=== PATIENT | male | born 1950 | race Caucasian/White ===

== ENCOUNTER → 2017-04-07 | Outpatient (CLI) | payer MEDICARE ==
[~2017-04-07] VITALS: Ht 170.2 cm; Wt 87.5 kg
[~2017-04-07] MED LIST: ASPI-482 PO; ATORVASTATIN CA80 MG PO; FLUO10TA PO; FLUT16SP NS; GABA600T2 PO; GLIP5TAB10 PO; KETO15CR2 TP; LISI-338 PO; LORA10TA3 PO; METF-620 PO; MIRT30TA3 PO
[2017-04-07] MEDS: REGADENOSON 0.4 MG/5 ML DISP.SYRIN. IV ONE (08:15)
--- NOTE | 2017-04-07 11:53 | RAD ---
APPROVED REPORT Test Type: Pharmacological Stress Nurse/Tech: Chichi Regalado R.N. Test Indications: risk factors Cardiac History: Hypertension, Diabetes, former smoker Medications: See Electronic Medical Record Medical History: See Electronic Medical Record Resting ECG: NSR Resting Heart Rate: 79 bpm Resting Blood Pressure: 143/82mmHg Pretest Chest Pain: No chest pain Nurse/Tech Notes S1S2, lungs sound clear Consent: The procedure was explained to the patient in lay terms. Informed consent was witnessed. Stephen eout was entered into [email or web address]. History and Stress Test performed by Chichi Regalado R.N. Pharm. Details Pharmacologic stress testing was performed using 0.4mg per 5ml of regadenoson given intravenously ove r 7-10 seconds. Stress Symptoms DyspneaDizziness POST EXERCISE Reason for Termination: Infusion complete Max HR: 98 bpm Max Blood Pressure: 148/80mmHg Blood Pressure response to exercise: Normal blood pressure response during stress. Chest Pain: No. Arrhythmia: No. ST Change: No. INTERPRETATION Stress EKG Conclusion: No evidence of stress induced EKG changes. Imaging Protocol IMAGE PROTOCOL: Rest Tc-99m/stress Tc-99m 1 day Rest: Stress: Viability: Radiopharm.Tc99m [id number] Sestamibi Dose12.4mCi 33mCi Img Date 04/07/2017 04/07/2017 Inj-Img [id number]. 75min. Rest Admin Site:IV - Left AntecubitalAdministrator:KRYSTYNA Penn Stress Admin Site: IV - Left AntecubitalAdministrator: Zeus Eason, (R)(N) STRESS DATA End Diast. Vol.129.0mlAv. Heart Rate83.0bpm End Syst. Vol.60.0mlCO Index BSA0.0L/min Myocardial Mtoc386.0gEject. Lmfopsgr32.0% Stress Rates Pk. Fill Rate2.75EDV/secLVtime Pk. Fill 184.18msec Pk. Empty Rate3.13ESV/secLVtime Pk. Ufptn089.30msec 10/05 Pk. Fill0.77EDV/sec Stress Scores Regional WT1.00Summed WT3.00 Regional WM0.00Summed WM7.00 The rest and stress images show normal perfusion, normal contraction and thickening. LV Perf. Quant 17 Seg. SSS0.00 17 Seg. SRS0.00 17 Seg. SDS0.00 Stress Defect Extent (% LAD)0.00Rest Defect Extent (% LAD)0.00Rev. Defect Extent (% LAD)0.00 Stress Defect Extent (% LCX) 0.00Rest Defect Extent (% LCX)0.00Rev. Defect Extent (% LCX)0.00 Stress Defect Extent (% RCA)0.00Rest Defect Extent (% RCA)0.00Rev. Defect Extent (% RCA)0.00 Stress Defect Extent (% LUIS)0.00Rest Defect Extent (% LUIS)0.00Rev. Defect Extent (% LUIS)0.00 Other Information Quality:Average Risk Assessment: Low Risk Conclusion 1. No evidence of stress induced EKG changes. 2. Normal perfusion at stress/rest. 3. Low normal EF at 55% 4. Low risk study.
== END | disposition home or self-care (01) ==
LOC: NM 07:26
PROVIDERS: ATTEND Nurse Practitioner
DX: I10 Essential (primary) hypertension (principal); E78.5 Hyperlipidemia, unspecified
CPT/HCPCS: 78452; 93017; 96374; 96375; 96376; A9500; J2785

== ENCOUNTER → 2019-05-02 | Day surgery (SDC) | payer MEDICARE, BC ==
[~2019-05-02] MED LIST changes: +BUME1TAB3 PO; +FLUO10CA7 PO; -GABA600T2 PO; +GABA600T7 PO; +HYDROmorphone 2 MG/ML VIAL IV PRN; +IV RINGERS,LACTATED 1000ML 1,000 ML IV SCH; +LIDOCAINE 2% PF 5 ML VIAL. ONE; +LOSA-73 PO; -METF-620 PO; +METF10007 PO; +MORPHINE SULFATE 2 MG/ML VIAL. IV PRN; +OMEP20CA10 PO; +ONDANSETRON PF 4 MG/2 ML VIAL. IV PRN; +PIOG30TA41 PO; +POTA10TA12 PO; +PROCHLORPERAZINE 10 MG/2 ML VIAL. IV PRN; +PROPOFOL 40 ML IV ONE; +SEMA1PEN SQ; +WARF-78 PO; +fentaNYL PF VIAL 100 MCG/2 ML VIAL IV PRN
[2019-05-02 08:27] VITALS: BP 164/79
--- NOTE | 2019-05-03 15:07 | PATHOLOGY ---
[facility] Accession Number: [id number] . 01 Material submitted: . PART A: duodenum - DUODENAL BIOPSY PART B: duodenum - DUODENAL POLYP PART C: colon - RANDOM COLON BIOPSY . 01 Clinical history: . Diarrhea . 02 Diagnosis: A. Duodenal biopsies: - No significant pathologic abnormalities. . B. Duodenal biopsy, duodenal polyp: - Lara's gland hamartoma. . C. Colonic mucosa, random colon biopsies: - No significant pathologic abnormalities. (JPM:megan; 05/03/2019) QMS/05/03/2019 . 02 Comment: Sections of the duodenal biopsy reveal multiple segments of duodenal and small intestine mucosa. Where best oriented, the mucosal villi show no sprue-like changes or significant inflammatory changes. . 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 There are no adenomatous changes or evidence of malignancy. . Sections of the random colon biopsy reveal multiple segments of colonic mucosa containing several mucosal-associated lymphoid aggregates. There is no evidence of a chronic destructive colitis, lymphocytic colitis, or collagenous colitis. (JPM:megan; 05/03/2019) . 02 Electronically signed: . Wilner Hyde MD, Pathologist NPI- [id number] . 01 Gross description: . A. Received in formalin labeled "Dennis Reynolds, duodenal BX, rule out celiac sprue," are multiple segments of arboleda soft tissue measuring 1.6 x 0.4 x 0.1 cm in aggregate dimensions. The specimen is filtered and entirely submitted in cassette A1. . B. Received in formalin labeled "Dennis Reynolds, duodenal polyp," is a 0.8 x 0.6 x 0.6 cm polypoid piece of arboleda soft tissue. The margin is inked and the tissue is sectioned perpendicular to the margin and submitted entirely in cassette B1 and B2. . C. Received in formalin labeled "Rodolfo, Dennis, random colon BX," are multiple segments of arboleda soft tissue measuring 2.0 x 0.6 x 0.1 cm in aggregate dimensions. The specimen is filtered and entirely submitted in cassette C1. (TSD; 05/02/2019) TOB/TOB . 02 Pathologist provided ICD-10: K31.7, R19.7 . 02 CPT . 915411, 660688, 215987 Specimen Comment: A courtesy copy of this report has been sent to Specimen Comment: [phone], . Specimen Comment: Report sent to / DR VARGAS Performed at: 01 [facility] [address] [facility] [address], [place] [id number] MD Douglas Muñoz MD Phone: [phone] Performed at: 02 [facility] [address] [place], [place] [id number] MD Wilner Hyde MD Phone: [phone]
== END ==
LOC: SURG 06:18
PROVIDERS: ATTEND Internal Medicine Gastroenterology
DX: K29.50 Unspecified chronic gastritis without bleeding (principal); K31.7 Polyp of stomach and duodenum; K64.0 First degree hemorrhoids; K63.89 Other specified diseases of intestine; E11.22 Type 2 diabetes mellitus with diabetic chronic kidney disease; N18.9 Chronic kidney disease, unspecified; K21.9 Gastro-esophageal reflux disease without esophagitis; E78.00 Pure hypercholesterolemia, unspecified; Z85.828 Personal history of other malignant neoplasm of skin; Z86.73 Personal history of transient ischemic attack (TIA), and cerebral infarction without residual deficits; Z72.89 Other problems related to lifestyle; Z79.84 Long term (current) use of oral hypoglycemic drugs; Z98.890 Other specified postprocedural states; Z79.899 Other long term (current) drug therapy
CPT/HCPCS: 43239; 43251; 43255; 45380; 88305; C1757; J2001; J2704; 82962

== ENCOUNTER → 2021-02-18 | Outpatient (CLI) | payer MEDICARE, BC ==
[2019-05-02 08:27] VITALS: BP 164/79
[~2021-02-18] MED LIST changes: +FLUO10CA15 PO; -FLUO10CA7 PO; +GADOTERATE 7.5 MMOL/15ML VIAL. IVP ONE; -HYDROmorphone 2 MG/ML VIAL IV PRN; -IV RINGERS,LACTATED 1000ML 1,000 ML IV SCH; -LIDOCAINE 2% PF 5 ML VIAL. ONE; -LISI-338 PO; +LISI-517 PO; -MORPHINE SULFATE 2 MG/ML VIAL. IV PRN; -OMEP20CA10 PO; +OMEP20CA16 PO; -ONDANSETRON PF 4 MG/2 ML VIAL. IV PRN; -POTA10TA12 PO; +POTASSIUM CHLO10 ME1 PO; -PROCHLORPERAZINE 10 MG/2 ML VIAL. IV PRN; -PROPOFOL 40 ML IV ONE; -WARF-78 PO; +WARF5TAB2 PO; -fentaNYL PF VIAL 100 MCG/2 ML VIAL IV PRN
--- NOTE | 2021-02-18 12:49 | KCIC ---
MR LUMBAR SPINE WO [id number] Date: 02/18/2021 9:25 AM Indication: DIARRHEA, LEG CLAUDICATION, SPINAL STENOSIS. Lower abdominal pain x 4 yrs. Neuropathy, p ain, numbness, tingling BLE. Comparison: CT abdomen pelvis 10/19/2020. Technique: Multi-planar multi-weighted magnetic resonance imaging of the lumbar spine was performed w ithout intravenous contrast using the standard lumbar spine protocol. FINDINGS: The lumbar spine is normally aligned. No acute fracture. Mild to moderate multilevel degenerative dis c desiccation and disc height loss. Scattered vertebral body hemangiomas. The conus terminates at a normal level. No abnormal signal is seen within the visualized distal spina l cord. No clumping of intrathecal nerve roots. No soft tissue abnormality in the visualized abdomen or pelvis. T12-L1: No disc bulge. No facet arthropathy. No significant spinal stenosis or neural foraminal narro wing. L1-L2: Disc bulge. Mild facet arthropathy. No significant spinal stenosis or neural foraminal narrowi ng. L2-L3: Disc bulge with annular tear. Mild facet arthropathy. Mild spinal stenosis. Mild bilateral christiano ral foraminal narrowing. L3-L4: Disc bulge. Mild facet arthropathy. No significant spinal stenosis. Mild bilateral neural fora theo narrowing. L4-L5: Disc bulge with annular tear. Mild facet arthropathy. No significant spinal stenosis. Mild to moderate neural foraminal narrowing. L5-S1: Disc bulge with annular tear and left paracentral/foraminal/far lateral protrusion. Mild facet arthropathy. No spinal stenosis. Mild right and severe left lateral recess narrowing. Mild to modera te right and severe left neural foraminal narrowing. IMPRESSION: Lumbar spondylosis, worst at L5-S1 with severe narrowing of the left lateral recess and left neural f oramen. Electronically signed by: Connor Carranza MD (02/18/2021 12:47 PM) [id number]
--- NOTE | 2021-02-18 16:37 | KCIC ---
STUDY: MRI pelvis without contrast INDICATION: Spinal stenosis. Neuropathy, pain, numbness and lower extremity tingling. COMPARISON: CT abdomen/pelvis 10/19/2020 TECHNIQUE: Multiplanar MR imaging of the pelvis performed without the use of intravenous contrast. FINDINGS: No fracture or focally aggressive marrow signal abnormality. Degenerative changes at the lower lumbar spine, particularly lateralized to the left at L5-S1, fully outlined on the dedicated same day lumba r spine MRI. Minimal sacroiliac joint arthrosis. Muscular bulk is symmetric with mild scattered fatty infiltration. No presacral mass or fluid collection. No abnormality seen along the lumbosacral plexus. The sacral n eural foramina are patent. Small amount of well-formed stool within the rectum. Prominent and nodular prostate gland. IMPRESSION: 1. No fracture or focally aggressive marrow signal abnormality involving the sacrum or partially gladys ged iliac bones. 2. No mass, fluid collection or other abnormality seen along the lumbosacral plexus to explain the p atient's symptoms. 3. Minimal sacroiliac joint arthrosis. Lumbar spine findings detailed in a separate report. 4. Nodular prostate gland which is enlarged. Electronically signed by: JHONY SHANE MD (02/18/2021 4:35 PM) [id number]
== END ==
LOC: KCIC MRI 09:10
PROVIDERS: ATTEND Internal Medicine Gastroenterology
DX: M47.817 Spondylosis without myelopathy or radiculopathy, lumbosacral region (principal); M48.07 Spinal stenosis, lumbosacral region; N40.0 Benign prostatic hyperplasia without lower urinary tract symptoms; M46.1 Sacroiliitis, not elsewhere classified
CPT/HCPCS: 72148; 72195; 82565

== ENCOUNTER 2021-08-01 15:50 | Inpatient (IN) | payer MEDICARE, BC ==
[~2021-08-01] VITALS: Ht 170.2 cm; Wt 82.2 kg
[~2021-08-01 15:50] MED LIST changes: -FLUO10CA15 PO; +FLUO10CA17 PO; -GADOTERATE 7.5 MMOL/15ML VIAL. IVP ONE; -LISI-517 PO; +LISI5TAB15 PO; +MIRT-8 PO; -MIRT30TA3 PO
[2021-08-01] MEDS ORDERED: VANCOMYCIN PER PHARMACY MC ONE (17:45)
--- NOTE | 2021-08-01 18:10 | PHYS DOC ---
Past Medical History Additional Past Medical Histor: PTSD Past Surgical History: No Surgical History Smoking Status: Never Smoker Alcohol Use: None General Adult EDM: Chief Complaint: TOE PROBLEM HPI: HPI: Patient is a 70 year old male who presents with was sent in by Dr. Cobos after being seen for a right foot diabetic wound. Patient states is been going on for the last 48 hours. Patient states he has had chills but denies any kind of fever, bodies, nausea, vomiting, diarrhea, headache or dizziness. Patient denies any pain because he has neuropathy in his feet. Patient has history of diabetes, hypertension, kidney disease II, high cholesterol, A. fib, right-sided brain hemorrhage stroke. is at bedside. Review of Systems: Review of Systems: Constitutional: Denies fever or chills. [] Eyes: Denies change in visual acuity. [] HENT: Denies nasal congestion or sore throat. [] Respiratory: Denies cough or shortness of breath. [] Cardiovascular: Denies chest pain or edema. [] GI: Denies abdominal pain, nausea, vomiting, bloody stools or diarrhea. [] : Denies dysuria. [] Musculoskeletal: Denies back pain or joint pain. [] Integument: Denies rash. [] Neurologic: Denies headache, focal weakness or sensory changes. [] Endocrine: Denies polyuria or polydipsia. [] Lymphatic: Denies swollen glands. [] Psychiatric: Denies depression or anxiety. [] Heart Score: C/O Chest Pain: No Risk Factors: Risk Factors: DM, Current or recent (<one month) smoker, HTN, HLP, family history of CAD, obesity. Risk Scores: Score 0 - 3: 2.5% MACE over next 6 weeks - Discharge Home Score 4 - 6: 20.3% MACE over next 6 weeks - Admit for Clinical Observation Score 7 - 10: 72.7% MACE over next 6 weeks - Early Invasive Strategies Current Medications: Current Medications Medications (Trade) Dose Ordered Sig/Roderick Start Time Stop Time Status Last Admin Dose Admin Vancomycin HCl (Vanco Per Pharmacy) 1 each 1X ONCE 08/01/21 17:45 08/01/21 17:51 DC Vancomycin HCl 2 gm/Sodium Chloride 500 ml @ 250 mls/hr 1X ONCE 08/01/21 18:30 08/01/21 20:29 Allergies: Allergies: Allergies Coded Allergies Type Severity Reaction Last Updated Verified No Known Drug Allergies 05/02/19 No Physical Exam: PE: Constitutional: Well developed, well nourished, no acute distress, non-toxic lorenzo earance. [] HENT: Normocephalic, atraumatic, bilateral external ears normal, oropharynx moist, no oral exudates, nose normal. [] Eyes: PERRLA, EOMI, conjunctiva normal, no discharge. [] Neck: Normal range of motion, no tenderness, supple, no stridor. [] Cardiovascular:Heart rate regular rhythm, no murmur [] Lungs & Thorax: Bilateral breath sounds clear to auscultation [] Abdomen: Bowel sounds normal, soft, no tenderness, no masses, no pulsatile masses. [] Skin: Warm, dry, no erythema, no rash. [] Back: No tenderness, no CVA tenderness. [] Extremities: No tenderness, no cyanosis, no clubbing, ROM intact, no edema. [] Neurologic: Alert and oriented X 3, normal motor function, normal sensory function, no focal deficits noted. [] Psychologic: Affect normal, judgement normal, mood normal. [] Current Patient Data: Vital Signs: Vital Signs Date Time Temp Pulse Resp B/P (MAP) Pulse Ox O2 Delivery O2 Flow Rate FiO2 08/01/21 17:48 98.0 67 18 117/62 (80) 98 Room Air 98.0 EKG: EKG: [] Radiology/Procedures: Radiology/Procedures: [] Impression: [facility] [address] [place], [place] [id number] IMAGING REPORT Signed PATIENT: CAMILLE POLLOCK ACCOUNT: [id number] : 1950 LOCATION: ER AGE: 70 SEX: M EXAM STATUS: REG ER ORD. PHYSICIAN: VARGHESE FRANCOIS [employer] REASON: BLACK TOES, DIABETIC WOUND PROCEDURE: VENOUS LOWER EXTREMITY RIGHT EXAM: 1. Right lower extremity arterial Doppler. 2. Right lower extremity venous Doppler. HISTORY: Right lower extremity pain/swelling. Necrotic toes, nonhealing diabetic ulcer. COMPARISON: None. FINDINGS: Grayscale and Doppler analysis of the right lower extremity arterial system was performed. There are triphasic waveforms from the common femoral artery through the distal superficial femoral artery. They become monophasic within the popliteal artery, posterior tibial artery and anterior tibial artery. The peroneal artery demonstrates biphasic flow. The dorsalis pedis artery is patent. Grayscale and Doppler analysis of the right lower extremity deep venous system was performed with graded compression and augmentation. The common femoral, greater saphenous, superficial femoral, popliteal and calf veins were assessed. There is no evidence of deep venous thrombosis. IMPRESSION: 1. 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 2. No evidence of deep venous thrombosis. Electronically signed by: Cheryl Lao MD (08/01/2021 6:40 PM) [facility] DICTATED and SIGNED BY: JENI LAO MD DATE: 08/01/21 [id number] [facility] [address] [place] [address] IMAGING REPORT Signed PATIENT: CAMILLE POLLOCK ACCOUNT: [id number] : 1950 LOCATION: [address] [place] [address] AGE: 70 SEX: M EXAM STATUS: ADM IN ORD. PHYSICIAN: VARGHESE FRANCOIS APRN REASON: black toes and cellulitis, STREAKING UP ANTERIOR LEG FROM TOES TO KNEE. PROCEDURE: CT LOWER EXTREMITY WO RIGHT EXAM: CT right lower extremity without contrast. HISTORY: Gangrenous toes, cellulitis, changes extending to knee. TECHNIQUE: CT of the right lower extremity from the distal thigh through the toes was performed without intravenous contrast. One or more of the following individualized dose reduction techniques were utilized for this examination: 1. Automated exposure control. 2. Adjustment of the mA and/or kV according to patient size. 3. Use of iterative reconstruction technique. COMPARISON: None. FINDINGS: No fluid collection or soft tissue gas is identified within the foot or ankle. There is no gross cortical erosion suggestive of acute osteomyelitis. There is some soft tissue swelling along the plantar aspect of the foot. There are regions of fatty atrophy within the medial head of the gastrocnemius muscle and the soleus muscle. There is also atrophy within the intrinsic musculature of the foot. There are diffuse atherosclerotic calcifications. No fractures are identified. The joint spaces and alignment of the knee and ankle are maintained. IMPRESSION: 1. No fluid collection or soft tissue gas. Electronically signed by: Cheryl Lao MD (08/01/2021 8:43 PM) [facility] DICTATED and SIGNED BY: JENI LAO MD DATE: 08/01/[id number] 0 Course & Med Decision Making: Course & Med Decision Making Pertinent Labs and Imaging studies reviewed. (See chart for details) See HPI. Pedal pulse is present. First and second toe are black and 1+ swelling. states yesterday they were bleeding. Patient does have some cellulitis starting on the dorsal foot and Dr. Cobos outlined a red streak that goes up the tomas. X-ray was taken at [facility] yesterday by Dr. Cobos. Have started vancomycin. X-ray from [facility] on July 30 showed no acute findings. [] Dragon Disclaimer: Dragon Disclaimer: This electronic medical record was generated, in whole or in part, using a voice recognition dictation system. Departure Departure Impression: Primary Impression: Cellulitis Qualified Codes: L03.119 - Cellulitis of unspecified part of limb Additional Impression: Necrotic toes Disposition: ADMITTED INPATIENT Admitting Physician: ANAHI Condition: STABLE Referrals: ROBIN VARGAS MD (PCP) VARGHESE FRANCOIS [employer] Aug 01, 2021 18:10
[2021-08-01] MEDS ORDERED: VANCOMYCIN 2 GM in IV NORMAL SALINE 500ML BAG 500 ML IV ONE (18:30)
[2021-08-01 18:36] LABS: BASO # 0.1 x10^3/uL (0.0-0.2); BASO % 1 % (0-3); EOS # 0.2 x10^3/uL (0.0-0.7); EOS % 2 % (0-3); HEMATOCRIT 28.5 % (39.0-53.0); HEMOGLOBIN 9.7 g/dL (13.0-17.5); LYMPH % 10 % (24-48); MEAN CORPUSCULAR HEMOGLOBIN 31 pg (25-35); MEAN CORPUSCULAR HGB CONC 34 g/dL (31-37); MEAN CORPUSCULAR VOLUME 90 fL (79-100); MONO % 10 % (0-9); NEUT # 7.8 x10^3/uL (1.8-7.7); NEUT % 77 % (31-73); PLATELET COUNT 203 x10^3/uL (140-400); RED BLOOD COUNT 3.17 x10^6/uL (4.30-5.70); RED CELL DISTRIBUTION WIDTH 14.7 % (11.5-14.5); WHITE BLOOD COUNT 10.2 x10^3/uL (4.0-11.0)
--- NOTE | 2021-08-01 18:42 | RAD ---
EXAM: 1. Right lower extremity arterial Doppler. 2. Right lower extremity venous Doppler. HISTORY: Right lower extremity pain/swelling. Necrotic toes, nonhealing diabetic ulcer. COMPARISON: None. FINDINGS: Grayscale and Doppler analysis of the right lower extremity arterial system was performed. There are triphasic waveforms from the common femoral artery through the distal superficial femoral a rtery. They become monophasic within the popliteal artery, posterior tibial artery and anterior tibia l artery. The peroneal artery demonstrates biphasic flow. The dorsalis pedis artery is patent. Grayscale and Doppler analysis of the right lower extremity deep venous system was performed with gra ded compression and augmentation. The common femoral, greater saphenous, superficial femoral, poplite al and calf veins were assessed. There is no evidence of deep venous thrombosis. IMPRESSION: 1. 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 2. No evidence of deep venous thrombosis. Electronically signed by: Cheryl Lao MD (08/01/2021 6:40 PM) [facility]
[2021-08-01 18:50] LABS: CALCIUM 8.4 mg/dL (8.5-10.1); POTASSIUM 4.2 mmol/L (3.5-5.1)
[2021-08-01 18:56] LABS: ALBUMIN 2.8 g/dL (3.4-5.0); ALBUMIN/GLOBULIN RATIO 0.7 (1.0-1.7); C-REACTIVE PROTEIN 68.4 mg/L (0-3.3); TOTAL BILIRUBIN 0.3 mg/dL (0.2-1.0)
[2021-08-01] MEDS ORDERED: ACETAMINOPHEN 325 MG TABLET. PO PRN ×2 (19:45→21:15)
[2021-08-01] MEDS ORDERED: cefTRIAXone IV Push 2 GM VIAL. IVP ONE (20:00)
--- NOTE | 2021-08-01 20:12 | PDOC1 ---
History and Physical Date of Admission Date of Admission DATE: 08/01/21 TIME: 20:06 Identification/Chief Complaint Chief Complaint Necrosis of right toes Source Source: Patient History of Present Illness History of Present Illness Patient is a 70-year-old male with past medical history DM2, diabetic neuropathy, hemorrhagic CVA, HTN, A. fib, who presents to the ED at the behest of his aws software development engineer, Dr. Cobos, due to concerns of necrotic right first and second toes. Patient's states that over the past 2 days his right second and first toenail falling off and there has been worsening necrosis of these toes. He was seen by Dr. Cobos today who marked the surrounding area of erythema and noted some streaking, so sent him to the emergency room for further evaluation. Labs in the ED showed WBC 10.2, hemoglobin 9.7, hematocrit 28.5, ESR 81, CRP 68.4, BUN 38, creatinine 2, albumin 2.8, AST 16, ALT 18. Due to concerns of osteomyelitis I asked the ED provider to order a CT of his right lower extre mity. Duplex of right lower extremity showed significantly flow-limiting stenosis within the popliteal artery. Ultrasound showed no evidence of DVT. Due to concerns of osteomyelitis at fast ED provider to order CT of right lower extremity. However due to extent of erythema and concern for necrotic versus anxious. Will admit patient for further medical management. Past Medical History Past Medical History DM2, diabetic neuropathy and, HTN, A. fib, skin cancer Past Surgical History Past Surgical History Skin tumor removal Family History Family History: Cancer Social History Smoke: Quit ALCOHOL: none Drugs: None Current Medications Current Medications Current Medications Vancomycin HCl (Vanco Per Pharmacy) 1 each 1X ONCE MC ; Start 08/01/21 at 17:45; Stop 08/01/21 at 17:51; Status DC Vancomycin HCl 2 gm/Sodium Chloride 500 ml @ 250 mls/hr 1X ONCE IV Last administered on 08/01/21at 18:44; Start 08/01/21 at 18:30; Stop 08/01/21 at 20:29 Acetaminophen (Tylenol) 650 mg PRN Q4HRS PRN PO FEVER > 100.3'F; Start 08/01/21 at 19:45; Stop 08/02/21 at 19:44 Ceftriaxone Sodium (Rocephin) 2 gm 1X ONCE IVP ; Start 08/01/21 at 20:00; Stop 08/01/21 at 20:01; Status DC Active Scripts Active Reported Bumetanide 1 Mg Tablet 1 Mg PO DAILY Omeprazole 20 Mg Capsule.dr 20 Mg PO DAILY Actos (Pioglitazone Hcl) 30 Mg Tablet 30 Mg PO DAILY Losartan Potassium 50 Mg Tablet 50 Mg PO DAILY Ozempic (Semaglutide) 1 Mg/0.75 Ml Pen.injctr 1 Mg SQ DAILY PRN Potassium Chloride 10 Meq Tablet.er 10 Meq PO DAILY Coumadin (Warfarin Sodium) 5 Mg Tablet 5 Mg PO DAILY Glipizide 5 Mg Tablet 1 Tab PO BID Fluoxetine Hcl 10 Mg Tablet 1 Tab PO DAILY Atorvastatin Calcium 80 Mg Tablet 1 Tab PO DAILY Allergies Allergies: Coded Allergies: No Known Drug Allergies (Unverified , 05/02/19) ROS Review of System GENERAL: No history of weight change, weakness or fevers. SKIN: No bruising, hair changes or rashes. EYES: No blurred, double or loss of vision. NOSE AND THROAT: No history of nosebleeds, hoarseness or sore throat. HEART: Denies chest pain, denies palpitations. LUNGS: Denies cough, hemoptysis, wheezing or shortness of breath. GASTROINTESTINAL: Denies nausea, vomiting, abdominal pain. GENITOURINARY: Denies dysuria, frequency, urgency, hematuria. NEUROLOGIC: Denies history of numbness, tingling, tremor or weakness. PSYCHIATRIC: Denies anxiety, denies depression. ENDOCRINE: No history of heat or cold intolerance, polyuria or polydipsia. EXTREMITIES: Necrotic right toe. Denies muscle weakness, joint pain, pain on walking or stiffness. Physical Exam Physical Exam General: Alert, Oriented X3, Cooperative, No acute distress HEENT: PERRLA, EOMI Lungs: Clear to auscultation, Normal air movement Heart: RRR, no murmurs Cardiovascular: S1, S2 Abdomen: Normal bowel sounds, Soft, No tenderness Extremities: No clubbing, No cyanosis Skin: Necrosis of first and second right toe, with >10 cm of surrounding erythema with streaking up her right leg Neuro: Normal speech, Normal tone, Sensation intact Psych/Mental Status: Mental status NL, Mood NL Vitals Vitals Vital Signs Date Time Temp Pulse Resp B/P (MAP) Pulse Ox O2 Delivery O2 Flow Rate FiO2 08/01/21 17:48 98.0 67 18 117/62 (80) 98 Room Air 98.0 Labs Labs Laboratory Tests Test 08/01/21 18:30 White Blood Count 10.2 x10^3/uL (4.0-11.0) Red Blood Count 3.17 x10^6/uL (4.30-5.70) Hemoglobin 9.7 g/dL (13.0-17.5) Hematocrit 28.5 % (39.0-53.0) Mean Corpuscular Volume 90 fL (79-100) Mean Corpuscular Hemoglobin 31 pg (25-35) Mean Corpuscular Hemoglobin Concent 34 g/dL (31-37) Red Cell Distribution Width 14.7 % (11.5-14.5) Platelet Count 203 x10^3/uL (140-400) Neutrophils (%) (Auto) 77 % (31-73) Lymphocytes (%) (Auto) 10 % (24-48) Monocytes (%) (Auto) 10 % (0-9) Eosinophils (%) (Auto) 2 % (0-3) Basophils (%) (Auto) 1 % (0-3) Neutrophils # (Auto) 7.8 x10^3/uL (1.8-7.7) Lymphocytes # (Auto) 1.0 x10^3/uL (1.0-4.8) Monocytes # (Auto) 1.0 x10^3/uL (0.0-1.1) Eosinophils # (Auto) 0.2 x10^3/uL (0.0-0.7) Basophils # (Auto) 0.1 x10^3/uL (0.0-0.2) Erythrocyte Sedimentation Rate 81 (0-15) Sodium Level 140 mmol/L (136-145) Potassium Level 4.2 mmol/L (3.5-5.1) Chloride Level 105 mmol/L (98-107) Carbon Dioxide Level 25 mmol/L (21-32) Anion Gap 10 (6-14) Blood Urea Nitrogen 38 mg/dL (8-26) Creatinine 2.0 mg/dL (0.7-1.3) Estimated GFR (Cockcroft-Gault) 33.0 BUN/Creatinine Ratio 19 (6-20) Glucose Level 94 mg/dL (70-99) Lactic Acid Level 0.9 mmol/L (0.4-2.0) Calcium Level 8.4 mg/dL (8.5-10.1) Total Bilirubin 0.3 mg/dL (0.2-1.0) Aspartate Amino Transf (AST/SGOT) 12 U/L (15-37) Alanine Aminotransferase (ALT/SGPT) 18 U/L (16-63) Alkaline Phosphatase 75 U/L (46-116) C-Reactive Protein, Quantitative 68.4 mg/L (0-3.3) Total Protein 7.0 g/dL (6.4-8.2) Albumin 2.8 g/dL (3.4-5.0) Albumin/Globulin Ratio 0.7 (1.0-1.7) Laboratory Tests Test 08/01/21 18:30 White Blood Count 10.2 x10^3/uL (4.0-11.0) Red Blood Count 3.17 x10^6/uL (4.30-5.70) Hemoglobin 9.7 g/dL (13.0-17.5) Hematocrit 28.5 % (39.0-53.0) Mean Corpuscular Volume 90 fL (79-100) Mean Corpuscular Hemoglobin 31 pg (25-35) Mean Corpuscular Hemoglobin Concent 34 g/dL (31-37) Red Cell Distribution Width 14.7 % (11.5-14.5) Platelet Count 203 x10^3/uL (140-400) Neutrophils (%) (Auto) 77 % (31-73) Lymphocytes (%) (Auto) 10 % (24-48) Monocytes (%) (Auto) 10 % (0-9) Eosinophils (%) (Auto) 2 % (0-3) Basophils (%) (Auto) 1 % (0-3) Neutrophils # (Auto) 7.8 x10^3/uL (1.8-7.7) Lymphocytes # (Auto) 1.0 x10^3/uL (1.0-4.8) Monocytes # (Auto) 1.0 x10^3/uL (0.0-1.1) Eosinophils # (Auto) 0.2 x10^3/uL (0.0-0.7) Basophils # (Auto) 0.1 x10^3/uL (0.0-0.2) Erythrocyte Sedimentation Rate 81 (0-15) Sodium Level 140 mmol/L (136-145) Potassium Level 4.2 mmol/L (3.5-5.1) Chloride Level 105 mmol/L (98-107) Carbon Dioxide Level 25 mmol/L (21-32) Anion Gap 10 (6-14) Blood Urea Nitrogen 38 mg/dL (8-26) Creatinine 2.0 mg/dL (0.7-1.3) Estimated GFR (Cockcroft-Gault) 33.0 BUN/Creatinine Ratio 19 (6-20) Glucose Level 94 mg/dL (70-99) Lactic Acid Level 0.9 mmol/L (0.4-2.0) Calcium Level 8.4 mg/dL (8.5-10.1) Total Bilirubin 0.3 mg/dL (0.2-1.0) Aspartate Amino Transf (AST/SGOT) 12 U/L (15-37) Alanine Aminotransferase (ALT/SGPT) 18 U/L (16-63) Alkaline Phosphatase 75 U/L (46-116) C-Reactive Protein, Quantitative 68.4 mg/L (0-3.3) Total Protein 7.0 g/dL (6.4-8.2) Albumin 2.8 g/dL (3.4-5.0) Albumin/Globulin Ratio 0.7 (1.0-1.7) Images Images [facility] [address] [place] [address] IMAGING REPORT Signed PATIENT: CAMILLE REYNOLDS ACCOUNT: [id number] : 1950 LOCATION: ER AGE: 70 SEX: M EXAM STATUS: REG ER ORD. PHYSICIAN: VARGHESE FRANCOIS APRN REASON: BLACK TOES, DIABETIC WOUND PROCEDURE: VENOUS LOWER EXTREMITY RIGHT EXAM: 1. Right lower extremity arterial Doppler. 2. Right lower extremity venous Doppler. HISTORY: Right lower extremity pain/swelling. Necrotic toes, nonhealing diabetic ulcer. COMPARISON: None. FINDINGS: Grayscale and Doppler analysis of the right lower extremity arterial system was performed. There are triphasic waveforms from the common femoral artery through the distal superficial femoral artery. They become monophasic within the popliteal artery, posterior tibial artery and anterior tibial artery. The peroneal artery demon strates biphasic flow. The dorsalis pedis artery is patent. Grayscale and Doppler analysis of the right lower extremity deep venous system was performed with graded compression and augmentation. The common femoral, greater saphenous, superficial femoral, popliteal and calf veins were assessed. There is no evidence of deep venous thrombosis. IMPRESSION: 1. 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 2. No evidence of deep venous thrombosis. [facility] [address] [place] [address] IMAGING REPORT Signed PATIENT: CAMILLE REYNOLDS ACCOUNT: [id number] : 1950 LOCATION: ER AGE: 70 SEX: M EXAM STATUS: REG ER ORD. PHYSICIAN: VARGHESE FRANCOIS APRN REASON: BLACK TOES, DIABETIC WOUND PROCEDURE: DUPLEX LOWER EX ARTERIAL RIGHT EXAM: 1. Right lower extremity arterial Doppler. 2. Right lower extremity venous Doppler. HISTORY: Right lower extremity pain/swelling. Necrotic toes, nonhealing diabetic ulcer. COMPARISON: None. FINDINGS: Grayscale and Doppler analysis of the right lower extremity arterial system was performed. There are triphasic waveforms from the common femoral artery through the distal superficial femoral artery. They become monophasic within the popliteal artery, posterior tibial artery and anterior tibial artery. The peroneal artery demonstrates biphasic flow. The dorsalis pedis artery is patent. Grayscale and Doppler analysis of the right lower extremity deep venous system was performed with graded compression and augmentation. The common femoral, greater saphenous, superficial femoral, popliteal and calf veins were assessed. There is no evidence of deep venous thrombosis. IMPRESSION: 1. 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 2. No evidence of deep venous thrombosis. VTE Prophylaxis Ordered VTE Prophylaxis Devices: Yes VTE Pharmacological Prophylaxi: No Assessment/Plan Assessment/Plan Suspected osteomyelitis of right first and second toe Cellulitis right foot ESTELLA due to vasomotor nephropathy DM2 Diabetic neuropathy A. fib HTN Normocytic anemia History hemorrhagic CVA Moderate malnutrition Plan: We will admit patient in coverage for suspected osteomyelitis with Rocephin and vancomycin CT right foot pending We will place consult to Dr. Cobos Will consult ID IV fluids. Unknown baseline renal status. Blood cultures Hemoglobin A1c pending Resume home medications FEN - Cardiac diet PPX - SCDs FULL CODE Dispo - inpatient for above Surrogate decision-maker is his (Marianna Reynolds) Justifications for Admission Other Justification MIKHAIL LYONS MD Aug 01, 2021 20:12
--- NOTE | 2021-08-01 20:45 | RAD ---
EXAM: CT right lower extremity without contrast. HISTORY: Gangrenous toes, cellulitis, changes extending to knee. TECHNIQUE: CT of the right lower extremity from the distal thigh through the toes was performed witho ut intravenous contrast. One or more of the following individualized dose reduction techniques were u tilized for this examination: 1. Automated exposure control. 2. Adjustment of the mA and/or kV according to patient size. 3. Use of iterative reconstruction technique. COMPARISON: None. FINDINGS: No fluid collection or soft tissue gas is identified within the foot or ankle. There is no gross cortical erosion suggestive of acute osteomyelitis. There is some soft tissue swelling along th e plantar aspect of the foot. There are regions of fatty atrophy within the medial head of the gastrocnemius muscle and the soleus muscle. There is also atrophy within the intrinsic musculature of the foot. There are diffuse atheros clerotic calcifications. No fractures are identified. The joint spaces and alignment of the knee and ankle are maintained. IMPRESSION: 1. No fluid collection or soft tissue gas. Electronically signed by: Cheryl Lao MD (08/01/2021 8:43 PM) [facility]
[2021-08-01] MEDS ORDERED: VANCOMYCIN PER PHARMACY MC PRN (21:00)
[2021-08-01] MEDS ORDERED: MAG HYDROX/ALUMINUM HYD/SIMETH 30 ML ORAL.SUSP PO PRN (21:15)
[2021-08-01] MEDS ORDERED: IV NORMAL SALINE 1000ML BAG 1,000 ML IV ONE (21:15)
[2021-08-01] MEDS ORDERED: DEXTROSE 50% 25 GM / 50ML DISP.SYRIN. IV PRN (21:15)
[2021-08-01] MEDS ORDERED: MAGNESIUM HYDROXIDE 2,400 MG/30 ML ORAL.SUSP. PO PRN (21:15)
[2021-08-01] MEDS ORDERED: ZOLPIDEM 5 MG TABLET. PO PRN (21:15)
[2021-08-01] MEDS ORDERED: HYDROcodone/APAP 5/325MG 1 TAB TABLET PO PRN (21:15)
--- NOTE | 2021-08-01 22:13 | NUR ---
Pt arrived to unit at approximately 2150 from ER. Pt tranferred self to bed. Given snack and ice water. Call light within reach and bed lowered.
[2021-08-01 23:00] VITALS: BP 114/66
[2021-08-02] MEDS ORDERED: CALC0.25 PO (01:53)
[2021-08-02] MEDS ORDERED: GABA-585 PO (01:59)
[2021-08-02] MEDS ORDERED: FAMO20TA5 PO (01:59)
[2021-08-02] MEDS ORDERED: HYDR-2868 PO (01:59)
[2021-08-02] MEDS ORDERED: DULO60CA7 PO (01:59)
[2021-08-02] MEDS ORDERED: CARV25TA2 PO (01:59)
[2021-08-02] MEDS ORDERED: SEMA1PEN3 SQ (02:05)
[2021-08-02] MEDS ORDERED: LOSA-73 PO (02:05)
[2021-08-02 03:00] VITALS: BP 117/63
[2021-08-02 07:00] VITALS: BP 114/75
--- NOTE | 2021-08-02 07:17 | NUR ---
Pharmacy Vancomycin Dosing Note S:Consulted to monitor and dose vancomycin started . O:CAMILLE POLLOCK is a 70 year old M with Abscess Cellulitis . Height: 5 feet, 7 inches Weight: 82.2 kg [place] Body Weight: 66.10 Adjusted Body Weight: 72.54 Dosing Weight: Actual Other Antibiotics: LABS: Last BUN: Last Creatinine: Creatinine Clearance: 37 mL/min Last WBC: Last Procalcitonin: Tmax (past 24 hours): Microbiology: I/O: Drug Levels: Last level: on at Last dose given 08/01/21 at 1830 Vancomycin Dosing: Loading Dose: 2000 mg x1 Dosing Weight: Actual Target Trough: 10-20 A: Based on: WEIGHT, CRCL, P: 1. INITIATE Vancomycin 1250 mg IV q24h AFTER 2000 MG LOADING DOSE 2. Follow up Trough level on 08/03/21 at 1800 3. Pharmacy will continue to monitor, follow and adjust therapy as needed. FITO EUGENE RPH, 08/02/21 0717
[2021-08-02 07:56] LABS: BASO # 0.1 x10^3/uL (0.0-0.2); BASO % 1 % (0-3); EOS # 0.3 x10^3/uL (0.0-0.7); EOS % 5 % (0-3); HEMOGLOBIN 8.9 g/dL (13.0-17.5); LYMPH # 1.1 x10^3/uL (1.0-4.8); LYMPH % 15 % (24-48); MEAN CORPUSCULAR HEMOGLOBIN 30 pg (25-35); MEAN CORPUSCULAR HGB CONC 33 g/dL (31-37); MEAN CORPUSCULAR VOLUME 91 fL (79-100); MONO # 0.8 x10^3/uL (0.0-1.1); MONO % 11 % (0-9); NEUT # 4.8 x10^3/uL (1.8-7.7); NEUT % 68 % (31-73); PLATELET COUNT 188 x10^3/uL (140-400); RED BLOOD COUNT 2.95 x10^6/uL (4.30-5.70); RED CELL DISTRIBUTION WIDTH 14.6 % (11.5-14.5)
[2021-08-02] MEDS: INSULIN LISPRO 300 UNITS/3 ML VIAL. SQ SCH ×3 (08:00→17:00)
[2021-08-02 08:31] LABS: CALCIUM 8.2 mg/dL (8.5-10.1); CREATININE 1.8 mg/dL (0.7-1.3); GFR 37.3
--- NOTE | 2021-08-02 09:11 | PDOC ---
[employer] PROGRESS NOTE Date of Service DOS: DATE: 08/02/21 TIME: 09:01 Chief Complaint Chief Complaint Suspected osteomyelitis of right first and second toe Cellulitis right foot ESTELLA due to vasomotor nephropathy DM2 Diabetic neuropathy A. fib HTN Normocytic anemia History hemorrhagic CVA Moderate malnutrition Plan: We will admit patient in coverage for suspected osteomyelitis with Rocephin and vancomycin CT right foot pending We will place consult to Dr. Cobos Will consult ID IV fluids. Unknown baseline renal status. Blood cultures Hemoglobin A1c pending Resume home medications FEN - Cardiac diet PPX - SCDs FULL CODE Dispo - inpatient for above Surrogate decision-maker is his (Marianna Reynolds) History of Present Illness History of Present Illness Patient is a 70-year-old male with past medical history DM2, diabetic neuropathy, hemorrhagic CVA, HTN, A. fib, who presents to the ED at the behest of his life educator, Dr. Cobos, due to concerns of necrotic right first and second toes. Patient's states that over the past 2 days his right second and first toenail falling off and there has been worsening necrosis of these toes. He was seen by Dr. Cobos today who marked the surrounding area of erythema and noted some streaking, so sent him to the emergency room for further evaluation. Labs in the ED showed WBC 10.2, hemoglobin 9.7, hematocrit 28.5, ESR 81, CRP 68.4, BUN 38, creatinine 2, albumin 2.8, AST 16, ALT 18. Due to concerns of osteomyelitis I asked the ED provider to order a CT of his right lower extremity. Duplex of right lower extremity showed significantly flow-limiting stenosis within the popliteal artery. Ultrasound showed no evidence of DVT. Due to concerns of osteomyelitis at fast ED provider to order CT of right lower extremity. However due to extent of erythema and concern for necrotic versus anxious. Will admit patient for further medical management. 08/02: Afebrile. CT showed no gross cortical erosion suggestive of acute osteomyelitis. Discussed with ID and, clinically looks like dry gangrene. Will likely require amputation; discussed with and patient. Will consult cardiology for possible CTA with runoff to look at what level amputation would be appropriate. Kidney function slightly improved with hydration. Unknown baseline; will provide judicious IV fluids and resume losartan when kidney function stabilizes. Continue vancomycin and Rocephin for now; further antibiotic recommendations per ID. Vitals/I&O Vitals/I&O: Vital Signs Date Time Temp Pulse Resp B/P (MAP) Pulse Ox O2 Delivery O2 Flow Rate FiO2 08/02/21 07:00 97.7 61 18 114/75 (88) 96 Room Air 97.7 I & O 08/01/21 08/01/21 08/02/21 15:00 23:00 07:00 Intake Total 740 ml 0 ml Balance 740 ml 0 ml Physical Exam General: Alert, Oriented X3, Cooperative, No acute distress Heart: Regular rate Lungs: Clear Abdomen: No tenderness Extremities: No clubbing Skin: Other (Necrosis of first and second right toe with surrounding erythema) Labs Labs: Laboratory Tests Test 08/01/21 18:30 08/02/21 06:50 08/02/21 07:26 White Blood Count 10.2 x10^3/uL (4.0-11.0) 7.0 x10^3/uL (4.0-11.0) Red Blood Count 3.17 x10^6/uL (4.30-5.70) 2.95 x10^6/uL (4.30-5.70) Hemoglobin 9.7 g/dL (13.0-17.5) 8.9 g/dL (13.0-17.5) Hematocrit 28.5 % (39.0-53.0) 27.0 % (39.0-53.0) Mean Corpuscular Volume 90 fL (79-100) 91 fL (79-100) Mean Corpuscular Hemoglobin 31 pg (25-35) 30 pg (25-35) Mean Corpuscular Hemoglobin Concent 34 g/dL (31-37) 33 g/dL (31-37) Red Cell Distribution Width 14.7 % (11.5-14.5) 14.6 % (11.5-14.5) Platelet Count 203 x10^3/uL (140-400) 188 x10^3/uL (140-400) Neutrophils (%) (Auto) 77 % (31-73) 68 % (31-73) Lymphocytes (%) (Auto) 10 % (24-48) 15 % (24-48) Monocytes (%) (Auto) 10 % (0-9) 11 % (0-9) Eosinophils (%) (Auto) 2 % (0-3) 5 % (0-3) Basophils (%) (Auto) 1 % (0-3) 1 % (0-3) Neutrophils # (Auto) 7.8 x10^3/uL (1.8-7.7) 4.8 x10^3/uL (1.8-7.7) Lymphocytes # (Auto) 1.0 x10^3/uL (1.0-4.8) 1.1 x10^3/uL (1.0-4.8) Monocytes # (Auto) 1.0 x10^3/uL (0.0-1.1) 0.8 x10^3/uL (0.0-1.1) Eosinophils # (Auto) 0.2 x10^3/uL (0.0-0.7) 0.3 x10^3/uL (0.0-0.7) Basophils # (Auto) 0.1 x10^3/uL (0.0-0.2) 0.1 x10^3/uL (0.0-0.2) Erythrocyte Sedimentation Rate 81 (0-15) Sodium Level 140 mmol/L (136-145) 143 mmol/L (136-145) Potassium Level 4.2 mmol/L (3.5-5.1) 4.0 mmol/L (3.5-5.1) Chloride Level 105 mmol/L (98-107) 109 mmol/L (98-107) Carbon Dioxide Level 25 mmol/L (21-32) 24 mmol/L (21-32) Anion Gap 10 (6-14) 10 (6-14) Blood Urea Nitrogen 38 mg/dL (8-26) 35 mg/dL (8-26) Creatinine 2.0 mg/dL (0.7-1.3) 1.8 mg/dL (0.7-1.3) Estimated GFR (Cockcroft-Gault) 33.0 37.3 BUN/Creatinine Ratio 19 (6-20) Glucose Level 94 mg/dL (70-99) 79 mg/dL (70-99) Lactic Acid Level 0.9 mmol/L (0.4-2.0) Calcium Level 8.4 mg/dL (8.5-10.1) 8.2 mg/dL (8.5-10.1) Total Bilirubin 0.3 mg/dL (0.2-1.0) Aspartate Amino Transf (AST/SGOT) 12 U/L (15-37) Alanine Aminotransferase (ALT/SGPT) 18 U/L (16-63) Alkaline Phosphatase 75 U/L (46-116) C-Reactive Protein, Quantitative 68.4 mg/L (0-3.3) Total Protein 7.0 g/dL (6.4-8.2) Albumin 2.8 g/dL (3.4-5.0) Albumin/Globulin Ratio 0.7 (1.0-1.7) Glucose (Fingerstick) 96 mg/dL (70-99) Comment Review of Relevant I have reviewed the following items beverly (where applicable) has been applied. Medications: Current Medications Medications (Trade) Dose Ordered Sig/Roderick Route PRN Reason Start Time Stop Time Status Last Admin Dose Admin Vancomycin HCl 2 gm/Sodium Chloride 500 ml @ 250 mls/hr 1X ONCE IV 08/01/21 18:30 08/01/21 20:29 DC 08/01/21 18:44 Ceftriaxone Sodium (Rocephin) 2 gm 1X ONCE IVP 08/01/21 20:00 08/01/21 20:01 DC 08/01/21 20:25 Vancomycin HCl (Vanco Per Pharmacy) 1 each PRN DAILY PRN MC SEE COMMENTS 08/01/21 21:00 08/02/21 07:14 Sodium Chloride 1,000 ml @ 100 mls/hr 1X ONCE IV 08/01/21 21:15 08/02/21 07:14 DC 08/01/21 23:59 Justifications for Admission General Conditions Other justification for admit: Necrotic right first and second toe, suspected osteomyelitis Other Justification MIKHAIL LYONS MD Aug 02, 2021 09:11
[2021-08-02] MEDS: ATORVASTATIN CALCIUM 40 MG TABLET. PO SCH (09:32)
[2021-08-02] MEDS: FLUoxetine HCL 10 MG CAPSULE PO SCH (09:32)
[2021-08-02] MEDS: PANTOPRAZOLE 40 MG TABLET.DR. PO SCH (09:33)
[2021-08-02] MEDS: GABAPENTIN 100 MG CAPSULE. PO SCH ×3 (09:36→21:48)
[2021-08-02] MEDS: DULoxetine HCL 30 MG CAPSULE.DR PO SCH (09:36)
[2021-08-02] MEDS: CARVEDILOL 12.5 MG TABLET. PO SCH ×2 (09:37→18:13)
[2021-08-02] MEDS: hydrALAZINE 25 MG TABLET PO SCH ×3 (09:37→21:48)
--- NOTE | 2021-08-02 10:45 | PDOC2 ---
CONSULT Date of Consult Date of Consult DATE: 08/02/21 TIME: :27 Reason for Consult Reason for Consult: Right foot dry gangrene Referring Physician Referring Physician: Dr. Chappell Source Source: Patient History of Present Illness Reason for Visit: Per chart review, patient has type 2 diabetes, A1c 6.5%, CKD, peripheral neuropathy, A. fib, history of stroke and hypertension who was initially seen at ED on 07/30 for weakness. Work-up consisted of right foot x-ray negative for osteomyelitis or soft tissue emphysema. Patient was found hemodynamically stable without leukocytosis. He was then treated with oral Keflex. On 07/31, patient presented to my clinic and endorsed traumatic first and second nail avulsion injury on 07/28. Due to underlying peripheral neuropathy, patient did not recall any inciting events. Progressively, the digits were bleeding and turned purple/dark. And then a red streak developed extending from the foot to the leg. Per family, patient was also complaining about chills, loss of appetite. He was also diagnosed with UTI about a week ago and had IM ceftriaxone. Other than that, they deny any dressing change, active drainage from the foot, swelling or pain due to neuropathy. At the clinic, I recommended hospitalization for IV antibiotics given the constitutional symptoms, lymphangitis in the setting of dry gangrene. However patient was adamant about returning home for a family event on Tuesday. Therefore I prescribed oral Augmentin to replace Keflex and the recommended Betadine wet-to-dry dressing change to the right lower extremity. Patient agreed to return to the ED/hospital admission on Tuesday evening. Upon ED admission on 08/01, patient was found with WBC 10.2, CT was negative for soft tissue emphysema, cortical interruption concerning for osteomyelitis. Arterial Doppler ultrasound however remarked a popliteal arterial occlusion. Patient received a dose of ceftriaxone IM and then IV vancomycin. Blood cultures were taken. At bedside today, patient denies any constitutional symptoms. He denies pain to the foot. Patient relates that the first and second digits turned darker and flake drier which concerned them for worsening infection or condition. Also the third digit nail was traumatically avulsed as well without any inciting events that he recalls. But after the overnight IV antibiotics, today, he is feeling a lot better. Family History Family History: Cancer Social History Quit ALCOHOL: none Drugs: None Current Medications Current Medications Current Medications Vancomycin HCl (Vanco Per Pharmacy) 1 each 1X ONCE MC ; Start 08/01/21 at 17:45; Stop 08/01/21 at 17:51; Status DC Vancomycin HCl 2 gm/Sodium Chloride 500 ml @ 250 mls/hr 1X ONCE IV Last administered on 08/01/21at 18:44; Start 08/01/21 at 18:30; Stop 08/01/21 at 20:29; Status DC Acetaminophen (Tylenol) 650 mg PRN Q4HRS PRN PO FEVER > 100.3'F; Start 08/01/21 at 19:45; Stop 08/02/21 at 19:44 Ceftriaxone Sodium (Rocephin) 2 gm 1X ONCE IVP Last administered on 08/01/21at 20:25; Start 08/01/21 at 20:00; Stop 08/01/21 at 20:01; Status DC Ceftriaxone Sodium (Rocephin) 2 gm Q24H IVP ; Start 08/02/21 at 21:00 Vancomycin HCl (Vanco Per Pharmacy) 1 each PRN DAILY PRN MC SEE COMMENTS Last administered on 08/02/21at 07:14; Start 08/01/21 at 21:00 Hydralazine HCl (Apresoline Inj) 10 mg PRN Q4HRS PRN IVP ELEVATED BP, SEE COMMENTS; Start 08/01/21 at 21:00 Sodium Chloride 1,000 ml @ 100 mls/hr 1X ONCE IV Last administered on 08/01/21at 23:59; Start 08/01/21 at 21:15; Stop 08/02/21 at 07:14; Status DC Ondansetron HCl (Zofran) 4 mg PRN Q6HRS PRN IVP NAUSEA/VOMITING; Start 08/01/21 at 21:15 Al Hydroxide/Mg Hydroxide (Mylanta Plus Xs) 30 ml PRN Q3HRS PRN PO HEARTBURN / GAS; Start 08/01/21 at 21:15 Zolpidem Tartrate (Ambien) 5 mg PRN QHS PRN PO INSOMNIA, MAY REPEAT IN 1HR; Start 08/01/21 at 21:15 Acetaminophen/ Hydrocodone Bitart (Lortab 5/325) 1 tab PRN Q4HRS PRN PO MILD PAIN 1-3; Start 08/01/21 at 21:15 Acetaminophen (Tylenol) 650 mg PRN Q6HRS PRN PO Headaches, Temp > 101.5F; Start 08/01/21 at 21:15 Magnesium Hydroxide (Milk Of Magnesia) 2,400 mg PRN Q12HR PRN PO CONSTIPATION; Start 08/01/21 at 21:15 Insulin Human Lispro (HumaLOG) 0-9 UNITS TIDWMEALS SQ ; Start 08/02/21 at 08:00 Dextrose (Dextrose 50%-Water Syringe) 12.5 gm PRN Q15MIN PRN IV SEE COMMENTS; Start 08/01/21 at 21:15 Atorvastatin Calcium (Lipitor) 80 mg DAILY PO Last administered on 08/02/21at 09:32; Start 08/02/21 at 09:00 Fluoxetine HCl (PROzac) 10 mg DAILY PO Last administered on 08/02/21at 09:32; Start 08/02/21 at 09:00 Pantoprazole Sodium (Protonix) 40 mg DAILYAC PO Last administered on 08/02/21at 09:33; Start 08/02/21 at 07:30 Vancomycin HCl 1.25 gm/Sodium Chloride 250 ml @ 167 mls/hr Q24H IV ; Start 08/02/21 at 18:30 Vancomycin HCl (Vancomycin Trough Level) 1 each 1X ONCE MC ; Start 08/03/21 at 18:00; Stop 08/03/21 at 18:01 Gabapentin (Neurontin) 200 mg TID PO Last administered on 08/02/21at 09:36; Start 08/02/21 at 09:30 Hydralazine HCl (Apresoline) 25 mg TID PO Last administered on 08/02/21at 09:37; Start 08/02/21 at 09:30 Carvedilol (Coreg) 12.5 mg BIDWMEALS PO Last administered on 08/02/21at 09:37; Start 08/02/21 at 09:30 Duloxetine HCl (Cymbalta) 60 mg DAILY PO Last administered on 08/02/21at 09:36; Start 08/02/21 at 09:30 Active Scripts Active Reported Ozempic (Semaglutide) 1 Mg/0.75 Ml Pen.injctr 0.25 Mg SQ WEEKLY Losartan Potassium 50 Mg Tablet 25 Mg PO DAILY Hydralazine Hcl 25 Mg Tablet 1 Tab PO TID Gabapentin (Gabapentin) 100 Mg Capsule 200 Mg PO TID Famotidine 20 Mg Tablet 20 Mg PO DAILY Cymbalta (Duloxetine Hcl) 60 Mg Capsule. 1 Cap PO DAILY Carvedilol 25 Mg Tablet 12.5 Mg PO BIDWMEALS Calcitriol 0.25 Mcg Capsule 1 Cap PO DAILY Omeprazole 20 Mg Capsule. 20 Mg PO DAILY Fluoxetine Hcl 10 Mg Tablet 1 Tab PO DAILY Atorvastatin Calcium 80 Mg Tablet 1 Tab PO DAILY Allergies Allergies: Coded Allergies: No Known Drug Allergies (Unverified , 05/02/19) ROS Review of System CONSTITUTIONAL: No fever. No chills. No dizziness. No weakness. CARDIOVASCULAR: No chest pain. No palpitations. No lower extremity edema. RESPIRATORY: No shortness of breath, cough, pain with respiration. No hemoptysis. No dyspnea. GASTROINTESTINAL: Normal appetite. No nausea, vomiting, diarrhea. GENITOURINARY: No frequency, urgency, nocturia. No hematuria or dysuria. MUSCULOSKELETAL: No arthralgias or myalgias. INTEGUMENTARY: Refer to HPI NEUROLOGIC: Refer to HPI PSYCHIATRIC: No confusion. ENDOCRINE: No fatigue. No weakness. HEMATOLOGICAL: No bleeding. No petechiae. No bruising. ALLERGIES: No asthma. No urticaria Physical Exam Physical Exam General: AOx3, pleasant without distress Dermatology: Right lower extremity focused -Dry necrotic changes circumferentially to the level of the distal MTPJ first and second. Mild anterior digital maceration without purulence, discharge, fluctuance -Traumatically avulsed right third digit nail with exposed nail bed. There is no active bleeding however there is mild serous blister to the third and fourth digits. -The periwound erythema and edema have significantly receded based on the outlined marking -Mild stable eschar with necrotic changes without fluctuance, open lesion or discharge erythema or edema to the left fifth PIPJ Vascular: -DP is thready PT is not palpable -Foot is slightly cold to touch -Skin atrophy with diminished pedal hair Neurology: -Light touch sensation diminished above the knee Musculoskeletal: -No TTP to digits 1 through 5 -Calf is soft and nontender -No TTP to popliteal or inguinal lymph nodes -Able to move digits and ankle actively Vitals VITALS Vital Signs Date Time Temp Pulse Resp B/P (MAP) Pulse Ox O2 Delivery O2 Flow Rate FiO2 08/02/21 09:37 61 114/75 08/02/21 07:00 97.7 18 96 Room Air 97.7 Labs Labs Laboratory Tests Test 08/01/21 18:30 08/02/21 06:50 08/02/21 07:26 White Blood Count 10.2 x10^3/uL (4.0-11.0) 7.0 x10^3/uL (4.0-11.0) Red Blood Count 3.17 x10^6/uL (4.30-5.70) 2.95 x10^6/uL (4.30-5.70) Hemoglobin 9.7 g/dL (13.0-17.5) 8.9 g/dL (13.0-17.5) Hematocrit 28.5 % (39.0-53.0) 27.0 % (39.0-53.0) Mean Corpuscular Volume 90 fL (79-100) 91 fL (79-100) Mean Corpuscular Hemoglobin 31 pg (25-35) 30 pg (25-35) Mean Corpuscular Hemoglobin Concent 34 g/dL (31-37) 33 g/dL (31-37) Red Cell Distribution Width 14.7 % (11.5-14.5) 14.6 % (11.5-14.5) Platelet Count 203 x10^3/uL (140-400) 188 x10^3/uL (140-400) Neutrophils (%) (Auto) 77 % (31-73) 68 % (31-73) Lymphocytes (%) (Auto) 10 % (24-48) 15 % (24-48) Monocytes (%) (Auto) 10 % (0-9) 11 % (0-9) Eosinophils (%) (Auto) 2 % (0-3) 5 % (0-3) Basophils (%) (Auto) 1 % (0-3) 1 % (0-3) Neutrophils # (Auto) 7.8 x10^3/uL (1.8-7.7) 4.8 x10^3/uL (1.8-7.7) Lymphocytes # (Auto) 1.0 x10^3/uL (1.0-4.8) 1.1 x10^3/uL (1.0-4.8) Monocytes # (Auto) 1.0 x10^3/uL (0.0-1.1) 0.8 x10^3/uL (0.0-1.1) Eosinophils # (Auto) 0.2 x10^3/uL (0.0-0.7) 0.3 x10^3/uL (0.0-0.7) Basophils # (Auto) 0.1 x10^3/uL (0.0-0.2) 0.1 x10^3/uL (0.0-0.2) Erythrocyte Sedimentation Rate 81 (0-15) Sodium Level 140 mmol/L (136-145) 143 mmol/L (136-145) Potassium Level 4.2 mmol/L (3.5-5.1) 4.0 mmol/L (3.5-5.1) Chloride Level 105 mmol/L (98-107) 109 mmol/L (98-107) Carbon Dioxide Level 25 mmol/L (21-32) 24 mmol/L (21-32) Anion Gap 10 (6-14) 10 (6-14) Blood Urea Nitrogen 38 mg/dL (8-26) 35 mg/dL (8-26) Creatinine 2.0 mg/dL (0.7-1.3) 1.8 mg/dL (0.7-1.3) Estimated GFR (Cockcroft-Gault) 33.0 37.3 BUN/Creatinine Ratio 19 (6-20) Glucose Level 94 mg/dL (70-99) 79 mg/dL (70-99) Lactic Acid Level 0.9 mmol/L (0.4-2.0) Calcium Level 8.4 mg/dL (8.5-10.1) 8.2 mg/dL (8.5-10.1) Total Bilirubin 0.3 mg/dL (0.2-1.0) Aspartate Amino Transf (AST/SGOT) 12 U/L (15-37) Alanine Aminotransferase (ALT/SGPT) 18 U/L (16-63) Alkaline Phosphatase 75 U/L (46-116) C-Reactive Protein, Quantitative 68.4 mg/L (0-3.3) Total Protein 7.0 g/dL (6.4-8.2) Albumin 2.8 g/dL (3.4-5.0) Albumin/Globulin Ratio 0.7 (1.0-1.7) Glucose (Fingerstick) 96 mg/dL (70-99) Laboratory Tests Test 08/01/21 18:30 08/02/21 06:50 08/02/21 07:26 White Blood Count 10.2 x10^3/uL (4.0-11.0) 7.0 x10^3/uL (4.0-11.0) Red Blood Count 3.17 x10^6/uL (4.30-5.70) 2.95 x10^6/uL (4.30-5.70) Hemoglobin 9.7 g/dL (13.0-17.5) 8.9 g/dL (13.0-17.5) Hematocrit 28.5 % (39.0-53.0) 27.0 % (39.0-53.0) Mean Corpuscular Volume 90 fL (79-100) 91 fL (79-100) Mean Corpuscular Hemoglobin 31 pg (25-35) 30 pg (25-35) Mean Corpuscular Hemoglobin Concent 34 g/dL (31-37) 33 g/dL (31-37) Red Cell Distribution Width 14.7 % (11.5-14.5) 14.6 % (11.5-14.5) Platelet Count 203 x10^3/uL (140-400) 188 x10^3/uL (140-400) Neutrophils (%) (Auto) 77 % (31-73) 68 % (31-73) Lymphocytes (%) (Auto) 10 % (24-48) 15 % (24-48) Monocytes (%) (Auto) 10 % (0-9) 11 % (0-9) Eosinophils (%) (Auto) 2 % (0-3) 5 % (0-3) Basophils (%) (Auto) 1 % (0-3) 1 % (0-3) Neutrophils # (Auto) 7.8 x10^3/uL (1.8-7.7) 4.8 x10^3/uL (1.8-7.7) Lymphocytes # (Auto) 1.0 x10^3/uL (1.0-4.8) 1.1 x10^3/uL (1.0-4.8) Monocytes # (Auto) 1.0 x10^3/uL (0.0-1.1) 0.8 x10^3/uL (0.0-1.1) Eosinophils # (Auto) 0.2 x10^3/uL (0.0-0.7) 0.3 x10^3/uL (0.0-0.7) Basophils # (Auto) 0.1 x10^3/uL (0.0-0.2) 0.1 x10^3/uL (0.0-0.2) Erythrocyte Sedimentation Rate 81 (0-15) Sodium Level 140 mmol/L (136-145) 143 mmol/L (136-145) Potassium Level 4.2 mmol/L (3.5-5.1) 4.0 mmol/L (3.5-5.1) Chloride Level 105 mmol/L (98-107) 109 mmol/L (98-107) Carbon Dioxide Level 25 mmol/L (21-32) 24 mmol/L (21-32) Anion Gap 10 (6-14) 10 (6-14) Blood Urea Nitrogen 38 mg/dL (8-26) 35 mg/dL (8-26) Creatinine 2.0 mg/dL (0.7-1.3) 1.8 mg/dL (0.7-1.3) Estimated GFR (Cockcroft-Gault) 33.0 37.3 BUN/Creatinine Ratio 19 (6-20) Glucose Level 94 mg/dL (70-99) 79 mg/dL (70-99) Lactic Acid Level 0.9 mmol/L (0.4-2.0) Calcium Level 8.4 mg/dL (8.5-10.1) 8.2 mg/dL (8.5-10.1) Total Bilirubin 0.3 mg/dL (0.2-1.0) Aspartate Amino Transf (AST/SGOT) 12 U/L (15-37) Alanine Aminotransferase (ALT/SGPT) 18 U/L (16-63) Alkaline Phosphatase 75 U/L (46-116) C-Reactive Protein, Quantitative 68.4 mg/L (0-3.3) Total Protein 7.0 g/dL (6.4-8.2) Albumin 2.8 g/dL (3.4-5.0) Albumin/Globulin Ratio 0.7 (1.0-1.7) Glucose (Fingerstick) 96 mg/dL (70-99) Assessment/Plan Assessment/Plan Dry gangrene, cellulitis, lymphangitis in the setting of type 2 diabetes, PAD, peripheral neuropathy without sepsis -Explained clinical findings to patient. There is no emergent surgical indication for source control. CT is negative for soft tissue emphysema, osteolytic changes. The cellulitis/lymphangitis is improving since Tuesday with IV antibiotics. The management plan is to wait for the soft tissue to demarcate to determine the level of amputation. In the meantime, suppress infection with either IV or oral antibiotics. May consider consult from vascular or cardiology to establish the level of inflow to help with surgical amputation planning. -The right foot was dressed with Betadine wet-to-dry gauze, secured with Kerlex without tension. Betadine paint to the left fifth digit. -Dressing change as above twice daily. Keep the dressing clean dry and intact -Minimal touchdown weightbearing in the surgical shoe to avoid mechanical irritation to the right to digits -PT eval and treat -ID is following: Patient is currently on IV vancomycin -Pending blood culture -Pending bedside wound culture on the right foot -Trend WBC:10.2-- 7.7 Dispo: Medical optimization, antibiotic management for cellulitis/lymphangitis and continue as an outpatient while waiting for the soft tissue to demarcate and likely in weeks. Then the surgical amputation/source control can be achieved as an outpatient. GOLDIE SILVA DPM Aug 02, 2021 10:45
--- NOTE | 2021-08-02 10:52 | CONS ---
DATE OF CONSULTATION: 08/02/2021 REFERRING PHYSICIAN: Americo Chappell MD REASON FOR CONSULTATION: Necrotic right first and second toe, right lower extremity cellulitis, antibiotic management. HISTORY OF PRESENT ILLNESS: A 70-year-old male with history of diabetes, neuropathy, hemorrhagic CVA, hypertension, AFib, history of skin cancer, who was brought into the ER after being seen by Dr. Cobos for a right diabetic foot wound. The patient was on Augmentin, which he was tolerating well. He started having chills, no fevers. Wound continued to get worse with dark changes, first and second toe. His right third toe nail fell off. He also had worsening erythema and streaking, so Dr. Cobos referred him to the ER yesterday for further evaluation and treatment. WBC was 7.2. ESR 81. CRP of 68.4. BUN 38, creatinine 2.0. CT of the left lower extremity was done, which was negative for any abscess. Duplex right lower extremity was negative for DVT. Arterial Doppler showed significantly flow limiting stenosis within the popliteal artery. The patient was started on IV vancomycin and ceftriaxone. ID consultation has been requested for antibiotic management. The patient denies any fevers, chills, nausea, vomiting, diarrhea, abdominal pain, shortness of breath, cough, chest pain, symptoms. PAST MEDICAL HISTORY: History of hemorrhagic CVA, diabetes with neuropathy, hypertension, AFib, skin cancer, peripheral arterial disease. PAST SURGICAL HISTORY: Skin tumor removal. FAMILY HISTORY: As per HPI. SOCIAL HISTORY: Quit smoking. No alcohol, no drugs. Lives with at home. Has dogs. CURRENT MEDICATIONS: The patient is on IV vancomycin and ceftriaxone, Was on Augmentin prior to admission fluoxetine, gabapentin, atorvastatin, insulin. ALLERGIES: No known drug allergies. REVIEW OF SYSTEMS: Negative except for above in HPI. PHYSICAL EXAMINATION: VITAL SIGNS: Noted, afebrile. GENERAL: Alert, oriented x 3, pleasant male, cooperative, in no acute distress. HEENT: Normocephalic, atraumatic. Anicteric. No thrush. NECK: Supple. LUNGS: Clear. HEART: S1, S2 irregular. No murmurs. ABDOMEN: Soft, nontender, nondistended. No rebound or guarding. EXTREMITIES: Necrotic right first and second toe with surrounding erythema and streaking which has receded from the previous markings. Right third toe nail has fallen off. Wet gangrenous changes of the right second and first toe. NEUROLOGIC: Alert and oriented x 3, grossly nonfocal. PSYCHIATRIC: Calm and cooperative. LABORATORY DATA: WBC 7.0, hemoglobin 8.9, hematocrit 27, platelets 188. Sodium 143; potassium 4.0; chloride 109; bicarb 24; BUN 35; creatinine 1.8, was 2.0; lactate 0.9; albumin 2.8. C-reactive protein 68.4. ESR 81. IMAGING: Right lower extremity CT without contrast shows no fluid collection or soft tissue gas, no cortical visualization suggestive of acute osteomyelitis, soft tissue swelling on the plantar aspect of the foot, atrophy of the musculature, no fractures or other joint changes seen except for DJD, significantly flow limiting stenosis within the popliteal artery, no DVT. IMPRESSION: 1. Gangrenous right first and second toe , ischemic, superficial wound over the right third toe and left lateral fifth toe. C-reactive protein is 68.4 and ESR is 81. 2. Right lower extremity cellulitis, improving, was on Augmentin prior to admission. 3. Peripheral arterial disease. 4. Diabetes with neuropathy. 5. Atrial fibrillation. 6. History of hemorrhagic cerebrovascular accident. 7. History of skin cancer. 8. Anemia. 9. Chronic kidney disease. 10, depression and anxiety on fluoxetine RECOMMENDATIONS: 1. Discontinue vancomycin due to ESTELLA. 2. Start daptomycin, continue ceftriaxone. 3. Blood cultures have been ordered this morning. Follow up on cultures have been ordered. 4. Local right lower extremity care and left fifth toe care. 5. We will consult Vascular Surgery. 6. Dr. Cobos at bedside is planning for further followup as outpatient once patient is stable and discharged on p.o. antibiotics. 7. Continue local wound care as directed. Thank you, Dr. Chappell for consulting Infectious Disease to participate in this patient's care. If you have any questions, do not hesitate to contact me. We will follow along with you. Discussed with Dr. Cobos at bedside. ABBEY MARIEE: Tony TID: [id number] [facility]
[2021-08-02 11:00] VITALS: BP 94/55
[2021-08-02] MEDS ORDERED: IV 1/2 NORMAL SALINE 1,000 ML IV ONE (11:30)
[2021-08-02] MEDS: DAPTOmycin (GENERIC) IVPB 430 MG in IV NORMAL SALINE 50ML 50 ML IV SCH (12:19)
[2021-08-02] MEDS: ONDANSETRON PF 4 MG/2 ML VIAL. IVP PRN (14:27)
[2021-08-02 15:00] VITALS: BP 133/79
--- NOTE | 2021-08-02 16:43 | PDOC2 ---
CONSULT Date of Consult Date of Consult DATE: 08/02/21 TIME: 16:35 Reason for Consult Reason for Consult: Atrial fibrillation, peripheral arterial disease. Referring Physician Referring Physician: Dr. Chappell Identification/Chief Complaint Chief Complaint Right toe pain Source Source: Chart review, Patient History of Present Illness Reason for Visit: The patient is a 70-year-old male with a history of diabetes, hypertension, chronic kidney disease and atrial fibrillation who was admitted secondary to deterioration in the status of those right first and second toe. Patient has had lower extremity cellulitis treated with antibiotics and on evaluation of his toe he has been diagnosed as having gangrene. Vascular imaging has shown peripheral arterial disease with a flow-limiting lesion in the right popliteal artery. He has been seen by the ID services and his antibiotics have been adjusted. Vascular surgery has also been consulted. The patient overall is feeling relatively well despite this. He has rate controlled atrial fibrillation for which she is on Coumadin. He denies shortness of breath, chest pain, dizziness or lightheadedness. Past Medical History Cardiovascular: AFIB, HTN, Hyperlipidemia CENTRAL NERVOUS SYSTEM: CVA Renal/: Chronic renal insuff Endocrine: Diabetes Family History Family History: Cancer, Hypertension Social History Quit ALCOHOL: none Drugs: None Current Medications Current Medications Current Medications Vancomycin HCl (Vanco Per Pharmacy) 1 each 1X ONCE MC ; Start 08/01/21 at 17:45; Stop 08/01/21 at 17:51; Status DC Vancomycin HCl 2 gm/Sodium Chloride 500 ml @ 250 mls/hr 1X ONCE IV Last administered on 08/01/21at 18:44; Start 08/01/21 at 18:30; Stop 08/01/21 at 20:29; Status DC Acetaminophen (Tylenol) 650 mg PRN Q4HRS PRN PO FEVER > 100.3'F; Start 08/01/21 at 19:45; Stop 08/02/21 at 13:13; Status DC Ceftriaxone Sodium (Rocephin) 2 gm 1X ONCE IVP Last administered on 08/01/21at 20:25; Start 08/01/21 at 20:00; Stop 08/01/21 at 20:01; Status DC Ceftriaxone Sodium (Rocephin) 2 gm Q24H IVP ; Start 08/02/21 at 21:00 Vancomycin HCl (Vanco Per Pharmacy) 1 each PRN DAILY PRN MC SEE COMMENTS Last administered on 08/02/21at 07:14; Start 08/01/21 at 21:00; Stop 08/02/21 at 10:31; Status DC Hydralazine HCl (Apresoline Inj) 10 mg PRN Q4HRS PRN IVP ELEVATED BP, SEE C OMMENTS; Start 08/01/21 at 21:00 Sodium Chloride 1,000 ml @ 100 mls/hr 1X ONCE IV Last administered on 08/01/21at 23:59; Start 08/01/21 at 21:15; Stop 08/02/21 at 07:14; Status DC Ondansetron HCl (Zofran) 4 mg PRN Q6HRS PRN IVP NAUSEA/VOMITING Last administered on 08/02/21at 14:27; Start 08/01/21 at 21:15 Al Hydroxide/Mg Hydroxide (Mylanta Plus Xs) 30 ml PRN Q3HRS PRN PO HEARTBURN / GAS; Start 08/01/21 at 21:15 Zolpidem Tartrate (Ambien) 5 mg PRN QHS PRN PO INSOMNIA, MAY REPEAT IN 1HR; Start 08/01/21 at 21:15 Acetaminophen/ Hydrocodone Bitart (Lortab 5/325) 1 tab PRN Q4HRS PRN PO MILD PAIN 1-3; Start 08/01/21 at 21:15 Acetaminophen (Tylenol) 650 mg PRN Q6HRS PRN PO Headaches, Temp > 101.5F; Start 08/01/21 at 21:15 Magnesium Hydroxide (Milk Of Magnesia) 2,400 mg PRN Q12HR PRN PO CONSTIPATION; Start 08/01/21 at 21:15 Insulin Human Lispro (HumaLOG) 0-9 UNITS TIDWMEALS SQ ; Start 08/02/21 at 08:00 Dextrose (Dextrose 50%-Water Syringe) 12.5 gm PRN Q15MIN PRN IV SEE COMMENTS; Start 08/01/21 at 21:15 Atorvastatin Calcium (Lipitor) 80 mg DAILY PO Last administered on 08/02/21at 09:32; Start 08/02/21 at 09:00 Fluoxetine HCl (PROzac) 10 mg DAILY PO Last administered on 08/02/21at 09:32; Start 08/02/21 at 09:00 Pantoprazole Sodium (Protonix) 40 mg DAILYAC PO Last administered on 08/02/21at 09:33; Start 08/02/21 at 07:30 Vancomycin HCl 1.25 gm/Sodium Chloride 250 ml @ 167 mls/hr Q24H IV ; Start 08/02/21 at 18:30; Stop 08/02/21 at 10:28; Status DC Vancomycin HCl (Vancomycin Trough Level) 1 each 1X ONCE MC ; Start 08/03/21 at 18:00; Stop 08/03/21 at 18:01; Status Cancel Gabapentin (Neurontin) 200 mg TID PO Last administered on 08/02/21at 14:25; Start 08/02/21 at 09:30 Hydralazine HCl (Apresoline) 25 mg TID PO Last administered on 08/02/21at 09:37; Start 08/02/21 at 09:30 Carvedilol (Coreg) 12.5 mg BIDWMEALS PO Last administered on 08/02/21at 09:37; Start 08/02/21 at 09:30 Duloxetine HCl (Cymbalta) 60 mg DAILY PO Last administered on 08/02/21at 09:36; Start 08/02/21 at 09:30 Daptomycin 430 mg/ Sodium Chloride 50 ml @ 100 mls/hr Q24H IV Last administered on 08/02/21at 12:19; Start 08/02/21 at 12:00 Sodium Chloride 1,000 ml @ 100 mls/hr 1X ONCE IV Last administered on 08/02/21at 11:32; Start 08/02/21 at 11:30; Stop 08/02/21 at 21:29 Lactobacillus Rhamnosus (Culturelle) 1 cap BID PO ; Start 08/02/21 at 21:00 Active Scripts Active Reported Ozempic (Semaglutide) 1 Mg/0.75 Ml Pen.injctr 0.25 Mg SQ WEEKLY Losartan Potassium 50 Mg Tablet 25 Mg PO DAILY Hydralazine Hcl 25 Mg Tablet 1 Tab PO TID Gabapentin (Gabapentin) 100 Mg Capsule 200 Mg PO TID Famotidine 20 Mg Tablet 20 Mg PO DAILY Cymbalta (Duloxetine Hcl) 60 Mg Capsule.dr 1 Cap PO DAILY Carvedilol 25 Mg Tablet 12.5 Mg PO BIDWMEALS Calcitriol 0.25 Mcg Capsule 1 Cap PO DAILY Omeprazole 20 Mg Capsule.dr 20 Mg PO DAILY Fluoxetine Hcl 10 Mg Tablet 1 Tab PO DAILY Atorvastatin Calcium 80 Mg Tablet 1 Tab PO DAILY Allergies Allergies: Coded Allergies: No Known Drug Allergies (Unverified , 05/02/19) ROS General: YES: Fatigue Musculoskeletal: Yes Other (Pain of the right toes and foot) Physical Exam General: No acute distress HEENT: Atraumatic Lungs: Clear to auscultation Heart: Other (Irregularly irregular) Abdomen: Normal bowel sounds Extremities: Other (Bandaged right foot.) Vitals VITALS Vital Signs Date Time Temp Pulse Resp B/P (MAP) Pulse Ox O2 Delivery O2 Flow Rate FiO2 08/02/21 11:00 97.5 67 18 94/55 (68) 96 Room Air 97.5 Labs Labs Laboratory Tests Test 08/01/21 18:30 08/02/21 06:50 08/02/21 07:26 08/02/21 11:48 White Blood Count 10.2 x10^3/uL (4.0-11.0) 7.0 x10^3/uL (4.0-11.0) Red Blood Count 3.17 x10^6/uL (4.30-5.70) 2.95 x10^6/uL (4.30-5.70) Hemoglobin 9.7 g/dL (13.0-17.5) 8.9 g/dL (13.0-17.5) Hematocrit 28.5 % (39.0-53.0) 27.0 % (39.0-53.0) Mean Corpuscular Volume 90 fL (79-100) 91 fL (79-100) Mean Corpuscular Hemoglobin 31 pg (25-35) 30 pg (25-35) Mean Corpuscular Hemoglobin Concent 34 g/dL (31-37) 33 g/dL (31-37) Red Cell Distribution Width 14.7 % (11.5-14.5) 14.6 % (11.5-14.5) Platelet Count 203 x10^3/uL (140-400) 188 x10^3/uL (140-400) Neutrophils (%) (Auto) 77 % (31-73) 68 % (31-73) Lymphocytes (%) (Auto) 10 % (24-48) 15 % (24-48) Monocytes (%) (Auto) 10 % (0-9) 11 % (0-9) Eosinophils (%) (Auto) 2 % (0-3) 5 % (0-3) Basophils (%) (Auto) 1 % (0-3) 1 % (0-3) Neutrophils # (Auto) 7.8 x10^3/uL (1.8-7.7) 4.8 x10^3/uL (1.8-7.7) Lymphocytes # (Auto) 1.0 x10^3/uL (1.0-4.8) 1.1 x10^3/uL (1.0-4.8) Monocytes # (Auto) 1.0 x10^3/uL (0.0-1.1) 0.8 x10^3/uL (0.0-1.1) Eosinophils # (Auto) 0.2 x10^3/uL (0.0-0.7) 0.3 x10^3/uL (0.0-0.7) Basophils # (Auto) 0.1 x10^3/uL (0.0-0.2) 0.1 x10^3/uL (0.0-0.2) Erythrocyte Sedimentation Rate 81 (0-15) Sodium Level 140 mmol/L (136-145) 143 mmol/L (136-145) Potassium Level 4.2 mmol/L (3.5-5.1) 4.0 mmol/L (3.5-5.1) Chloride Level 105 mmol/L (98-107) 109 mmol/L (98-107) Carbon Dioxide Level 25 mmol/L (21-32) 24 mmol/L (21-32) Anion Gap 10 (6-14) 10 (6-14) Blood Urea Nitrogen 38 mg/dL (8-26) 35 mg/dL (8-26) Creatinine 2.0 mg/dL (0.7-1.3) 1.8 mg/dL (0.7-1.3) Estimated GFR (Cockcroft-Gault) 33.0 37.3 BUN/Creatinine Ratio 19 (6-20) Glucose Level 94 mg/dL (70-99) 79 mg/dL (70-99) Lactic Acid Level 0.9 mmol/L (0.4-2.0) Calcium Level 8.4 mg/dL (8.5-10.1) 8.2 mg/dL (8.5-10.1) Total Bilirubin 0.3 mg/dL (0.2-1.0) Aspartate Amino Transf (AST/SGOT) 12 U/L (15-37) Alanine Aminotransferase (ALT/SGPT) 18 U/L (16-63) Alkaline Phosphatase 75 U/L (46-116) C-Reactive Protein, Quantitative 68.4 mg/L (0-3.3) Total Protein 7.0 g/dL (6.4-8.2) Albumin 2.8 g/dL (3.4-5.0) Albumin/Globulin Ratio 0.7 (1.0-1.7) Glucose (Fingerstick) 96 mg/dL (70-99) 149 mg/dL (70-99) Laboratory Tests Test 08/01/21 18:30 08/02/21 06:50 08/02/21 07:26 08/02/21 11:48 White Blood Count 10.2 x10^3/uL (4.0-11.0) 7.0 x10^3/uL (4.0-11.0) Red Blood Count 3.17 x10^6/uL (4.30-5.70) 2.95 x10^6/uL (4.30-5.70) Hemoglobin 9.7 g/dL (13.0-17.5) 8.9 g/dL (13.0-17.5) Hematocrit 28.5 % (39.0-53.0) 27.0 % (39.0-53.0) Mean Corpuscular Volume 90 fL (79-100) 91 fL (79-100) Mean Corpuscular Hemoglobin 31 pg (25-35) 30 pg (25-35) Mean Corpuscular Hemoglobin Concent 34 g/dL (31-37) 33 g/dL (31-37) Red Cell Distribution Width 14.7 % (11.5-14.5) 14.6 % (11.5-14.5) Platelet Count 203 x10^3/uL (140-400) 188 x10^3/uL (140-400) Neutrophils (%) (Auto) 77 % (31-73) 68 % (31-73) Lymphocytes (%) (Auto) 10 % (24-48) 15 % (24-48) Monocytes (%) (Auto) 10 % (0-9) 11 % (0-9) Eosinophils (%) (Auto) 2 % (0-3) 5 % (0-3) Basophils (%) (Auto) 1 % (0-3) 1 % (0-3) Neutrophils # (Auto) 7.8 x10^3/uL (1.8-7.7) 4.8 x10^3/uL (1.8-7.7) Lymphocytes # (Auto) 1.0 x10^3/uL (1.0-4.8) 1.1 x10^3/uL (1.0-4.8) Monocytes # (Auto) 1.0 x10^3/uL (0.0-1.1) 0.8 x10^3/uL (0.0-1.1) Eosinophils # (Auto) 0.2 x10^3/uL (0.0-0.7) 0.3 x10^3/uL (0.0-0.7) Basophils # (Auto) 0.1 x10^3/uL (0.0-0.2) 0.1 x10^3/uL (0.0-0.2) Erythrocyte Sedimentation Rate 81 (0-15) Sodium Level 140 mmol/L (136-145) 143 mmol/L (136-145) Potassium Level 4.2 mmol/L (3.5-5.1) 4.0 mmol/L (3.5-5.1) Chloride Level 105 mmol/L (98-107) 109 mmol/L (98-107) Carbon Dioxide Level 25 mmol/L (21-32) 24 mmol/L (21-32) Anion Gap 10 (6-14) 10 (6-14) Blood Urea Nitrogen 38 mg/dL (8-26) 35 mg/dL (8-26) Creatinine 2.0 mg/dL (0.7-1.3) 1.8 mg/dL (0.7-1.3) Estimated GFR (Cockcroft-Gault) 33.0 37.3 BUN/Creatinine Ratio 19 (6-20) Glucose Level 94 mg/dL (70-99) 79 mg/dL (70-99) Lactic Acid Level 0.9 mmol/L (0.4-2.0) Calcium Level 8.4 mg/dL (8.5-10.1) 8.2 mg/dL (8.5-10.1) Total Bilirubin 0.3 mg/dL (0.2-1.0) Aspartate Amino Transf (AST/SGOT) 12 U/L (15-37) Alanine Aminotransferase (ALT/SGPT) 18 U/L (16-63) Alkaline Phosphatase 75 U/L (46-116) C-Reactive Protein, Quantitative 68.4 mg/L (0-3.3) Total Protein 7.0 g/dL (6.4-8.2) Albumin 2.8 g/dL (3.4-5.0) Albumin/Globulin Ratio 0.7 (1.0-1.7) Glucose (Fingerstick) 96 mg/dL (70-99) 149 mg/dL (70-99) Images Images Arterial ultrasound shows a flow-limiting lesion in the right popliteal artery. Assessment/Plan Assessment/Plan 1. 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 Has been followed by Dr. Cobos and the ID service. Antibiotics as per ID. Significant flow-limiting lesion in the right popliteal artery on ultrasound. Vascular surgery has been consulted. 2. Diabetes mellitus. Continue present medications as per the primary service. 3. Atrial fibrillation. Rate controlled. On Coumadin at this time. Based on future clinical procedures this may need to be adjusted. 4. Chronic kidney disease. Adjustment of antibiotics as above. Monitoring lab. 5. Hyperlipidemia. Statin treatment. 6. Hypertension. Controlled at this time. Continue present medications and monitor. JON MORENO MD Aug 02, 2021 16:43
[2021-08-02] MEDS ORDERED: VANCOMYCIN 1.25 GM in IV NORMAL SALINE 250ML 250 ML IV SCH (18:30)
[2021-08-02 19:00] VITALS: BP 137/70
[2021-08-02] MEDS ORDERED: cefTRIAXone IV Push 2 GM VIAL. IVP SCH (21:00)
[2021-08-02] MEDS: LACTOBACILLUS RHAMNOSUS GG 1 CAPSULE. PO SCH (21:47)
[2021-08-02 23:00] VITALS: BP 98/56
[2021-08-03 03:00] VITALS: BP 145/72
[2021-08-03] MEDS: PANTOPRAZOLE 40 MG TABLET.DR. PO SCH (06:24)
[2021-08-03 07:00] VITALS: BP 133/68
--- NOTE | 2021-08-03 07:50 | PDOC2 ---
CONSULT Date of Service Date of Service DATE: 08/03/21 TIME: 07:40 Reason for Consult Reason for Consult: Right lower extremity dry gangrene of first second and third toes Diabetes mellitus with peripheral vascular disease Chronic limb threatening ischemia Referring Physician Referring Physician: Dr. Odonnell Identification/Chief Complaint Chief Complaint "It just came up" -- " my toes just turned black" Source Source: Chart review, Patient History of Present Illness Reason for Visit: Patient is a very pleasant 70-year-old male with a multiyear history of diabetes mellitus also with atrial fibrillation off anticoagulation due to intracranial hemorrhage in the past. He is not sure how long in duration but presented to the hospital with dry gangrene of the right great toe and second toe and some early ulceration of the right third toe with some erythema of the foot. He denies any fever, chills, rigors etc. He used to smoke many years ago but has not in quite some time He has a history of atrial fibrillation but denies any history of coronary artery disease/coronary intervention He has had no previous history of lower extremity arterial intervention according to him. We have been consulted to evaluate his peripheral vascular disease and gangrene of the right foot with a goal towards revascularization and limb salvage to prevent major amputation Past Medical History Cardiovascular: AFIB, HTN, Hyperlipidemia CENTRAL NERVOUS SYSTEM: CVA Renal/: Chronic renal insuff Endocrine: Diabetes Family History Family History: Cancer, Hypertension Social History Quit ALCOHOL: none Drugs: None Current Medications Current Medications Current Medications Vancomycin HCl (Vanco Per Pharmacy) 1 each 1X ONCE MC ; Start 08/01/21 at 17:45; Stop 08/01/21 at 17:51; Status DC Vancomycin HCl 2 gm/Sodium Chloride 500 ml @ 250 mls/hr 1X ONCE IV Last administered on 08/01/21at 18:44; Start 08/01/21 at 18:30; Stop 08/01/21 at 20:29; Status DC Acetaminophen (Tylenol) 650 mg PRN Q4HRS PRN PO FEVER > 100.3'F; Start 08/01/21 at 19:45; Stop 08/02/21 at 13:13; Status DC Ceftriaxone Sodium (Rocephin) 2 gm 1X ONCE IVP Last administered on 08/01/21at 20:25; Start 08/01/21 at 20:00; Stop 08/01/21 at 20:01; Status DC Ceftriaxone Sodium (Rocephin) 2 gm Q24H IVP Last administered on 08/02/21at 21:49; Start 08/02/21 at 21:00 Vancomycin HCl (Vanco Per Pharmacy) 1 each PRN DAILY PRN MC SEE COMMENTS Last administered on 08/02/21at 07:14; Start 08/01/21 at 21:00; Stop 08/02/21 at 10:31; Status DC Hydralazine HCl (Apresoline Inj) 10 mg PRN Q4HRS PRN IVP ELEVATED BP, SEE COMMENTS; Start 08/01/21 at 21:00 Sodium Chloride 1,000 ml @ 100 mls/hr 1X ONCE IV Last administered on 08/01/21at 23:59; Start 08/01/21 at 21:15; Stop 08/02/21 at 07:14; Status DC Ondansetron HCl (Zofran) 4 mg PRN Q6HRS PRN IVP NAUSEA/VOMITING Last administered on 08/02/21at 14:27; Start 08/01/21 at 21:15 Al Hydroxide/Mg Hydroxide (Mylanta Plus Xs) 30 ml PRN Q3HRS PRN PO HEARTBURN / GAS; Start 08/01/21 at 21:15 Zolpidem Tartrate (Ambien) 5 mg PRN QHS PRN PO INSOMNIA, MAY REPEAT IN 1HR; Start 08/01/21 at 21:15 Acetaminophen/ Hydrocodone Bitart (Lortab 5/325) 1 tab PRN Q4HRS PRN PO MILD PAIN 1-3; Start 08/01/21 at 21:15 Acetaminophen (Tylenol) 650 mg PRN Q6HRS PRN PO Headaches, Temp > 101.5F; Start 08/01/21 at 21:15 Magnesium Hydroxide (Milk Of Magnesia) 2,400 mg PRN Q12HR PRN PO CONSTIPATION; Start 08/01/21 at 21:15 Insulin Human Lispro (HumaLOG) 0-9 UNITS TIDWMEALS SQ ; Start 08/02/21 at 08:00 Dextrose (Dextrose 50%-Water Syringe) 12.5 gm PRN Q15MIN PRN IV SEE COMMENTS; Start 08/01/21 at 21:15 Atorvastatin Calcium (Lipitor) 80 mg DAILY PO Last administered on 08/02/21at 09:32; Start 08/02/21 at 09:00 Fluoxetine HCl (PROzac) 10 mg DAILY PO Last administered on 08/02/21at 09:32; Start 08/02/21 at 09:00 Pantoprazole Sodium (Protonix) 40 mg DAILYAC PO Last administered on 08/03/21at 06:24; Start 08/02/21 at 07:30 Vancomycin HCl 1.25 gm/Sodium Chloride 250 ml @ 167 mls/hr Q24H IV ; Start 08/02/21 at 18:30; Stop 08/02/21 at 10:28; Status DC Vancomycin HCl (Vancomycin Trough Level) 1 each 1X ONCE MC ; Start 08/03/21 at 18:00; Stop 08/03/21 at 18:01; Status Cancel Gabapentin (Neurontin) 200 mg TID PO Last administered on 08/02/21at 21:48; Start 08/02/21 at 09:30 Hydralazine HCl (Apresoline) 25 mg TID PO Last administered on 08/02/21at 21:48; Start 08/02/21 at 09:30 Carvedilol (Coreg) 12.5 mg BIDWMEALS PO Last administered on 08/02/21at 18:13; Start 08/02/21 at 09:30 Duloxetine HCl (Cymbalta) 60 mg DAILY PO Last administered on 08/02/21at 09:36; Start 08/02/21 at 09:30 Daptomycin 430 mg/ Sodium Chloride 50 ml @ 100 mls/hr Q24H IV Last administered on 08/02/21at 12:19; Start 08/02/21 at 12:00 Sodium Chloride 1,000 ml @ 100 mls/hr 1X ONCE IV Last administered on 08/02/21at 11:32; Start 08/02/21 at 11:30; Stop 08/02/21 at 21:29; Status DC Lactobacillus Rhamnosus (Culturelle) 1 cap BID PO Last administered on 08/02/21at 21:47; Start 08/02/21 at 21:00 Active Scripts Active Reported Ozempic (Semaglutide) 1 Mg/0.75 Ml Pen.injctr 0.25 Mg SQ WEEKLY Losartan Potassium 50 Mg Tablet 25 Mg PO DAILY Hydralazine Hcl 25 Mg Tablet 1 Tab PO TID Gabapentin (Gabapentin) 100 Mg Capsule 200 Mg PO TID Famotidine 20 Mg Tablet 20 Mg PO DAILY Cymbalta (Duloxetine Hcl) 60 Mg Capsule. 1 Cap PO DAILY Carvedilol 25 Mg Tablet 12.5 Mg PO BIDWMEALS Calcitriol 0.25 Mcg Capsule 1 Cap PO DAILY Omeprazole 20 Mg Capsule. 20 Mg PO DAILY Fluoxetine Hcl 10 Mg Tablet 1 Tab PO DAILY Atorvastatin Calcium 80 Mg Tablet 1 Tab PO DAILY Allergies Allergies: Coded Allergies: No Known Drug Allergies (Unverified , 05/02/19) Physical Exam General: Alert, Oriented X3 HEENT: Atraumatic, EOMI Lungs: Clear to auscultation, Normal air movement Heart: Regular rate, Other (Rhythm irregular) Abdomen: Normal bowel sounds, No tenderness, No masses Extremities: No clubbing, No cyanosis, Other (First and second toes of the right foot show dry gangrene, small ulceration which is shallow on the left fifth toe the left foot) Skin: Other (Wounds on the feet as above, loss of all hair from the mid calf down consistent with a PAD, he has palpable femoral pulses and palpable popliteal pulses bilaterally but absent pulses at the ankle with signals present consistent with popliteal tibial occlusive disease consistent with his history of diabetes and his arterial duplex) Neuro: Normal speech, Strength at 5/5 X4 ext, Normal tone, Cranial nerves 3-12 NL Psych/Mental Status: Mental status NL, Mood NL MUSCULOSKELETAL: No joint tenderness, No deformity, Other (Foot changes as above) Vitals VITALS Vital Signs Date Time Temp Pulse Resp B/P (MAP) Pulse Ox O2 Delivery O2 Flow Rate FiO2 08/03/21 03:00 98.5 72 18 145/72 (96) 96 Room Air 98.5 Labs Labs Laboratory Tests Test 08/01/21 18:30 08/02/21 06:50 08/02/21 07:26 08/02/21 11:48 White Blood Count 10.2 x10^3/uL (4.0-11.0) 7.0 x10^3/uL (4.0-11.0) Red Blood Count 3.17 x10^6/uL (4.30-5.70) 2.95 x10^6/uL (4.30-5.70) Hemoglobin 9.7 g/dL (13.0-17.5) 8.9 g/dL (13.0-17.5) Hematocrit 28.5 % (39.0-53.0) 27.0 % (39.0-53.0) Mean Corpuscular Volume 90 fL (79-100) 91 fL (79-100) Mean Corpuscular Hemoglobin 31 pg (25-35) 30 pg (25-35) Mean Corpuscular Hemoglobin Concent 34 g/dL (31-37) 33 g/dL (31-37) Red Cell Distribution Width 14.7 % (11.5-14.5) 14.6 % (11.5-14.5) Platelet Count 203 x10^3/uL (140-400) 188 x10^3/uL (140-400) Neutrophils (%) (Auto) 77 % (31-73) 68 % (31-73) Lymphocytes (%) (Auto) 10 % (24-48) 15 % (24-48) Monocytes (%) (Auto) 10 % (0-9) 11 % (0-9) Eosinophils (%) (Auto) 2 % (0-3) 5 % (0-3) Basophils (%) (Auto) 1 % (0-3) 1 % (0-3) Neutrophils # (Auto) 7.8 x10^3/uL (1.8-7.7) 4.8 x10^3/uL (1.8-7.7) Lymphocytes # (Auto) 1.0 x10^3/uL (1.0-4.8) 1.1 x10^3/uL (1.0-4.8) Monocytes # (Auto) 1.0 x10^3/uL (0.0-1.1) 0.8 x10^3/uL (0.0-1.1) Eosinophils # (Auto) 0.2 x10^3/uL (0.0-0.7) 0.3 x10^3/uL (0.0-0.7) Basophils # (Auto) 0.1 x10^3/uL (0.0-0.2) 0.1 x10^3/uL (0.0-0.2) Erythrocyte Sedimentation Rate 81 (0-15) Sodium Level 140 mmol/L (136-145) 143 mmol/L (136-145) Potassium Level 4.2 mmol/L (3.5-5.1) 4.0 mmol/L (3.5-5.1) Chloride Level 105 mmol/L (98-107) 109 mmol/L (98-107) Carbon Dioxide Level 25 mmol/L (21-32) 24 mmol/L (21-32) Anion Gap 10 (6-14) 10 (6-14) Blood Urea Nitrogen 38 mg/dL (8-26) 35 mg/dL (8-26) Creatinine 2.0 mg/dL (0.7-1.3) 1.8 mg/dL (0.7-1.3) Estimated GFR (Cockcroft-Gault) 33.0 37.3 BUN/Creatinine Ratio 19 (6-20) Glucose Level 94 mg/dL (70-99) 79 mg/dL (70-99) Lactic Acid Level 0.9 mmol/L (0.4-2.0) Calcium Level 8.4 mg/dL (8.5-10.1) 8.2 mg/dL (8.5-10.1) Total Bilirubin 0.3 mg/dL (0.2-1.0) Aspartate Amino Transf (AST/SGOT) 12 U/L (15-37) Alanine Aminotransferase (ALT/SGPT) 18 U/L (16-63) Alkaline Phosphatase 75 U/L (46-116) C-Reactive Protein, Quantitative 68.4 mg/L (0-3.3) Total Protein 7.0 g/dL (6.4-8.2) Albumin 2.8 g/dL (3.4-5.0) Albumin/Globulin Ratio 0.7 (1.0-1.7) Hemoglobin A1c 6.0 % (4.8-5.6) Glucose (Fingerstick) 96 mg/dL (70-99) 149 mg/dL (70-99) Test 08/02/21 16:41 08/02/21 20:09 Glucose (Fingerstick) 140 mg/dL (70-99) 146 mg/dL (70-99) Laboratory Tests Test 08/02/21 11:48 08/02/21 16:41 08/02/21 20:09 Glucose (Fingerstick) 149 mg/dL (70-99) 140 mg/dL (70-99) 146 mg/dL (70-99) Images Images I independently reviewed the arterial duplex of the lower extremities suggesting popliteal and tibial occlusive disease Assessment/Plan Assessment/Plan 1. Chronic limb threatening ischemiashe has gangrene of the toes on the right foot with inadequate arterial flow for wound healing and limb salvage based on physical exam and arterial duplex #2 chronic kidney disease creatinine yesterday was 1.8 pending todayhe will need an angiogramwe will plan for prehydration overnight and likely limited contrast angiography tomorrow would be more likely to consider surgical bypass if he is a good candidate for this with good vein and a good distal target given his creatinine and large wound #3 atrial fibrillation off anticoagulation cannot be sure that emboli is not component of this. Would recommend consideration for a watchman procedure if amenable once we have completed limb salvage #4 would recommend an echocardiogram #5 we will plan for likely antegrade access in the right groin right lower extremity angiogram possible intervention hopefully tomorrow if [employer] time is available. We will get vein mapping today to see if he has got conduit for bypass which will help me make a decision about how complex intervention we should proceed with especially given his creatinine I discussed all this with the patient and he wishes to proceed with attempted limb salvage. He understands that he is at high risk for limb loss KADE SHERMAN MD Aug 03, 2021 07:50
[2021-08-03 07:53] LABS: BASO # 0.1 x10^3/uL (0.0-0.2); BASO % 2 % (0-3); EOS # 0.3 x10^3/uL (0.0-0.7); EOS % 6 % (0-3); HEMATOCRIT 25.6 % (39.0-53.0); HEMOGLOBIN 8.4 g/dL (13.0-17.5); LYMPH % 16 % (24-48); MEAN CORPUSCULAR HEMOGLOBIN 30 pg (25-35); MEAN CORPUSCULAR HGB CONC 33 g/dL (31-37); MEAN CORPUSCULAR VOLUME 92 fL (79-100); MONO # 0.7 x10^3/uL (0.0-1.1); MONO % 12 % (0-9); NEUT # 4.1 x10^3/uL (1.8-7.7); NEUT % 65 % (31-73); PLATELET COUNT 186 x10^3/uL (140-400); RED BLOOD COUNT 2.79 x10^6/uL (4.30-5.70); RED CELL DISTRIBUTION WIDTH 14.4 % (11.5-14.5); WHITE BLOOD COUNT 6.3 x10^3/uL (4.0-11.0)
[2021-08-03] MEDS: INSULIN LISPRO 300 UNITS/3 ML VIAL. SQ SCH ×3 (08:00→17:00)
[2021-08-03 08:18] LABS: CALCIUM 8.3 mg/dL (8.5-10.1); CREATININE 1.7 mg/dL (0.7-1.3); GFR 39.8; POTASSIUM 4.4 mmol/L (3.5-5.1)
[2021-08-03 08:19] LABS: CHOLESTEROL/HDL RATIO 4.5
[2021-08-03] MEDS: GABAPENTIN 100 MG CAPSULE. PO SCH ×3 (08:50→21:26)
[2021-08-03] MEDS: DULoxetine HCL 30 MG CAPSULE.DR PO SCH (08:50)
[2021-08-03] MEDS: ATORVASTATIN CALCIUM 40 MG TABLET. PO SCH (08:50)
[2021-08-03] MEDS: FLUoxetine HCL 10 MG CAPSULE PO SCH (08:50)
[2021-08-03] MEDS: CARVEDILOL 12.5 MG TABLET. PO SCH ×2 (08:50→17:00)
[2021-08-03] MEDS: LACTOBACILLUS RHAMNOSUS GG 1 CAPSULE. PO SCH ×2 (08:50→21:26)
[2021-08-03] MEDS: hydrALAZINE 25 MG TABLET PO SCH ×3 (08:51→21:26)
--- NOTE | 2021-08-03 09:34 | PDOC ---
Infectious Disease Note Subjective: Subjective Patient feels okay Denies any fever, chills, nausea, vomiting, diarrhea, abdominal pain Discussed with at bedside Vital Signs: Vital Signs Vital Signs Date Time Temp Pulse Resp B/P (MAP) Pulse Ox O2 Delivery O2 Flow Rate FiO2 08/03/21 08:51 84 133/68 08/03/21 07:00 98.0 16 97 Room Air 98.0 Physical Exam: PHYSICAL EXAM GENERAL: Alert, oriented x 3, pleasant male, cooperative, in no acute distress. HEENT: Normocephalic, atraumatic. Anicteric. No thrush. NECK: Supple. LUNGS: Clear. HEART: S1, S2 irregular. No murmurs. ABDOMEN: Soft, nontender, nondistended. No rebound or guarding. EXTREMITIES: Necrotic right first and second toe with surrounding erythema and streaking which has receded from the previous markings. Right third toe nail has fallen off. Wet gangrenous changes of the right second and first toe. NEUROLOGIC: Alert and oriented x 3, grossly nonfocal. PSYCHIATRIC: Calm and cooperative. Medications: Inpatient Meds: Medications reviewed. Labs: Lab Laboratory Tests Test 08/02/21 11:48 08/02/21 16:41 08/02/21 20:09 08/03/21 06:30 Glucose (Fingerstick) 149 mg/dL (70-99) 140 mg/dL (70-99) 146 mg/dL (70-99) White Blood Count 6.3 x10^3/uL (4.0-11.0) Red Blood Count 2.79 x10^6/uL (4.30-5.70) Hemoglobin 8.4 g/dL (13.0-17.5) Hematocrit 25.6 % (39.0-53.0) Mean Corpuscular Volume 92 fL (79-100) Mean Corpuscular Hemoglobin 30 pg (25-35) Mean Corpuscular Hemoglobin Concent 33 g/dL (31-37) Red Cell Distribution Width 14.4 % (11.5-14.5) Platelet Count 186 x10^3/uL (140-400) Neutrophils (%) (Auto) 65 % (31-73) Lymphocytes (%) (Auto) 16 % (24-48) Monocytes (%) (Auto) 12 % (0-9) Eosinophils (%) (Auto) 6 % (0-3) Basophils (%) (Auto) 2 % (0-3) Neutrophils # (Auto) 4.1 x10^3/uL (1.8-7.7) Lymphocytes # (Auto) 1.0 x10^3/uL (1.0-4.8) Monocytes # (Auto) 0.7 x10^3/uL (0.0-1.1) Eosinophils # (Auto) 0.3 x10^3/uL (0.0-0.7) Basophils # (Auto) 0.1 x10^3/uL (0.0-0.2) Sodium Level 143 mmol/L (136-145) Potassium Level 4.4 mmol/L (3.5-5.1) Chloride Level 109 mmol/L (98-107) Carbon Dioxide Level 23 mmol/L (21-32) Anion Gap 11 (6-14) Blood Urea Nitrogen 30 mg/dL (8-26) Creatinine 1.7 mg/dL (0.7-1.3) Estimated GFR (Cockcroft-Gault) 39.8 Glucose Level 108 mg/dL (70-99) Calcium Level 8.3 mg/dL (8.5-10.1) Creatine Kinase 49 U/L (39-308) Triglycerides Level 91 mg/dL (0-150) Cholesterol Level 107 mg/dL (0-200) LDL Cholesterol, Calculated 65 mg/dL (0-100) VLDL Cholesterol, Calculated 18 mg/dL (0-40) Non-HDL Cholesterol Calculated 83 mg/dL (0-129) HDL Cholesterol 24 mg/dL (40-60) Cholesterol/HDL Ratio 4.5 Test 08/03/21 08:15 Glucose (Fingerstick) 110 mg/dL (70-99) Objective: Assessment: 1. Gangrenous right first and second toe , ischemic, superficial wound over the right third toe and left lateral fifth toe. C-reactive protein is 68.4 and ESR is 81.was on Augmentin prior to admission. 2. Right lower extremity cellulitis, improving, 3. Peripheral arterial disease. 4. Diabetes with neuropathy. 5. Atrial fibrillation. 6. History of hemorrhagic cerebrovascular accident. 7. History of skin cancer. 8. Anemia. 9. Chronic kidney disease. 10, depression and anxiety on fluoxetine Plan: Plan of Care Continue daptomycin and change ceftriaxone to Zosyn Vascular input noted for evaluation of peripheral arterial disease Local right lower extremity care and left fifth toe care. Awaiting further arterial evaluation tomorrow Monitor labs and cultures Continue supportive care Dr. Cobos following Discussed with nursing staff SOFIA SANCHEZ MD Aug 03, 2021 09:34
--- NOTE | 2021-08-03 10:35 | PDOC ---
PROGRESS NOTES Date of Service DATE: 08/03/21 TIME: 10:34 Subjective Subjective Patient resting comfortably in bed. Denies any overnight events. He has been tolerating the antibiotics, right foot dressing well. 24-hour event: Patient has been seen and evaluated by cardiology and vascular surgery. Planning for angiogram and vein mapping on Tuesday Objective Objective Vital Signs Date Time Temp Pulse Resp B/P (MAP) Pulse Ox O2 Delivery O2 Flow Rate FiO2 08/03/21 08:51 84 133/68 08/03/21 07:00 98.0 16 97 Room Air 98.0 Intake and Output 08/03/21 07:00 Intake Total 650 ml Output Total 1525 ml Balance -875 ml Intake Oral 600 ml IV Total 50 ml Output Urine Total 1525 ml # Voids 1 Physical Exam Physical Exam General: AOx3, pleasant without distress Dermatology: Right lower extremity focused -Dry necrotic changes circumferentially to the level of the distal MTPJ first and second. minimal to no inter-digital maceration without purulence, discharge, fluctuance -Traumatically avulsed right third digit nail with exposed nail bed. There is no active bleeding however there is mild serous blister to the third and fourth digits. -The periwound erythema and edema is minimal and stable, have significantly receded from the outlined marking -Mild stable eschar with necrotic changes without fluctuance, open lesion or discharge erythema or edema to the left fifth PIPJ Vascular: -DP is thready PT is not palpable -Foot is slightly cold to touch -Skin atrophy with diminished pedal hair Neurology: -Light touch sensation diminished above the knee Musculoskeletal: -No TTP to digits 1 through 5 -Calf is soft and nontender -No TTP to popliteal or inguinal lymph nodes -Able to move digits and ankle actively Plan Plan of Care Dry gangrene, cellulitis, lymphangitis in the setting of type 2 diabetes, PAD, peripheral neuropathy without sepsis -The right foot was dressed with Betadine wet-to-dry gauze, secured with Kerlex without tension. Betadine paint to the left fifth digit. -Dressing change as above twice daily. Keep the dressing clean dry and intact -Minimal touchdown weightbearing in the surgical shoe to avoid mechanical irritation to the right to digits -PT eval and treat -ID is following: Patient is currently on daptomycin and ceftriaxone -Vascular surgery is following: Planning for angiogram and vein mapping -Pending blood culture -Pending bedside wound culture -Pending bedside wound culture on the right foot -Trend WBC:10.2-- 7.7--6.3 Dispo: Pending angiogram and then possible source control/surgical amputation within 1 or 2 days afterwards. Comment Review of Relevant I have reviewed the following items beverly (where applicable) has been applied. Labs Laboratory Tests Test 08/01/21 18:30 08/02/21 06:50 08/02/21 07:26 08/02/21 11:48 White Blood Count 10.2 x10^3/uL (4.0-11.0) 7.0 x10^3/uL (4.0-11.0) Red Blood Count 3.17 x10^6/uL (4.30-5.70) 2.95 x10^6/uL (4.30-5.70) Hemoglobin 9.7 g/dL (13.0-17.5) 8.9 g/dL (13.0-17.5) Hematocrit 28.5 % (39.0-53.0) 27.0 % (39.0-53.0) Mean Corpuscular Volume 90 fL (79-100) 91 fL (79-100) Mean Corpuscular Hemoglobin 31 pg (25-35) 30 pg (25-35) Mean Corpuscular Hemoglobin Concent 34 g/dL (31-37) 33 g/dL (31-37) Red Cell Distribution Width 14.7 % (11.5-14.5) 14.6 % (11.5-14.5) Platelet Count 203 x10^3/uL (140-400) 188 x10^3/uL (140-400) Neutrophils (%) (Auto) 77 % (31-73) 68 % (31-73) Lymphocytes (%) (Auto) 10 % (24-48) 15 % (24-48) Monocytes (%) (Auto) 10 % (0-9) 11 % (0-9) Eosinophils (%) (Auto) 2 % (0-3) 5 % (0-3) Basophils (%) (Auto) 1 % (0-3) 1 % (0-3) Neutrophils # (Auto) 7.8 x10^3/uL (1.8-7.7) 4.8 x10^3/uL (1.8-7.7) Lymphocytes # (Auto) 1.0 x10^3/uL (1.0-4.8) 1.1 x10^3/uL (1.0-4.8) Monocytes # (Auto) 1.0 x10^3/uL (0.0-1.1) 0.8 x10^3/uL (0.0-1.1) Eosinophils # (Auto) 0.2 x10^3/uL (0.0-0.7) 0.3 x10^3/uL (0.0-0.7) Basophils # (Auto) 0.1 x10^3/uL (0.0-0.2) 0.1 x10^3/uL (0.0-0.2) Erythrocyte Sedimentation Rate 81 (0-15) Sodium Level 140 mmol/L (136-145) 143 mmol/L (136-145) Potassium Level 4.2 mmol/L (3.5-5.1) 4.0 mmol/L (3.5-5.1) Chloride Level 105 mmol/L (98-107) 109 mmol/L (98-107) Carbon Dioxide Level 25 mmol/L (21-32) 24 mmol/L (21-32) Anion Gap 10 (6-14) 10 (6-14) Blood Urea Nitrogen 38 mg/dL (8-26) 35 mg/dL (8-26) Creatinine 2.0 mg/dL (0.7-1.3) 1.8 mg/dL (0.7-1.3) Estimated GFR (Cockcroft-Gault) 33.0 37.3 BUN/Creatinine Ratio 19 (6-20) Glucose Level 94 mg/dL (70-99) 79 mg/dL (70-99) Lactic Acid Level 0.9 mmol/L (0.4-2.0) Calcium Level 8.4 mg/dL (8.5-10.1) 8.2 mg/dL (8.5-10.1) Total Bilirubin 0.3 mg/dL (0.2-1.0) Aspartate Amino Transf (AST/SGOT) 12 U/L (15-37) Alanine Aminotransferase (ALT/SGPT) 18 U/L (16-63) Alkaline Phosphatase 75 U/L (46-116) C-Reactive Protein, Quantitative 68.4 mg/L (0-3.3) Total Protein 7.0 g/dL (6.4-8.2) Albumin 2.8 g/dL (3.4-5.0) Albumin/Globulin Ratio 0.7 (1.0-1.7) Hemoglobin A1c 6.0 % (4.8-5.6) Glucose (Fingerstick) 96 mg/dL (70-99) 149 mg/dL (70-99) Test 08/02/21 16:41 08/02/21 20:09 08/03/21 06:30 08/03/21 08:15 Glucose (Fingerstick) 140 mg/dL (70-99) 146 mg/dL (70-99) 110 mg/dL (70-99) White Blood Count 6.3 x10^3/uL (4.0-11.0) Red Blood Count 2.79 x10^6/uL (4.30-5.70) Hemoglobin 8.4 g/dL (13.0-17.5) Hematocrit 25.6 % (39.0-53.0) Mean Corpuscular Volume 92 fL (79-100) Mean Corpuscular Hemoglobin 30 pg (25-35) Mean Corpuscular Hemoglobin Concent 33 g/dL (31-37) Red Cell Distribution Width 14.4 % (11.5-14.5) Platelet Count 186 x10^3/uL (140-400) Neutrophils (%) (Auto) 65 % (31-73) Lymphocytes (%) (Auto) 16 % (24-48) Monocytes (%) (Auto) 12 % (0-9) Eosinophils (%) (Auto) 6 % (0-3) Basophils (%) (Auto) 2 % (0-3) Neutrophils # (Auto) 4.1 x10^3/uL (1.8-7.7) Lymphocytes # (Auto) 1.0 x10^3/uL (1.0-4.8) Monocytes # (Auto) 0.7 x10^3/uL (0.0-1.1) Eosinophils # (Auto) 0.3 x10^3/uL (0.0-0.7) Basophils # (Auto) 0.1 x10^3/uL (0.0-0.2) Sodium Level 143 mmol/L (136-145) Potassium Level 4.4 mmol/L (3.5-5.1) Chloride Level 109 mmol/L (98-107) Carbon Dioxide Level 23 mmol/L (21-32) Anion Gap 11 (6-14) Blood Urea Nitrogen 30 mg/dL (8-26) Creatinine 1.7 mg/dL (0.7-1.3) Estimated GFR (Cockcroft-Gault) 39.8 Glucose Level 108 mg/dL (70-99) Calcium Level 8.3 mg/dL (8.5-10.1) Creatine Kinase 49 U/L (39-308) Triglycerides Level 91 mg/dL (0-150) Cholesterol Level 107 mg/dL (0-200) LDL Cholesterol, Calculated 65 mg/dL (0-100) VLDL Cholesterol, Calculated 18 mg/dL (0-40) Non-HDL Cholesterol Calculated 83 mg/dL (0-129) HDL Cholesterol 24 mg/dL (40-60) Cholesterol/HDL Ratio 4.5 Laboratory Tests Test 08/02/21 11:48 08/02/21 16:41 08/02/21 20:09 08/03/21 06:30 Glucose (Fingerstick) 149 mg/dL (70-99) 140 mg/dL (70-99) 146 mg/dL (70-99) White Blood Count 6.3 x10^3/uL (4.0-11.0) Red Blood Count 2.79 x10^6/uL (4.30-5.70) Hemoglobin 8.4 g/dL (13.0-17.5) Hematocrit 25.6 % (39.0-53.0) Mean Corpuscular Volume 92 fL (79-100) Mean Corpuscular Hemoglobin 30 pg (25-35) Mean Corpuscular Hemoglobin Concent 33 g/dL (31-37) Red Cell Distribution Width 14.4 % (11.5-14.5) Platelet Count 186 x10^3/uL (140-400) Neutrophils (%) (Auto) 65 % (31-73) Lymphocytes (%) (Auto) 16 % (24-48) Monocytes (%) (Auto) 12 % (0-9) Eosinophils (%) (Auto) 6 % (0-3) Basophils (%) (Auto) 2 % (0-3) Neutrophils # (Auto) 4.1 x10^3/uL (1.8-7.7) Lymphocytes # (Auto) 1.0 x10^3/uL (1.0-4.8) Monocytes # (Auto) 0.7 x10^3/uL (0.0-1.1) Eosinophils # (Auto) 0.3 x10^3/uL (0.0-0.7) Basophils # (Auto) 0.1 x10^3/uL (0.0-0.2) Sodium Level 143 mmol/L (136-145) Potassium Level 4.4 mmol/L (3.5-5.1) Chloride Level 109 mmol/L (98-107) Carbon Dioxide Level 23 mmol/L (21-32) Anion Gap 11 (6-14) Blood Urea Nitrogen 30 mg/dL (8-26) Creatinine 1.7 mg/dL (0.7-1.3) Estimated GFR (Cockcroft-Gault) 39.8 Glucose Level 108 mg/dL (70-99) Calcium Level 8.3 mg/dL (8.5-10.1) Creatine Kinase 49 U/L (39-308) Triglycerides Level 91 mg/dL (0-150) Cholesterol Level 107 mg/dL (0-200) LDL Cholesterol, Calculated 65 mg/dL (0-100) VLDL Cholesterol, Calculated 18 mg/dL (0-40) Non-HDL Cholesterol Calculated 83 mg/dL (0-129) HDL Cholesterol 24 mg/dL (40-60) Cholesterol/HDL Ratio 4.5 Test 08/03/21 08:15 Glucose (Fingerstick) 110 mg/dL (70-99) Microbiology 08/01/21 Blood Culture - Preliminary, Resulted NO GROWTH AFTER 1 DAY Medications Current Medications Vancomycin HCl (Vanco Per Pharmacy) 1 each 1X ONCE MC ; Start 08/01/21 at 17:45; Stop 08/01/21 at 17:51; Status DC Vancomycin HCl 2 gm/Sodium Chloride 500 ml @ 250 mls/hr 1X ONCE IV Last administered on 08/01/21at 18:44; Start 08/01/21 at 18:30; Stop 08/01/21 at 20:29; Status DC Acetaminophen (Tylenol) 650 mg PRN Q4HRS PRN PO FEVER > 100.3'F; Start 08/01/21 at 19:45; Stop 08/02/21 at 13:13; Status DC Ceftriaxone Sodium (Rocephin) 2 gm 1X ONCE IVP Last administered on 08/01/21at 20:25; Start 08/01/21 at 20:00; Stop 08/01/21 at 20:01; Status DC Ceftriaxone Sodium (Rocephin) 2 gm Q24H IVP Last administered on 08/02/21at 21:49; Start 08/02/21 at 21:00 Vancomycin HCl (Vanco Per Pharmacy) 1 each PRN DAILY PRN MC SEE COMMENTS Last administered on 08/02/21at 07:14; Start 08/01/21 at 21:00; Stop 08/02/21 at 10:31; Status DC Hydralazine HCl (Apresoline Inj) 10 mg PRN Q4HRS PRN IVP ELEVATED BP, SEE COMMENTS; Start 08/01/21 at 21:00 Sodium Chloride 1,000 ml @ 100 mls/hr 1X ONCE IV Last administered on 08/01/21at 23:59; Start 08/01/21 at 21:15; Stop 08/02/21 at 07:14; Status DC Ondansetron HCl (Zofran) 4 mg PRN Q6HRS PRN IVP NAUSEA/VOMITING Last administered on 08/02/21at 14:27; Start 08/01/21 at 21:15 Al Hydroxide/Mg Hydroxide (Mylanta Plus Xs) 30 ml PRN Q3HRS PRN PO HEARTBURN / GAS; Start 08/01/21 at 21:15 Zolpidem Tartrate (Ambien) 5 mg PRN QHS PRN PO INSOMNIA, MAY REPEAT IN 1HR; Start 08/01/21 at 21:15 Acetaminophen/ Hydrocodone Bitart (Lortab 5/325) 1 tab PRN Q4HRS PRN PO MILD PAIN 1-3; Start 08/01/21 at 21:15 Acetaminophen (Tylenol) 650 mg PRN Q6HRS PRN PO Headaches, Temp > 101.5F; Start 08/01/21 at 21:15 Magnesium Hydroxide (Milk Of Magnesia) 2,400 mg PRN Q12HR PRN PO CONSTIPATION; Start 08/01/21 at 21:15 Insulin Human Lispro (HumaLOG) 0-9 UNITS TIDWMEALS SQ ; Start 08/02/21 at 08:00 Dextrose (Dextrose 50%-Water Syringe) 12.5 gm PRN Q15MIN PRN IV SEE COMMENTS; Start 08/01/21 at 21:15 Atorvastatin Calcium (Lipitor) 80 mg DAILY PO Last administered on 08/03/21at 08:50; Start 08/02/21 at 09:00 Fluoxetine HCl (PROzac) 10 mg DAILY PO Last administered on 08/03/21at 08:50; Start 08/02/21 at 09:00 Pantoprazole Sodium (Protonix) 40 mg DAILYAC PO Last administered on 08/03/21at 06:24; Start 08/02/21 at 07:30 Vancomycin HCl 1.25 gm/Sodium Chloride 250 ml @ 167 mls/hr Q24H IV ; Start 08/02/21 at 18:30; Stop 08/02/21 at 10:28; Status DC Vancomycin HCl (Vancomycin Trough Level) 1 each 1X ONCE MC ; Start 08/03/21 at 18:00; Stop 08/03/21 at 18:01; Status Cancel Gabapentin (Neurontin) 200 mg TID PO Last administered on 08/03/21at 08:50; Start 08/02/21 at 09:30 Hydralazine HCl (Apresoline) 25 mg TID PO Last administered on 08/03/21at 08:51; Start 08/02/21 at 09:30 Carvedilol (Coreg) 12.5 mg BIDWMEALS PO Last administered on 08/03/21at 08:50; Start 08/02/21 at 09:30 Duloxetine HCl (Cymbalta) 60 mg DAILY PO Last administered on 08/03/21at 08:50; Start 08/02/21 at 09:30 Daptomycin 430 mg/ Sodium Chloride 50 ml @ 100 mls/hr Q24H IV Last administered on 08/02/21at 12:19; Start 08/02/21 at 12:00 Sodium Chloride 1,000 ml @ 100 mls/hr 1X ONCE IV Last administered on 08/02/21at 11:32; Start 08/02/21 at 11:30; Stop 08/02/21 at 21:29; Status DC Lactobacillus Rhamnosus (Culturelle) 1 cap BID PO Last administered on 08/03/21at 08:50; Start 08/02/21 at 21:00 Sodium Chloride 1,000 ml @ 75 mls/hr [id number] IV ; Start 08/03/21 at 08:00 Active Scripts Active Reported Ozempic (Semaglutide) 1 Mg/0.75 Ml Pen.injctr 0.25 Mg SQ WEEKLY Losartan Potassium 50 Mg Tablet 25 Mg PO DAILY Hydralazine Hcl 25 Mg Tablet 1 Tab PO TID Gabapentin (Gabapentin) 100 Mg Capsule 200 Mg PO TID Famotidine 20 Mg Tablet 20 Mg PO DAILY Cymbalta (Duloxetine Hcl) 60 Mg Capsule.dr 1 Cap PO DAILY Carvedilol 25 Mg Tablet 12.5 Mg PO BIDWMEALS Calcitriol 0.25 Mcg Capsule 1 Cap PO DAILY Omeprazole 20 Mg Capsule.dr 20 Mg PO DAILY Fluoxetine Hcl 10 Mg Tablet 1 Tab PO DAILY Atorvastatin Calcium 80 Mg Tablet 1 Tab PO DAILY Vitals/I & O Vital Sign - Last 24 Hours 08/02/21 08/02/21 08/02/21 08/02/21 11:00 15:00 18:13 19:00 Temp 97.5 97.7 97.5 97.5 97.7 97.5 Pulse 67 70 70 70 Resp 18 18 18 B/P (MAP) 94/55 (68) 133/79 (97) 133/79 137/70 (92) Pulse Ox 96 94 94 O2 Delivery Room Air Room Air Room Air 08/02/21 08/02/21 08/02/21 08/03/21 20:00 21:48 23:00 03:00 Temp 98.3 98.5 98.3 98.5 Pulse 72 77 72 Resp 18 18 B/P (MAP) 120/72 98/56 (70) 145/72 (96) Pulse Ox 96 96 O2 Delivery Room Air Room Air Room Air 08/03/21 08/03/21 08/03/21 07:00 08:50 08:51 Temp 98.0 98.0 Pulse 84 84 84 Resp 16 B/P (MAP) 133/68 (89) 133/68 133/68 Pulse Ox 97 O2 Delivery Room Air Intake and Output 08/02/21 08/02/21 08/03/21 15:00 23:00 07:00 Intake Total 50 ml 600 ml Output Total 900 ml 625 ml Balance 50 ml -300 ml -625 ml Justifications for Admission General Conditions Other justification for admit: Necrotic right first and second toe, suspected osteomyelitis Other Justification GOLDIE SILVA DPM Aug 03, 2021 10:35
[2021-08-03 11:00] VITALS: BP 148/68
[2021-08-03] MEDS: IV NORMAL SALINE 1000ML BAG 1,000 ML IV SCH (12:20)
[2021-08-03] MEDS: DAPTOmycin (GENERIC) IVPB 430 MG in IV NORMAL SALINE 50ML 50 ML IV SCH (12:20)
--- NOTE | 2021-08-03 13:01 | PDOC ---
[facility] PROGRESS NOTE Date of Service DOS: DATE: 08/03/21 TIME: 12:59 Chief Complaint Chief Complaint Suspected osteomyelitis of right first and second toe Cellulitis right foot ESTELLA due to vasomotor nephropathy DM2 Diabetic neuropathy A. fib HTN Normocytic anemia History hemorrhagic CVA Moderate malnutrition Plan: We will admit patient in coverage for suspected osteomyelitis with Rocephin and vancomycin CT right foot pending We will place consult to Dr. Cobos Will consult ID IV fluids. Unknown baseline renal status. Blood cultures Hemoglobin A1c pending Resume home medications FEN - Cardiac diet PPX - SCDs FULL CODE Dispo - inpatient for above Surrogate decision-maker is his (Marianna Reynolds) History of Present Illness History of Present Illness Patient is a 70-year-old male with past medical history DM2, diabetic neuropathy, hemorrhagic CVA, HTN, A. fib, who presents to the ED at the behest of his director professional services, Dr. Cobos, due to concerns of necrotic right first and second toes. Patient's states that over the past 2 days his right second and first toenail falling off and there has been worsening necrosis of these toes. He was seen by Dr. Cobos today who marked the surrounding area of erythema and noted some streaking, so sent him to the emergency room for further evaluation. Labs in the ED showed WBC 10.2, hemoglobin 9.7, hematocrit 28.5, ESR 81, CRP 68.4, BUN 38, creatinine 2, albumin 2.8, AST 16, ALT 18. Due to concerns of osteomyelitis I asked the ED provider to order a CT of his right lower extremity. Duplex of right lower extremity showed significantly flow-limiting stenosis within the popliteal artery. Ultrasound showed no evidence of DVT. Due to concerns of osteomyelitis at fast ED provider to order CT of right lower extremity. However due to extent of erythema and concern for necrotic versus anxious. Will admit patient for further medical management. 08/02: Afebrile. CT showed no gross cortical erosion suggestive of acute osteomyelitis. Discussed with ID and, clinically looks like dry gangrene. Will likely require amputation; discussed with and patient. Will consult cardiology for possible CTA with runoff to look at what level amputation would be appropriate. Kidney function slightly improved with hydration. Unknown baseline; will provide judicious IV fluids and resume losartan when kidney function stabilizes. Continue vancomycin and Rocephin for now; further antibiotic recommendations per ID. 08/03 Patient evaluated and examined at bedside. Continue daptomycin and switch Rocephin to Zosyn today. Planning for arterial runoff tomorrow. Suspect patient will need some sort of amputation. We will continue to monitor labs. Continue antibiotics. Vascular surgery also following. Vitals/I&O Vitals/I&O: Vital Signs Date Time Temp Pulse Resp B/P (MAP) Pulse Ox O2 Delivery O2 Flow Rate FiO2 08/03/21 11:00 97.7 72 18 148/68 (94) 96 Room Air 97.7 I & O 08/02/21 08/02/21 08/03/21 15:00 23:00 07:00 Intake Total 50 ml 600 ml Output Total 900 ml 625 ml Balance 50 ml -300 ml -625 ml Physical Exam Physical Exam: GENERAL: Alert, oriented x 3, pleasant male, cooperative, in no acute distress. HEENT: Normocephalic, atraumatic. Anicteric. No thrush. NECK: Supple. LUNGS: Clear. HEART: S1, S2 irregular. No murmurs. ABDOMEN: Soft, nontender, nondistended. No rebound or guarding. EXTREMITIES: Necrotic right first and second toe with surrounding erythema and streaking which has receded from the previous markings. Right third toe nail has fallen off. Wet gangrenous changes of the right second and first toe. NEUROLOGIC: Alert and oriented x 3, grossly nonfocal. PSYCHIATRIC: Calm and cooperative. General: Alert, Oriented X3 Heart: Regular rate, Other (Rhythm irregular) Lungs: Clear Abdomen: Normal bowel sounds, No tenderness, No masses Extremities: No clubbing, No cyanosis, Other (First and second toes of the right foot show dry gangrene, small ulceration which is shallow on the left fifth toe the left foot) Skin: Other (Wounds on the feet as above, loss of all hair from the mid calf down consistent with a PAD, he has palpable femoral pulses and palpable popliteal pulses bilaterally but absent pulses at the ankle with signals present consistent with popliteal tibial occlusive disease consistent with his history of diabetes and his arterial duplex) Labs Labs: Laboratory Tests Test 08/02/21 16:41 08/02/21 20:09 08/03/21 06:30 08/03/21 08:15 Glucose (Fingerstick) 140 mg/dL (70-99) 146 mg/dL (70-99) 110 mg/dL (70-99) White Blood Count 6.3 x10^3/uL (4.0-11.0) Red Blood Count 2.79 x10^6/uL (4.30-5.70) Hemoglobin 8.4 g/dL (13.0-17.5) Hematocrit 25.6 % (39.0-53.0) Mean Corpuscular Volume 92 fL (79-100) Mean Corpuscular Hemoglobin 30 pg (25-35) Mean Corpuscular Hemoglobin Concent 33 g/dL (31-37) Red Cell Distribution Width 14.4 % (11.5-14.5) Platelet Count 186 x10^3/uL (140-400) Neutrophils (%) (Auto) 65 % (31-73) Lymphocytes (%) (Auto) 16 % (24-48) Monocytes (%) (Auto) 12 % (0-9) Eosinophils (%) (Auto) 6 % (0-3) Basophils (%) (Auto) 2 % (0-3) Neutrophils # (Auto) 4.1 x10^3/uL (1.8-7.7) Lymphocytes # (Auto) 1.0 x10^3/uL (1.0-4.8) Monocytes # (Auto) 0.7 x10^3/uL (0.0-1.1) Eosinophils # (Auto) 0.3 x10^3/uL (0.0-0.7) Basophils # (Auto) 0.1 x10^3/uL (0.0-0.2) Sodium Level 143 mmol/L (136-145) Potassium Level 4.4 mmol/L (3.5-5.1) Chloride Level 109 mmol/L (98-107) Carbon Dioxide Level 23 mmol/L (21-32) Anion Gap 11 (6-14) Blood Urea Nitrogen 30 mg/dL (8-26) Creatinine 1.7 mg/dL (0.7-1.3) Estimated GFR (Cockcroft-Gault) 39.8 Glucose Level 108 mg/dL (70-99) Calcium Level 8.3 mg/dL (8.5-10.1) Creatine Kinase 49 U/L (39-308) Triglycerides Level 91 mg/dL (0-150) Cholesterol Level 107 mg/dL (0-200) LDL Cholesterol, Calculated 65 mg/dL (0-100) VLDL Cholesterol, Calculated 18 mg/dL (0-40) Non-HDL Cholesterol Calculated 83 mg/dL (0-129) HDL Cholesterol 24 mg/dL (40-60) Cholesterol/HDL Ratio 4.5 Test 08/03/21 11:31 Glucose (Fingerstick) 104 mg/dL (70-99) Comment Review of Relevant I have reviewed the following items beverly (where applicable) has been applied. Medications: Current Medications Medications (Trade) Dose Ordered Sig/Roderick Route PRN Reason Start Time Stop Time Status Last Admin Dose Admin Ceftriaxone Sodium (Rocephin) 2 gm Q24H IVP 08/02/21 21:00 08/03/21 12:39 DC 08/02/21 21:49 Lactobacillus Rhamnosus (Culturelle) 1 cap BID PO 08/02/21 21:00 08/03/21 08:50 Sodium Chloride 1,000 ml @ 75 mls/hr [id number] IV 08/03/21 08:00 08/03/21 12:20 Justifications for Admission General Conditions Other justification for admit: Necrotic right first and second toe, suspected osteomyelitis Other Justification GIANCARLO EUGENE MD Aug 03, 2021 13:00
[2021-08-03] MEDS: PIPERACILLIN/TAZOBACTAM 3.375 GM in IV NORMAL SALINE 50ML 50 ML IV SCH ×2 (13:29→17:27)
[2021-08-03 15:00] VITALS: BP 100/60
--- NOTE | 2021-08-03 17:03 | PDOC ---
PROGRESS NOTES Date of Service DATE: 08/03/21 TIME: 17:02 Subjective Subjective Patient seen and examined Objective Objective Vital Signs Date Time Temp Pulse Resp B/P (MAP) Pulse Ox O2 Delivery O2 Flow Rate FiO2 08/03/21 15:00 98.1 66 18 100/60 (73) 96 Room Air 98.1 Intake and Output 08/03/21 07:00 Intake Total 650 ml Output Total 1525 ml Balance -875 ml Intake Oral 600 ml IV Total 50 ml Output Urine Total 1525 ml # Voids 1 Physical Exam Abdomen: Normal bowel sounds General: No acute distress Lungs: Clear to auscultation Assessment Assessment 1. 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 Has been followed by Dr. Cobos and the ID service. Antibiotics as per ID. Significant flow-limiting lesion in the right popliteal artery on ultrasound. Vascular surgery has reviewed. Angiogram scheduled for tomorrow. 2. Diabetes mellitus. Continue present medications as per the primary service. 3. Atrial fibrillation. Rate controlled. On Coumadin at this time. Based on future clinical procedures this may need to be held. 4. Chronic kidney disease. Adjustment of antibiotics as above. Monitoring lab. 5. Hyperlipidemia. Statin treatment. 6. Hypertension. Controlled at this time. Continue present medications and monitor. Comment Review of Relevant I have reviewed the following items beverly (where applicable) has been applied. Labs Laboratory Tests Test 08/01/21 18:30 08/02/21 06:50 08/02/21 07:26 08/02/21 11:48 White Blood Count 10.2 x10^3/uL (4.0-11.0) 7.0 x10^3/uL (4.0-11.0) Red Blood Count 3.17 x10^6/uL (4.30-5.70) 2.95 x10^6/uL (4.30-5.70) Hemoglobin 9.7 g/dL (13.0-17.5) 8.9 g/dL (13.0-17.5) Hematocrit 28.5 % (39.0-53.0) 27.0 % (39.0-53.0) Mean Corpuscular Volume 90 fL (79-100) 91 fL (79-100) Mean Corpuscular Hemoglobin 31 pg (25-35) 30 pg (25-35) Mean Corpuscular Hemoglobin Concent 34 g/dL (31-37) 33 g/dL (31-37) Red Cell Distribution Width 14.7 % (11.5-14.5) 14.6 % (11.5-14.5) Platelet Count 203 x10^3/uL (140-400) 188 x10^3/uL (140-400) Neutrophils (%) (Auto) 77 % (31-73) 68 % (31-73) Lymphocytes (%) (Auto) 10 % (24-48) 15 % (24-48) Monocytes (%) (Auto) 10 % (0-9) 11 % (0-9) Eosinophils (%) (Auto) 2 % (0-3) 5 % (0-3) Basophils (%) (Auto) 1 % (0-3) 1 % (0-3) Neutrophils # (Auto) 7.8 x10^3/uL (1.8-7.7) 4.8 x10^3/uL (1.8-7.7) Lymphocytes # (Auto) 1.0 x10^3/uL (1.0-4.8) 1.1 x10^3/uL (1.0-4.8) Monocytes # (Auto) 1.0 x10^3/uL (0.0-1.1) 0.8 x10^3/uL (0.0-1.1) Eosinophils # (Auto) 0.2 x10^3/uL (0.0-0.7) 0.3 x10^3/uL (0.0-0.7) Basophils # (Auto) 0.1 x10^3/uL (0.0-0.2) 0.1 x10^3/uL (0.0-0.2) Erythrocyte Sedimentation Rate 81 (0-15) Sodium Level 140 mmol/L (136-145) 143 mmol/L (136-145) Potassium Level 4.2 mmol/L (3.5-5.1) 4.0 mmol/L (3.5-5.1) Chloride Level 105 mmol/L (98-107) 109 mmol/L (98-107) Carbon Dioxide Level 25 mmol/L (21-32) 24 mmol/L (21-32) Anion Gap 10 (6-14) 10 (6-14) Blood Urea Nitrogen 38 mg/dL (8-26) 35 mg/dL (8-26) Creatinine 2.0 mg/dL (0.7-1.3) 1.8 mg/dL (0.7-1.3) Estimated GFR (Cockcroft-Gault) 33.0 37.3 BUN/Creatinine Ratio 19 (6-20) Glucose Level 94 mg/dL (70-99) 79 mg/dL (70-99) Lactic Acid Level 0.9 mmol/L (0.4-2.0) Calcium Level 8.4 mg/dL (8.5-10.1) 8.2 mg/dL (8.5-10.1) Total Bilirubin 0.3 mg/dL (0.2-1.0) Aspartate Amino Transf (AST/SGOT) 12 U/L (15-37) Alanine Aminotransferase (ALT/SGPT) 18 U/L (16-63) Alkaline Phosphatase 75 U/L (46-116) C-Reactive Protein, Quantitative 68.4 mg/L (0-3.3) Total Protein 7.0 g/dL (6.4-8.2) Albumin 2.8 g/dL (3.4-5.0) Albumin/Globulin Ratio 0.7 (1.0-1.7) Hemoglobin A1c 6.0 % (4.8-5.6) Glucose (Fingerstick) 96 mg/dL (70-99) 149 mg/dL (70-99) Test 08/02/21 16:41 08/02/21 20:09 08/03/21 06:30 08/03/21 08:15 Glucose (Fingerstick) 140 mg/dL (70-99) 146 mg/dL (70-99) 110 mg/dL (70-99) White Blood Count 6.3 x10^3/uL (4.0-11.0) Red Blood Count 2.79 x10^6/uL (4.30-5.70) Hemoglobin 8.4 g/dL (13.0-17.5) Hematocrit 25.6 % (39.0-53.0) Mean Corpuscular Volume 92 fL (79-100) Mean Corpuscular Hemoglobin 30 pg (25-35) Mean Corpuscular Hemoglobin Concent 33 g/dL (31-37) Red Cell Distribution Width 14.4 % (11.5-14.5) Platelet Count 186 x10^3/uL (140-400) Neutrophils (%) (Auto) 65 % (31-73) Lymphocytes (%) (Auto) 16 % (24-48) Monocytes (%) (Auto) 12 % (0-9) Eosinophils (%) (Auto) 6 % (0-3) Basophils (%) (Auto) 2 % (0-3) Neutrophils # (Auto) 4.1 x10^3/uL (1.8-7.7) Lymphocytes # (Auto) 1.0 x10^3/uL (1.0-4.8) Monocytes # (Auto) 0.7 x10^3/uL (0.0-1.1) Eosinophils # (Auto) 0.3 x10^3/uL (0.0-0.7) Basophils # (Auto) 0.1 x10^3/uL (0.0-0.2) Sodium Level 143 mmol/L (136-145) Potassium Level 4.4 mmol/L (3.5-5.1) Chloride Level 109 mmol/L (98-107) Carbon Dioxide Level 23 mmol/L (21-32) Anion Gap 11 (6-14) Blood Urea Nitrogen 30 mg/dL (8-26) Creatinine 1.7 mg/dL (0.7-1.3) Estimated GFR (Cockcroft-Gault) 39.8 Glucose Level 108 mg/dL (70-99) Calcium Level 8.3 mg/dL (8.5-10.1) Creatine Kinase 49 U/L (39-308) Triglycerides Level 91 mg/dL (0-150) Cholesterol Level 107 mg/dL (0-200) LDL Cholesterol, Calculated 65 mg/dL (0-100) VLDL Cholesterol, Calculated 18 mg/dL (0-40) Non-HDL Cholesterol Calculated 83 mg/dL (0-129) HDL Cholesterol 24 mg/dL (40-60) Cholesterol/HDL Ratio 4.5 Test 08/03/21 11:31 Glucose (Fingerstick) 104 mg/dL (70-99) Laboratory Tests Test 08/02/21 20:09 08/03/21 06:30 08/03/21 08:15 08/03/21 11:31 Glucose (Fingerstick) 146 mg/dL (70-99) 110 mg/dL (70-99) 104 mg/dL (70-99) White Blood Count 6.3 x10^3/uL (4.0-11.0) Red Blood Count 2.79 x10^6/uL (4.30-5.70) Hemoglobin 8.4 g/dL (13.0-17.5) Hematocrit 25.6 % (39.0-53.0) Mean Corpuscular Volume 92 fL (79-100) Mean Corpuscular Hemoglobin 30 pg (25-35) Mean Corpuscular Hemoglobin Concent 33 g/dL (31-37) Red Cell Distribution Width 14.4 % (11.5-14.5) Platelet Count 186 x10^3/uL (140-400) Neutrophils (%) (Auto) 65 % (31-73) Lymphocytes (%) (Auto) 16 % (24-48) Monocytes (%) (Auto) 12 % (0-9) Eosinophils (%) (Auto) 6 % (0-3) Basophils (%) (Auto) 2 % (0-3) Neutrophils # (Auto) 4.1 x10^3/uL (1.8-7.7) Lymphocytes # (Auto) 1.0 x10^3/uL (1.0-4.8) Monocytes # (Auto) 0.7 x10^3/uL (0.0-1.1) Eosinophils # (Auto) 0.3 x10^3/uL (0.0-0.7) Basophils # (Auto) 0.1 x10^3/uL (0.0-0.2) Sodium Level 143 mmol/L (136-145) Potassium Level 4.4 mmol/L (3.5-5.1) Chloride Level 109 mmol/L (98-107) Carbon Dioxide Level 23 mmol/L (21-32) Anion Gap 11 (6-14) Blood Urea Nitrogen 30 mg/dL (8-26) Creatinine 1.7 mg/dL (0.7-1.3) Estimated GFR (Cockcroft-Gault) 39.8 Glucose Level 108 mg/dL (70-99) Calcium Level 8.3 mg/dL (8.5-10.1) Creatine Kinase 49 U/L (39-308) Triglycerides Level 91 mg/dL (0-150) Cholesterol Level 107 mg/dL (0-200) LDL Cholesterol, Calculated 65 mg/dL (0-100) VLDL Cholesterol, Calculated 18 mg/dL (0-40) Non-HDL Cholesterol Calculated 83 mg/dL (0-129) HDL Cholesterol 24 mg/dL (40-60) Cholesterol/HDL Ratio 4.5 Microbiology 08/01/21 Blood Culture - Preliminary, Resulted NO GROWTH AFTER 1 DAY Medications Current Medications Vancomycin HCl (Vanco Per Pharmacy) 1 each 1X ONCE MC ; Start 08/01/21 at 17:45; Stop 08/01/21 at 17:51; Status DC Vancomycin HCl 2 gm/Sodium Chloride 500 ml @ 250 mls/hr 1X ONCE IV Last administered on 08/01/21at 18:44; Start 08/01/21 at 18:30; Stop 08/01/21 at 20:29; Status DC Acetaminophen (Tylenol) 650 mg PRN Q4HRS PRN PO FEVER > 100.3'F; Start 08/01/21 at 19:45; Stop 08/02/21 at 13:13; Status DC Ceftriaxone Sodium (Rocephin) 2 gm 1X ONCE IVP Last administered on 08/01/21at 20:25; Start 08/01/21 at 20:00; Stop 08/01/21 at 20:01; Status DC Ceftriaxone Sodium (Rocephin) 2 gm Q24H IVP Last administered on 08/02/21at 21:49; Start 08/02/21 at 21:00; Stop 08/03/21 at 12:39; Status DC Vancomycin HCl (Vanco Per Pharmacy) 1 each PRN DAILY PRN MC SEE COMMENTS Last administered on 08/02/21at 07:14; Start 08/01/21 at 21:00; Stop 08/02/21 at 10:31; Status DC Hydralazine HCl (Apresoline Inj) 10 mg PRN Q4HRS PRN IVP ELEVATED BP, SEE COMMENTS; Start 08/01/21 at 21:00 Sodium Chloride 1,000 ml @ 100 mls/hr 1X ONCE IV Last administered on 08/01/21at 23:59; Start 08/01/21 at 21:15; Stop 08/02/21 at 07:14; Status DC Ondansetron HCl (Zofran) 4 mg PRN Q6HRS PRN IVP NAUSEA/VOMITING Last administered on 08/02/21at 14:27; Start 08/01/21 at 21:15 Al Hydroxide/Mg Hydroxide (Mylanta Plus Xs) 30 ml PRN Q3HRS PRN PO HEARTBURN / GAS; Start 08/01/21 at 21:15 Zolpidem Tartrate (Ambien) 5 mg PRN QHS PRN PO INSOMNIA, MAY REPEAT IN 1HR; Start 08/01/21 at 21:15 Acetaminophen/ Hydrocodone Bitart (Lortab 5/325) 1 tab PRN Q4HRS PRN PO MILD PAIN 1-3; Start 08/01/21 at 21:15 Acetaminophen (Tylenol) 650 mg PRN Q6HRS PRN PO Headaches, Temp > 101.5F; Start 08/01/21 at 21:15 Magnesium Hydroxide (Milk Of Magnesia) 2,400 mg PRN Q12HR PRN PO CONSTIPATION; Start 08/01/21 at 21:15 Insulin Human Lispro (HumaLOG) 0-9 UNITS TIDWMEALS SQ ; Start 08/02/21 at 08:00 Dextrose (Dextrose 50%-Water Syringe) 12.5 gm PRN Q15MIN PRN IV SEE COMMENTS; Start 08/01/21 at 21:15 Atorvastatin Calcium (Lipitor) 80 mg DAILY PO Last administered on 08/03/21at 08:50; Start 08/02/21 at 09:00 Fluoxetine HCl (PROzac) 10 mg DAILY PO Last administered on 08/03/21at 08:50; Start 08/02/21 at 09:00 Pantoprazole Sodium (Protonix) 40 mg DAILYAC PO Last administered on 08/03/21at 06:24; Start 08/02/21 at 07:30 Vancomycin HCl 1.25 gm/Sodium Chloride 250 ml @ 167 mls/hr Q24H IV ; Start 08/02/21 at 18:30; Stop 08/02/21 at 10:28; Status DC Vancomycin HCl (Vancomycin Trough Level) 1 each 1X ONCE MC ; Start 08/03/21 at 18:00; Stop 08/03/21 at 18:01; Status Cancel Gabapentin (Neurontin) 200 mg TID PO Last administered on 08/03/21at 13:28; Start 08/02/21 at 09:30 Hydralazine HCl (Apresoline) 25 mg TID PO Last administered on 08/03/21at 13:29; Start 08/02/21 at 09:30 Carvedilol (Coreg) 12.5 mg BIDWMEALS PO Last administered on 08/03/21at 08:50; Start 08/02/21 at 09:30 Duloxetine HCl (Cymbalta) 60 mg DAILY PO Last administered on 08/03/21at 08:50; Start 08/02/21 at 09:30 Daptomycin 430 mg/ Sodium Chloride 50 ml @ 100 mls/hr Q24H IV Last administered on 08/03/21at 12:20; Start 08/02/21 at 12:00 Sodium Chloride 1,000 ml @ 100 mls/hr 1X ONCE IV Last administered on 08/02/21at 11:32; Start 08/02/21 at 11:30; Stop 08/02/21 at 21:29; Status DC Lactobacillus Rhamnosus (Culturelle) 1 cap BID PO Last administered on 08/03/21at 08:50; Start 08/02/21 at 21:00 Sodium Chloride 1,000 ml @ 75 mls/hr [id number] IV Last administered on 08/03/21at 12:20; Start 08/03/21 at 08:00 Piperacillin Sod/ Tazobactam Sod 3.375 gm/Sodium Chloride 50 ml @ 100 mls/hr Q6HRS IV Last administered on 08/03/21at 13:29; Start 08/03/21 at 13:00 Active Scripts Active Reported Ozempic (Semaglutide) 1 Mg/0.75 Ml Pen.injctr 0.25 Mg SQ WEEKLY Losartan Potassium 50 Mg Tablet 25 Mg PO DAILY Hydralazine Hcl 25 Mg Tablet 1 Tab PO TID Gabapentin (Gabapentin) 100 Mg Capsule 200 Mg PO TID Famotidine 20 Mg Tablet 20 Mg PO DAILY Cymbalta (Duloxetine Hcl) 60 Mg Capsule.dr 1 Cap PO DAILY Carvedilol 25 Mg Tablet 12.5 Mg PO BIDWMEALS Calcitriol 0.25 Mcg Capsule 1 Cap PO DAILY Omeprazole 20 Mg Capsule.dr 20 Mg PO DAILY Fluoxetine Hcl 10 Mg Tablet 1 Tab PO DAILY Atorvastatin Calcium 80 Mg Tablet 1 Tab PO DAILY Vitals/I & O Vital Sign - Last 24 Hours 08/02/21 08/02/21 08/02/21 08/02/21 18:13 19:00 20:00 21:48 Temp 97.5 97.5 Pulse 70 70 72 Resp 18 B/P (MAP) 133/79 137/70 (92) 120/72 Pulse Ox 94 O2 Delivery Room Air Room Air 08/02/21 08/03/21 08/03/21 08/03/21 23:00 03:00 07:00 08:00 Temp 98.3 98.5 98.0 98.3 98.5 98.0 Pulse 77 72 84 Resp 18 18 16 B/P (MAP) 98/56 (70) 145/72 (96) 133/68 (89) Pulse Ox 96 96 97 O2 Delivery Room Air Room Air Room Air Room Air 08/03/21 08/03/21 08/03/21 08/03/21 08:50 08:51 11:00 13:29 Temp 97.7 97.7 Pulse 84 84 72 72 Resp 18 B/P (MAP) 133/68 133/68 148/68 (94) 148/68 Pulse Ox 96 O2 Delivery Room Air 08/03/21 15:00 Temp 98.1 98.1 Pulse 66 Resp 18 B/P (MAP) 100/60 (73) Pulse Ox 96 O2 Delivery Room Air Intake and Output 08/02/21 08/02/21 08/03/21 15:00 23:00 07:00 Intake Total 50 ml 600 ml Output Total 900 ml 625 ml Balance 50 ml -300 ml -625 ml Justifications for Admission General Conditions Other justification for admit: Necrotic right first and second toe, suspected osteomyelitis Other Justification JON MORENO MD Aug 03, 2021 17:03
--- NOTE | 2021-08-03 17:06 | RAD ---
BILATERAL LOWER EXTREMITY VENOUS MAPPING Clinical indications: Preoperative evaluation. FINDINGS: Duplex sonography of the greater saphenous and lesser saphenous veins of both lower extremi ties was performed and a vein map was drawn and placed into the patient's PACS record. See that works heet. Right leg: Greater saphenous and lesser saphenous veins are patent. Caliber of the greater saphenous vein varies from 4.2 mm down to 1.7 mm. Caliber of the right lesser saphenous vein varies from 2.2 mm down to 1.5 mm. Left leg: Greater saphenous and lesser saphenous veins are patent. Caliber of the greater saphenous v ein varies from 4.5 mm down to 1.8 mm. The caliber of the lesser saphenous vein varies from 1.8 mm di ameter down to 1.4 mm. IMPRESSION: Greater saphenous and lesser saphenous veins are patent bilaterally. Vein map was generat ed. Electronically signed by: Akash Esteban MD (08/03/2021 5:04 PM) [email or web address]
[2021-08-03 19:00] VITALS: BP 105/55
[2021-08-03 23:00] VITALS: BP 126/53
[2021-08-04] VITALS (7 sets, daily range): BP systolic 115–170; BP diastolic 66–103
[2021-08-04] MEDS: PIPERACILLIN/TAZOBACTAM 3.375 GM in IV NORMAL SALINE 50ML 50 ML IV SCH ×5 (00:05→23:36)
[2021-08-04] MEDS: IV NORMAL SALINE 1000ML BAG 1,000 ML IV SCH ×6 (03:03→23:30)
[2021-08-04 04:51] LABS: BASO # 0.1 x10^3/uL (0.0-0.2); BASO % 1 % (0-3); EOS # 0.4 x10^3/uL (0.0-0.7); EOS % 5 % (0-3); HEMATOCRIT 25.1 % (39.0-53.0); HEMOGLOBIN 8.3 g/dL (13.0-17.5); LYMPH # 1.2 x10^3/uL (1.0-4.8); LYMPH % 16 % (24-48); MEAN CORPUSCULAR HEMOGLOBIN 30 pg (25-35); MEAN CORPUSCULAR HGB CONC 33 g/dL (31-37); MEAN CORPUSCULAR VOLUME 91 fL (79-100); MONO # 0.9 x10^3/uL (0.0-1.1); MONO % 12 % (0-9); NEUT # 4.9 x10^3/uL (1.8-7.7); NEUT % 65 % (31-73); PLATELET COUNT 188 x10^3/uL (140-400); RED BLOOD COUNT 2.75 x10^6/uL (4.30-5.70); RED CELL DISTRIBUTION WIDTH 14.5 % (11.5-14.5); WHITE BLOOD COUNT 7.5 x10^3/uL (4.0-11.0)
[2021-08-04 05:06] LABS: CALCIUM 7.8 mg/dL (8.5-10.1); CREATININE 1.6 mg/dL (0.7-1.3); GFR 42.7; POTASSIUM 3.7 mmol/L (3.5-5.1)
[2021-08-04] MEDS: PANTOPRAZOLE 40 MG TABLET.DR. PO SCH (07:30)
[2021-08-04] MEDS: INSULIN LISPRO 300 UNITS/3 ML VIAL. SQ SCH ×3 (08:00→16:57)
[2021-08-04] MEDS: CARVEDILOL 12.5 MG TABLET. PO SCH ×2 (08:00→17:14)
--- NOTE | 2021-08-04 08:26 | PDOC ---
Infectious Disease Note Subjective: Subjective Patient resting quietly Vital Signs: Vital Signs Vital Signs Date Time Temp Pulse Resp B/P (MAP) Pulse Ox O2 Delivery O2 Flow Rate FiO2 08/04/21 07:00 97.7 75 18 140/70 (93) 93 Room Air 97.7 Physical Exam: PHYSICAL EXAM GENERAL: Alert awake HEENT: Normocephalic, atraumatic. Anicteric. No thrush. NECK: Supple. LUNGS: Clear. HEART: S1, S2 irregular. No murmurs. ABDOMEN: Soft, nontender, nondistended. No rebound or guarding. EXTREMITIES: Necrotic right first and second toe with surrounding erythema and streaking which has receded from the previous markings. Right third toe nail has fallen off. Wet gangrenous changes of the right second and first toe. NEUROLOGIC: Alert and oriented x 3, grossly nonfocal. PSYCHIATRIC: Calm and cooperative. Medications: Inpatient Meds: Medications reviewed. Labs: Lab Laboratory Tests Test 08/03/21 11:31 08/03/21 17:05 08/03/21 21:10 08/04/21 03:35 Glucose (Fingerstick) 104 mg/dL (70-99) 156 mg/dL (70-99) 139 mg/dL (70-99) White Blood Count 7.5 x10^3/uL (4.0-11.0) Red Blood Count 2.75 x10^6/uL (4.30-5.70) Hemoglobin 8.3 g/dL (13.0-17.5) Hematocrit 25.1 % (39.0-53.0) Mean Corpuscular Volume 91 fL (79-100) Mean Corpuscular Hemoglobin 30 pg (25-35) Mean Corpuscular Hemoglobin Concent 33 g/dL (31-37) Red Cell Distribution Width 14.5 % (11.5-14.5) Platelet Count 188 x10^3/uL (140-400) Neutrophils (%) (Auto) 65 % (31-73) Lymphocytes (%) (Auto) 16 % (24-48) Monocytes (%) (Auto) 12 % (0-9) Eosinophils (%) (Auto) 5 % (0-3) Basophils (%) (Auto) 1 % (0-3) Neutrophils # (Auto) 4.9 x10^3/uL (1.8-7.7) Lymphocytes # (Auto) 1.2 x10^3/uL (1.0-4.8) Monocytes # (Auto) 0.9 x10^3/uL (0.0-1.1) Eosinophils # (Auto) 0.4 x10^3/uL (0.0-0.7) Basophils # (Auto) 0.1 x10^3/uL (0.0-0.2) Sodium Level 143 mmol/L (136-145) Potassium Level 3.7 mmol/L (3.5-5.1) Chloride Level 110 mmol/L (98-107) Carbon Dioxide Level 23 mmol/L (21-32) Anion Gap 10 (6-14) Blood Urea Nitrogen 24 mg/dL (8-26) Creatinine 1.6 mg/dL (0.7-1.3) Estimated GFR (Cockcroft-Gault) 42.7 Glucose Level 97 mg/dL (70-99) Calcium Level 7.8 mg/dL (8.5-10.1) Test 08/04/21 08:11 Glucose (Fingerstick) 109 mg/dL (70-99) Objective: Assessment: 1. Gangrenous right first and second toe , ischemic, superficial wound over the right third toe and left lateral fifth toe. C-reactive protein is 68.4 and ESR is 81.was on Augmentin prior to admission. 2. Right lower extremity cellulitis, improving since IV antibiotics were initiated 3. Peripheral arterial disease. 4. Diabetes with neuropathy. 5. Atrial fibrillation. 6. History of hemorrhagic cerebrovascular accident. 7. History of skin cancer. 8. Anemia. 9. Renal insufficiency 10, depression and anxiety on fluoxetine Plan: Plan of Care Continue daptomycin and Zosyn, renal dosing as needed. Pharmacy to assist Patient was on IV vancomycin and ceftriaxone Vascular input noted for evaluation of peripheral arterial disease Local right lower extremity wound care and left fifth toe care. Awaiting further arterial evaluation tomorrow Monitor labs and cultures Continue supportive care Dr. Cobos following Discussed with nursing staff SOFIA SANCHEZ MD Aug 04, 2021 08:25
[2021-08-04] MEDS: LACTOBACILLUS RHAMNOSUS GG 1 CAPSULE. PO SCH ×2 (08:35→21:28)
[2021-08-04] MEDS: hydrALAZINE 25 MG TABLET PO SCH ×3 (09:00→21:29)
[2021-08-04] MEDS: GABAPENTIN 100 MG CAPSULE. PO SCH ×3 (09:00→21:29)
[2021-08-04] MEDS: BENZOCAINE/MENTHOL LOZENGE. PO PRN ×2 (09:19→17:13)
--- NOTE | 2021-08-04 09:33 | PDOC ---
PROGRESS NOTES Date of Service DATE: 08/04/21 TIME: 09:19 Subjective Subjective Patient seen and examined in room. Patient complains of "sore throat". He would like a throat lozenge. He denies a cough or nasal drainage. He denies fever or chills. I discussed with him that with his upcoming procedure and new symptom of sore throat that a COVID test is warranted. He agrees to "throat swab" and is refusing nasal swab. He is frustrated and is stating he wants to be released if he does not get the "throat lozenge". Objective Objective Vital Signs Date Time Temp Pulse Resp B/P (MAP) Pulse Ox O2 Delivery O2 Flow Rate FiO2 08/04/21 07:00 97.7 75 18 140/70 (93) 93 Room Air 97.7 Intake and Output 08/04/21 07:00 Intake Total 1920 ml Balance 1920 ml Intake Oral 120 ml IV Total 900 ml Other 900 ml Physical Exam Physical Exam Awake and alert HRR Nonlabored respirations Right lower extremity warm, mild swelling in foot. Dry gangrene right first and second, with early changes and ulceration third toe. Unable to palpate distal pulses. Assessment Assessment #1 Chronic limb threatening ischemiahe has gangrene of the toes on the right foot with inadequate arterial flow for wound healing and limb salvage based on physical exam and arterial duplex #2 chronic kidney disease creatinine today is 1.6 continue prehydration for angiogram later today. Vein mapping reviewed patient has adequate vein to the l evel of the midcalf bilaterally. We will make further recommendations pending the results of the angiogram. I will plan to discuss with Dr. Karimi the patient's new symptoms of sore throat. Awaiting Covid test and the level of his creatinine. Continue local wound care. #3 atrial fibrillation off anticoagulation cannot be sure that emboli is not component of this. Would recommend consideration for a watchman procedure if amenable once we have completed limb salvage #4 would recommend an echocardiogram Comment Review of Relevant I have reviewed the following items beverly (where applicable) has been applied. Labs Laboratory Tests Test 08/02/21 11:48 08/02/21 16:41 08/02/21 20:09 08/03/21 06:30 Glucose (Fingerstick) 149 mg/dL (70-99) 140 mg/dL (70-99) 146 mg/dL (70-99) White Blood Count 6.3 x10^3/uL (4.0-11.0) Red Blood Count 2.79 x10^6/uL (4.30-5.70) Hemoglobin 8.4 g/dL (13.0-17.5) Hematocrit 25.6 % (39.0-53.0) Mean Corpuscular Volume 92 fL (79-100) Mean Corpuscular Hemoglobin 30 pg (25-35) Mean Corpuscular Hemoglobin Concent 33 g/dL (31-37) Red Cell Distribution Width 14.4 % (11.5-14.5) Platelet Count 186 x10^3/uL (140-400) Neutrophils (%) (Auto) 65 % (31-73) Lymphocytes (%) (Auto) 16 % (24-48) Monocytes (%) (Auto) 12 % (0-9) Eosinophils (%) (Auto) 6 % (0-3) Basophils (%) (Auto) 2 % (0-3) Neutrophils # (Auto) 4.1 x10^3/uL (1.8-7.7) Lymphocytes # (Auto) 1.0 x10^3/uL (1.0-4.8) Monocytes # (Auto) 0.7 x10^3/uL (0.0-1.1) Eosinophils # (Auto) 0.3 x10^3/uL (0.0-0.7) Basophils # (Auto) 0.1 x10^3/uL (0.0-0.2) Sodium Level 143 mmol/L (136-145) Potassium Level 4.4 mmol/L (3.5-5.1) Chloride Level 109 mmol/L (98-107) Carbon Dioxide Level 23 mmol/L (21-32) Anion Gap 11 (6-14) Blood Urea Nitrogen 30 mg/dL (8-26) Creatinine 1.7 mg/dL (0.7-1.3) Estimated GFR (Cockcroft-Gault) 39.8 Glucose Level 108 mg/dL (70-99) Calcium Level 8.3 mg/dL (8.5-10.1) Creatine Kinase 49 U/L (39-308) Triglycerides Level 91 mg/dL (0-150) Cholesterol Level 107 mg/dL (0-200) LDL Cholesterol, Calculated 65 mg/dL (0-100) VLDL Cholesterol, Calculated 18 mg/dL (0-40) Non-HDL Cholesterol Calculated 83 mg/dL (0-129) HDL Cholesterol 24 mg/dL (40-60) Cholesterol/HDL Ratio 4.5 Test 08/03/21 08:15 08/03/21 11:31 08/03/21 17:05 08/03/21 21:10 Glucose (Fingerstick) 110 mg/dL (70-99) 104 mg/dL (70-99) 156 mg/dL (70-99) 139 mg/dL (70-99) Test 08/04/21 03:35 08/04/21 08:11 White Blood Count 7.5 x10^3/uL (4.0-11.0) Red Blood Count 2.75 x10^6/uL (4.30-5.70) Hemoglobin 8.3 g/dL (13.0-17.5) Hematocrit 25.1 % (39.0-53.0) Mean Corpuscular Volume 91 fL (79-100) Mean Corpuscular Hemoglobin 30 pg (25-35) Mean Corpuscular Hemoglobin Concent 33 g/dL (31-37) Red Cell Distribution Width 14.5 % (11.5-14.5) Platelet Count 188 x10^3/uL (140-400) Neutrophils (%) (Auto) 65 % (31-73) Lymphocytes (%) (Auto) 16 % (24-48) Monocytes (%) (Auto) 12 % (0-9) Eosinophils (%) (Auto) 5 % (0-3) Basophils (%) (Auto) 1 % (0-3) Neutrophils # (Auto) 4.9 x10^3/uL (1.8-7.7) Lymphocytes # (Auto) 1.2 x10^3/uL (1.0-4.8) Monocytes # (Auto) 0.9 x10^3/uL (0.0-1.1) Eosinophils # (Auto) 0.4 x10^3/uL (0.0-0.7) Basophils # (Auto) 0.1 x10^3/uL (0.0-0.2) Sodium Level 143 mmol/L (136-145) Potassium Level 3.7 mmol/L (3.5-5.1) Chloride Level 110 mmol/L (98-107) Carbon Dioxide Level 23 mmol/L (21-32) Anion Gap 10 (6-14) Blood Urea Nitrogen 24 mg/dL (8-26) Creatinine 1.6 mg/dL (0.7-1.3) Estimated GFR (Cockcroft-Gault) 42.7 Glucose Level 97 mg/dL (70-99) Calcium Level 7.8 mg/dL (8.5-10.1) Glucose (Fingerstick) 109 mg/dL (70-99) Laboratory Tests Test 08/03/21 11:31 08/03/21 17:05 08/03/21 21:10 08/04/21 03:35 Glucose (Fingerstick) 104 mg/dL (70-99) 156 mg/dL (70-99) 139 mg/dL (70-99) White Blood Count 7.5 x10^3/uL (4.0-11.0) Red Blood Count 2.75 x10^6/uL (4.30-5.70) Hemoglobin 8.3 g/dL (13.0-17.5) Hematocrit 25.1 % (39.0-53.0) Mean Corpuscular Volume 91 fL (79-100) Mean Corpuscular Hemoglobin 30 pg (25-35) Mean Corpuscular Hemoglobin Concent 33 g/dL (31-37) Red Cell Distribution Width 14.5 % (11.5-14.5) Platelet Count 188 x10^3/uL (140-400) Neutrophils (%) (Auto) 65 % (31-73) Lymphocytes (%) (Auto) 16 % (24-48) Monocytes (%) (Auto) 12 % (0-9) Eosinophils (%) (Auto) 5 % (0-3) Basophils (%) (Auto) 1 % (0-3) Neutrophils # (Auto) 4.9 x10^3/uL (1.8-7.7) Lymphocytes # (Auto) 1.2 x10^3/uL (1.0-4.8) Monocytes # (Auto) 0.9 x10^3/uL (0.0-1.1) Eosinophils # (Auto) 0.4 x10^3/uL (0.0-0.7) Basophils # (Auto) 0.1 x10^3/uL (0.0-0.2) Sodium Level 143 mmol/L (136-145) Potassium Level 3.7 mmol/L (3.5-5.1) Chloride Level 110 mmol/L (98-107) Carbon Dioxide Level 23 mmol/L (21-32) Anion Gap 10 (6-14) Blood Urea Nitrogen 24 mg/dL (8-26) Creatinine 1.6 mg/dL (0.7-1.3) Estimated GFR (Cockcroft-Gault) 42.7 Glucose Level 97 mg/dL (70-99) Calcium Level 7.8 mg/dL (8.5-10.1) Test 08/04/21 08:11 Glucose (Fingerstick) 109 mg/dL (70-99) Microbiology 08/02/21 Gram Stain - Final, Resulted 08/02/21 Aerobic and Anaerobic Culture, Resulted Pending 08/01/21 Blood Culture - Preliminary, Resulted NO GROWTH AFTER 2 DAYS Medications Current Medications Vancomycin HCl (Vanco Per Pharmacy) 1 each 1X ONCE MC ; Start 08/01/21 at 17:45; Stop 08/01/21 at 17:51; Status DC Vancomycin HCl 2 gm/Sodium Chloride 500 ml @ 250 mls/hr 1X ONCE IV Last administered on 08/01/21at 18:44; Start 08/01/21 at 18:30; Stop 08/01/21 at 20:29; Status DC Acetaminophen (Tylenol) 650 mg PRN Q4HRS PRN PO FEVER > 100.3'F; Start 08/01/21 at 19:45; Stop 08/02/21 at 13:13; Status DC Ceftriaxone Sodium (Rocephin) 2 gm 1X ONCE IVP Last administered on 08/01/21at 20:25; Start 08/01/21 at 20:00; Stop 08/01/21 at 20:01; Status DC Ceftriaxone Sodium (Rocephin) 2 gm Q24H IVP Last administered on 08/02/21at 21:49; Start 08/02/21 at 21:00; Stop 08/03/21 at 12:39; Status DC Vancomycin HCl (Vanco Per Pharmacy) 1 each PRN DAILY PRN MC SEE COMMENTS Last administered on 08/02/21at 07:14; Start 08/01/21 at 21:00; Stop 08/02/21 at 10:31; Status DC Hydralazine HCl (Apresoline Inj) 10 mg PRN Q4HRS PRN IVP ELEVATED BP, SEE COMMENTS; Start 08/01/21 at 21:00 Sodium Chloride 1,000 ml @ 100 mls/hr 1X ONCE IV Last administered on 08/01/21at 23:59; Start 08/01/21 at 21:15; Stop 08/02/21 at 07:14; Status DC Ondansetron HCl (Zofran) 4 mg PRN Q6HRS PRN IVP NAUSEA/VOMITING Last administered on 08/02/21at 14:27; Start 08/01/21 at 21:15 Al Hydroxide/Mg Hydroxide (Mylanta Plus Xs) 30 ml PRN Q3HRS PRN PO HEARTBURN / GAS; Start 08/01/21 at 21:15 Zolpidem Tartrate (Ambien) 5 mg PRN QHS PRN PO INSOMNIA, MAY REPEAT IN 1HR; Start 08/01/21 at 21:15 Acetaminophen/ Hydrocodone Bitart (Lortab 5/325) 1 tab PRN Q4HRS PRN PO MILD PAIN 1-3 Last administered on 08/03/21at 21:29; Start 08/01/21 at 21:15 Acetaminophen (Tylenol) 650 mg PRN Q6HRS PRN PO Headaches, Temp > 101.5F; Start 08/01/21 at 21:15 Magnesium Hydroxide (Milk Of Magnesia) 2,400 mg PRN Q12HR PRN PO CONSTIPATION; Start 08/01/21 at 21:15 Insulin Human Lispro (HumaLOG) 0-9 UNITS TIDWMEALS SQ ; Start 08/02/21 at 08:00 Dextrose (Dextrose 50%-Water Syringe) 12.5 gm PRN Q15MIN PRN IV SEE COMMENTS; Start 08/01/21 at 21:15 Atorvastatin Calcium (Lipitor) 80 mg DAILY PO Last administered on 08/03/21at 08 :50; Start 08/02/21 at 09:00 Fluoxetine HCl (PROzac) 10 mg DAILY PO Last administered on 08/03/21at 08:50; Start 08/02/21 at 09:00 Pantoprazole Sodium (Protonix) 40 mg DAILYAC PO Last administered on 08/03/21at 06:24; Start 08/02/21 at 07:30 Vancomycin HCl 1.25 gm/Sodium Chloride 250 ml @ 167 mls/hr Q24H IV ; Start 08/02/21 at 18:30; Stop 08/02/21 at 10:28; Status DC Vancomycin HCl (Vancomycin Trough Level) 1 each 1X ONCE MC ; Start 08/03/21 at 18:00; Stop 08/03/21 at 18:01; Status Cancel Gabapentin (Neurontin) 200 mg TID PO Last administered on 08/03/21at 21:26; Start 08/02/21 at 09:30 Hydralazine HCl (Apresoline) 25 mg TID PO Last administered on 08/03/21at 21:26; Start 08/02/21 at 09:30 Carvedilol (Coreg) 12.5 mg BIDWMEALS PO Last administered on 08/03/21at 08:50; Start 08/02/21 at 09:30 Duloxetine HCl (Cymbalta) 60 mg DAILY PO Last administered on 08/03/21at 08:50; Start 08/02/21 at 09:30 Daptomycin 430 mg/ Sodium Chloride 50 ml @ 100 mls/hr Q24H IV Last administered on 08/03/21at 12:20; Start 08/02/21 at 12:00 Sodium Chloride 1,000 ml @ 100 mls/hr 1X ONCE IV Last administered on 08/02/21at 11:32; Start 08/02/21 at 11:30; Stop 08/02/21 at 21:29; Status DC Lactobacillus Rhamnosus (Culturelle) 1 cap BID PO Last administered on 08/03/21at 21:26; Start 08/02/21 at 21:00 Sodium Chloride 1,000 ml @ 75 mls/hr [id number] IV Last administered on 08/04/21at 03:03; Start 08/03/21 at 08:00 Piperacillin Sod/ Tazobactam Sod 3.375 gm/Sodium Chloride 50 ml @ 100 mls/hr Q6HRS IV Last administered on 08/04/21at 06:25; Start 08/03/21 at 13:00 Throat Lozenges (Cepacol Sore Throat Lozenge) 1 elizabeth ONCE PRN PO SORE THROAT; Start 08/04/21 at 09:00 Active Scripts Active Reported Ozempic (Semaglutide) 1 Mg/0.75 Ml Pen.injctr 0.25 Mg SQ WEEKLY Losartan Potassium 50 Mg Tablet 25 Mg PO DAILY Hydralazine Hcl 25 Mg Tablet 1 Tab PO TID Gabapentin (Gabapentin) 100 Mg Capsule 200 Mg PO TID Famotidine 20 Mg Tablet 20 Mg PO DAILY Cymbalta (Duloxetine Hcl) 60 Mg Capsule.dr 1 Cap PO DAILY Carvedilol 25 Mg Tablet 12.5 Mg PO BIDWMEALS Calcitriol 0.25 Mcg Capsule 1 Cap PO DAILY Omeprazole 20 Mg Capsule.dr 20 Mg PO DAILY Fluoxetine Hcl 10 Mg Tablet 1 Tab PO DAILY Atorvastatin Calcium 80 Mg Tablet 1 Tab PO DAILY Vitals/I & O Vital Sign - Last 24 Hours 08/03/21 08/03/21 08/03/21 08/03/21 11:00 13:29 15:00 19:00 Temp 97.7 98.1 98.2 97.7 98.1 98.2 Pulse 72 72 66 62 Resp 18 18 18 B/P (MAP) 148/68 (94) 148/68 100/60 (73) 105/55 (72) Pulse Ox 96 96 97 O2 Delivery Room Air Room Air Room Air 08/03/21 08/03/21 08/03/21 08/03/21 20:10 21:26 21:29 21:59 Pulse 62 Resp 20 18 B/P (MAP) 105/55 O2 Delivery Room Air Room Air Room Air 08/03/21 08/04/21 08/04/21 23:00 03:00 07:00 Temp 98.1 98.2 97.7 98.1 98.2 97.7 Pulse 70 84 75 Resp 18 20 18 B/P (MAP) 126/53 (77) 115/66 (82) 140/70 (93) Pulse Ox 98 94 93 O2 Delivery Room Air Room Air Room Air Intake and Output 08/03/21 08/03/21 08/04/21 15:00 23:00 07:00 Intake Total 0 ml 1920 ml Balance 0 ml 1920 ml Justifications for Admission General Conditions Other justification for admit: Necrotic right first and second toe, suspected osteomyelitis Other Justification ALVINO VINCENT BARK GRINDER Aug 04, 2021 09:33
--- NOTE | 2021-08-04 10:32 | NUR ---
SW following. Discussed with RN, pt from home with spouse, room air, NPO. Pt having an angiogram today at 1300. RN advised no SW needs at this time. SW to discuss home health with pt closer to discharge. SW will continue to follow.
[2021-08-04] MEDS: DAPTOmycin (GENERIC) IVPB 430 MG in IV NORMAL SALINE 50ML 50 ML IV SCH (11:09)
[2021-08-04] MEDS ORDERED: LIDOCAINE 1% Multi-Dose 20 ML VIAL. ONE (11:47)
[2021-08-04] MEDS ORDERED: IODIXANOL 320 MG/ML 100 ML VIAL. ONE (11:47)
[2021-08-04] MEDS ORDERED: HEPARIN for IV BOLUS 10,000 UNIT/10 ML VIAL. ONE (12:40)
[2021-08-04] MEDS ORDERED: fentaNYL PF VIAL 100 MCG/2 ML VIAL ONE (12:40)
[2021-08-04] MEDS ORDERED: MIDAZOLAM HCL/PF 2 MG/2 ML VIAL. ONE (12:40)
--- NOTE | 2021-08-04 12:40 | PDOC ---
CARDIO Progress Notes Date and Time Date of Service 08/04/21 Time of Evaluation 1300 Subjective Comments: patient off unit for angiogram Vitals Vitals Vital Signs Date Time Temp Pulse Resp B/P (MAP) Pulse Ox O2 Delivery O2 Flow Rate FiO2 08/04/21 11:24 98.0 78 20 147/78 (101) 95 Room Air 98.0 Weight Weight [ ] Input and Output Intake and Output Intake and Output 08/04/21 07:00 Intake Total 1920 ml Balance 1920 ml Intake Oral 120 ml IV Total 900 ml Other 900 ml Laboratory Labs Laboratory Tests Test 08/03/21 17:05 08/03/21 21:10 08/04/21 03:35 08/04/21 08:11 Glucose (Fingerstick) 156 mg/dL (70-99) 139 mg/dL (70-99) 109 mg/dL (70-99) White Blood Count 7.5 x10^3/uL (4.0-11.0) Red Blood Count 2.75 x10^6/uL (4.30-5.70) Hemoglobin 8.3 g/dL (13.0-17.5) Hematocrit 25.1 % (39.0-53.0) Mean Corpuscular Volume 91 fL (79-100) Mean Corpuscular Hemoglobin 30 pg (25-35) Mean Corpuscular Hemoglobin Concent 33 g/dL (31-37) Red Cell Distribution Width 14.5 % (11.5-14.5) Platelet Count 188 x10^3/uL (140-400) Neutrophils (%) (Auto) 65 % (31-73) Lymphocytes (%) (Auto) 16 % (24-48) Monocytes (%) (Auto) 12 % (0-9) Eosinophils (%) (Auto) 5 % (0-3) Basophils (%) (Auto) 1 % (0-3) Neutrophils # (Auto) 4.9 x10^3/uL (1.8-7.7) Lymphocytes # (Auto) 1.2 x10^3/uL (1.0-4.8) Monocytes # (Auto) 0.9 x10^3/uL (0.0-1.1) Eosinophils # (Auto) 0.4 x10^3/uL (0.0-0.7) Basophils # (Auto) 0.1 x10^3/uL (0.0-0.2) Sodium Level 143 mmol/L (136-145) Potassium Level 3.7 mmol/L (3.5-5.1) Chloride Level 110 mmol/L (98-107) Carbon Dioxide Level 23 mmol/L (21-32) Anion Gap 10 (6-14) Blood Urea Nitrogen 24 mg/dL (8-26) Creatinine 1.6 mg/dL (0.7-1.3) Estimated GFR (Cockcroft-Gault) 42.7 Glucose Level 97 mg/dL (70-99) Calcium Level 7.8 mg/dL (8.5-10.1) Test 08/04/21 09:17 08/04/21 12:10 SARS-CoV-2 Antigen (Rapid) Negative (NEGATIVE) Glucose (Fingerstick) 103 mg/dL (70-99) Microbiology Micro Microbiology 08/02/21 Gram Stain - Final, Resulted 08/02/21 Aerobic and Anaerobic Culture - Preliminary, Resulted 08/01/21 Blood Culture - Preliminary, Resulted NO GROWTH AFTER 2 DAYS Assessment Assessment 1. PAD with limb threatening ischemia. angiogram today by vascular 2. Gangrenous changes of toes on right foor 3. AFIB; rate controlled per vitals. not on tele 4. Hypertension; controlled 5. Hyperlipidemia; statin therapy 6. Diabetes, II Recommendations EKG Echo to assess LV systolic function Secondary prevention Supportive care Follow vascular and ID recs Justicifation of Admission Dx: Justifications for Admission: Justification of Admission Dx: Yes Comments: PAD with ischemic changes to lower extremity AFIB YULISA TRUJILLO APRN Aug 04, 2021 12:40
[2021-08-04] MEDS ORDERED: MIDAZOLAM HCL/PF 2 MG/2 ML VIAL. IV ONE (13:30)
[2021-08-04] MEDS ORDERED: HEPARIN for IV BOLUS 10,000 UNIT/10 ML VIAL. IV ONE (13:30)
[2021-08-04] MEDS ORDERED: LIDOCAINE 1% Multi-Dose 20 ML VIAL. INJ ONE (13:30)
[2021-08-04] MEDS ORDERED: IODIXANOL 320 MG/ML 100 ML VIAL. IART ONE (13:30)
[2021-08-04] MEDS ORDERED: fentaNYL PF VIAL 100 MCG/2 ML VIAL IV ONE (13:30)
--- NOTE | 2021-08-04 13:59 | PDOC4 ---
OPERATIVE NOTE Date: Date: Aug 04, 2021 Pre-Op Diagnosis: Atrial fibrillation off anticoagulation Atherosclerosis of [place] arteries of bilateral lower extremity Right forefoot gangrene Post-Op Diagnosis: Same as above Procedure Performed: #1. Ultrasound-guided access left common femoral artery #2 radiology supervision interpretation aortogram #3 radiology supervision interpretation bilateral lower extremity runoff #4 right SFA angioplasty 6 x 120 Admiral drug-eluting balloon x2 #5 placement closure device left femoral artery access site Surgeon: Memo Sherman MD Vascular surgery Anesthesia Type: Conscious sedation under surgeon and RN supervision using intravenous fentanyl and Versed Total 1 mg Versed 50 mcg fentanyl 58-minutes Blood Loss: Minimal less than 10 cc Specimans Obtained: None Findings: 1. Aorta is widely patent without aneurysm or significant occlusive disease #2 bilateral common and external arteries widely patent bilateral internal iliac arteries widely patent #3 bilateral common femoral artery with very mild nonflow limiting ath erosclerotic disease less than 30% bilaterally, bilateral profunda femoris arteries widely patent #4 right mid to distal SFA shows diffuse area of moderate to more severe stenosis with a couple of areas over 60% over about 20 cm. This was treated with a balloon angioplasty with 2 overlapping 6 x 120 Admiral drug-eluting balloons with good results less than 20% residual stenosis no dissection no complication no distal embolization #5 right leg shows the popliteal artery and JEFFERY and [employer]IN RESERVATION CLERK widely patent to the foot with a patent pedal arch --this would suggest the gangrene of the toes is due to embolism #6 left proximal to mid SFA shows focal area of about 60% stenosis left distal SFA and popliteal widely patent left two-vessel tibial runoff to the foot widely patent Complications: None Operative Note: Patient was taken to the Return To Service Inspector and placed supine on the table. The groins were prepped and draped in usual sterile fashion. Proper timeout was performed. Conscious sedation was induced under surgeon and RN supervision using intravenous fentanyl and Versed with appropriate monitoring devices in place. Attention was directed to left groin where the left common femoral artery was fluoroscopically marked over the femoral head and exam with ultrasound. The vessels found to have a small amount of posterior plaque but otherwise widely patent with good flow. An image of the vessels taken and saved for the medical record. Under real-time ultrasound guidance local anesthetic was injected in the left groin and the left common femoral artery was accessed in retrograde fashion using a micropuncture needle. This was used to introduce a micropuncture wire to the iliac artery and this was examined under fluoroscopy. The cylinder technique was used to exchange the needle for a micropuncture sheath which back blood easily, and this was used to pass a Bentson wire into the aorta. This was used to exchange the micropuncture sheath for a 5 Bulgarian sheath which was aspirated and flushed without difficulty. These were used to introduce a flush catheter to the aorta and aortogram was obtained. Cath was pulled back to the right bifurcation and oblique pelvic angiogram was obtained. Cath was used to hook aorta bifurcation and passed a wi re and catheter to the right common femoral artery. Right leg runoff was obtained. Given the need for transmetatarsal amputation I decided to intervene on the stenosis in the mid right SFA. Patient was given intravenous heparin The catheter was used to pass a Storq wire into the popliteal artery under fluoroscopic guidance and then this was used to remove the catheter and exchange the 5 Bulgarian sheath for a 6 Bulgarian 45 cm Terumo destination sheath passed up and over the bifurcation of the distal tip in the right common femoral artery. The Storq wire was then used to deliver 2 separate 6 x 120 Admiral drug-eluting balloons. A longer balloon was not available. These were deployed in a slightly overlapped fashion distally then proximally treating the area of disease in the right mid to distal SFA. Completion angiogram showed less than 20% residual stenosis no dissection and no distalization. The sheath was pulled back to the left iliac artery and left leg runoff to the foot was obtained. The wire was passed into the aorta and then the sheath was removed and the wire was used to deliver a 6 Bulgarian Angio-Seal device to the left femoral artery access site with excellent hemostasis. Patient was escorted to recovery in stable condition. There were no compli cations and he told procedure well throughout. At the end of the case all sponge, needle, and instrument counts were reported to me as correct x2. KADE SHERMAN MD Aug 04, 2021 13:59
--- NOTE | 2021-08-04 14:43 | PDOC ---
Provider Note Date of Service: DATE: 08/04/21 TIME: 14:41 Provider Note Pt seen and examined in his room s/p angiogram today left femoral artery access site is soft, non-tender, no hematoma no mass no issues strong signals both ankles feet warm with normal motor / sensation VSS, denies any c/o doing well Will need right foot toe amps vs TMA Justifications for Admission General Conditions Other justification for admit: Necrotic right first and second toe, suspected osteomyelitis Other Justification KADE SHERMAN MD Aug 04, 2021 14:43
--- NOTE | 2021-08-04 15:50 | PDOC ---
[facility] PROGRESS NOTE Date of Service DOS: DATE: 08/04/21 TIME: 15:49 Chief Complaint Chief Complaint Suspected osteomyelitis of right first and second toe Cellulitis right foot ESTELLA due to vasomotor nephropathy DM2 Diabetic neuropathy A. fib HTN Normocytic anemia History hemorrhagic CVA Moderate malnutrition Plan: We will admit patient in coverage for suspected osteomyelitis with Rocephin and vancomycin CT right foot pending We will place consult to Dr. Cobos Will consult ID IV fluids. Unknown baseline renal status. Blood cultures Hemoglobin A1c pending Resume home medications FEN - Cardiac diet PPX - SCDs FULL CODE Dispo - inpatient for above Surrogate decision-maker is his (Marianna Reynolds) History of Present Illness History of Present Illness Patient is a 70-year-old male with past medical history DM2, diabetic neuropathy, hemorrhagic CVA, HTN, A. 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 Cobos, due to concerns of necrotic right first and second toes. Patient's states that over the past 2 days his right second and first toenail falling off and there has been worsening necrosis of these toes. He was seen by Dr. Cobos today who marked the surrounding area of erythema and noted some streaking, so sent him to the emergency room for further evaluation. Labs in the ED showed WBC 10.2, hemoglobin 9.7, hematocrit 28.5, ESR 81, CRP 68.4, BUN 38, creatinine 2, albumin 2.8, AST 16, ALT 18. Due to concerns of osteomyelitis I asked the ED provider to order a CT of his right lower extremity. Duplex of right lower extremity showed significantly flow-limiting stenosis within the popliteal artery. Ultrasound showed no evidence of DVT. Due to concerns of osteomyelitis at fast ED provider to order CT of right lower extremity. However due to extent of erythema and concern for necrotic versus anxious. Will admit patient for further medical management. 08/02: Afebrile. CT showed no gross cortical erosion suggestive of acute osteomyelitis. Discussed with ID and, clinically looks like dry gangrene. Will likely require amputation; discussed with and patient. Will consult cardiology for possible CTA with runoff to look at what level amputation would be appropriate. Kidney function slightly improved with hydration. Unknown baseline; will provide judicious IV fluids and resume losartan when kidney function stabilizes. Continue vancomycin and Rocephin for now; further antibiotic recommendations per ID. 08/03 Patient evaluated and examined at bedside. Continue daptomycin and switch Rocephin to Zosyn today. Planning for arterial runoff tomorrow. Suspect patient will need some sort of amputation. We will continue to monitor labs. Continue antibiotics. Vascular surgery also following. 08/04 Patient evaluated and examined at bedside. Angiogram completed this morning appears that vascular surgery is recommending amputation. If approved timing to be determined. Continue antibiotics. Continue to monitor labs. Plan of care discussed with bedside RN. Vitals/I&O Vitals/I&O: Vital Signs Date Time Temp Pulse Resp B/P (MAP) Pulse Ox O2 Delivery O2 Flow Rate FiO2 08/04/21 15:29 97.6 66 18 159/88 (111) 94 Room Air 97.6 08/04/21 13:36 2.0 I & O 08/03/21 08/03/21 08/04/21 15:00 23:00 07:00 Intake Total 0 ml 1920 ml Balance 0 ml 1920 ml Physical Exam Physical Exam: GENERAL: Alert awake HEENT: Normocephalic, atraumatic. Anicteric. No thrush. NECK: Supple. LUNGS: Clear. HEART: S1, S2 irregular. No murmurs. ABDOMEN: Soft, nontender, nondistended. No rebound or guarding. EXTREMITIES: Necrotic right first and second toe with surrounding erythema and streaking which has receded from the previous markings. Right third toe nail has fallen off. Wet gangrenous changes of the right second and first toe. NEUROLOGIC: Alert and oriented x 3, grossly nonfocal. PSYCHIATRIC: Calm and cooperative. General: No acute distress Heart: Regular rate, Other (Rhythm irregular) Lungs: Clear Abdomen: Normal bowel sounds Extremities: No clubbing, No cyanosis, Other (First and second toes of the right foot show dry gangrene, small ulceration which is shallow on the left fifth toe the left foot) Skin: Other (Wounds on the feet as above, loss of all hair from the mid calf down consistent with a PAD, he has palpable femoral pulses and palpable popliteal pulses bilaterally but absent pulses at the ankle with signals present consistent with popliteal tibial occlusive disease consistent with his history of diabetes and his arterial duplex) Labs Labs: Laboratory Tests Test 08/03/21 17:05 08/03/21 21:10 08/04/21 03:35 08/04/21 08:11 Glucose (Fingerstick) 156 mg/dL (70-99) 139 mg/dL (70-99) 109 mg/dL (70-99) White Blood Count 7.5 x10^3/uL (4.0-11.0) Red Blood Count 2.75 x10^6/uL (4.30-5.70) Hemoglobin 8.3 g/dL (13.0-17.5) Hematocrit 25.1 % (39.0-53.0) Mean Corpuscular Volume 91 fL (79-100) Mean Corpuscular Hemoglobin 30 pg (25-35) Mean Corpuscular Hemoglobin Concent 33 g/dL (31-37) Red Cell Distribution Width 14.5 % (11.5-14.5) Platelet Count 188 x10^3/uL (140-400) Neutrophils (%) (Auto) 65 % (31-73) Lymphocytes (%) (Auto) 16 % (24-48) Monocytes (%) (Auto) 12 % (0-9) Eosinophils (%) (Auto) 5 % (0-3) Basophils (%) (Auto) 1 % (0-3) Neutrophils # (Auto) 4.9 x10^3/uL (1.8-7.7) Lymphocytes # (Auto) 1.2 x10^3/uL (1.0-4.8) Monocytes # (Auto) 0.9 x10^3/uL (0.0-1.1) Eosinophils # (Auto) 0.4 x10^3/uL (0.0-0.7) Basophils # (Auto) 0.1 x10^3/uL (0.0-0.2) Sodium Level 143 mmol/L (136-145) Potassium Level 3.7 mmol/L (3.5-5.1) Chloride Level 110 mmol/L (98-107) Carbon Dioxide Level 23 mmol/L (21-32) Anion Gap 10 (6-14) Blood Urea Nitrogen 24 mg/dL (8-26) Creatinine 1.6 mg/dL (0.7-1.3) Estimated GFR (Cockcroft-Gault) 42.7 Glucose Level 97 mg/dL (70-99) Calcium Level 7.8 mg/dL (8.5-10.1) Test 08/04/21 09:17 08/04/21 12:10 SARS-CoV-2 Antigen (Rapid) Negative (NEGATIVE) Glucose (Fingerstick) 103 mg/dL (70-99) Comment Review of Relevant I have reviewed the following items beverly (where applicable) has been applied. Medications: Current Medications Medications (Trade) Dose Ordered Sig/Roderick Route PRN Reason Start Time Stop Time Status Last Admin Dose Admin Throat Lozenges (Cepacol Sore Throat Lozenge) 1 elizabeth ONCE PRN PO SORE THROAT 08/04/21 09:00 08/04/21 09:19 Heparin Sodium/ Sodium Chloride (HEPARIN for ARTERIAL LINE FLUSH) 1,000 unit 1X ONCE IART 08/04/21 13:30 08/04/21 13:40 DC 08/04/21 13:38 Heparin Sodium/ Sodium Chloride (HEPARIN for ARTERIAL LINE FLUSH) 1,000 unit 1X ONCE IART 08/04/21 13:30 08/04/21 13:40 DC 08/04/21 13:38 Midazolam HCl (Versed) 1 mg 1X ONCE IV 08/04/21 13:30 08/04/21 13:40 DC 08/04/21 13:39 Fentanyl Citrate (Fentanyl 2ml Vial) 50 mcg 1X ONCE IV 08/04/21 13:30 08/04/21 13:40 DC 08/04/21 13:39 Iodixanol (Visipaque 320) 63 ml 1X ONCE IART 08/04/21 13:30 08/04/21 13:40 DC 08/04/21 13:39 Heparin Sodium (Porcine) (Heparin Sodium) 6,000 unit 1X ONCE IV 08/04/21 13:30 08/04/21 13:40 DC 08/04/21 13:40 Lidocaine HCl (Lidocaine 1% 20ml Vial) 10 ml 1X ONCE INJ 08/04/21 13:30 08/04/21 13:40 DC 08/04/21 13:39 Sodium Chloride 1,000 ml @ 200 mls/hr Q5H IV 08/04/21 13:30 08/04/21 13:30 Justifications for Admission General Conditions Other justification for admit: Necrotic right first and second toe, suspected osteomyelitis Other Justification GIANCARLO EUGENE MD Aug 04, 2021 15:50
[2021-08-04] MEDS: FLUoxetine HCL 10 MG CAPSULE PO SCH (17:13)
[2021-08-04] MEDS: CLOPIDOGREL BISULFATE 75 MG TABLET PO SCH (17:14)
[2021-08-04] MEDS: DULoxetine HCL 30 MG CAPSULE.DR PO SCH (17:14)
[2021-08-04] MEDS: ATORVASTATIN CALCIUM 40 MG TABLET. PO SCH (17:14)
--- NOTE | 2021-08-04 22:26 | PDOC ---
PROGRESS NOTES Date of Service DATE: 08/04/21 TIME: 22:23 Subjective Subjective Patient was seen at bedside resting comfortably. was visiting. Patient underwent angiogram and noted patent pedal arch. The gangrene was suspected to be from emboli shower. Otherwise, patient denies any constitutional symptoms. Objective Objective Vital Signs Date Time Temp Pulse Resp B/P (MAP) Pulse Ox O2 Delivery O2 Flow Rate FiO2 08/04/21 21:29 83 170/103 08/04/21 20:00 Room Air 08/04/21 19:30 97.6 18 98 97.6 08/04/21 13:36 2.0 Intake and Output 08/04/21 07:00 Intake Total 1920 ml Balance 1920 ml Intake Oral 120 ml IV Total 900 ml Other 900 ml Physical Exam Physical Exam Soft dressing was in place on the right lower extremity. Plan Plan of Care -Patient is tolerating the current antibiotics well, and ID is following -Patient remains aleukocytosis -Vascular surgery is planning on TMA on . Podiatry will sign off and defer the surgical plan to vascular surgery -Informed the patient and family about the surgical planning and they verbalized understanding Comment Review of Relevant I have reviewed the following items beverly (where applicable) has been applied. Labs Laboratory Tests Test 08/03/21 06:30 08/03/21 08:15 08/03/21 11:31 08/03/21 17:05 White Blood Count 6.3 x10^3/uL (4.0-11.0) Red Blood Count 2.79 x10^6/uL (4.30-5.70) Hemoglobin 8.4 g/dL (13.0-17.5) Hematocrit 25.6 % (39.0-53.0) Mean Corpuscular Volume 92 fL (79-100) Mean Corpuscular Hemoglobin 30 pg (25-35) Mean Corpuscular Hemoglobin Concent 33 g/dL (31-37) Red Cell Distribution Width 14.4 % (11.5-14.5) Platelet Count 186 x10^3/uL (140-400) Neutrophils (%) (Auto) 65 % (31-73) Lymphocytes (%) (Auto) 16 % (24-48) Monocytes (%) (Auto) 12 % (0-9) Eosinophils (%) (Auto) 6 % (0-3) Basophils (%) (Auto) 2 % (0-3) Neutrophils # (Auto) 4.1 x10^3/uL (1.8-7.7) Lymphocytes # (Auto) 1.0 x10^3/uL (1.0-4.8) Monocytes # (Auto) 0.7 x10^3/uL (0.0-1.1) Eosinophils # (Auto) 0.3 x10^3/uL (0.0-0.7) Basophils # (Auto) 0.1 x10^3/uL (0.0-0.2) Sodium Level 143 mmol/L (136-145) Potassium Level 4.4 mmol/L (3.5-5.1) Chloride Level 109 mmol/L (98-107) Carbon Dioxide Level 23 mmol/L (21-32) Anion Gap 11 (6-14) Blood Urea Nitrogen 30 mg/dL (8-26) Creatinine 1.7 mg/dL (0.7-1.3) Estimated GFR (Cockcroft-Gault) 39.8 Glucose Level 108 mg/dL (70-99) Calcium Level 8.3 mg/dL (8.5-10.1) Creatine Kinase 49 U/L (39-308) Triglycerides Level 91 mg/dL (0-150) Cholesterol Level 107 mg/dL (0-200) LDL Cholesterol, Calculated 65 mg/dL (0-100) VLDL Cholesterol, Calculated 18 mg/dL (0-40) Non-HDL Cholesterol Calculated 83 mg/dL (0-129) HDL Cholesterol 24 mg/dL (40-60) Cholesterol/HDL Ratio 4.5 Glucose (Fingerstick) 110 mg/dL (70-99) 104 mg/dL (70-99) 156 mg/dL (70-99) Test 08/03/21 21:10 08/04/21 03:35 08/04/21 08:11 08/04/21 09:17 Glucose (Fingerstick) 139 mg/dL (70-99) 109 mg/dL (70-99) White Blood Count 7.5 x10^3/uL (4.0-11.0) Red Blood Count 2.75 x10^6/uL (4.30-5.70) Hemoglobin 8.3 g/dL (13.0-17.5) Hematocrit 25.1 % (39.0-53.0) Mean Corpuscular Volume 91 fL (79-100) Mean Corpuscular Hemoglobin 30 pg (25-35) Mean Corpuscular Hemoglobin Concent 33 g/dL (31-37) Red Cell Distribution Width 14.5 % (11.5-14.5) Platelet Count 188 x10^3/uL (140-400) Neutrophils (%) (Auto) 65 % (31-73) Lymphocytes (%) (Auto) 16 % (24-48) Monocytes (%) (Auto) 12 % (0-9) Eosinophils (%) (Auto) 5 % (0-3) Basophils (%) (Auto) 1 % (0-3) Neutrophils # (Auto) 4.9 x10^3/uL (1.8-7.7) Lymphocytes # (Auto) 1.2 x10^3/uL (1.0-4.8) Monocytes # (Auto) 0.9 x10^3/uL (0.0-1.1) Eosinophils # (Auto) 0.4 x10^3/uL (0.0-0.7) Basophils # (Auto) 0.1 x10^3/uL (0.0-0.2) Sodium Level 143 mmol/L (136-145) Potassium Level 3.7 mmol/L (3.5-5.1) Chloride Level 110 mmol/L (98-107) Carbon Dioxide Level 23 mmol/L (21-32) Anion Gap 10 (6-14) Blood Urea Nitrogen 24 mg/dL (8-26) Creatinine 1.6 mg/dL (0.7-1.3) Estimated GFR (Cockcroft-Gault) 42.7 Glucose Level 97 mg/dL (70-99) Calcium Level 7.8 mg/dL (8.5-10.1) SARS-CoV-2 Antigen (Rapid) Negative (NEGATIVE) Test 08/04/21 12:10 08/04/21 16:45 08/04/21 20:42 Glucose (Fingerstick) 103 mg/dL (70-99) 97 mg/dL (70-99) 110 mg/dL (70-99) Laboratory Tests Test 08/04/21 03:35 08/04/21 08:11 08/04/21 09:17 08/04/21 12:10 White Blood Count 7.5 x10^3/uL (4.0-11.0) Red Blood Count 2.75 x10^6/uL (4.30-5.70) Hemoglobin 8.3 g/dL (13.0-17.5) Hematocrit 25.1 % (39.0-53.0) Mean Corpuscular Volume 91 fL (79-100) Mean Corpuscular Hemoglobin 30 pg (25-35) Mean Corpuscular Hemoglobin Concent 33 g/dL (31-37) Red Cell Distribution Width 14.5 % (11.5-14.5) Platelet Count 188 x10^3/uL (140-400) Neutrophils (%) (Auto) 65 % (31-73) Lymphocytes (%) (Auto) 16 % (24-48) Monocytes (%) (Auto) 12 % (0-9) Eosinophils (%) (Auto) 5 % (0-3) Basophils (%) (Auto) 1 % (0-3) Neutrophils # (Auto) 4.9 x10^3/uL (1.8-7.7) Lymphocytes # (Auto) 1.2 x10^3/uL (1.0-4.8) Monocytes # (Auto) 0.9 x10^3/uL (0.0-1.1) Eosinophils # (Auto) 0.4 x10^3/uL (0.0-0.7) Basophils # (Auto) 0.1 x10^3/uL (0.0-0.2) Sodium Level 143 mmol/L (136-145) Potassium Level 3.7 mmol/L (3.5-5.1) Chloride Level 110 mmol/L (98-107) Carbon Dioxide Level 23 mmol/L (21-32) Anion Gap 10 (6-14) Blood Urea Nitrogen 24 mg/dL (8-26) Creatinine 1.6 mg/dL (0.7-1.3) Estimated GFR (Cockcroft-Gault) 42.7 Glucose Level 97 mg/dL (70-99) Calcium Level 7.8 mg/dL (8.5-10.1) Glucose (Fingerstick) 109 mg/dL (70-99) 103 mg/dL (70-99) SARS-CoV-2 Antigen (Rapid) Negative (NEGATIVE) Test 08/04/21 16:45 08/04/21 20:42 Glucose (Fingerstick) 97 mg/dL (70-99) 110 mg/dL (70-99) Microbiology 08/02/21 Gram Stain - Final, Resulted 08/02/21 Aerobic and Anaerobic Culture - Preliminary, Resulted 08/01/21 Blood Culture - Preliminary, Resulted NO GROWTH AFTER 3 DAYS Medications Current Medications Vancomycin HCl (Vanco Per Pharmacy) 1 each 1X ONCE MC ; Start 08/01/21 at 17:45; Stop 08/01/21 at 17:51; Status DC Vancomycin HCl 2 gm/Sodium Chloride 500 ml @ 250 mls/hr 1X ONCE IV Last administered on 08/01/21at 18:44; Start 08/01/21 at 18:30; Stop 08/01/21 at 20:29; Status DC Acetaminophen (Tylenol) 650 mg PRN Q4HRS PRN PO FEVER > 100.3'F; Start 08/01/21 at 19:45; Stop 08/02/21 at 13:13; Status DC Ceftriaxone Sodium (Rocephin) 2 gm 1X ONCE IVP Last administered on 08/01/21at 20:25; Start 08/01/21 at 20:00; Stop 08/01/21 at 20:01; Status DC Ceftriaxone Sodium (Rocephin) 2 gm Q24H IVP Last administered on 08/02/21at 21:49; Start 08/02/21 at 21:00; Stop 08/03/21 at 12:39; Status DC Vancomycin HCl (Vanco Per Pharmacy) 1 each PRN DAILY PRN MC SEE COMMENTS Last administered on 08/02/21at 07:14; Start 08/01/21 at 21:00; Stop 08/02/21 at 10:31; Status DC Hydralazine HCl (Apresoline Inj) 10 mg PRN Q4HRS PRN IVP ELEVATED BP, SEE COMMENTS; Start 08/01/21 at 21:00 Sodium Chloride 1,000 ml @ 100 mls/hr 1X ONCE IV Last administered on 08/01/21at 23:59; Start 08/01/21 at 21:15; Stop 08/02/21 at 07:14; Status DC Ondansetron HCl (Zofran) 4 mg PRN Q6HRS PRN IVP NAUSEA/VOMITING Last administered on 08/02/21at 14:27; Start 08/01/21 at 21:15 Al Hydroxide/Mg Hydroxide (Mylanta Plus Xs) 30 ml PRN Q3HRS PRN PO HEARTBURN / GAS; Start 08/01/21 at 21:15 Zolpidem Tartrate (Ambien) 5 mg PRN QHS PRN PO INSOMNIA, MAY REPEAT IN 1HR; Start 08/01/21 at 21:15 Acetaminophen/ Hydrocodone Bitart (Lortab 5/325) 1 tab PRN Q4HRS PRN PO MILD PAIN 1-3 Last administered on 08/03/21at 21:29; Start 08/01/21 at 21:15 Acetaminophen (Tylenol) 650 mg PRN Q6HRS PRN PO Headaches, Temp > 101.5F; Start 08/01/21 at 21:15 Magnesium Hydroxide (Milk Of Magnesia) 2,400 mg PRN Q12HR PRN PO CONSTIPATION; Start 08/01/21 at 21:15 Insulin Human Lispro (HumaLOG) 0-9 UNITS TIDWMEALS SQ ; Start 08/02/21 at 08:00 Dextrose (Dextrose 50%-Water Syringe) 12.5 gm PRN Q15MIN PRN IV SEE COMMENTS; Start 08/01/21 at 21:15 Atorvastatin Calcium (Lipitor) 80 mg DAILY PO Last administered on 08/04/21at 17:14; Start 08/02/21 at 09:00 Fluoxetine HCl (PROzac) 10 mg DAILY PO Last administered on 08/04/21at 17:13; Start 08/02/21 at 09:00 Pantoprazole Sodium (Protonix) 40 mg DAILYAC PO Last administered on 08/03/21at 06:24; Start 08/02/21 at 07:30 Vancomycin HCl 1.25 gm/Sodium Chloride 250 ml @ 167 mls/hr Q24H IV ; Start 08/02/21 at 18:30; Stop 08/02/21 at 10:28; Status DC Vancomycin HCl (Vancomycin Trough Level) 1 each 1X ONCE MC ; Start 08/03/21 at 18:00; Stop 08/03/21 at 18:01; Status Cancel Gabapentin (Neurontin) 200 mg TID PO Last administered on 08/04/21at 21:29; Start 08/02/21 at 09:30 Hydralazine HCl (Apresoline) 25 mg TID PO Last administered on 08/04/21at 21:29; Start 08/02/21 at 09:30 Carvedilol (Coreg) 12.5 mg BIDWMEALS PO Last administered on 08/04/21at 17:14; Start 08/02/21 at 09:30 Duloxetine HCl (Cymbalta) 60 mg DAILY PO Last administered on 08/04/21at 17:14; Start 08/02/21 at 09:30 Daptomycin 430 mg/ Sodium Chloride 50 ml @ 100 mls/hr Q24H IV Last administered on 08/04/21at 11:09; Start 08/02/21 at 12:00 Sodium Chloride 1,000 ml @ 100 mls/hr 1X ONCE IV Last administered on 08/02/21at 11:32; Start 08/02/21 at 11:30; Stop 08/02/21 at 21:29; Status DC Lactobacillus Rhamnosus (Culturelle) 1 cap BID PO Last administered on 08/04/21at 21:28; Start 08/02/21 at 21:00 Sodium Chloride 1,000 ml @ 75 mls/hr [id number] IV Last administered on 08/04/21at 03:03; Start 08/03/21 at 08:00 Piperacillin Sod/ Tazobactam Sod 3.375 gm/Sodium Chloride 50 ml @ 100 mls/hr Q6HRS IV Last administered on 08/04/21at 17:15; Start 08/03/21 at 13:00 Throat Lozenges (Cepacol Sore Throat Lozenge) 1 elizabeth ONCE PRN PO SORE THROAT Last administered on 08/04/21at 17:13; Start 08/04/21 at 09:00 Iodixanol (Visipaque 320) 100 ml STK-MED ONCE .ROUTE ; Start 08/04/21 at 11:47; Stop 08/04/21 at 11:48; Status DC Lidocaine HCl (Lidocaine 1% 20ml Vial) 20 ml STK-MED ONCE .ROUTE ; Start 08/04/21 at 11:47; Stop 08/04/21 at 11:48; Status DC Heparin Sodium/ Sodium Chloride 1,000 ml @ As Directed STK-MED ONCE .ROUTE ; Start 08/04/21 at 11:48; Stop 08/04/21 at 11:48; Status DC Midazolam HCl (Versed) 2 mg STK-MED ONCE .ROUTE ; Start 08/04/21 at 12:40; Stop 08/04/21 at 12:40; Status DC Fentanyl Citrate (Fentanyl 2ml Vial) 100 mcg STK-MED ONCE .ROUTE ; Start 08/04/21 at 12:40; Stop 08/04/21 at 12:40; Status DC Heparin Sodium (Porcine) (Heparin Sodium) 10,000 unit STK-MED ONCE .ROUTE ; Start 08/04/21 at 12:40; Stop 08/04/21 at 12:40; Status DC Heparin Sodium/ Sodium Chloride (HEPARIN for ARTERIAL LINE FLUSH) 1,000 unit 1X ONCE IART Last administered on 08/04/21at 13:38; Start 08/04/21 at 13:30; Stop 08/04/21 at 13:40; Status DC Heparin Sodium/ Sodium Chloride (HEPARIN for ARTERIAL LINE FLUSH) 1,000 unit 1X ONCE IART Last administered on 08/04/21at 13:38; Start 08/04/21 at 13:30; Stop 08/04/21 at 13:40; Status DC Midazolam HCl (Versed) 1 mg 1X ONCE IV Last administered on 08/04/21at 13:39; Start 08/04/21 at 13:30; Stop 08/04/21 at 13:40; Status DC Fentanyl Citrate (Fentanyl 2ml Vial) 50 mcg 1X ONCE IV Last administered on 08/04/21at 13:39; Start 08/04/21 at 13:30; Stop 08/04/21 at 13:40; Status DC Iodixanol (Visipaque 320) 63 ml 1X ONCE IART Last administered on 08/04/21at 13:39; Start 08/04/21 at 13:30; Stop 08/04/21 at 13:40; Status DC Heparin Sodium (Porcine) (Heparin Sodium) 6,000 unit 1X ONCE IV Last administered on 08/04/21at 13:40; Start 08/04/21 at 13:30; Stop 08/04/21 at 13:40; Status DC Lidocaine HCl (Lidocaine 1% 20ml Vial) 10 ml 1X ONCE INJ Last administered on 08/04/21at 13:39; Start 08/04/21 at 13:30; Stop 08/04/21 at 13:40; Status DC Sodium Chloride 1,000 ml @ 200 mls/hr Q5H IV Last administered on 08/04/21at 13:30; Start 08/04/21 at 13:30 Clopidogrel Bisulfate (Plavix) 75 mg DAILY PO Last administered on 08/04/21at 17:14; Start 08/04/21 at 14:45 Active Scripts Active Reported Ozempic (Semaglutide) 1 Mg/0.75 Ml Pen.injctr 0.25 Mg SQ WEEKLY Losartan Potassium 50 Mg Tablet 25 Mg PO DAILY Hydralazine Hcl 25 Mg Tablet 1 Tab PO TID Gabapentin (Gabapentin) 100 Mg Capsule 200 Mg PO TID Famotidine 20 Mg Tablet 20 Mg PO DAILY Cymbalta (Duloxetine Hcl) 60 Mg Capsule.dr 1 Cap PO DAILY Carvedilol 25 Mg Tablet 12.5 Mg PO BIDWMEALS Calcitriol 0.25 Mcg Capsule 1 Cap PO DAILY Omeprazole 20 Mg Capsule.dr 20 Mg PO DAILY Fluoxetine Hcl 10 Mg Tablet 1 Tab PO DAILY Atorvastatin Calcium 80 Mg Tablet 1 Tab PO DAILY Vitals/I & O Vital Sign - Last 24 Hours 08/03/21 08/04/21 08/04/21 08/04/21 23:00 03:00 07:00 07:50 Temp 98.1 98.2 97.7 98.1 98.2 97.7 Pulse 70 84 75 Resp 18 20 18 B/P (MAP) 126/53 (77) 115/66 (82) 140/70 (93) Pulse Ox 98 94 93 O2 Delivery Room Air Room Air Room Air Room Air 08/04/21 08/04/21 08/04/21 08/04/21 11:24 13:36 13:39 15:29 Temp 98.0 97.6 98.0 97.6 Pulse 78 64 66 Resp 20 15 15 18 B/P (MAP) 147/78 (101) 159/88 (111) Pulse Ox 95 100 94 O2 Delivery Room Air Nasal Cannula Room Air O2 Flow Rate 2.0 08/04/21 08/04/21 08/04/21 08/04/21 17:14 17:14 19:30 20:00 Temp 97.6 97.6 Pulse 66 66 83 Resp 18 B/P (MAP) 159/88 159/88 170/103 (125) Pulse Ox 98 O2 Delivery Room Air Room Air 08/04/21 21:29 Pulse 83 B/P (MAP) 170/103 Intake and Output 08/03/21 08/03/21 08/04/21 15:00 23:00 07:00 Intake Total 0 ml 1920 ml Balance 0 ml 1920 ml Justifications for Admission General Conditions Other justification for admit: Necrotic right first and second toe, suspected osteomyelitis Other Justification Nutrition Consultation Dietary Evaluation: Recommendations by RD: Dietary education by RD, Increase Calorie Intake, Protein supplementation Comments: REC resume ADA diet with maynor bid REC mvi per wound protocal Expected Outcomes/Goals: to meet >75% est nutr needs Malnutrition Findings: Food and Nutrition Intake (Mod: <75% est energy req 7days Weight Status: Appropriate GOLDIE SILVA DPM Aug 04, 2021 22:26
[2021-08-05 03:00] VITALS: BP 181/89
[2021-08-05] MEDS: hydrALAZINE 20 MG/ML VIAL. IVP PRN (03:27)
[2021-08-05] MEDS: IV NORMAL SALINE 1000ML BAG 1,000 ML IV SCH ×5 (04:30→19:30)
[2021-08-05] MEDS: PIPERACILLIN/TAZOBACTAM 3.375 GM in IV NORMAL SALINE 50ML 50 ML IV SCH (06:00)
[2021-08-05 07:00] VITALS: BP 165/83
--- NOTE | 2021-08-05 07:09 | PDOC ---
Provider Note Date of Service: DATE: 08/05/21 TIME: 07:03 Provider Note Provider Note Patient denies any acute concerns. No acute events overnight following angiography O: CV: +2 palpable dp on right. No hematoma or pseudoaneurysm left groin SKIN: Extensive dry gangrene of toes 1-4 on right. Cellulitis has much improved MSK: NOrmal range of motion with flexion and extension at right ankle RESP: nonlabored respirations, symm expansion NEURO: sensation intact to right foot A: 1. Dry gangrene toes 1-4 in setting of peripheral arterial disease on right 2. Atrial fibrillation not on anticoagulation, chronic Plan for echocardiogram today Discussed right transmetatarsal amputation with patient. Discussed need for prolonged non weight bearing status. Discussed high rate of non healing and need for additional procedures. Patient understands and agrees to proceed tomorrow under general anesthesia. Discussed risks of cardiopulmonary compl ications and infection. I spent 20 minutes in face to face time with the patient on day of service performing counseling regarding amputation and prevention of further progression of disease Justicifation of Admission Dx: Justifications for Admission: Justification of Admission Dx: Yes CONCEPCIÓN CRISTINA MD Aug 05, 2021 07:09
[2021-08-05 07:33] LABS: BASO # 0.1 x10^3/uL (0.0-0.2); BASO % 2 % (0-3); EOS # 0.4 x10^3/uL (0.0-0.7); EOS % 6 % (0-3); HEMATOCRIT 23.5 % (39.0-53.0); HEMOGLOBIN 7.8 g/dL (13.0-17.5); LYMPH # 0.9 x10^3/uL (1.0-4.8); LYMPH % 15 % (24-48); MEAN CORPUSCULAR HEMOGLOBIN 30 pg (25-35); MEAN CORPUSCULAR HGB CONC 33 g/dL (31-37); MEAN CORPUSCULAR VOLUME 91 fL (79-100); MONO # 0.7 x10^3/uL (0.0-1.1); MONO % 11 % (0-9); NEUT # 4.1 x10^3/uL (1.8-7.7); NEUT % 67 % (31-73); PLATELET COUNT 190 x10^3/uL (140-400); RED BLOOD COUNT 2.59 x10^6/uL (4.30-5.70); RED CELL DISTRIBUTION WIDTH 14.7 % (11.5-14.5); WHITE BLOOD COUNT 6.2 x10^3/uL (4.0-11.0)
[2021-08-05 07:53] LABS: CREATININE 1.4 mg/dL (0.7-1.3); GFR 49.8; POTASSIUM 3.3 mmol/L (3.5-5.1)
[2021-08-05] MEDS: INSULIN LISPRO 300 UNITS/3 ML VIAL. SQ SCH ×3 (08:00→17:00)
[2021-08-05] MEDS: CLOPIDOGREL BISULFATE 75 MG TABLET PO SCH (08:20)
[2021-08-05] MEDS: FLUoxetine HCL 10 MG CAPSULE PO SCH (08:20)
[2021-08-05] MEDS: DULoxetine HCL 30 MG CAPSULE.DR PO SCH (08:20)
[2021-08-05] MEDS: hydrALAZINE 25 MG TABLET PO SCH ×3 (08:21→21:00)
[2021-08-05] MEDS: GABAPENTIN 100 MG CAPSULE. PO SCH ×3 (08:21→21:00)
[2021-08-05] MEDS: PANTOPRAZOLE 40 MG TABLET.DR. PO SCH (08:21)
[2021-08-05] MEDS: LACTOBACILLUS RHAMNOSUS GG 1 CAPSULE. PO SCH ×2 (08:21→21:00)
[2021-08-05] MEDS: ATORVASTATIN CALCIUM 40 MG TABLET. PO SCH (08:22)
[2021-08-05] MEDS: CARVEDILOL 12.5 MG TABLET. PO SCH ×2 (08:22→17:00)
--- NOTE | 2021-08-05 08:48 | PDOC ---
Infectious Disease Note Subjective: Subjective Patient without complaints underwent angiogram/angioplasty Vascular input noted at bedside Vital Signs: Vital Signs Vital Signs Date Time Temp Pulse Resp B/P (MAP) Pulse Ox O2 Delivery O2 Flow Rate FiO2 08/05/21 08:22 76 165/83 08/05/21 07:00 97.8 18 95 Room Air 97.8 08/04/21 13:36 2.0 Physical Exam: PHYSICAL EXAM GENERAL: Alert awake HEENT: Normocephalic, atraumatic. Anicteric. No thrush. NECK: Supple. LUNGS: Clear. HEART: S1, S2 irregular. No murmurs. ABDOMEN: Soft, nontender, nondistended. No rebound or guarding. EXTREMITIES: Right foot dressing intact. Not taken down today. Left toe wound superficial, not infected NEUROLOGIC: Alert and oriented x 3, grossly nonfocal. PSYCHIATRIC: Calm and cooperative. Medications: Inpatient Meds: Medications reviewed. Labs: Lab Laboratory Tests Test 08/04/21 09:17 08/04/21 12:10 08/04/21 16:45 08/04/21 20:42 SARS-CoV-2 Antigen (Rapid) Negative (NEGATIVE) Glucose (Fingerstick) 103 mg/dL (70-99) 97 mg/dL (70-99) 110 mg/dL (70-99) Test 08/05/21 06:20 08/05/21 08:29 White Blood Count 6.2 x10^3/uL (4.0-11.0) Red Blood Count 2.59 x10^6/uL (4.30-5.70) Hemoglobin 7.8 g/dL (13.0-17.5) Hematocrit 23.5 % (39.0-53.0) Mean Corpuscular Volume 91 fL (79-100) Mean Corpuscular Hemoglobin 30 pg (25-35) Mean Corpuscular Hemoglobin Concent 33 g/dL (31-37) Red Cell Distribution Width 14.7 % (11.5-14.5) Platelet Count 190 x10^3/uL (140-400) Neutrophils (%) (Auto) 67 % (31-73) Lymphocytes (%) (Auto) 15 % (24-48) Monocytes (%) (Auto) 11 % (0-9) Eosinophils (%) (Auto) 6 % (0-3) Basophils (%) (Auto) 2 % (0-3) Neutrophils # (Auto) 4.1 x10^3/uL (1.8-7.7) Lymphocytes # (Auto) 0.9 x10^3/uL (1.0-4.8) Monocytes # (Auto) 0.7 x10^3/uL (0.0-1.1) Eosinophils # (Auto) 0.4 x10^3/uL (0.0-0.7) Basophils # (Auto) 0.1 x10^3/uL (0.0-0.2) Sodium Level 142 mmol/L (136-145) Potassium Level 3.3 mmol/L (3.5-5.1) Chloride Level 110 mmol/L (98-107) Carbon Dioxide Level 20 mmol/L (21-32) Anion Gap 12 (6-14) Blood Urea Nitrogen 17 mg/dL (8-26) Creatinine 1.4 mg/dL (0.7-1.3) Estimated GFR (Cockcroft-Gault) 49.8 Glucose Level 80 mg/dL (70-99) Calcium Level 8.0 mg/dL (8.5-10.1) Glucose (Fingerstick) 92 mg/dL (70-99) Objective: Assessment: 1. Gangrenous right first and second toe , ischemic, superficial wound over the right third toe and left lateral fifth toe. C-reactive protein is 68.4 and ESR is 81.was on Augmentin prior to admission. 2. Right lower extremity cellulitis, improving since IV antibiotics were initiated 3. Peripheral arterial disease. Status post angiogram/angioplasty as below 4. Diabetes with neuropathy. 5. Atrial fibrillation. 6. History of hemorrhagic cerebrovascular accident. 7. History of skin cancer. 8. Anemia. 9. Renal insufficiency 10, depression and anxiety on fluoxetine Status post angiogram/angioplasty #1. Ultrasound-guided access left common femoral artery #2 radiology supervision interpretation aortogram #3 radiology supervision interpretation bilateral lower extremity runoff #4 right SFA angioplasty 6 x 120 Admiral drug-eluting balloon x2 #5 placement closure device left femoral artery access site Plan: Plan of Care Continue daptomycin and Zosyn, renal dosing as needed. Pharmacy to assist Patient was on IV vancomycin and ceftriaxone Vascular input noted for right TMA. Local right lower extremity wound care and left fifth toe care as directed Monitor labs and cultures. Discussed with at bedside Discussed with nursing staff SOFIA SANCHEZ MD Aug 05, 2021 08:47
[2021-08-05 11:00] VITALS: BP 149/88
--- NOTE | 2021-08-05 11:19 | PDOC ---
[facility] PROGRESS NOTE Date of Service DOS: DATE: 08/05/21 TIME: 11:17 Chief Complaint Chief Complaint Suspected osteomyelitis of right first and second toe Cellulitis right foot ESTELLA due to vasomotor nephropathy DM2 Diabetic neuropathy A. fib HTN Normocytic anemia History hemorrhagic CVA Moderate malnutrition Plan: We will admit patient in coverage for suspected osteomyelitis with Rocephin and vancomycin CT right foot pending We will place consult to Dr. Cobos Will consult ID IV fluids. Unknown baseline renal status. Blood cultures Hemoglobin A1c pending Resume home medications FEN - Cardiac diet PPX - SCDs FULL CODE Dispo - inpatient for above Surrogate decision-maker is his (Marianna Reynolds) History of Present Illness History of Present Illness Patient is a 70-year-old male with past medical history DM2, diabetic neuropathy, hemorrhagic CVA, HTN, A. fib, who presents to the ED at the behest of his brim setter, Dr. Cobos, due to concerns of necrotic right first and second toes. Patient's states that over the past 2 days his right second and first toenail falling off and there has been worsening necrosis of these toes. He was seen by Dr. Cobos today who marked the surrounding area of erythema and noted some streaking, so sent him to the emergency room for further evaluation. Labs in the ED showed WBC 10.2, hemoglobin 9.7, hematocrit 28.5, ESR 81, CRP 68.4, BUN 38, creatinine 2, albumin 2.8, AST 16, ALT 18. Due to concerns of osteomyelitis I asked the ED provider to order a CT of his right lower extremity. Duplex of right lower extremity showed significantly flow-limiting stenosis within the popliteal artery. Ultrasound showed no evidence of DVT. Due to concerns of osteomyelitis at fast ED provider to order CT of right lower extremity. However due to extent of erythema and concern for necrotic versus anxious. Will admit patient for further medical management. 08/02: Afebrile. CT showed no gross cortical erosion suggestive of acute osteomyelitis. Discussed with ID and, clinically looks like dry gangrene. Will likely require amputation; discussed with and patient. Will consult cardiology for possible CTA with runoff to look at what level amputation would be appropriate. Kidney function slightly improved with hydration. Unknown baseline; will provide judicious IV fluids and resume losartan when kidney function stabilizes. Continue vancomycin and Rocephin for now; further antibiotic recommendations per ID. 08/03 Patient evaluated and examined at bedside. Continue daptomycin and switch Rocephin to Zosyn today. Planning for arterial runoff tomorrow. Suspect patient will need some sort of amputation. We will continue to monitor labs. Continue antibiotics. Vascular surgery also following. 08/04 Patient evaluated and examined at bedside. Angiogram completed this morning appears that vascular surgery is recommending amputation. If approved timing to be determined. Continue antibiotics. Continue to monitor labs. Plan of care discussed with bedside RN. 08/05 Patient evaluated and examined at bedside. He is doing well no major complaints. Patient tolerated. Appears somewhat anxious. Looks like planning for transmetatarsal amputation tomorrow. Undergoing echocardiogram today. Continue IV antibiotics. Plan of care discussed with bedside RN. Vitals/I&O Vitals/I&O: Vital Signs Date Time Temp Pulse Resp B/P (MAP) Pulse Ox O2 Delivery O2 Flow Rate FiO2 08/05/21 11:00 97.8 87 18 149/88 (108) 96 Room Air 97.8 08/05/21 08:00 2.0 I & O 08/04/21 08/04/21 08/05/21 15:00 23:00 07:00 Intake Total 0 ml 180 ml 3600 ml Output Total 1350 ml Balance 0 ml 180 ml 2250 ml Physical Exam Physical Exam: GENERAL: Alert awake HEENT: Normocephalic, atraumatic. Anicteric. No thrush. NECK: Supple. LUNGS: Clear. HEART: S1, S2 irregular. No murmurs. ABDOMEN: Soft, nontender, nondistended. No rebound or guarding. EXTREMITIES: Right foot dressing intact. Not taken down today. Left toe wound superficial, not infected NEUROLOGIC: Alert and oriented x 3, grossly nonfocal. PSYCHIATRIC: Calm and cooperative. General: No acute distress Heart: Regular rate, Other (Rhythm irregular) Lungs: Clear Abdomen: Normal bowel sounds Extremities: No clubbing, No cyanosis, Other (First and second toes of the right foot show dry gangrene, small ulceration which is shallow on the left fifth toe the left foot) Skin: Other (Wounds on the feet as above, loss of all hair from the mid calf down consistent with a PAD, he has palpable femoral pulses and palpable popliteal pulses bilaterally but absent pulses at the ankle with signals present consistent with popliteal tibial occlusive disease consistent with his history of diabetes and his arterial duplex) Labs Labs: Laboratory Tests Test 08/04/21 12:10 08/04/21 16:45 08/04/21 20:42 08/05/21 06:20 Glucose (Fingerstick) 103 mg/dL (70-99) 97 mg/dL (70-99) 110 mg/dL (70-99) White Blood Count 6.2 x10^3/uL (4.0-11.0) Red Blood Count 2.59 x10^6/uL (4.30-5.70) Hemoglobin 7.8 g/dL (13.0-17.5) Hematocrit 23.5 % (39.0-53.0) Mean Corpuscular Volume 91 fL (79-100) Mean Corpuscular Hemoglobin 30 pg (25-35) Mean Corpuscular Hemoglobin Concent 33 g/dL (31-37) Red Cell Distribution Width 14.7 % (11.5-14.5) Platelet Count 190 x10^3/uL (140-400) Neutrophils (%) (Auto) 67 % (31-73) Lymphocytes (%) (Auto) 15 % (24-48) Monocytes (%) (Auto) 11 % (0-9) Eosinophils (%) (Auto) 6 % (0-3) Basophils (%) (Auto) 2 % (0-3) Neutrophils # (Auto) 4.1 x10^3/uL (1.8-7.7) Lymphocytes # (Auto) 0.9 x10^3/uL (1.0-4.8) Monocytes # (Auto) 0.7 x10^3/uL (0.0-1.1) Eosinophils # (Auto) 0.4 x10^3/uL (0.0-0.7) Basophils # (Auto) 0.1 x10^3/uL (0.0-0.2) Sodium Level 142 mmol/L (136-145) Potassium Level 3.3 mmol/L (3.5-5.1) Chloride Level 110 mmol/L (98-107) Carbon Dioxide Level 20 mmol/L (21-32) Anion Gap 12 (6-14) Blood Urea Nitrogen 17 mg/dL (8-26) Creatinine 1.4 mg/dL (0.7-1.3) Estimated GFR (Cockcroft-Gault) 49.8 Glucose Level 80 mg/dL (70-99) Calcium Level 8.0 mg/dL (8.5-10.1) Test 08/05/21 08:29 Glucose (Fingerstick) 92 mg/dL (70-99) Comment Review of Relevant I have reviewed the following items beverly (where applicable) has been applied. Medications: Current Medications Medications (Trade) Dose Ordered Sig/Roderick Route PRN Reason Start Time Stop Time Status Last Admin Dose Admin Heparin Sodium/ Sodium Chloride (HEPARIN for ARTERIAL LINE FLUSH) 1,000 unit 1X ONCE IART 08/04/21 13:30 08/04/21 13:40 DC 08/04/21 13:38 Heparin Sodium/ Sodium Chloride (HEPARIN for ARTERIAL LINE FLUSH) 1,000 unit 1X ONCE IART 08/04/21 13:30 08/04/21 13:40 DC 08/04/21 13:38 Midazolam HCl (Versed) 1 mg 1X ONCE IV 08/04/21 13:30 08/04/21 13:40 DC 08/04/21 13:39 Fentanyl Citrate (Fentanyl 2ml Vial) 50 mcg 1X ONCE IV 08/04/21 13:30 08/04/21 13:40 DC 08/04/21 13:39 Iodixanol (Visipaque 320) 63 ml 1X ONCE IART 08/04/21 13:30 08/04/21 13:40 DC 08/04/21 13:39 Heparin Sodium (Porcine) (Heparin Sodium) 6,000 unit 1X ONCE IV 08/04/21 13:30 08/04/21 13:40 DC 08/04/21 13:40 Lidocaine HCl (Lidocaine 1% 20ml Vial) 10 ml 1X ONCE INJ 08/04/21 13:30 08/04/21 13:40 DC 08/04/21 13:39 Sodium Chloride 1,000 ml @ 200 mls/hr Q5H IV 08/04/21 13:30 08/05/21 10:34 Clopidogrel Bisulfate (Plavix) 75 mg DAILY PO 08/04/21 14:45 08/05/21 08:20 Justifications for Admission General Conditions Other justification for admit: Necrotic right first and second toe, suspected osteomyelitis Other Justification GIANCARLO EUGENE MD Aug 05, 2021 11:18
[2021-08-05] MEDS: DAPTOmycin (GENERIC) IVPB 430 MG in IV NORMAL SALINE 50ML 50 ML IV SCH (11:42)
[2021-08-05] MEDS: PIPERACILLIN/TAZOBACTAM 4.5 GM in IV NORMAL SALINE 100ML 100 ML IV SCH ×2 (11:46→18:37)
--- NOTE | 2021-08-05 12:30 | PDOC ---
YULISA TRUJILLO GEOCHEMICAL MANAGER 08/05/21 1230: CARDIO Progress Notes Date and Time Date of Service 08/05/21 Time of Evaluation 1220 Subjective Subjective: No Chest Pain, No shortness of breath Vitals Vitals Vital Signs Date Time Temp Pulse Resp B/P (MAP) Pulse Ox O2 Delivery O2 Flow Rate FiO2 08/05/21 11:00 97.8 87 18 149/88 (108) 96 Room Air 97.8 08/05/21 08:00 2.0 Weight Weight [ ] Input and Output Intake and Output Intake and Output 08/05/21 07:00 Intake Total 3780 ml Output Total 1350 ml Balance 2430 ml Intake Oral 1380 ml IV Total 1200 ml Other 1200 ml Output Urine Total 1350 ml Laboratory Labs Laboratory Tests Test 08/04/21 16:45 08/04/21 20:42 08/05/21 06:20 08/05/21 08:29 Glucose (Fingerstick) 97 mg/dL (70-99) 110 mg/dL (70-99) 92 mg/dL (70-99) White Blood Count 6.2 x10^3/uL (4.0-11.0) Red Blood Count 2.59 x10^6/uL (4.30-5.70) Hemoglobin 7.8 g/dL (13.0-17.5) Hematocrit 23.5 % (39.0-53.0) Mean Corpuscular Volume 91 fL (79-100) Mean Corpuscular Hemoglobin 30 pg (25-35) Mean Corpuscular Hemoglobin Concent 33 g/dL (31-37) Red Cell Distribution Width 14.7 % (11.5-14.5) Platelet Count 190 x10^3/uL (140-400) Neutrophils (%) (Auto) 67 % (31-73) Lymphocytes (%) (Auto) 15 % (24-48) Monocytes (%) (Auto) 11 % (0-9) Eosinophils (%) (Auto) 6 % (0-3) Basophils (%) (Auto) 2 % (0-3) Neutrophils # (Auto) 4.1 x10^3/uL (1.8-7.7) Lymphocytes # (Auto) 0.9 x10^3/uL (1.0-4.8) Monocytes # (Auto) 0.7 x10^3/uL (0.0-1.1) Eosinophils # (Auto) 0.4 x10^3/uL (0.0-0.7) Basophils # (Auto) 0.1 x10^3/uL (0.0-0.2) Sodium Level 142 mmol/L (136-145) Potassium Level 3.3 mmol/L (3.5-5.1) Chloride Level 110 mmol/L (98-107) Carbon Dioxide Level 20 mmol/L (21-32) Anion Gap 12 (6-14) Blood Urea Nitrogen 17 mg/dL (8-26) Creatinine 1.4 mg/dL (0.7-1.3) Estimated GFR (Cockcroft-Gault) 49.8 Glucose Level 80 mg/dL (70-99) Calcium Level 8.0 mg/dL (8.5-10.1) Test 08/05/21 11:36 Glucose (Fingerstick) 82 mg/dL (70-99) Microbiology Micro Microbiology 08/02/21 Gram Stain - Final, Resulted 08/02/21 Aerobic and Anaerobic Culture - Preliminary, Resulted 08/02/21 Antimicrobic Susceptibility - Preliminary, Resulted 08/01/21 Blood Culture - Preliminary, Resulted NO GROWTH AFTER 3 DAYS Physical Exam HEENT: Neck Supple W Full Motion Chest: Symmetric LUNGS: Clear to Auscultation Heart: irregularly irregular (heart tones irregular. Not on tele ) Abdomen: Soft N/T Extremities: No Edema, Other (drsg intact to right foot ) Neurology: alert, oriented, follow commands Assessment Assessment 1. PAD with limb threatening ischemia. s/p angiogram by vascular with MASTER CARPENTER to RLE 2. Gangrenous changes of toes on right foot ,osteomyelitis suspected. Will need right foot toe amputations vs TMA 3. AFIB; rate controlled per vitals. not on tele. not on OAC due to recent hemorrhagic stroke 4. Hypertension; elevated 5. Hyperlipidemia; statin therapy 6. Diabetes, II 7. ESTELLA; better 8. Recent hemorrhagic CVA 9. Hypokalemia Recommendations Echo pending Secondary prevention Add lisinopril for BP control Replace K. Check Mg and replace as warranted Supportive care Follow vascular and ID recs Outpatient referral for [facility]O as patient is poor candidate for OAC Justicifation of Admission Dx: Justifications for Admission: Justification of Admission Dx: Yes JON MORENO MD 08/05/21 1608: CARDIO Progress Notes Assessment Assessment PAD with limb threatening ischemia. s/p angiogram by vascular with MASTER CARPENTER to RLE Gangrenous changes of toes on right foot ,osteomyelitis suspected. Will need right foot toe amputations vs TMA AFIB; rate controlled per vitals. not on tele. not on OAC due to recent hemorrhagic stroke. Outpatient evaluation for LAAO. Hypertension; elevated. Adding lisinopril. Hyperlipidemia; statin therapy Diabetes, II ESTELLA; improved Recent hemorrhagic CVA Hypokalemia. Replacing and monitoring. YULISA TRUJILLO APRN Aug 05, 2021 12:30 JON MORENO MD Aug 05, 2021 16:08
[2021-08-05 15:00] VITALS: BP 162/81
[2021-08-05] MEDS ORDERED: POTASSIUM CHLORIDE 20 MEQ TABLET.ER. PO ONE (15:15)
--- NOTE | 2021-08-05 16:25 | CARD ---
MR#: [id number] Date of Study: 08/05/2021 Ordering Physician: YULISA TRUJILLO, Referring Physician: YULISA TRUJILLO, Tech: Beatriz Duncan [facility] APPROVED REPORT EXAM: Two-dimensional and M-mode echocardiogram with Doppler and color Doppler. Other Information Quality : AverageHR: 76bpm Rhythm : NSR INDICATION Dyspnea RISK FACTORS Hypertension Hyperlipidemia Diabetes 2D DIMENSIONS RVDd3.6 (2.9-3.5cm)Left Atrium(2D)4.9 (1.6-4.0cm) IVSd1.1 (0.7-1.1cm)Aortic Root(2D)3.5 (2.0-3.7cm) LVDd5.0 (3.9-5.9cm)LVOT Diameter2.7 (1.8-2.4cm) PWd1.1 (0.7-1.1cm)LVDs3.2 (2.5-4.0cm) FS (%) 36.1 %SV76.1 ml LVEF(%)65.6 (>50%) Aortic Valve AoV Peak Len.158.2cm/sAoV VTI28.3cm AO Peak GR.10.0mmHgLVOT Peak Len.106.1cm/s AO Mean GR.4mmHgAVA (VMAX)3.71cm2 Mitral Valve MV E Odrdgwru206.7cm/sMV DECEL [id number] MV A Szhwthxc03.2cm/sE/A Ratio3.8 Pulmonary Valve PV Peak Bfsdzeii244.7cm/s Tricuspid Valve TR P. Uobfzwfg422qe/sTR Peak Gr.32mmHg LEFT VENTRICLE The left ventricle is normal size. There is borderline to mild concentric left ventricular hypertroph y. The left ventricular systolic function is normal. Estimated ejection fraction 60%. There is candice l LV segmental wall motion. The left ventricular diastolic function and filling is normal for age. RIGHT VENTRICLE The right ventricle is normal size. There is normal right ventricular wall thickness. The right ventr icular systolic function is normal. ATRIA The left atrium is moderately dilated. The right atrium is moderately dilated. The interatrial septum is intact with no evidence for an atrial septal defect or patent foramen ovale as noted on 2-D or Do ppler imaging. AORTIC VALVE The aortic valve is normal in structure and function. Doppler and Color Flow revealed no significant aortic regurgitation. There is no significant aortic valvular stenosis. MITRAL VALVE The mitral valve is normal in structure and function. There is no evidence of mitral valve prolapse. There is no mitral valve stenosis. Doppler and Color-flow revealed mild mitral regurgitation. TRICUSPID VALVE The tricuspid valve is normal in structure and function. Doppler and Color Flow revealed mild tricusp id regurgitation. Estimated PAP 47 mmHg. There is no tricuspid valve stenosis. PULMONIC VALVE The pulmonary valve is normal in structure and function. Doppler and Color Flow revealed mild pulmoni c valvular regurgitation. GREAT VESSELS The aortic root is normal in size. The ascending aorta is normal in size. The IVC is dilated and yeni apses <50% with inspiration. PERICARDIAL EFFUSION There is no evidence of significant pericardial effusion. Critical Notification Critical Value: No <Conclusion> The left ventricular systolic function is normal. Estimated ejection fraction 60%. There is normal LV segmental wall motion. Mild mitral regurgitation. Mild tricuspid regurgitation. Estimated PAP 47 mmHg. There is no evidence of significant pericardial effusion. Signed by : Marco Antonio Jimenez, Electronically Approved : 08/05/2021 16:25:07
[2021-08-05] MEDS: LISINOPRIL 10 MG TABLET PO SCH (17:32)
--- NOTE | 2021-08-05 18:43 | NUR ---
IV site replaced to right wrist 20 gauge.
[2021-08-05 19:00] VITALS: BP 126/84
[2021-08-05 23:07] VITALS: BP 155/66
[2021-08-06] MEDS: PIPERACILLIN/TAZOBACTAM 4.5 GM in IV NORMAL SALINE 100ML 100 ML IV SCH ×5 (00:03→23:37)
[2021-08-06] MEDS: IV NORMAL SALINE 1000ML BAG 1,000 ML IV SCH ×7 (00:29→20:30)
[2021-08-06 02:46] VITALS: BP 179/87
[2021-08-06 05:00] LABS: BASO # 0.1 x10^3/uL (0.0-0.2); BASO % 2 % (0-3); EOS # 0.3 x10^3/uL (0.0-0.7); EOS % 5 % (0-3); HEMATOCRIT 24.9 % (39.0-53.0); HEMOGLOBIN 8.2 g/dL (13.0-17.5); LYMPH % 14 % (24-48); MEAN CORPUSCULAR HEMOGLOBIN 30 pg (25-35); MEAN CORPUSCULAR HGB CONC 33 g/dL (31-37); MEAN CORPUSCULAR VOLUME 90 fL (79-100); MONO # 0.7 x10^3/uL (0.0-1.1); MONO % 11 % (0-9); NEUT # 4.6 x10^3/uL (1.8-7.7); NEUT % 68 % (31-73); PLATELET COUNT 181 x10^3/uL (140-400); RED BLOOD COUNT 2.76 x10^6/uL (4.30-5.70); RED CELL DISTRIBUTION WIDTH 14.4 % (11.5-14.5); WHITE BLOOD COUNT 6.7 x10^3/uL (4.0-11.0)
[2021-08-06 05:10] LABS: CALCIUM 7.8 mg/dL (8.5-10.1); CREATININE 1.3 mg/dL (0.7-1.3); GFR 54.3; POTASSIUM 3.4 mmol/L (3.5-5.1)
[2021-08-06] MEDS ORDERED: fentaNYL PF VIAL 100 MCG/2 ML VIAL IVP PRN ×2 (06:00)
[2021-08-06] MEDS ORDERED: PROCHLORPERAZINE 10 MG/2 ML VIAL. IVP PRN (06:00)
[2021-08-06] MEDS ORDERED: MORPHINE SULFATE 2 MG/ML INJ. IVP PRN (06:00)
[2021-08-06] MEDS ORDERED: HYDROmorphone 2 MG/ML VIAL IVP PRN (06:00)
[2021-08-06] MEDS ORDERED: IV RINGERS,LACTATED 1000ML 1,000 ML IV SCH (06:00)
[2021-08-06] MEDS: ONDANSETRON PF 4 MG/2 ML VIAL. IVP PRN (06:19)
[2021-08-06] MEDS ORDERED: SEVOFLURANE 31 TO 60 MINUTES. IH ONE (06:39)
[2021-08-06] MEDS ORDERED: PROPOFOL 10 MG/ML (20ML) VIAL. IV ONE (06:47)
[2021-08-06] MEDS ORDERED: LIDOCAINE 2% PF 5 ML VIAL. ONE (06:48)
[2021-08-06] MEDS ORDERED: DEXAMETHASONE SOD PHOS 4 MG/ML VIAL ONE (06:48)
[2021-08-06] MEDS ORDERED: ONDANSETRON PF 4 MG/2 ML VIAL. ONE (06:49)
[2021-08-06] MEDS ORDERED: fentaNYL PF VIAL 100 MCG/2 ML VIAL ONE (06:49)
[2021-08-06] MEDS ORDERED: SURGICEL HEMOSTAT 4X8 EACH. ONE (06:57)
--- NOTE | 2021-08-06 07:08 | PDOC ---
Provider Note Date of Service: DATE: 08/06/21 TIME: 07:07 Provider Note Provider Note Patient seen and examined preoperatively. Will proceed with right TMA. discussed with patient and family and agrees to proceed. Discussed risks of nonhealing, bleeding, infection, chronic pain and need for future procedures. D iscussed expected postoperative course. Justicifation of Admission Dx: Justifications for Admission: Justification of Admission Dx: Yes CONCEPCIÓN CRISTINA MD Aug 06, 2021 07:08
[2021-08-06] MEDS: PANTOPRAZOLE 40 MG TABLET.DR. PO SCH (07:30)
[2021-08-06] MEDS: INSULIN LISPRO 300 UNITS/3 ML VIAL. SQ SCH ×3 (08:00→17:00)
[2021-08-06] MEDS: CARVEDILOL 12.5 MG TABLET. PO SCH ×2 (08:00→17:42)
[2021-08-06] MEDS ORDERED: PHENYLEPHRINE in 0.9% NACL PF 1 MG/10 ML SYRINGE. IV ONE (08:24)
[2021-08-06] MEDS: hydrALAZINE 25 MG TABLET PO SCH ×3 (09:00→21:56)
[2021-08-06] MEDS: LISINOPRIL 10 MG TABLET PO SCH (09:00)
[2021-08-06] MEDS: ATORVASTATIN CALCIUM 40 MG TABLET. PO SCH (09:00)
[2021-08-06] MEDS: CLOPIDOGREL BISULFATE 75 MG TABLET PO SCH (09:00)
[2021-08-06] MEDS: LACTOBACILLUS RHAMNOSUS GG 1 CAPSULE. PO SCH ×2 (09:00→21:56)
[2021-08-06] MEDS: DULoxetine HCL 30 MG CAPSULE.DR PO SCH (09:00)
[2021-08-06] MEDS: GABAPENTIN 100 MG CAPSULE. PO SCH ×3 (09:00→21:57)
--- NOTE | 2021-08-06 09:02 | PDOC ---
Infectious Disease Note Subjective: Subjective Patient underwent TMA this morning Postop pain is under control Somewhat confused Discussed with RN at bedside Vital Signs: Vital Signs Vital Signs Date Time Temp Pulse Resp B/P (MAP) Pulse Ox O2 Delivery O2 Flow Rate FiO2 08/06/21 06:59 98.4 85 16 161/94 97 Room Air 98.4 08/05/21 08:00 2.0 Physical Exam: PHYSICAL EXAM GENERAL: Alert awake HEENT: Normocephalic, atraumatic. Anicteric. No thrush. NECK: Supple. LUNGS: Clear. HEART: S1, S2 irregular. No murmurs. ABDOMEN: Soft, nontender, nondistended. No rebound or guarding. EXTREMITIES: Right foot postsurgical dressing intact. Not taken down today. Left toe wound superficial, not infected NEUROLOGIC: Sitting upright, somewhat confused PSYCHIATRIC: Calm and cooperative. Medications: Inpatient Meds: Medications reviewed. Labs: Lab Laboratory Tests Test 08/05/21 11:36 08/05/21 16:45 08/05/21 20:22 08/06/21 04:30 Glucose (Fingerstick) 82 mg/dL (70-99) 93 mg/dL (70-99) 101 mg/dL (70-99) White Blood Count 6.7 x10^3/uL (4.0-11.0) Red Blood Count 2.76 x10^6/uL (4.30-5.70) Hemoglobin 8.2 g/dL (13.0-17.5) Hematocrit 24.9 % (39.0-53.0) Mean Corpuscular Volume 90 fL (79-100) Mean Corpuscular Hemoglobin 30 pg (25-35) Mean Corpuscular Hemoglobin Concent 33 g/dL (31-37) Red Cell Distribution Width 14.4 % (11.5-14.5) Platelet Count 181 x10^3/uL (140-400) Neutrophils (%) (Auto) 68 % (31-73) Lymphocytes (%) (Auto) 14 % (24-48) Monocytes (%) (Auto) 11 % (0-9) Eosinophils (%) (Auto) 5 % (0-3) Basophils (%) (Auto) 2 % (0-3) Neutrophils # (Auto) 4.6 x10^3/uL (1.8-7.7) Lymphocytes # (Auto) 1.0 x10^3/uL (1.0-4.8) Monocytes # (Auto) 0.7 x10^3/uL (0.0-1.1) Eosinophils # (Auto) 0.3 x10^3/uL (0.0-0.7) Basophils # (Auto) 0.1 x10^3/uL (0.0-0.2) Sodium Level 143 mmol/L (136-145) Potassium Level 3.4 mmol/L (3.5-5.1) Chloride Level 109 mmol/L (98-107) Carbon Dioxide Level 18 mmol/L (21-32) Anion Gap 16 (6-14) Blood Urea Nitrogen 15 mg/dL (8-26) Creatinine 1.3 mg/dL (0.7-1.3) Estimated GFR (Cockcroft-Gault) 54.3 Glucose Level 76 mg/dL (70-99) Calcium Level 7.8 mg/dL (8.5-10.1) Test 08/06/21 06:53 Glucose (Fingerstick) 77 mg/dL (70-99) Micro RUN DATE: 08/05/21 [facility] *LIVE* PAGE 1 RUN TIME: 924 Specimen Inquiry ---- -------- PATIENT: CAMILLE POLLOCK ACCT: [id number] LOC: [address] [place] [address] U: [id number] AGE/SX: 70/M ROOM: 412 RE08/01/[address]: MIKHAIL LYONS MD : 1950 BED: 1 DIS: STATUS: ADM IN TLOC: SPEC #: [id number] MONTEZ: 08/02/21 STATUS: RES REQ #: [id number] RECD: 08/03/[address]: MIKHAIL LYONS MD SOURCE: FOOT ENTR: 08/03/[address]: ROBIN VARGAS MD SPDESC: WOUND SANCHEZ,MECCA WILSON MD, MD, VENKAT R MD YANG, ZHIPENG DPM ORDERED: DEUCE/AERCHARLETTE/SHARMIN COMMENTS: FOOT WOUND Procedure Result GRAM STAIN Final Final GRAM NEGATIVE RODS:MODERATE SQUAMOUS EPI CELL:FEW PMN (WBCs):RARE Unless otherwise specified, Testing Performed by: [address] [address] For Inquires, the Physician may contact the Microbiology department at [phone] ANAEROBIC-AEROBIC CULTURE Preliminary Preliminary MANY [PSEUDOMONAS AERUGINOSA] on 08/04/21 at 1116 MODERATE [STAPHYLOCOCCUS AUREUS] on 08/04/21 at 1116 PSEUDOMONAS AERUGINOSA STAPHYLOCOCCUS AUREUS ANTIMICROBIAL SUSCEPTIBILITY Preliminary Comment NEG JONATHON 56 PSEUDOMONAS AERUGINOSA ANTIBIOTIC RESULT INTERPRETATION AMIKACIN <=16 S AZTREONAM <=4 S CEFTAZIDIME <=1 S CIPROFLOXACIN <=0.25 S CEFEPIME <=2 S CEFTAZIDIME/AVIBACTAM <=4 S GENTAMICIN <=2 S LEVOFLOXACIN <=0.5 S MEROPENEM <=1 S PIPERACILLIN/TAZOBACTAM <=8 S TOBRAMYCIN <=2 S Unless otherwise specified, Testing Performed by: RUN DATE: 08/05/21 [facility] *LIVE* PAGE 2 RUN TIME: 924 Specimen Inquiry ------ ------ SPEC: [id number] PATIENT: CAMILLE POLLOCK [id number] (Continued) Procedure Result CONTINUED ON NEXT PAGE RUN DATE: 08/05/21 [facility] *LIVE* PAGE 3 RUN TIME: 0925 Specimen Inquiry SPEC: [id number] PATIENT: CAMILLE POLLOCK [id number] (Continued) Procedure Result ANTIMICROBIAL SUSCEPTIBILITY Preliminary (continued) [address] [address] For Inquires, the Physician may contact the Microbiology department at [phone] END OF REPORT Objective: Assessment: 1. Gangrenous right first and second toe , ischemic, superficial wound over the right third toe and left lateral fifth toe. C-reactive protein is 68.4 and ESR is 81.was on Augmentin prior to admission. Swab cultures were positive for Pseudomonas and staph aureus from 08/02/2021 2. Right lower extremity cellulitis, improving since IV antibiotics were initiated 3. Peripheral arterial disease. Status post angiogram/angioplasty as below 4. Diabetes with neuropathy. 5. Atrial fibrillation. 6. History of hemorrhagic cerebrovascular accident. 7. History of skin cancer. 8. Anemia. 9. Renal insufficiency 10, depression and anxiety on fluoxetine Status post angiogram/angioplasty #1. Ultrasound-guided access left common femoral artery #2 radiology supervision interpretation aortogram #3 radiology supervision interpretation bilateral lower extremity runoff #4 right SFA angioplasty 6 x 120 Admiral drug-eluting balloon x2 #5 placement closure device left femoral artery access site Plan: Plan of Care Continue daptomycin and Zosyn, renal dosing as needed. Pharmacy to assist Patient was on IV vancomycin and ceftriaxone S/P right TMA. Local right lower extremity wound care and left fifth toe care as directed Monitor labs and cultures. Discussed with RN Discussed with at bedside SOFIA SANCHEZ MD Aug 06, 2021 09:02
--- NOTE | 2021-08-06 09:27 | PDOC ---
BRIEF OPERATIVE NOTE Date: Aug 06, 2021 Pre-Op Diagnosis 1. PVD with dry gangrene of toes 1-4 Post-Op Diagnosis same Procedure Performed 1. Right transmetatarsal amputation Surgeon Remedios Ortega MD Vice President Payer None Anesthesia Type: MAC Blood Loss 100 cc Specimens Obtained Toes 1-5 disposed Findings Excellent perfusion of plantar flap. TMA closed without tension. No evidence of deep infection in the plantar space or dorsal foot. If no other indication for antibiotics may stop antibiotics after short postoperative course. Recommend outpatient podiatry follow up for left 5th toe ulceration. Follow up in 5-6 weeks for suture removal. Keep non weight bearing on RLE strictly until completely healed. Complications None Operative Note Rigth transmetatarsal amputation closed without complication REMEDIOS ORTEGA MD Aug 06, 2021 09:27
[2021-08-06] MEDS ORDERED: HYDROmorphone 2 MG/ML VIAL IV PRN (09:30)
[2021-08-06] MEDS ORDERED: HYDROcodone/APAP 5/325MG 1 TAB TABLET PO PRN (09:30)
[2021-08-06] MEDS ORDERED: KETOROLAC 15 MG/ML VIAL. IV PRN (09:30)
[2021-08-06] MEDS ORDERED: 0.9 % SODIUM CHLORIDE 10 ML DISP.SYRIN. IV PRN (09:30)
[2021-08-06] MEDS ORDERED: NALOXONE 0.4 MG/ML VIAL. IV PRN (09:30)
[2021-08-06] MEDS: HEPARIN for SUB-Q USE 5,000 UNIT/ML VIAL. SQ SCH ×3 (09:45→22:01)
--- NOTE | 2021-08-06 09:56 | OP ---
DATE OF SURGERY: 08/06/2021 SURGEON: Remedios Ortega MD PREOPERATIVE DIAGNOSES: 1. 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 2. Diabetes mellitus. 3. Atrial fibrillation, on anticoagulation. 4. Chronic kidney disease stage 2. POSTOPERATIVE DIAGNOSIS: 1. 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 2. Diabetes mellitus. 3. Atrial fibrillation, on anticoagulation. 4. Chronic kidney disease stage 2. INDICATIONS FOR PROCEDURE: This is a 70-year-old male who presented with dry gangrene of toes 1 through 4. He underwent an SFA angioplasty with good result. The cause of his distal gangrene is still not immediately clear given findings on angiography and lack of clear embolic source on echocardiogram. After his angioplasty, he had a palpable pulse in his foot. Therefore, he was consented for transmetatarsal amputation given the extensive gangrene of toes 1 through 4. OPERATIVE FINDINGS: There was excellent perfusion to the plantar flap. There was no evidence of deep infection. Therefore, no intraoperative cultures were taken. The wound closed without tension. ANESTHESIA: General mask anesthesia. DESCRIPTION OF PROCEDURE: The patient was brought to the operative theater and placed supine upon the operating table. Preoperative antibiotics were already administered as scheduled while inpatient. The right foot was then prepped and draped in standard sterile fashion after applying a tourniquet to the distal ankle. The surgical timeout was then performed. Heparin was then administered intravenously 5000 units and an Esmarch was then applied and the tourniquet was then inflated. I then marked out a dorsal incision along the metatarsophalangeal joints and a plantar incision close to the base of the toes in a fishmouth style for planned incision for transmetatarsal amputation. Incision was then taken straight to bone with a 10 blade scalpel circumferentially again with the tourniquet inflated. The dorsal flap was then raised directly off of the bone and so that I dissected proximally approximately 3 cm proximal to the metatarsophalangeal joint. The metatarsals were then divided after circumferentially dissecting around the metatarsals with a periosteal elevator while maintaining the metaphyseal parabola and beveling the bone cuts, such that there was a plantar bevel was more proximal. Additionally, the fifth and first metatarsal bevelled laterally for the fifth metatarsal medially for the first metatarsal. After completing this, the fascia was then sharply dissected off of the plantar aspect of the metatarsals leaving the plantar fascia intact. The specimen was then passed off of the field for disposal of toes 1 through 5. The tourniquet was then deflated and hemostasis was then obtained using suture ligatures of 3-0 Vicryl and spot electrocautery. I then removed the sesamoid bones sharply and resected the plantar tendons far back. I then irrigated the wound copiously. The fascia was then approximated using 2-0 Vicryl sutures in interrupted fashion. The skin was then closed with 3-0 continuous nylon suture in running fashion. The wound was then dressed with Xeroform gauze, soft roll, and an Tavo wrap. The patient was then transferred to recovery room in stable condition. ESTIMATED BLOOD LOSS: 100 mL SPECIMENS: Toes 1 through 5 for disposal. COMPLICATIONS: None. JW DR: Mateusz TID: [id number] JERICA
[2021-08-06] MEDS: SENNOSIDES/DOCUSATE 8.6/50MG TABLET. PO SCH ×2 (10:00→21:56)
--- NOTE | 2021-08-06 10:27 | NUR ---
SW following. Discussed with RN, pt having surgery this morning. Recommendation is currently home health. SW to see how pt is doing after surgery and if needs have changed. SW will continue to follow.
--- NOTE | 2021-08-06 12:51 | PDOC ---
[facility] [facility] PROGRESS NOTE Date of Service DOS: DATE: 08/06/21 TIME: 12:51 Chief Complaint Chief Complaint Suspected osteomyelitis of right first and second toe Cellulitis right foot ESTELLA due to vasomotor nephropathy DM2 Diabetic neuropathy A. fib HTN Normocytic anemia History hemorrhagic CVA Moderate malnutrition Plan: We will admit patient in coverage for suspected osteomyelitis with Rocephin and vancomycin CT right foot pending We will place consult to Dr. Cobos Will consult ID IV fluids. Unknown baseline renal status. Blood cultures Hemoglobin A1c pending Resume home medications FEN - Cardiac diet PPX - SCDs FULL CODE Dispo - inpatient for above Surrogate decision-maker is his (Marianna Reynolds) History of Present Illness History of Present Illness Patient is a 70-year-old male with past medical history DM2, diabetic neuropathy, hemorrhagic CVA, HTN, A. 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 Cobos, due to concerns of necrotic right first and second toes. Patient's states that over the past 2 days his right second and first toenail falling off and there has been worsening necrosis of these toes. He was seen by Dr. Cobos today who marked the surrounding area of erythema and noted some streaking, so sent him to the emergency room for further evaluation. Labs in the ED showed WBC 10.2, hemoglobin 9.7, hematocrit 28.5, ESR 81, CRP 68.4, BUN 38, creatinine 2, albumin 2.8, AST 16, ALT 18. Due to concerns of osteomyelitis I asked the ED provider to order a CT of his right lower extremity. Duplex of right lower extremity showed significantly flow-limiting stenosis within the popliteal artery. Ultrasound showed no evidence of DVT. Due to concerns of osteomyelitis at fast ED provider to order CT of right lower extremity. However due to extent of erythema and concern for necrotic versus anxious. Will admit patient for further medical management. 08/02: Afebrile. CT showed no gross cortical erosion suggestive of acute osteomyelitis. Discussed with ID and, clinically looks like dry gangrene. Will likely require amputation; discussed with and patient. Will consult cardiology for possible CTA with runoff to look at what level amputation would be appropriate. Kidney function slightly improved with hydration. Unknown baseline; will provide judicious IV fluids and resume losartan when kidney function stabilizes. Continue vancomycin and Rocephin for now; further antibiotic recommendations per ID. 08/03 Patient evaluated and examined at bedside. Continue daptomycin and switch Rocephin to Zosyn today. Planning for arterial runoff tomorrow. Suspect patient will need some sort of amputation. We will continue to monitor labs. Continue antibiotics. Vascular surgery also following. 08/04 Patient evaluated and examined at bedside. Angiogram completed this morning appears that vascular surgery is recommending amputation. If approved timing to be determined. Continue antibiotics. Continue to monitor labs. Plan of care discussed with bedside RN. 08/05 Patient evaluated and examined at bedside. He is doing well no major complaints. Patient tolerated. Appears somewhat anxious. Looks like planning for transmetatarsal amputation tomorrow. Undergoing echocardiogram today. Continue IV antibiotics. Plan of care discussed with bedside RN. 08/06 Patient evaluated examined at bedside before surgery. He was pretty anxious. Planning for transmetatarsal amputation today. We will follow up with patient after surgery. Continue antibiotics. Vitals/I&O Vitals/I&O: Vital Signs Date Time Temp Pulse Resp B/P (MAP) Pulse Ox O2 Delivery O2 Flow Rate FiO2 08/06/21 09:45 72 16 110/60 94 Room Air 08/06/21 09:29 8 08/06/21 09:12 97.2 97.2 I & O 08/05/21 08/05/21 08/06/21 15:00 23:00 07:00 Intake Total 100 ml 0 ml Output Total 400 ml 600 ml Balance 100 ml -400 ml -600 ml Physical Exam Physical Exam: GENERAL: Alert awake HEENT: Normocephalic, atraumatic. Anicteric. No thrush. NECK: Supple. LUNGS: Clear. HEART: S1, S2 irregular. No murmurs. ABDOMEN: Soft, nontender, nondistended. No rebound or guarding. EXTREMITIES: Right foot postsurgical dressing intact. Not taken down today. Left toe wound superficial, not infected NEUROLOGIC: Sitting upright, somewhat confused PSYCHIATRIC: Calm and cooperative. General: No acute distress Heart: Regular rate, Other (Rhythm irregular) Lungs: Clear Abdomen: Normal bowel sounds Extremities: No clubbing, No cyanosis, Other (First and second toes of the right foot show dry gangrene, small ulceration which is shallow on the left fifth toe the left foot) Skin: Other (Wounds on the feet as above, loss of all hair from the mid calf down consistent with a PAD, he has palpable femoral pulses and palpable popliteal pulses bilaterally but absent pulses at the ankle with signals present consistent with popliteal tibial occlusive disease consistent with his history of diabetes and his arterial duplex) Labs Labs: Laboratory Tests Test 08/05/21 16:45 08/05/21 20:22 08/06/21 04:30 08/06/21 06:53 Glucose (Fingerstick) 93 mg/dL (70-99) 101 mg/dL (70-99) 77 mg/dL (70-99) White Blood Count 6.7 x10^3/uL (4.0-11.0) Red Blood Count 2.76 x10^6/uL (4.30-5.70) Hemoglobin 8.2 g/dL (13.0-17.5) Hematocrit 24.9 % (39.0-53.0) Mean Corpuscular Volume 90 fL (79-100) Mean Corpuscular Hemoglobin 30 pg (25-35) Mean Corpuscular Hemoglobin Concent 33 g/dL (31-37) Red Cell Distribution Width 14.4 % (11.5-14.5) Platelet Count 181 x10^3/uL (140-400) Neutrophils (%) (Auto) 68 % (31-73) Lymphocytes (%) (Auto) 14 % (24-48) Monocytes (%) (Auto) 11 % (0-9) Eosinophils (%) (Auto) 5 % (0-3) Basophils (%) (Auto) 2 % (0-3) Neutrophils # (Auto) 4.6 x10^3/uL (1.8-7.7) Lymphocytes # (Auto) 1.0 x10^3/uL (1.0-4.8) Monocytes # (Auto) 0.7 x10^3/uL (0.0-1.1) Eosinophils # (Auto) 0.3 x10^3/uL (0.0-0.7) Basophils # (Auto) 0.1 x10^3/uL (0.0-0.2) Sodium Level 143 mmol/L (136-145) Potassium Level 3.4 mmol/L (3.5-5.1) Chloride Level 109 mmol/L (98-107) Carbon Dioxide Level 18 mmol/L (21-32) Anion Gap 16 (6-14) Blood Urea Nitrogen 15 mg/dL (8-26) Creatinine 1.3 mg/dL (0.7-1.3) Estimated GFR (Cockcroft-Gault) 54.3 Glucose Level 76 mg/dL (70-99) Calcium Level 7.8 mg/dL (8.5-10.1) Test 08/06/21 09:30 Glucose (Fingerstick) 85 mg/dL (70-99) Comment Review of Relevant I have reviewed the following items beverly (where applicable) has been applied. Medications: Current Medications Medications (Trade) Dose Ordered Sig/Roderick Route PRN Reason Start Time Stop Time Status Last Admin Dose Admin Potassium Chloride (Klor-Con) 20 meq 1X ONCE PO 08/05/21 15:15 08/05/21 15:16 DC 08/05/21 17:32 Lisinopril (Prinivil) 10 mg DAILY PO 08/05/21 15:15 08/05/21 17:32 Justifications for Admission General Conditions Other justification for admit: Necrotic right first and second toe, suspected osteomyelitis Other Justification GIANCARLO EUGENE MD Aug 06, 2021 12:51
[2021-08-06] MEDS: DAPTOmycin (GENERIC) IVPB 430 MG in IV NORMAL SALINE 50ML 50 ML IV SCH (13:20)
[2021-08-06] MEDS ORDERED: POTASSIUM CHLORIDE 20 MEQ TABLET.ER. PO ONE (17:00)
--- NOTE | 2021-08-06 17:11 | PDOC ---
PROGRESS NOTES Date of Service DATE: 08/06/21 TIME: 17:09 Subjective Subjective Patient seen and examined Objective Objective Vital Signs Date Time Temp Pulse Resp B/P (MAP) Pulse Ox O2 Delivery O2 Flow Rate FiO2 08/06/21 10:00 Room Air 08/06/21 09:45 72 16 110/60 94 08/06/21 09:29 8 08/06/21 09:12 97.2 97.2 Intake and Output 08/06/21 07:00 Intake Total 100 ml Output Total 1000 ml Balance -900 ml Intake Oral 100 ml Output Urine Total 1000 ml Physical Exam Abdomen: Normal bowel sounds Heart: Other (Irregular rhythm) General: Other (Sedated postop) Lungs: Other (Slightly decreased breath sounds) Assessment Assessment PAD with limb threatening ischemia. s/p angiogram by vascular with [employer] to RLE Gangrenous changes of toes on right foot. Status post right transmetatarsal amputation today. Patient has done well. Stable post procedure. AFIB; rate controlled per vitals. not on tele. not on OAC due to recent hemorrhagic stroke Hypertension; improved Hyperlipidemia; statin therapy Diabetes, II ESTELLA; improved. Recheck morning lab. Recent hemorrhagic CVA Outpatient referral for LAAO as patient is poor candidate for OAC Comment Review of Relevant I have reviewed the following items beverly (where applicable) has been applied. Labs Laboratory Tests Test 08/04/21 20:42 08/05/21 06:20 08/05/21 08:29 08/05/21 11:36 Glucose (Fingerstick) 110 mg/dL (70-99) 92 mg/dL (70-99) 82 mg/dL (70-99) White Blood Count 6.2 x10^3/uL (4.0-11.0) Red Blood Count 2.59 x10^6/uL (4.30-5.70) Hemoglobin 7.8 g/dL (13.0-17.5) Hematocrit 23.5 % (39.0-53.0) Mean Corpuscular Volume 91 fL (79-100) Mean Corpuscular Hemoglobin 30 pg (25-35) Mean Corpuscular Hemoglobin Concent 33 g/dL (31-37) Red Cell Distribution Width 14.7 % (11.5-14.5) Platelet Count 190 x10^3/uL (140-400) Neutrophils (%) (Auto) 67 % (31-73) Lymphocytes (%) (Auto) 15 % (24-48) Monocytes (%) (Auto) 11 % (0-9) Eosinophils (%) (Auto) 6 % (0-3) Basophils (%) (Auto) 2 % (0-3) Neutrophils # (Auto) 4.1 x10^3/uL (1.8-7.7) Lymphocytes # (Auto) 0.9 x10^3/uL (1.0-4.8) Monocytes # (Auto) 0.7 x10^3/uL (0.0-1.1) Eosinophils # (Auto) 0.4 x10^3/uL (0.0-0.7) Basophils # (Auto) 0.1 x10^3/uL (0.0-0.2) Sodium Level 142 mmol/L (136-145) Potassium Level 3.3 mmol/L (3.5-5.1) Chloride Level 110 mmol/L (98-107) Carbon Dioxide Level 20 mmol/L (21-32) Anion Gap 12 (6-14) Blood Urea Nitrogen 17 mg/dL (8-26) Creatinine 1.4 mg/dL (0.7-1.3) Estimated GFR (Cockcroft-Gault) 49.8 Glucose Level 80 mg/dL (70-99) Calcium Level 8.0 mg/dL (8.5-10.1) Magnesium Level 1.6 mg/dL (1.8-2.4) Test 08/05/21 16:45 08/05/21 20:22 08/06/21 04:30 08/06/21 06:53 Glucose (Fingerstick) 93 mg/dL (70-99) 101 mg/dL (70-99) 77 mg/dL (70-99) White Blood Count 6.7 x10^3/uL (4.0-11.0) Red Blood Count 2.76 x10^6/uL (4.30-5.70) Hemoglobin 8.2 g/dL (13.0-17.5) Hematocrit 24.9 % (39.0-53.0) Mean Corpuscular Volume 90 fL (79-100) Mean Corpuscular Hemoglobin 30 pg (25-35) Mean Corpuscular Hemoglobin Concent 33 g/dL (31-37) Red Cell Distribution Width 14.4 % (11.5-14.5) Platelet Count 181 x10^3/uL (140-400) Neutrophils (%) (Auto) 68 % (31-73) Lymphocytes (%) (Auto) 14 % (24-48) Monocytes (%) (Auto) 11 % (0-9) Eosinophils (%) (Auto) 5 % (0-3) Basophils (%) (Auto) 2 % (0-3) Neutrophils # (Auto) 4.6 x10^3/uL (1.8-7.7) Lymphocytes # (Auto) 1.0 x10^3/uL (1.0-4.8) Monocytes # (Auto) 0.7 x10^3/uL (0.0-1.1) Eosinophils # (Auto) 0.3 x10^3/uL (0.0-0.7) Basophils # (Auto) 0.1 x10^3/uL (0.0-0.2) Sodium Level 143 mmol/L (136-145) Potassium Level 3.4 mmol/L (3.5-5.1) Chloride Level 109 mmol/L (98-107) Carbon Dioxide Level 18 mmol/L (21-32) Anion Gap 16 (6-14) Blood Urea Nitrogen 15 mg/dL (8-26) Creatinine 1.3 mg/dL (0.7-1.3) Estimated GFR (Cockcroft-Gault) 54.3 Glucose Level 76 mg/dL (70-99) Calcium Level 7.8 mg/dL (8.5-10.1) Test 08/06/21 09:30 Glucose (Fingerstick) 85 mg/dL (70-99) Laboratory Tests Test 08/05/21 20:22 08/06/21 04:30 08/06/21 06:53 08/06/21 09:30 Glucose (Fingerstick) 101 mg/dL (70-99) 77 mg/dL (70-99) 85 mg/dL (70-99) White Blood Count 6.7 x10^3/uL (4.0-11.0) Red Blood Count 2.76 x10^6/uL (4.30-5.70) Hemoglobin 8.2 g/dL (13.0-17.5) Hematocrit 24.9 % (39.0-53.0) Mean Corpuscular Volume 90 fL (79-100) Mean Corpuscular Hemoglobin 30 pg (25-35) Mean Corpuscular Hemoglobin Concent 33 g/dL (31-37) Red Cell Distribution Width 14.4 % (11.5-14.5) Platelet Count 181 x10^3/uL (140-400) Neutrophils (%) (Auto) 68 % (31-73) Lymphocytes (%) (Auto) 14 % (24-48) Monocytes (%) (Auto) 11 % (0-9) Eosinophils (%) (Auto) 5 % (0-3) Basophils (%) (Auto) 2 % (0-3) Neutrophils # (Auto) 4.6 x10^3/uL (1.8-7.7) Lymphocytes # (Auto) 1.0 x10^3/uL (1.0-4.8) Monocytes # (Auto) 0.7 x10^3/uL (0.0-1.1) Eosinophils # (Auto) 0.3 x10^3/uL (0.0-0.7) Basophils # (Auto) 0.1 x10^3/uL (0.0-0.2) Sodium Level 143 mmol/L (136-145) Potassium Level 3.4 mmol/L (3.5-5.1) Chloride Level 109 mmol/L (98-107) Carbon Dioxide Level 18 mmol/L (21-32) Anion Gap 16 (6-14) Blood Urea Nitrogen 15 mg/dL (8-26) Creatinine 1.3 mg/dL (0.7-1.3) Estimated GFR (Cockcroft-Gault) 54.3 Glucose Level 76 mg/dL (70-99) Calcium Level 7.8 mg/dL (8.5-10.1) Microbiology 08/02/21 Gram Stain - Final, Resulted 08/02/21 Aerobic and Anaerobic Culture - Preliminary, Resulted 08/02/21 Antimicrobic Susceptibility - Preliminary, Resulted 08/01/21 Blood Culture - Preliminary, Resulted NO GROWTH AFTER 4 DAYS Medications Current Medications Vancomycin HCl (Vanco Per Pharmacy) 1 each 1X ONCE MC ; Start 08/01/21 at 17:45; Stop 08/01/21 at 17:51; Status DC Vancomycin HCl 2 gm/Sodium Chloride 500 ml @ 250 mls/hr 1X ONCE IV Last administered on 08/01/21at 18:44; Start 08/01/21 at 18:30; Stop 08/01/21 at 20:29; Status DC Acetaminophen (Tylenol) 650 mg PRN Q4HRS PRN PO FEVER > 100.3'F; Start 08/01/21 at 19:45; Stop 08/02/21 at 13:13; Status DC Ceftriaxone Sodium (Rocephin) 2 gm 1X ONCE IVP Last administered on 08/01/21at 20:25; Start 08/01/21 at 20:00; Stop 08/01/21 at 20:01; Status DC Ceftriaxone Sodium (Rocephin) 2 gm Q24H IVP Last administered on 08/02/21at 21:49; Start 08/02/21 at 21:00; Stop 08/03/21 at 12:39; Status DC Vancomycin HCl (Vanco Per Pharmacy) 1 each PRN DAILY PRN MC SEE COMMENTS Last administered on 08/02/21at 07:14; Start 08/01/21 at 21:00; Stop 08/02/21 at 10:31; Status DC Hydralazine HCl (Apresoline Inj) 10 mg PRN Q4HRS PRN IVP ELEVATED BP, SEE COMMENTS Last administered on 08/05/21at 03:27; Start 08/01/21 at 21:00 Sodium Chloride 1,000 ml @ 100 mls/hr 1X ONCE IV Last administered on 08/01/21at 23:59; Start 08/01/21 at 21:15; Stop 08/02/21 at 07:14; Status DC Ondansetron HCl (Zofran) 4 mg PRN Q6HRS PRN IVP NAUSEA/VOMITING Last administered on 08/06/21at 06:19; Start 08/01/21 at 21:15 Al Hydroxide/Mg Hydroxide (Mylanta Plus Xs) 30 ml PRN Q3HRS PRN PO HEARTBURN / GAS; Start 08/01/21 at 21:15 Zolpidem Tartrate (Ambien) 5 mg PRN QHS PRN PO INSOMNIA, MAY REPEAT IN 1HR; Start 08/01/21 at 21:15 Acetaminophen/ Hydrocodone Bitart (Lortab 5/325) 1 tab PRN Q4HRS PRN PO MILD PAIN 1-3 Last administered on 08/03/21at 21:29; Start 08/01/21 at 21:15; Stop 08/06/21 at 16:20; Status DC Acetaminophen (Tylenol) 650 mg PRN Q6HRS PRN PO Headaches, Temp > 101.5F; Start 08/01/21 at 21:15 Magnesium Hydroxide (Milk Of Magnesia) 2,400 mg PRN Q12HR PRN PO CONSTIPATION; Start 08/01/21 at 21:15 Insulin Human Lispro (HumaLOG) 0-9 UNITS TIDWMEALS SQ ; Start 08/02/21 at 08:00 Dextrose (Dextrose 50%-Water Syringe) 12.5 gm PRN Q15MIN PRN IV SEE COMMENTS; Start 08/01/21 at 21:15 Atorvastatin Calcium (Lipitor) 80 mg DAILY PO Last administered on 08/05/21at 08:22; Start 08/02/21 at 09:00 Fluoxetine HCl (PROzac) 10 mg DAILY PO Last administered on 08/05/21at 08:20; Start 08/02/21 at 09:00; Stop 08/05/21 at 11:28; Status DC Pantoprazole Sodium (Protonix) 40 mg DAILYAC PO Last administered on 08/05/21at 08:21; Start 08/02/21 at 07:30 Vancomycin HCl 1.25 gm/Sodium Chloride 250 ml @ 167 mls/hr Q24H IV ; Start 08/02/21 at 18:30; Stop 08/02/21 at 10:28; Status DC Vancomycin HCl (Vancomycin Trough Level) 1 each 1X ONCE MC ; Start 08/03/21 at 18:00; Stop 08/03/21 at 18:01; Status Cancel Gabapentin (Neurontin) 200 mg TID PO Last administered on 08/05/21at 21:00; Start 08/02/21 at 09:30 Hydralazine HCl (Apresoline) 25 mg TID PO Last administered on 08/05/21at 21:00; Start 08/02/21 at 09:30 Carvedilol (Coreg) 12.5 mg BIDWMEALS PO Last administered on 08/05/21at 17:00; Start 08/02/21 at 09:30 Duloxetine HCl (Cymbalta) 60 mg DAILY PO Last administered on 08/05/21at 08:20; Start 08/02/21 at 09:30 Daptomycin 430 mg/ Sodium Chloride 50 ml @ 100 mls/hr Q24H IV Last administered on 08/06/21at 13:20; Start 08/02/21 at 12:00 Sodium Chloride 1,000 ml @ 100 mls/hr 1X ONCE IV Last administered on 08/02/21at 11:32; Start 08/02/21 at 11:30; Stop 08/02/21 at 21:29; Status DC Lactobacillus Rhamnosus (Culturelle) 1 cap BID PO Last administered on 08/05/21at 21:00; Start 08/02/21 at 21:00 Sodium Chloride 1,000 ml @ 75 mls/hr [id number] IV Last administered on 08/06/21at 02:32; Start 08/03/21 at 08:00 Piperacillin Sod/ Tazobactam Sod 3.375 gm/Sodium Chloride 50 ml @ 100 mls/hr Q6HRS IV Last administered on 08/05/21at 06:00; Start 08/03/21 at 13:00; Stop 08/05/21 at 11:09; Status DC Throat Lozenges (Cepacol Sore Throat Lozenge) 1 elizabeth ONCE PRN PO SORE THROAT Last administered on 08/04/21at 17:13; Start 08/04/21 at 09:00 Iodixanol (Visipaque 320) 100 ml STK-MED ONCE .ROUTE ; Start 08/04/21 at 11:47; Stop 08/04/21 at 11:48; Status DC Lidocaine HCl (Lidocaine 1% 20ml Vial) 20 ml STK-MED ONCE .ROUTE ; Start 08/04/21 at 11:47; Stop 08/04/21 at 11:48; Status DC Heparin Sodium/ Sodium Chloride 1,000 ml @ As Directed STK-MED ONCE .ROUTE ; Start 08/04/21 at 11:48; Stop 08/04/21 at 11:48; Status DC Midazolam HCl (Versed) 2 mg STK-MED ONCE .ROUTE ; Start 08/04/21 at 12:40; Stop 08/04/21 at 12:40; Status DC Fentanyl Citrate (Fentanyl 2ml Vial) 100 mcg STK-MED ONCE .ROUTE ; Start 08/04/21 at 12:40; Stop 08/04/21 at 12:40; Status DC Heparin Sodium (Porcine) (Heparin Sodium) 10,000 unit STK-MED ONCE .ROUTE ; Start 08/04/21 at 12:40; Stop 08/04/21 at 12:40; Status DC Heparin Sodium/ Sodium Chloride (HEPARIN for ARTERIAL LINE FLUSH) 1,000 unit 1X ONCE IART Last administered on 08/04/21at 13:38; Start 08/04/21 at 13:30; Stop 08/04/21 at 13:40; Status DC Heparin Sodium/ Sodium Chloride (HEPARIN for ARTERIAL LINE FLUSH) 1,000 unit 1X ONCE IART Last administered on 08/04/21at 13:38; Start 08/04/21 at 13:30; Stop 08/04/21 at 13:40; Status DC Midazolam HCl (Versed) 1 mg 1X ONCE IV Last administered on 08/04/21at 13:39; Start 08/04/21 at 13:30; Stop 08/04/21 at 13:40; Status DC Fentanyl Citrate (Fentanyl 2ml Vial) 50 mcg 1X ONCE IV Last administered on 08/04/21 13:39; Start 08/04/21 at 13:30; Stop 08/04/21 at 13:40; Status DC Iodixanol (Visipaque 320) 63 ml 1X ONCE IART Last administered on 08/04/21at 13:39; Start 08/04/21 at 13:30; Stop 08/04/21 at 13:40; Status DC Heparin Sodium (Porcine) (Heparin Sodium) 6,000 unit 1X ONCE IV Last administered on 08/04/21at 13:40; Start 08/04/21 at 13:30; Stop 08/04/21 at 13:40; Status DC Lidocaine HCl (Lidocaine 1% 20ml Vial) 10 ml 1X ONCE INJ Last administered on 08/04/21 13:39; Start 08/04/21 at 13:30; Stop 08/04/21 at 13:40; Status DC Sodium Chloride 1,000 ml @ 200 mls/hr Q5H IV Last administered on 08/06/21at 10:30; Start 08/04/21 at 13:30 Clopidogrel Bisulfate (Plavix) 75 mg DAILY PO Last administered on 08/05/21at 08:20; Start 08/04/21 at 14:45 Piperacillin Sod/ Tazobactam Sod 4.5 gm/Sodium Chloride 100 ml @ 200 mls/hr Q6HRS IV Last administered on 08/06/21at 13:20; Start 08/05/21 at 12:00 Potassium Chloride (Klor-Con) 20 meq 1X ONCE PO Last administered on 08/05/21at 17:32; Start 08/05/21 at 15:15; Stop 08/05/21 at 15:16; Status DC Lisinopril (Prinivil) 10 mg DAILY PO Last administered on 08/05/21at 17:32; Start 08/05/21 at 15:15 Fentanyl Citrate (Fentanyl 2ml Vial) 25 mcg PRN Q5MIN PRN IVP MILD PAIN 1-3; Start 08/06/21 at 06:00; Stop 08/06/21 at 20:00 Fentanyl Citrate (Fentanyl 2ml Vial) 50 mcg PRN Q5MIN PRN IVP MODERATE PAIN 4- 6; Start 08/06/21 at 06:00; Stop 08/06/21 at 20:00 Morphine Sulfate (Morphine Sulfate) 1 mg PRN Q10MIN PRN IVP SEVERE PAIN 7-10; Start 08/06/21 at 06:00; Stop 08/06/21 at 20:00 Ringer's Solution 1,000 ml @ 30 mls/hr Q24H IV ; Start 08/06/21 at 06:00; Stop 08/06/21 at 17:59 Hydromorphone HCl (Dilaudid) 0.5 mg PRN Q10MIN PRN IVP SEVERE PAIN 7-10, 2nd CHOICE; Start 08/06/21 at 06:00; Stop 08/06/21 at 20:00 Prochlorperazine Edisylate (Compazine) 5 mg PACU PRN PRN IVP NAUSEA, MRX1; Start 08/06/21 at 06:00; Stop 08/06/21 at 20:00 Sevoflurane (Ultane) 30 ml STK-MED ONCE IH ; Start 08/06/21 at 06:39; Stop 08/06/21 at 06:39; Status DC Propofol (Diprivan) 200 mg STK-MED ONCE IV ; Start 08/06/21 at 06:47; Stop 08/06/21 at 06:47; Status DC Lidocaine HCl (Lidocaine Pf 2% Vial) 5 ml STK-MED ONCE .ROUTE ; Start 08/06/21 at 06:48; Stop 08/06/21 at 06:49; Status DC Dexamethasone Sodium Phosphate (Decadron) 4 mg STK-MED ONCE .ROUTE ; Start 08/06/21 at 06:48; Stop 08/06/21 at 06:49; Status DC Ondansetron HCl (Zofran) 4 mg STK-MED ONCE .ROUTE ; Start 08/06/21 at 06:49; Stop 08/06/21 at 06:49; Status DC Fentanyl Citrate (Fentanyl 2ml Vial) 100 mcg STK-MED ONCE .ROUTE ; Start 08/06/21 at 06:49; Stop 08/06/21 at 06:50; Status DC Cellulose (Surgicel Hemostat 4x8) 1 each STK-MED ONCE .ROUTE ; Start 08/06/21 at 06:57; Stop 08/06/21 at 06:57; Status DC Phenylephrine HCl (PHENYLEPHRINE in 0.9% NACL PF) 1 mg STK-MED ONCE IV ; Start 08/06/21 at 08:24; Stop 08/06/21 at 08:24; Status DC Naloxone HCl (Narcan) 0.1 mg PRN Q2MIN PRN IV SEE ADMIN INSTRUCTIONS; Start 08/06/21 at 09:30 Heparin Sodium (Porcine) (Heparin Sodium) 5,000 unit Q8HRS SQ ; Start 08/06/21 at 09:45 Sodium Chloride (Normal Saline Flush) 3 ml QSHIFT PRN IV AFTER MEDS AND BLOOD DRAWS; Start 08/06/21 at 09:30 Acetaminophen/ Hydrocodone Bitart (Lortab 5/325) 1 tab PRN Q4HRS PRN PO MILD PAIN 1-3; Start 08/06/21 at 09:30 Acetaminophen/ Hydrocodone Bitart (Lortab 5/325) 2 tab PRN Q4HRS PRN PO MODERATE PAIN, SEVERE PAIN; Start 08/06/21 at 09:30 Ketorolac Tromethamine (Toradol 15mg Vial) 15 mg PRN Q6HRS PRN IV PAIN; Start 08/06/21 at 09:30; Stop 08/11/21 at 09:29 Hydromorphone HCl (Dilaudid) 0.2 mg PRN Q1HR PRN IV PAIN-SEE COMMENTS; Start 08/06/21 at 09:30 Senna/Docusate Sodium (Senna Plus) 1 tab BID PO ; Start 08/06/21 at 10:00 Potassium Chloride (Klor-Con) 20 meq 1X ONCE PO ; Start 08/06/21 at 17:00; Stop 08/06/21 at 17:01; Status DC Active Scripts Active Reported Ozempic (Semaglutide) 1 Mg/0.75 Ml Pen.injctr 0.25 Mg SQ WEEKLY Losartan Potassium 50 Mg Tablet 25 Mg PO DAILY Hydralazine Hcl 25 Mg Tablet 1 Tab PO TID Gabapentin (Gabapentin) 100 Mg Capsule 200 Mg PO TID Famotidine 20 Mg Tablet 20 Mg PO DAILY Cymbalta (Duloxetine Hcl) 60 Mg Capsule. 1 Cap PO DAILY Carvedilol 25 Mg Tablet 12.5 Mg PO BIDWMEALS Calcitriol 0.25 Mcg Capsule 1 Cap PO DAILY Omeprazole 20 Mg Capsule.dr 20 Mg PO DAILY Atorvastatin Calcium 80 Mg Tablet 1 Tab PO DAILY Vitals/I & O Vital Sign - Last 24 Hours 08/05/21 08/05/21 08/05/21 08/05/21 17:32 19:00 20:00 21:00 Temp 97.9 97.9 Pulse 65 74 74 Resp 18 B/P (MAP) 162/81 126/84 (98) 126/84 Pulse Ox 96 O2 Delivery Room Air Room Air 08/05/21 08/06/21 08/06/21 08/06/21 23:07 02:46 06:59 09:12 Temp 98.5 98.0 98.4 97.2 98.5 98.0 98.4 97.2 Pulse 72 83 85 72 Resp 18 18 16 16 B/P (MAP) 155/66 (95) 179/87 (117) 161/94 138/83 Pulse Ox 94 98 97 100 O2 Delivery Room Air Room Air Room Air Simple Mask O2 Flow Rate 8 08/06/21 08/06/21 08/06/21 08/06/21 09:22 09:29 09:45 10:00 Pulse 65 72 Resp 16 16 B/P (MAP) 165/98 110/60 Pulse Ox 100 94 O2 Delivery Mask Simple Mask Room Air Room Air O2 Flow Rate 8 8 Intake and Output 11/3/21 11/3/21 11/4/21 15:00 23:00 07:00 Intake Total 100 ml 0 ml Output Total 400 ml 600 ml Balance 100 ml -400 ml -600 ml Justifications for Admission General Conditions Other justification for admit: Necrotic right first and second toe, suspected osteomyelitis Other Justification Nutrition Consultation Dietary Evaluation: Recommendations by RD: Dietary education by RD, Increase Calorie Intake, Protein supplementation Comments: REC resume ADA diet with maynor bid REC mvi per wound protocal Expected Outcomes/Goals: to meet >75% est nutr needs Malnutrition Findings: Food and Nutrition Intake (Mod: <75% est energy req 7days Weight Status: Appropriate JON MORENO MD Aug 06, 2021 17:11
--- NOTE | 2021-08-06 17:21 | NUR ---
STart heparin next dose
[2021-08-06 19:00] VITALS: BP 158/83
[2021-08-06 23:00] VITALS: BP 113/69
[2021-08-07] MEDS: IV NORMAL SALINE 1000ML BAG 1,000 ML IV SCH ×7 (01:30→21:17)
[2021-08-07] MEDS: HYDROcodone/APAP 5/325MG 1 TAB TABLET PO PRN ×2 (01:50→13:58)
[2021-08-07 03:00] VITALS: BP 123/63
[2021-08-07 04:04] LABS: BASO # 0.1 x10^3/uL (0.0-0.2); BASO % 1 % (0-3); EOS % 0 % (0-3); HEMATOCRIT 22.9 % (39.0-53.0); HEMOGLOBIN 7.6 g/dL (13.0-17.5); LYMPH # 0.8 x10^3/uL (1.0-4.8); LYMPH % 9 % (24-48); MEAN CORPUSCULAR HEMOGLOBIN 30 pg (25-35); MEAN CORPUSCULAR HGB CONC 33 g/dL (31-37); MEAN CORPUSCULAR VOLUME 91 fL (79-100); MONO # 0.9 x10^3/uL (0.0-1.1); MONO % 10 % (0-9); NEUT # 7.7 x10^3/uL (1.8-7.7); NEUT % 81 % (31-73); PLATELET COUNT 195 x10^3/uL (140-400); RED BLOOD COUNT 2.52 x10^6/uL (4.30-5.70); RED CELL DISTRIBUTION WIDTH 14.9 % (11.5-14.5); WHITE BLOOD COUNT 9.6 x10^3/uL (4.0-11.0)
[2021-08-07 04:13] LABS: CALCIUM 7.5 mg/dL (8.5-10.1); CREATININE 1.7 mg/dL (0.7-1.3); GFR 39.8; POTASSIUM 3.7 mmol/L (3.5-5.1)
[2021-08-07] MEDS: PIPERACILLIN/TAZOBACTAM 4.5 GM in IV NORMAL SALINE 100ML 100 ML IV SCH ×3 (06:12→17:10)
[2021-08-07] MEDS: HEPARIN for SUB-Q USE 5,000 UNIT/ML VIAL. SQ SCH ×3 (06:15→21:16)
[2021-08-07 07:00] VITALS: BP 107/48
[2021-08-07] MEDS: INSULIN LISPRO 300 UNITS/3 ML VIAL. SQ SCH ×3 (08:00→17:00)
[2021-08-07] MEDS: DULoxetine HCL 30 MG CAPSULE.DR PO SCH (08:16)
[2021-08-07] MEDS: LISINOPRIL 10 MG TABLET PO SCH (08:16)
[2021-08-07] MEDS: PANTOPRAZOLE 40 MG TABLET.DR. PO SCH (08:17)
[2021-08-07] MEDS: GABAPENTIN 100 MG CAPSULE. PO SCH ×3 (08:17→21:10)
[2021-08-07] MEDS: SENNOSIDES/DOCUSATE 8.6/50MG TABLET. PO SCH ×2 (08:17→21:10)
[2021-08-07] MEDS: ATORVASTATIN CALCIUM 40 MG TABLET. PO SCH (08:17)
[2021-08-07] MEDS: CARVEDILOL 12.5 MG TABLET. PO SCH ×2 (08:18→17:09)
[2021-08-07] MEDS: LACTOBACILLUS RHAMNOSUS GG 1 CAPSULE. PO SCH ×2 (08:18→21:10)
[2021-08-07] MEDS: hydrALAZINE 25 MG TABLET PO SCH ×3 (08:19→21:10)
[2021-08-07] MEDS: CLOPIDOGREL BISULFATE 75 MG TABLET PO SCH (09:00)
--- NOTE | 2021-08-07 09:33 | PDOC ---
Infectious Disease Note Subjective: Subjective Patient without complaints except for postop site pain Remains afebrile at bedside Discussed with RN Vital Signs: Vital Signs Vital Signs Date Time Temp Pulse Resp B/P (MAP) Pulse Ox O2 Delivery O2 Flow Rate FiO2 08/07/21 08:30 Room Air 08/07/21 08:19 76 123/63 08/07/21 07:00 98.0 16 94 98.0 08/06/21 09:29 8 Physical Exam: PHYSICAL EXAM GENERAL: Alert awake HEENT: Normocephalic, atraumatic. Anicteric. No thrush. NECK: Supple. LUNGS: Clear. HEART: S1, S2 irregular. No murmurs. ABDOMEN: Soft, nontender, nondistended. No rebound or guarding. EXTREMITIES: Right foot postsurgical dressing intact. Not taken down today. Left toe wound superficial, not infected NEUROLOGIC: Sitting upright, somewhat confused PSYCHIATRIC: Calm and cooperative. Medications: Inpatient Meds: Medications reviewed. Labs: Lab Laboratory Tests Test 08/06/21 17:30 08/06/21 20:22 08/07/21 03:50 Glucose (Fingerstick) 137 mg/dL (70-99) 139 mg/dL (70-99) White Blood Count 9.6 x10^3/uL (4.0-11.0) Red Blood Count 2.52 x10^6/uL (4.30-5.70) Hemoglobin 7.6 g/dL (13.0-17.5) Hematocrit 22.9 % (39.0-53.0) Mean Corpuscular Volume 91 fL (79-100) Mean Corpuscular Hemoglobin 30 pg (25-35) Mean Corpuscular Hemoglobin Concent 33 g/dL (31-37) Red Cell Distribution Width 14.9 % (11.5-14.5) Platelet Count 195 x10^3/uL (140-400) Neutrophils (%) (Auto) 81 % (31-73) Lymphocytes (%) (Auto) 9 % (24-48) Monocytes (%) (Auto) 10 % (0-9) Eosinophils (%) (Auto) 0 % (0-3) Basophils (%) (Auto) 1 % (0-3) Neutrophils # (Auto) 7.7 x10^3/uL (1.8-7.7) Lymphocytes # (Auto) 0.8 x10^3/uL (1.0-4.8) Monocytes # (Auto) 0.9 x10^3/uL (0.0-1.1) Eosinophils # (Auto) 0.0 x10^3/uL (0.0-0.7) Basophils # (Auto) 0.1 x10^3/uL (0.0-0.2) Sodium Level 141 mmol/L (136-145) Potassium Level 3.7 mmol/L (3.5-5.1) Chloride Level 108 mmol/L (98-107) Carbon Dioxide Level 17 mmol/L (21-32) Anion Gap 16 (6-14) Blood Urea Nitrogen 22 mg/dL (8-26) Creatinine 1.7 mg/dL (0.7-1.3) Estimated GFR (Cockcroft-Gault) 39.8 Glucose Level 100 mg/dL (70-99) Calcium Level 7.5 mg/dL (8.5-10.1) Micro ------ ------ RUN DATE: 08/05/21 [facility] *LIVE* PAGE 1 RUN TIME: 924 Specimen Inquiry PATIENT: CAMILLE POLLOCK ACCT: [id number] LOC: [address] [place] [address] U: [id number] AGE/SX: 70/M ROOM: 412 RE08/01/[address]: MIKHAIL LYONS MD : [id number] BED: 1 DIS: STATUS: ADM IN TLOC: SPEC #: [id number] MONTEZ: 08/02/21 STATUS: RES REQ #: [id number] RECD: 08/03/[address] [facility] [address]: MIKHAIL LYONS MD SOURCE: FOOT ENTR: 08/03/[address]: ROBIN VARGAS MD [facility]: WOUND DANIEL,MECCA WILSON MD, MD, VENKAT R MD YANG, ZHIPENG DPM ORDERED: DEUCE/AERCHARLETTE/SHARMIN COMMENTS: FOOT WOUND Procedure Result GRAM STAIN Final Final GRAM NEGATIVE RODS:MODERATE SQUAMOUS EPI CELL:FEW PMN (WBCs):RARE Unless otherwise specified, Testing Performed by: [address] [address] For Inquires, the Physician may contact the Microbiology department at [phone] ANAEROBIC-AEROBIC CULTURE Preliminary Preliminary MANY [PSEUDOMONAS AERUGINOSA] on 08/04/21 at 1116 MODERATE [STAPHYLOCOCCUS AUREUS] on 08/04/21 at 1116 PSEUDOMONAS AERUGINOSA STAPHYLOCOCCUS AUREUS ANTIMICROBIAL SUSCEPTIBILITY Preliminary Comment NEG JONATHON 56 PSEUDOMONAS AERUGINOSA ANTIBIOTIC RESULT INTERPRETATION AMIKACIN <=16 S AZTREONAM <=4 S CEFTAZIDIME <=1 S CIPROFLOXACIN <=0.25 S CEFEPIME <=2 S CEFTAZIDIME/AVIBACTAM <=4 S GENTAMICIN <=2 S LEVOFLOXACIN <=0.5 S MEROPENEM <=1 S PIPERACILLIN/TAZOBACTAM <=8 S TOBRAMYCIN <=2 S Unless otherwise specified, Testing Performed by: -------- ---- RUN DATE: 08/05/21 [facility] *LIVE* PAGE 2 RUN TIME: 924 Specimen Inquiry SPEC: [id number] PATIENT: CAMILLE POLLOCK [id number] (Continued) Procedure Result CONTINUED ON NEXT PAGE RUN DATE: 08/05/21 [facility] *LIVE* PAGE 3 RUN TIME: 0925 Specimen Inquiry --------- --- SPEC: [id number] PATIENT: CAMILLE POLLOCK [id number] (Continued) Procedure Result ANTIMICROBIAL SUSCEPTIBILITY Preliminary (continued) [facility] [address] [place] [address] For Inquires, the Physician may contact the Microbiology department at [phone] END OF REPORT Objective: Assessment: 1. Gangrenous right first and second toe , ischemic, superficial wound over the right third toe and left lateral fifth toe. C-reactive protein is 68.4 and ESR is 81.was on Augmentin prior to admission. Swab cultures were positive for Pseudomonas and MRSA from 08/02/2021 There is post right TMA 08/06/2021 2. Right lower extremity cellulitis, improving since IV antibiotics were initiated 3. Peripheral arterial disease. Status post angiogram/angioplasty as below 4. Diabetes with neuropathy. 5. Atrial fibrillation. 6. History of hemorrhagic cerebrovascular accident. 7. History of skin cancer. 8. Anemia. 9. Renal insufficiency 10, depression and anxiety on fluoxetine Status post angiogram/angioplasty #1. Ultrasound-guided access left common femoral artery #2 radiology supervision interpretation aortogram #3 radiology supervision interpretation bilateral lower extremity runoff #4 right SFA angioplasty 6 x 120 Admiral drug-eluting balloon x2 #5 placement closure device left femoral artery access site Plan: Plan of Care Continue daptomycin and Zosyn, renal dosing as needed. Pharmacy to assist Patient was on IV vancomycin and ceftriaxone S/P right TMA. Local right lower extremity wound care and left fifth toe care as directed Monitor labs and cultures. Discussed with at bedside SOFIA SANCHEZ MD Aug 07, 2021 09:33
[2021-08-07] MEDS ORDERED: LIPA1CAP43 PO (10:22)
[2021-08-07 11:00] VITALS: BP 121/68
[2021-08-07] MEDS: DAPTOmycin (GENERIC) IVPB 430 MG in IV NORMAL SALINE 50ML 50 ML IV SCH (12:00)
[2021-08-07] MEDS: LIPASE/PROTEAS/AMYLAS 10/32/42 CAPSULE.DR. PO SCH ×2 (13:17→17:09)
[2021-08-07] MEDS ORDERED: CLOP75TA PO (14:16)
[2021-08-07 15:00] VITALS: BP 133/66
--- NOTE | 2021-08-07 15:55 | PDOC ---
Provider Note Date of Service: DATE: 08/07/21 TIME: 15:52 Provider Note Provider Note Vascular S: Patient is resting comfortably in bed. Complains of mild right foot pain. O: Awake and alert Vital signs stable, afebrile Right foot dressing removed, incision is dry and intact and well approximated Left femoral access site is intact, no hematoma or swelling A/P: Peripheral arterial disease with dry gangrene right 1-4th toes Status post SFA angioplasty and transmetatarsal amputation. Recommend continued antibiotics per infectious disease Dry gauze dressings daily Patient may heel touch only recommend no weightbearing or pressure on the forefoot. Continue PT OT, recommend they evaluate the patient for forefoot offloading shoe to be sure there will be no pressure near the amputation. Discussed plan with the patient and nurse. Justicifation of Admission Dx: Justifications for Admission: Justification of Admission Dx: Yes ALVINO VINCENT [employer] ANALYST Aug 07, 2021 15:55
--- NOTE | 2021-08-07 16:17 | NUR ---
SW following. Discussed with RN, pt had amputation yesterday. Therapy recommending SNF for now, but may change once pt gets his half shoe. to follow up with therapy notes on Tuesday. SW will continue to follow.
[2021-08-07] MEDS ORDERED: LIPASE/PROTEAS/AMYLAS 10/32/42 CAPSULE.DR. PO SCH (17:00)
[2021-08-07 19:30] VITALS: BP 97/58
--- NOTE | 2021-08-07 20:53 | PDOC ---
[facility] PROGRESS NOTE Date of Service DOS: DATE: 08/07/21 TIME: 20:53 Chief Complaint Chief Complaint Suspected osteomyelitis of right first and second toe Cellulitis right foot ESTELLA due to vasomotor nephropathy DM2 Diabetic neuropathy A. fib HTN Normocytic anemia History hemorrhagic CVA Moderate malnutrition Plan: We will admit patient in coverage for suspected osteomyelitis with Rocephin and vancomycin CT right foot pending We will place consult to Dr. Cobos Will consult ID IV fluids. Unknown baseline renal status. Blood cultures Hemoglobin A1c pending Resume home medications FEN - Cardiac diet PPX - SCDs FULL CODE Dispo - inpatient for above Surrogate decision-maker is his (Marianna Reynolds) History of Present Illness History of Present Illness Patient is a 70-year-old male with past medical history DM2, diabetic neuropathy, hemorrhagic CVA, HTN, A. fib, who presents to the ED at the behest of his supervisor forming and tempering, Dr. Cobos, due to concerns of necrotic right first and second toes. Patient's states that over the past 2 days his right second and first toenail falling off and there has been worsening necrosis of these toes. He was seen by Dr. Cobos today who marked the surrounding area of erythema and noted some streaking, so sent him to the emergency room for further evaluation. Labs in the ED showed WBC 10.2, hemoglobin 9.7, hematocrit 28.5, ESR 81, CRP 68.4, BUN 38, creatinine 2, albumin 2.8, AST 16, ALT 18. Due to concerns of osteomyelitis I asked the ED provider to order a CT of his right lower extremity. Duplex of right lower extremity showed significantly flow-limiting stenosis within the popliteal artery. Ultrasound showed no evidence of DVT. Due to concerns of osteomyelitis at fast ED provider to order CT of right lower extremity. However due to extent of erythema and concern for necrotic versus anxious. Will admit patient for further medical management. 08/02: Afebrile. CT showed no gross cortical erosion suggestive of acute osteomyelitis. Discussed with ID and, clinically looks like dry gangrene. Will likely require amputation; discussed with and patient. Will consult cardiology for possible CTA with runoff to look at what level amputation would be appropriate. Kidney function slightly improved with hydration. Unknown baseline; will provide judicious IV fluids and resume losartan when kidney function stabilizes. Continue vancomycin and Rocephin for now; further antibiotic recommendations per ID. 08/03 Patient evaluated and examined at bedside. Continue daptomycin and switch Rocephin to Zosyn today. Planning for arterial runoff tomorrow. Suspect patient will need some sort of amputation. We will continue to monitor labs. Continue antibiotics. Vascular surgery also following. 08/04 Patient evaluated and examined at bedside. Angiogram completed this morning appears that vascular surgery is recommending amputation. If approved timing to be determined. Continue antibiotics. Continue to monitor labs. Plan of care discussed with bedside RN. 08/05 Patient evaluated and examined at bedside. He is doing well no major complaints. Patient tolerated. Appears somewhat anxious. Looks like planning for transmetatarsal amputation tomorrow. Undergoing echocardiogram today. Continue IV antibiotics. Plan of care discussed with bedside RN. 08/06 Patient evaluated examined at bedside before surgery. He was pretty anxious. Planning for transmetatarsal amputation today. We will follow up with patient after surgery. Continue antibiotics. 08/07 Patient evaluated examined at bedside. Underwent TMA yesterday. Postop pain pretty well controlled. Continuing IV antibiotics. Plan of care discussed with RN. Vitals/I&O Vitals/I&O: Vital Signs Date Time Temp Pulse Resp B/P (MAP) Pulse Ox O2 Delivery O2 Flow Rate FiO2 08/07/21 19:50 Room Air 08/07/21 19:30 98.0 79 16 97/58 (71) 96 98.0 08/07/21 08:00 8.0 I & O 08/06/21 08/06/21 08/07/21 15:00 23:00 07:00 Intake Total 1050 ml 1220 ml 1800 ml Output Total 100 ml 400 ml Balance 950 ml 820 ml 1800 ml Physical Exam Physical Exam: GENERAL: Alert awake HEENT: Normocephalic, atraumatic. Anicteric. No thrush. NECK: Supple. LUNGS: Clear. HEART: S1, S2 irregular. No murmurs. ABDOMEN: Soft, nontender, nondistended. No rebound or guarding. EXTREMITIES: Right foot postsurgical dressing intact. Not taken down today. Left toe wound superficial, not infected NEUROLOGIC: Sitting upright, somewhat confused PSYCHIATRIC: Calm and cooperative. General: Alert, Oriented X3, Cooperative Heart: Regular rate, Normal S1, Normal S2 Lungs: Clear Abdomen: Normal bowel sounds Extremities: No clubbing, No cyanosis, Other (First and second toes of the right foot show dry gangrene, small ulceration which is shallow on the left fifth toe the left foot) Skin: Other (Wounds on the feet as above, loss of all hair from the mid calf down consistent with a PAD, he has palpable femoral pulses and palpable popliteal pulses bilaterally but absent pulses at the ankle with signals present consistent with popliteal tibial occlusive disease consistent with his history of diabetes and his arterial duplex) Labs Labs: Laboratory Tests Test 08/07/21 03:50 08/07/21 07:50 08/07/21 11:55 08/07/21 17:02 White Blood Count 9.6 x10^3/uL (4.0-11.0) Red Blood Count 2.52 x10^6/uL (4.30-5.70) Hemoglobin 7.6 g/dL (13.0-17.5) Hematocrit 22.9 % (39.0-53.0) Mean Corpuscular Volume 91 fL (79-100) Mean Corpuscular Hemoglobin 30 pg (25-35) Mean Corpuscular Hemoglobin Concent 33 g/dL (31-37) Red Cell Distribution Width 14.9 % (11.5-14.5) Platelet Count 195 x10^3/uL (140-400) Neutrophils (%) (Auto) 81 % (31-73) Lymphocytes (%) (Auto) 9 % (24-48) Monocytes (%) (Auto) 10 % (0-9) Eosinophils (%) (Auto) 0 % (0-3) Basophils (%) (Auto) 1 % (0-3) Neutrophils # (Auto) 7.7 x10^3/uL (1.8-7.7) Lymphocytes # (Auto) 0.8 x10^3/uL (1.0-4.8) Monocytes # (Auto) 0.9 x10^3/uL (0.0-1.1) Eosinophils # (Auto) 0.0 x10^3/uL (0.0-0.7) Basophils # (Auto) 0.1 x10^3/uL (0.0-0.2) Sodium Level 141 mmol/L (136-145) Potassium Level 3.7 mmol/L (3.5-5.1) Chloride Level 108 mmol/L (98-107) Carbon Dioxide Level 17 mmol/L (21-32) Anion Gap 16 (6-14) Blood Urea Nitrogen 22 mg/dL (8-26) Creatinine 1.7 mg/dL (0.7-1.3) Estimated GFR (Cockcroft-Gault) 39.8 Glucose Level 100 mg/dL (70-99) Calcium Level 7.5 mg/dL (8.5-10.1) Glucose (Fingerstick) 89 mg/dL (70-99) 133 mg/dL (70-99) 121 mg/dL (70-99) Test 08/07/21 19:46 Glucose (Fingerstick) 104 mg/dL (70-99) Comment Review of Relevant I have reviewed the following items beverly (where applicable) has been applied. Medications: Current Medications Medications (Trade) Dose Ordered Sig/Roderick Route PRN Reason Start Time Stop Time Status Last Admin Dose Admin Non-Formulary Medication (Semaglutide (Ozempic)) 0.5 mg Fr SQ 08/07/21 10:00 08/07/21 10:00 Amylase/Lipase/ Protease (Zenpep 10,000) 2 cap BIDWMEALS PO 08/07/21 13:15 08/07/21 17:09 Justifications for Admission General Conditions Other justification for admit: Necrotic right first and second toe, suspected osteomyelitis Other Justification GIANCARLO EUGENE MD Aug 07, 2021 20:53
[2021-08-07 23:23] VITALS: BP 107/65
[2021-08-08] MEDS: PIPERACILLIN/TAZOBACTAM 4.5 GM in IV NORMAL SALINE 100ML 100 ML IV SCH ×2 (00:04→05:41)
[2021-08-08] MEDS: IV NORMAL SALINE 1000ML BAG 1,000 ML IV SCH ×5 (02:13→14:38)
[2021-08-08 03:25] VITALS: BP 127/67
[2021-08-08 04:06] LABS: CALCIUM 7.5 mg/dL (8.5-10.1); CREATININE 2.2 mg/dL (0.7-1.3); GFR 29.6; POTASSIUM 3.5 mmol/L (3.5-5.1)
[2021-08-08] MEDS: HEPARIN for SUB-Q USE 5,000 UNIT/ML VIAL. SQ SCH ×3 (05:43→21:30)
[2021-08-08 07:00] VITALS: BP 135/68
[2021-08-08] MEDS: SENNOSIDES/DOCUSATE 8.6/50MG TABLET. PO SCH ×2 (07:40→21:25)
[2021-08-08] MEDS: INSULIN LISPRO 300 UNITS/3 ML VIAL. SQ SCH ×3 (08:00→17:00)
[2021-08-08] MEDS: LIPASE/PROTEAS/AMYLAS 10/32/42 CAPSULE.DR. PO SCH ×3 (08:33→17:34)
[2021-08-08] MEDS: LISINOPRIL 10 MG TABLET PO SCH (08:33)
[2021-08-08] MEDS: CLOPIDOGREL BISULFATE 75 MG TABLET PO SCH (08:33)
[2021-08-08] MEDS: LACTOBACILLUS RHAMNOSUS GG 1 CAPSULE. PO SCH ×2 (08:33→21:25)
[2021-08-08] MEDS: GABAPENTIN 100 MG CAPSULE. PO SCH ×3 (08:33→21:36)
[2021-08-08] MEDS: PANTOPRAZOLE 40 MG TABLET.DR. PO SCH (08:34)
[2021-08-08] MEDS: DULoxetine HCL 30 MG CAPSULE.DR PO SCH (08:34)
[2021-08-08] MEDS: hydrALAZINE 25 MG TABLET PO SCH ×3 (08:34→21:27)
[2021-08-08] MEDS: CARVEDILOL 12.5 MG TABLET. PO SCH ×2 (08:34→17:34)
[2021-08-08] MEDS: ATORVASTATIN CALCIUM 40 MG TABLET. PO SCH (08:34)
[2021-08-08] MEDS ORDERED: LOPERAMIDE 2 MG/15 ML ORAL SUSP. PEG ONE (09:30)
--- NOTE | 2021-08-08 10:28 | PDOC ---
Provider Note Date of Service: DATE: 08/08/21 TIME: 10:27 Provider Note Provider Note S: doing well, denies significant pain O: SKIN- TMA well healing. CV: Palpable DP pulse A: s/p right TMA and sfa angioplasty P: Stressed the importance of nonweight bearing to right foot until completely healed (6-8 weeks) and avoidance of equine contracture Appreciate PT evaluation. Likely needs facility placement after discharge for rehab. Justicifation of Admission Dx: Justifications for Admission: Justification of Admission Dx: Yes CONCEPCIÓN CRISTINA MD Aug 08, 2021 10:28
[2021-08-08 11:00] VITALS: BP 125/66
[2021-08-08] MEDS: ASPIRIN ENTERIC COATED 81 MG TABLET.DR. PO SCH (11:30)
[2021-08-08] MEDS: PIPERACILLIN/TAZOBACTAM 3.375 GM in IV NORMAL SALINE 50ML 50 ML IV SCH ×2 (11:40→17:36)
--- NOTE | 2021-08-08 12:28 | PDOC2 ---
GI CONSULT Date of Service: DATE: 08/08/21 TIME: 12:15 Reason For Consult: Diarrhea HPI: HPI: 70 y/o male with h/o diarrhea persisting for some time. Seen by Dr. Ramirez as outpatient. Admitted here this occasion for PVD and ischemic toes. Now S/p right SFA angioplasty and right TM amputations. Ongoing diarrhea here. Prior EGD and colonoscopy not revealing as to cause. Empiric sulfasalazine and Questran not helpful. Recently started on pancreatic enzyme supplements which have worked (Fabric7 Systemspep [id number]). Here receiving less potent prep. Is receiving antibiotics here as well. H/o GERD. No major changes noted at EGD. Happy with chronic famotidine. No PUD, GB, liver or pancreatic history. 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 No current alcohol or tobacco use. PMH: PMH: CVA, DM2, CKD, HLP, Afib, HTN, HELEN. S/P ECCE OU, above. FH: Family History: No pertinent hx Social History: Smoke: No ALCOHOL: none Drugs: None ROS: GEN: Denies fevers, chills, sweats HEENT: Denies blurred vision, sore throat CV: Denies chest pain RESP: Denies shortness of air, cough GI: Per HPI : Denies hematuria, dysuria ENDO: Denies weight changes NEURO: Denies confusion, dizziness MSK: Denies weakness, joint pain/swelling SKIN: Denies jaundice, pruritus Vitals: Vitals: Vital Signs Date Time Temp Pulse Resp B/P (MAP) Pulse Ox O2 Delivery O2 Flow Rate FiO2 08/08/21 08:34 72 127/67 08/08/21 07:00 98.4 19 94 Room Air 98.4 08/07/21 08:00 8.0 Labs: Labs: Laboratory Tests Test 08/07/21 17:02 08/07/21 19:46 08/08/21 03:10 08/08/21 08:17 Glucose (Fingerstick) 121 mg/dL (70-99) 104 mg/dL (70-99) 95 mg/dL (70-99) Sodium Level 142 mmol/L (136-145) Potassium Level 3.5 mmol/L (3.5-5.1) Chloride Level 111 mmol/L (98-107) Carbon Dioxide Level 20 mmol/L (21-32) Anion Gap 11 (6-14) Blood Urea Nitrogen 21 mg/dL (8-26) Creatinine 2.2 mg/dL (0.7-1.3) Estimated GFR (Cockcroft-Gault) 29.6 Glucose Level 99 mg/dL (70-99) Calcium Level 7.5 mg/dL (8.5-10.1) Test 08/08/21 11:32 Glucose (Fingerstick) 153 mg/dL (70-99) Allergies: Coded Allergies: I S O L A T I O N *CONTACT* (Verified Allergy, Unknown, 08/07/21) mrsa No Known Medication Allergies (Verified Allergy, Unknown, 08/07/21) Medications: Current Medications Medications (Trade) Dose Ordered Sig/Roderick Route PRN Reason Start Time Stop Time Status Last Admin Dose Admin Amylase/Lipase/ Protease (Zenpep 10,000) 2 cap BIDWMEALS PO 08/07/21 13:15 08/08/21 08:33 Piperacillin Sod/ Tazobactam Sod 3.375 gm/Sodium Chloride 50 ml @ 100 mls/hr Q6HRS IV 08/08/21 12:00 08/08/21 11:40 Loperamide HCl (Immodium Oral Susp) 2 mg ONCE ONCE PEG 08/08/21 09:30 08/08/21 09:31 DC 08/08/21 09:14 PE: GEN: NAD HEENT: Atraumatic, PERRLA LUNGS: CTAB HEART: IRRR, no murmurs ABD: NABS, S/ND/NT, no masses EXTREMITY: No edema. Bandaged right foot. SKIN: No rashes, no jaundice NEURO/PSYCH: A & O 3 A/P: A/P: IMP: Diarrhea, in past responsive to pancreatic enzymes so EPI? Has been exposed to antibiotics here. Anemia. Prior endoscopies not diagnostic. Probably multi-factorial--ACD? "GERD" REC: Larger dose of enzymes. Check anemia parameters. Check C.diff. Continue other. --other rec's pending. ASNTOS MACK MD Aug 08, 2021 12:28
--- NOTE | 2021-08-08 12:46 | PDOC ---
Infectious Disease Note Subjective: Subjective Patient resting Remains afebrile at bedside has diarrhea Vital Signs: Vital Signs Vital Signs Date Time Temp Pulse Resp B/P (MAP) Pulse Ox O2 Delivery O2 Flow Rate FiO2 08/08/21 08:34 72 127/67 08/08/21 07:00 98.4 19 94 Room Air 98.4 08/07/21 08:00 8.0 Physical Exam: PHYSICAL EXAM GENERAL: Alert awake HEENT: Normocephalic, atraumatic. Anicteric. No thrush. NECK: Supple. LUNGS: Clear. HEART: S1, S2 irregular. No murmurs. ABDOMEN: Soft, nontender, nondistended. No rebound or guarding. EXTREMITIES: Right foot postsurgical dressing intact. Not taken down today. Left toe wound superficial, not infected NEUROLOGIC: Sitting upright, somewhat confused PSYCHIATRIC: Calm and cooperative. Medications: Inpatient Meds: Medications reviewed. Labs: Lab Laboratory Tests Test 08/07/21 17:02 08/07/21 19:46 08/08/21 03:10 08/08/21 08:17 Glucose (Fingerstick) 121 mg/dL (70-99) 104 mg/dL (70-99) 95 mg/dL (70-99) Sodium Level 142 mmol/L (136-145) Potassium Level 3.5 mmol/L (3.5-5.1) Chloride Level 111 mmol/L (98-107) Carbon Dioxide Level 20 mmol/L (21-32) Anion Gap 11 (6-14) Blood Urea Nitrogen 21 mg/dL (8-26) Creatinine 2.2 mg/dL (0.7-1.3) Estimated GFR (Cockcroft-Gault) 29.6 Glucose Level 99 mg/dL (70-99) Calcium Level 7.5 mg/dL (8.5-10.1) Test 08/08/21 11:32 Glucose (Fingerstick) 153 mg/dL (70-99) Micro RUN DATE: 08/05/21 [facility] *LIVE* PAGE 1 RUN TIME: 924 Specimen Inquiry PATIENT: CAMILLE POLLOCK ACCT: [id number] LOC: [address] [place] [address] U: [id number] AGE/SX: 70/M ROOM: 412 RE08/01/[address]: MIKHAIL LYONS MD : 1950 BED: 1 DIS: STATUS: ADM IN TLOC: SPEC #: [id number] MONTEZ: 08/02/21 STATUS: RES REQ #: [id number] RECD: 08/03/[address] [facility] [address]: MIKHAIL LYONS MD SOURCE: FOOT ENTR: 08/03/21 [facility] [address]: ROBIN VARGAS MD SPDC: SOFIA LOPEZ MD, KIRK A MD PASNOORI, VENKAT R MD YANG, ZHIPENG DPM ORDERED: DEUCE/JESSICA/SHARMIN COMMENTS: FOOT WOUND -- Procedure Result GRAM STAIN Final Final GRAM NEGATIVE RODS:MODERATE SQUAMOUS EPI CELL:FEW PMN (WBCs):RARE Unless otherwise specified, Testing Performed by: [facility] [address] [place] [address] For Inquires, the Physician may contact the Microbiology department at [phone] ANAEROBIC-AEROBIC CULTURE Preliminary Preliminary MANY [PSEUDOMONAS AERUGINOSA] on 08/04/21 at 1116 MODERATE [STAPHYLOCOCCUS AUREUS] on 08/04/21 at 1116 PSEUDOMONAS AERUGINOSA STAPHYLOCOCCUS AUREUS ANTIMICROBIAL SUSCEPTIBILITY Preliminary Comment NEG JONATHON 56 PSEUDOMONAS AERUGINOSA ANTIBIOTIC RESULT INTERPRETATION AMIKACIN <=16 S AZTREONAM <=4 S CEFTAZIDIME <=1 S CIPROFLOXACIN <=0.25 S CEFEPIME <=2 S CEFTAZIDIME/AVIBACTAM <=4 S GENTAMICIN <=2 S LEVOFLOXACIN <=0.5 S MEROPENEM <=1 S PIPERACILLIN/TAZOBACTAM <=8 S TOBRAMYCIN <=2 S Unless otherwise specified, Testing Performed by: RUN DATE: 08/05/21 [facility] *LIVE* PAGE 2 RUN TIME: 924 Specimen Inquiry SPEC: [id number] PATIENT: CAMILLE POLLOCK [id number] (Continued) Procedure Result CONTINUED ON NEXT PAGE RUN DATE: 08/05/21 [facility] *LIVE* PAGE 3 RUN TIME: 09 Specimen Inquiry SPEC: [id number] PATIENT: CAMILLE POLLOCK [id number] (Deepali mora) Procedure Result ANTIMICROBIAL SUSCEPTIBILITY Preliminary (continued) [address] [address] For Inquires, the Physician may contact the Microbiology department at [phone] --- --------- END OF REPORT Objective: Assessment: 1. Gangrenous right first and second toe , ischemic, superficial wound over the right third toe and left lateral fifth toe. C-reactive protein is 68.4 and ESR is 81.was on Augmentin prior to admission. Swab cultures were positive for Pseudomonas and MRSA from 08/02/2021 status post right TMA 08/06/2021 2. Right lower extremity cellulitis, improving since IV antibiotics were initiated 3. Peripheral arterial disease. Status post angiogram/angioplasty as below 4. Diabetes with neuropathy. 5. Atrial fibrillation. 6. History of hemorrhagic cerebrovascular accident. 7. History of skin cancer. 8. Anemia. 9. Renal insufficiency 10, depression and anxiety on fluoxetine 11. Diarrhea Status post angiogram/angioplasty #1. Ultrasound-guided access left common femoral artery #2 radiology supervision interpretation aortogram #3 radiology supervision interpretation bilateral lower extremity runoff #4 right SFA angioplasty 6 x 120 Admiral drug-eluting balloon x2 #5 placement closure device left femoral artery access site Plan: Plan of Care Continue daptomycin and Zosyn, renal dosing as needed. Pharmacy to assist Patient was on IV vancomycin and ceftriaxone F/U C diff PCR Local right lower extremity wound care and left fifth toe care as directed Monitor labs and cultures. Discussed with at bedside SOFIA SANCHEZ MD Aug 08, 2021 12:46
[2021-08-08] MEDS: DAPTOmycin (GENERIC) IVPB 430 MG in IV NORMAL SALINE 50ML 50 ML IV SCH (13:23)
[2021-08-08 14:00] VITALS: BP 148/68
[2021-08-08 19:00] VITALS: BP 138/92
[2021-08-08 23:00] VITALS: BP 144/66
[2021-08-09] MEDS: PIPERACILLIN/TAZOBACTAM 3.375 GM in IV NORMAL SALINE 50ML 50 ML IV SCH ×4 (00:24→17:27)
[2021-08-09] MEDS: IV NORMAL SALINE 1000ML BAG 1,000 ML IV SCH ×2 (00:31→10:40)
[2021-08-09 03:00] VITALS: BP 148/73
[2021-08-09] MEDS: HEPARIN for SUB-Q USE 5,000 UNIT/ML VIAL. SQ SCH ×3 (06:40→21:27)
[2021-08-09 07:00] VITALS: BP 175/85
[2021-08-09] MEDS: PANTOPRAZOLE 40 MG TABLET.DR. PO SCH (07:47)
[2021-08-09 07:52] LABS: CREATININE 1.8 mg/dL (0.7-1.3); GFR 37.3
[2021-08-09] MEDS: INSULIN LISPRO 300 UNITS/3 ML VIAL. SQ SCH ×3 (08:00→17:00)
[2021-08-09] MEDS: SENNOSIDES/DOCUSATE 8.6/50MG TABLET. PO SCH ×2 (09:00→21:25)
[2021-08-09] MEDS: CARVEDILOL 12.5 MG TABLET. PO SCH ×2 (09:09→17:26)
[2021-08-09] MEDS: hydrALAZINE 25 MG TABLET PO SCH ×3 (09:09→21:25)
[2021-08-09] MEDS: CLOPIDOGREL BISULFATE 75 MG TABLET PO SCH (09:09)
[2021-08-09] MEDS: LISINOPRIL 10 MG TABLET PO SCH (09:10)
[2021-08-09] MEDS: GABAPENTIN 100 MG CAPSULE. PO SCH ×3 (09:10→21:26)
[2021-08-09] MEDS: ATORVASTATIN CALCIUM 40 MG TABLET. PO SCH (09:11)
[2021-08-09] MEDS: DULoxetine HCL 30 MG CAPSULE.DR PO SCH (09:11)
[2021-08-09] MEDS: LACTOBACILLUS RHAMNOSUS GG 1 CAPSULE. PO SCH ×2 (09:12→21:26)
[2021-08-09] MEDS: ASPIRIN ENTERIC COATED 81 MG TABLET.DR. PO SCH (09:12)
[2021-08-09] MEDS: LIPASE/PROTEAS/AMYLAS 10/32/42 CAPSULE.DR. PO SCH ×3 (09:13→17:26)
--- NOTE | 2021-08-09 09:32 | PDOC ---
[facility] [facility] PROGRESS NOTE Date of Service DOS: DATE: 08/09/21 TIME: 09:31 Chief Complaint Chief Complaint Suspected osteomyelitis of right first and second toe Cellulitis right foot ESTELLA due to vasomotor nephropathy DM2 Diabetic neuropathy A. fib HTN Normocytic anemia History hemorrhagic CVA Moderate malnutrition Plan: We will admit patient in coverage for suspected osteomyelitis with Rocephin and vancomycin CT right foot pending We will place consult to Dr. Cobos Will consult ID IV fluids. Unknown baseline renal status. Blood cultures Hemoglobin A1c pending Resume home medications FEN - Cardiac diet PPX - SCDs FULL CODE Dispo - inpatient for above Surrogate decision-maker is his (Marianna Reynolds) History of Present Illness History of Present Illness Patient is a 70-year-old male with past medical history DM2, diabetic neuropathy, hemorrhagic CVA, HTN, A. fib, who presents to the ED at the behest of his bumper straightener, Dr. Cobos, due to concerns of necrotic right first and second toes. Patient's states that over the past 2 days his right second and first toenail falling off and there has been worsening necrosis of these toes. He was seen by Dr. Cobos today who marked the surrounding area of erythema and noted some streaking, so sent him to the emergency room for further evaluation. Labs in the ED showed WBC 10.2, hemoglobin 9.7, hematocrit 28.5, ESR 81, CRP 68.4, BUN 38, creatinine 2, albumin 2.8, AST 16, ALT 18. Due to concerns of osteomyelitis I asked the ED provider to order a CT of his right lower extremity. Duplex of right lower extremity showed significantly flow-limiting stenosis within the popliteal artery. Ultrasound showed no evidence of DVT. Due to concerns of osteomyelitis at fast ED provider to order CT of right lower extremity. However due to extent of erythema and concern for necrotic versus anxious. Will admit patient for further medical management. 08/02: Afebrile. CT showed no gross cortical erosion suggestive of acute osteomyelitis. Discussed with ID and, clinically looks like dry gangrene. Will likely require amputation; discussed with and patient. Will consult cardiology for possible CTA with runoff to look at what level amputation would be appropriate. Kidney function slightly improved with hydration. Unknown baseline; will provide judicious IV fluids and resume losartan when kidney function stabilizes. Continue vancomycin and Rocephin for now; further antibiotic recommendations per ID. 08/03 Patient evaluated and examined at bedside. Continue daptomycin and switch Rocephin to Zosyn today. Planning for arterial runoff tomorrow. Suspect patient will need some sort of amputation. We will continue to monitor labs. Continue antibiotics. Vascular surgery also following. 08/04 Patient evaluated and examined at bedside. Angiogram completed this morning appears that vascular surgery is recommending amputation. If approved timing to be determined. Continue antibiotics. Continue to monitor labs. Plan of care discussed with bedside RN. 08/05 Patient evaluated and examined at bedside. He is doing well no major complaints. Patient tolerated. Appears somewhat anxious. Looks like planning for transmetatarsal amputation tomorrow. Undergoing echocardiogram today. Continue IV antibiotics. Plan of care discussed with bedside RN. 08/06 Patient evaluated examined at bedside before surgery. He was pretty anxious. Planning for transmetatarsal amputation today. We will follow up with patient after surgery. Continue antibiotics. 08/07 Patient evaluated examined at bedside. Underwent TMA yesterday. Postop pain pretty well controlled. Continuing IV antibiotics. Plan of care discussed with RN. 08/08 Late entry for August 08 Patient evaluated examined at bedside. He was complaining of multiple episodes of diarrhea this morning was getting pretty discouraged about it. Reports that he previously used to follow with Dr. Regan. Will attempt to find these records. Given the ongoing diarrhea will consult to GI. Also was recently restarted on his home pancreatic enzymes with meals. I am uncertain on exact dosing on this and patient not exactly certain. Will ask GI for assistance in dosing these as well. Plan of care discussed with bedside RN. Vitals/I&O Vitals/I&O: Vital Signs Date Time Temp Pulse Resp B/P (MAP) Pulse Ox O2 Delivery O2 Flow Rate FiO2 08/09/21 09:10 60 175/85 08/09/21 07:00 98.3 16 97 Room Air 98.3 I & O 08/08/21 08/08/21 08/09/21 15:00 23:00 07:00 Intake Total 200 ml 100 ml 120 ml Output Total 350 ml 400 ml Balance -150 ml 100 ml -280 ml Physical Exam Physical Exam: GENERAL: Alert awake HEENT: Normocephalic, atraumatic. Anicteric. No thrush. NECK: Supple. LUNGS: Clear. HEART: S1, S2 irregular. No murmurs. ABDOMEN: Soft, nontender, nondistended. No rebound or guarding. EXTREMITIES: Right foot postsurgical dressing intact. Not taken down today. Left toe wound superficial, not infected NEUROLOGIC: Sitting upright, somewhat confused PSYCHIATRIC: Calm and cooperative. General: Alert, Oriented X3, Cooperative Heart: Regular rate, Normal S1, Normal S2 Lungs: Clear Abdomen: Normal bowel sounds Extremities: No clubbing, No cyanosis, Other (First and second toes of the right foot show dry gangrene, small ulceration which is shallow on the left fifth toe the left foot) Skin: Other (Wounds on the feet as above, loss of all hair from the mid calf down consistent with a PAD, he has palpable femoral pulses and palpable popliteal pulses bilaterally but absent pulses at the ankle with signals present consistent with popliteal tibial occlusive disease consistent with his history of diabetes and his arterial duplex) Labs Labs: Laboratory Tests Test 08/08/21 11:32 08/08/21 20:20 08/09/21 05:50 08/09/21 07:55 Glucose (Fingerstick) 153 mg/dL (70-99) 96 mg/dL (70-99) 79 mg/dL (70-99) Creatinine 1.8 mg/dL (0.7-1.3) Estimated GFR (Cockcroft-Gault) 37.3 Test 08/09/21 08:15 Glucose (Fingerstick) 82 mg/dL (70-99) Comment Review of Relevant I have reviewed the following items beverly (where applicable) has been applied. Medications: Current Medications Medications (Trade) Dose Ordered Sig/Roderick Route PRN Reason Start Time Stop Time Status Last Admin Dose Admin Piperacillin Sod/ Tazobactam Sod 3.375 gm/Sodium Chloride 50 ml @ 100 mls/hr Q6HRS IV 08/08/21 12:00 08/09/21 06:33 Aspirin (Ecotrin) 81 mg [id number] PO 08/08/21 11:30 08/09/21 09:12 Amylase/Lipase/ Protease (Zenpep 10,000) 5 cap TIDWMEALS PO 08/08/21 13:00 08/09/21 09:13 Justifications for Admission General Conditions Other justification for admit: Necrotic right first and second toe, suspected osteomyelitis Other Justification GIANCARLO EUGENE MD Aug 09, 2021 09:32
[2021-08-09] MEDS: HYDROcodone/APAP 5/325MG 1 TAB TABLET PO PRN (10:16)
--- NOTE | 2021-08-09 12:16 | PDOC ---
[facility] PROGRESS NOTE Date of Service DOS: DATE: 08/09/21 TIME: 12:14 Chief Complaint Chief Complaint Suspected osteomyelitis of right first and second toe Cellulitis right foot ESTELLA due to vasomotor nephropathy DM2 Diabetic neuropathy A. fib HTN Normocytic anemia History hemorrhagic CVA Moderate malnutrition Plan: We will admit patient in coverage for suspected osteomyelitis with Rocephin and vancomycin CT right foot pending We will place consult to Dr. Cobos Will consult ID IV fluids. Unknown baseline renal status. Blood cultures Hemoglobin A1c pending Resume home medications FEN - Cardiac diet PPX - SCDs FULL CODE Dispo - inpatient for above Surrogate decision-maker is his (Marianna Reynolds) History of Present Illness History of Present Illness Patient is a 70-year-old male with past medical history DM2, diabetic neuropathy, hemorrhagic CVA, HTN, A. fib, who presents to the ED at the behest of his bonding machine operator, Dr. Cobos, due to concerns of necrotic right first and second toes. Patient's states that over the past 2 days his right second and first toenail falling off and there has been worsening necrosis of these toes. He was seen by Dr. Cobos today who marked the surrounding area of erythema and noted some streaking, so sent him to the emergency room for further evaluation. Labs in the ED showed WBC 10.2, hemoglobin 9.7, hematocrit 28.5, ESR 81, CRP 68.4, BUN 38, creatinine 2, albumin 2.8, AST 16, ALT 18. Due to concerns of osteomyelitis I asked the ED provider to order a CT of his right lower extremity. Duplex of right lower extremity showed significantly flow-limiting stenosis within the popliteal artery. Ultrasound showed no evidence of DVT. Due to concerns of osteomyelitis at fast ED provider to order CT of right lower extremity. However due to extent of erythema and concern for necrotic versus anxious. Will admit patient for further medical management. 08/02: Afebrile. CT showed no gross cortical erosion suggestive of acute osteomyelitis. Discussed with ID and, clinically looks like dry gangrene. Will likely require amputation; discussed with and patient. Will consult cardiology for possible CTA with runoff to look at what level amputation would be appropriate. Kidney function slightly improved with hydration. Unknown baseline; will provide judicious IV fluids and resume losartan when kidney function stabilizes. Continue vancomycin and Rocephin for now; further antibiotic recommendations per ID. 08/03 Patient evaluated and examined at bedside. Continue daptomycin and switch Rocephin to Zosyn today. Planning for arterial runoff tomorrow. Suspect patient will need some sort of amputation. We will continue to monitor labs. Continue antibiotics. Vascular surgery also following. 08/04 Patient evaluated and examined at bedside. Angiogram completed this morning appears that vascular surgery is recommending amputation. If approved timing to be determined. Continue antibiotics. Continue to monitor labs. Plan of care discussed with bedside RN. 08/05 Patient evaluated and examined at bedside. He is doing well no major complaints. Patient tolerated. Appears somewhat anxious. Looks like planning for transmetatarsal amputation tomorrow. Undergoing echocardiogram today. Continue IV antibiotics. Plan of care discussed with bedside RN. 08/06 Patient evaluated examined at bedside before surgery. He was pretty anxious. Planning for transmetatarsal amputation today. We will follow up with patient after surgery. Continue antibiotics. 08/07 Patient evaluated examined at bedside. Underwent TMA yesterday. Postop pain pretty well controlled. Continuing IV antibiotics. Plan of care discussed with RN. 08/08 Late entry for August 08 Patient evaluated examined at bedside. He was complaining of multiple episodes of diarrhea this morning was getting pretty discouraged about it. Reports that he previously used to follow with Dr. Regan. Will attempt to find these records. Given the ongoing diarrhea will consult to GI. Also was recently restarted on his home pancreatic enzymes with meals. I am uncertain on exact dosing on this and patient not exactly certain. Will ask GI for assistance in dosing these as well. Plan of care discussed with bedside RN. 08/09 Patient evaluated and examined at bedside. Diarrhea from yesterday notably improved. His only had 2 bowel movements this morning but more formed. Patient is quite depressed about current situation and social situation with his . Will try starting patient on Zoloft 50 mg knowing this will not kick in really for several weeks but to just at least start. GI and vascular surgery following. Plan of care discussed with bedside RN. I spent about 15 minutes discussing advance care planning with this patient.. Vitals/I&O Vitals/I&O: Vital Signs Date Time Temp Pulse Resp B/P (MAP) Pulse Ox O2 Delivery O2 Flow Rate FiO2 08/09/21 11:43 Room Air 08/09/21 09:10 60 175/85 08/09/21 07:00 98.3 16 97 98.3 I & O 08/08/21 08/08/21 08/09/21 15:00 23:00 07:00 Intake Total 200 ml 100 ml 120 ml Output Total 350 ml 400 ml Balance -150 ml 100 ml -280 ml Physical Exam Physical Exam: GENERAL: Alert awake HEENT: Normocephalic, atraumatic. Anicteric. No thrush. NECK: Supple. LUNGS: Clear. HEART: S1, S2 irregular. No murmurs. ABDOMEN: Soft, nontender, nondistended. No rebound or guarding. EXTREMITIES: Right foot postsurgical dressing intact. Not taken down today. Left toe wound superficial, not infected NEUROLOGIC: Sitting upright, somewhat confused PSYCHIATRIC: Calm and cooperative. General: Alert, Oriented X3, Cooperative Heart: Regular rate, Normal S1, Normal S2 Lungs: Clear Abdomen: Normal bowel sounds Extremities: No clubbing, No cyanosis, Other (First and second toes of the rig ht foot show dry gangrene, small ulceration which is shallow on the left fifth toe the left foot) Skin: Other (Wounds on the feet as above, loss of all hair from the mid calf down consistent with a PAD, he has palpable femoral pulses and palpable popliteal pulses bilaterally but absent pulses at the ankle with signals present consistent with popliteal tibial occlusive disease consistent with his history of diabetes and his arterial duplex) Labs Labs: Laboratory Tests Test 08/08/21 20:20 08/09/21 05:50 08/09/21 07:55 08/09/21 08:15 Glucose (Fingerstick) 96 mg/dL (70-99) 79 mg/dL (70-99) 82 mg/dL (70-99) Creatinine 1.8 mg/dL (0.7-1.3) Estimated GFR (Cockcroft-Gault) 37.3 Test 08/09/21 10:31 Glucose (Fingerstick) 90 mg/dL (70-99) Comment Review of Relevant I have reviewed the following items bveerly (where applicable) has been applied. Medications: Current Medications Medications (Trade) Dose Ordered Sig/Roderick Route PRN Reason Start Time Stop Time Status Last Admin Dose Admin Amylase/Lipase/ Protease (Zenpep 10,000) 5 cap TIDWMEALS PO 08/08/21 13:00 08/09/21 09:13 Justifications for Admission General Conditions Other justification for admit: Necrotic right first and second toe, suspected osteomyelitis Other Justification GIANCARLO EUGENE MD Aug 09, 2021 12:16
--- NOTE | 2021-08-09 12:50 | PDOC ---
[facility] PROGRESS NOTE Subjective Stools still loose this morning. Physical Exam Lungs clear anteriorly. RRR Abdomen soft, not tender. Review of Relevant I have reviewed the following items beverly (where applicable) has been applied. Labs Laboratory Tests Test 08/07/21 17:02 08/07/21 19:46 08/08/21 03:10 08/08/21 08:17 Glucose (Fingerstick) 121 mg/dL (70-99) 104 mg/dL (70-99) 95 mg/dL (70-99) Sodium Level 142 mmol/L (136-145) Potassium Level 3.5 mmol/L (3.5-5.1) Chloride Level 111 mmol/L (98-107) Carbon Dioxide Level 20 mmol/L (21-32) Anion Gap 11 (6-14) Blood Urea Nitrogen 21 mg/dL (8-26) Creatinine 2.2 mg/dL (0.7-1.3) Estimated GFR (Cockcroft-Gault) 29.6 Glucose Level 99 mg/dL (70-99) Calcium Level 7.5 mg/dL (8.5-10.1) Iron Level 37 ug/dL (65-175) Total Iron Binding Capacity 102 ug/dL (250-450) Iron Saturation 36 % (15-34) Test 08/08/21 11:32 08/08/21 20:20 08/09/21 05:50 08/09/21 07:55 Glucose (Fingerstick) 153 mg/dL (70-99) 96 mg/dL (70-99) 79 mg/dL (70-99) Creatinine 1.8 mg/dL (0.7-1.3) Estimated GFR (Cockcroft-Gault) 37.3 Test 08/09/21 08:15 08/09/21 10:31 Glucose (Fingerstick) 82 mg/dL (70-99) 90 mg/dL (70-99) Laboratory Tests Test 08/08/21 20:20 08/09/21 05:50 08/09/21 07:55 08/09/21 08:15 Glucose (Fingerstick) 96 mg/dL (70-99) 79 mg/dL (70-99) 82 mg/dL (70-99) Creatinine 1.8 mg/dL (0.7-1.3) Estimated GFR (Cockcroft-Gault) 37.3 Test 08/09/21 10:31 Glucose (Fingerstick) 90 mg/dL (70-99) Microbiology 08/02/21 Gram Stain - Final, Complete 08/02/21 Aerobic and Anaerobic Culture - Final, Complete 08/02/21 Antimicrobic Susceptibility - Final, Complete 08/01/21 Blood Culture - Final, Complete NO GROWTH AFTER 5 DAYS C.diff pending. Vitals/I & O Vital Sign - Last 24 Hours 08/08/21 08/08/21 08/08/21 08/08/21 13:22 14:00 17:34 19:00 Temp 98.1 97.6 98.1 97.6 Pulse 72 78 78 89 Resp 18 18 B/P (MAP) 127/67 148/68 (94) 148/68 138/92 (107) Pulse Ox 96 96 O2 Delivery Room Air 08/08/21 08/08/21 08/08/21 08/09/21 20:00 21:27 23:00 03:00 Temp 98.1 97.9 98.1 97.9 Pulse 78 69 70 Resp 16 18 B/P (MAP) 128/71 144/66 (92) 148/73 (98) Pulse Ox 97 95 O2 Delivery Room Air 08/09/21 08/09/21 08/09/21 08/09/21 07:00 09:09 09:09 09:10 Temp 98.3 98.3 Pulse 60 60 60 60 Resp 16 B/P (MAP) 175/85 (115) 175/85 175/85 175/85 Pulse Ox 97 O2 Delivery Room Air 08/09/21 08/09/21 10:16 11:43 O2 Delivery Room Air Room Air Intake and Output 08/08/21 08/08/21 08/09/21 15:00 23:00 07:00 Intake Total 200 ml 100 ml 120 ml Output Total 350 ml 400 ml Balance -150 ml 100 ml -280 ml Assessment Diarrhea from EPI? Back on usual dose of enzymes. R/o C.diff. Plan of Care Note Continue enzymes. Await C.diff assay. Justicifation of Admission Dx: Justifications for Admission: Justification of Admission Dx: Yes SANTOS MACK MD Aug 09, 2021 12:50
[2021-08-09] MEDS: DAPTOmycin (GENERIC) IVPB 430 MG in IV NORMAL SALINE 50ML 50 ML IV SCH (12:52)
[2021-08-09] MEDS: SERTRALINE 50 MG TABLET. PO SCH (14:18)
[2021-08-09 15:00] VITALS: BP 132/66
[2021-08-09 19:00] VITALS: BP 139/78
[2021-08-09 22:45] VITALS: BP 171/87
[2021-08-10] MEDS: PIPERACILLIN/TAZOBACTAM 3.375 GM in IV NORMAL SALINE 50ML 50 ML IV SCH ×2 (00:12→05:34)
[2021-08-10 03:00] VITALS: BP 168/84
[2021-08-10] MEDS: IV NORMAL SALINE 1000ML BAG 1,000 ML IV SCH ×2 (05:24→13:20)
[2021-08-10] MEDS: PANTOPRAZOLE 40 MG TABLET.DR. PO SCH (05:42)
[2021-08-10] MEDS: HEPARIN for SUB-Q USE 5,000 UNIT/ML VIAL. SQ SCH ×3 (05:47→22:36)
[2021-08-10 07:00] VITALS: BP 181/79
[2021-08-10] MEDS: SENNOSIDES/DOCUSATE 8.6/50MG TABLET. PO SCH ×2 (07:37→20:45)
[2021-08-10] MEDS: INSULIN LISPRO 300 UNITS/3 ML VIAL. SQ SCH ×3 (08:00→17:00)
[2021-08-10] MEDS: ATORVASTATIN CALCIUM 40 MG TABLET. PO SCH (08:30)
[2021-08-10] MEDS: hydrALAZINE 25 MG TABLET PO SCH ×3 (08:30→20:44)
[2021-08-10] MEDS: GABAPENTIN 100 MG CAPSULE. PO SCH ×3 (08:30→20:44)
[2021-08-10] MEDS: CLOPIDOGREL BISULFATE 75 MG TABLET PO SCH (08:30)
[2021-08-10] MEDS: LISINOPRIL 10 MG TABLET PO SCH (08:30)
[2021-08-10] MEDS: SERTRALINE 50 MG TABLET. PO SCH (08:30)
[2021-08-10] MEDS: LACTOBACILLUS RHAMNOSUS GG 1 CAPSULE. PO SCH ×2 (08:30→20:44)
[2021-08-10] MEDS: DULoxetine HCL 30 MG CAPSULE.DR PO SCH (08:30)
[2021-08-10] MEDS: ASPIRIN ENTERIC COATED 81 MG TABLET.DR. PO SCH (08:30)
[2021-08-10] MEDS: LIPASE/PROTEAS/AMYLAS 10/32/42 CAPSULE.DR. PO SCH ×3 (08:31→17:00)
[2021-08-10] MEDS: CARVEDILOL 12.5 MG TABLET. PO SCH ×2 (08:31→17:00)
--- NOTE | 2021-08-10 09:32 | PDOC ---
Infectious Disease Note Subjective: Subjective Patient denies any complaints Had some nausea with p.o. pills Eager for discharge home Postop pain is under control Vital Signs: Vital Signs Vital Signs Date Time Temp Pulse Resp B/P (MAP) Pulse Ox O2 Delivery O2 Flow Rate FiO2 08/10/21 08:31 73 181/79 08/10/21 07:00 98.1 16 97 Room Air 98.1 08/09/21 08:00 8.0 Physical Exam: PHYSICAL EXAM GENERAL: Alert awake HEENT: Normocephalic, atraumatic. Anicteric. No thrush. NECK: Supple. LUNGS: Clear. HEART: S1, S2 irregular. No murmurs. ABDOMEN: Soft, nontender, nondistended. No rebound or guarding. EXTREMITIES: Right foot postsurgical dressing intact. Not taken down today. Left toe wound superficial, not infected NEUROLOGIC: Sitting upright, somewhat confused PSYCHIATRIC: Calm and cooperative. Medications: Inpatient Meds: Medications reviewed. Labs: Lab Laboratory Tests Test 08/09/21 10:31 08/09/21 17:12 08/09/21 18:52 08/10/21 07:39 Glucose (Fingerstick) 90 mg/dL (70-99) 86 mg/dL (70-99) 97 mg/dL (70-99) 74 mg/dL (70-99) Micro RUN DATE: 08/05/21 [facility] *LIVE* PAGE 1 RUN TIME: 924 Specimen Inquiry PATIENT: CAMILLE POLLOCK ACCT: [id number] LOC: [address] [place] [address] U: [id number] AGE/SX: 70/M ROOM: 412 RE08/01/[address]: MIKHAIL LYONS MD : [id number] BED: 1 DIS: STATUS: ADM IN TLOC: SPEC #: [id number] MONTEZ: 08/02/21 STATUS: RES REQ #: [id number] RECD: 08/03/[address]: MIKHAIL LYONS MD SOURCE: FOOT ENTR: 08/03/[address]: ROBIN VARGAS MD SPDESC: WOUND DANIEL,MECCA WILSON MD, MD, VENKAT R MD YANG, ZHIPENG DPM ORDERED: DEUCE/JESSICA/SHARMIN COMMENTS: FOOT WOUND Procedure Result GRAM STAIN Final Final GRAM NEGATIVE RODS:MODERATE SQUAMOUS EPI CELL:FEW PMN (WBCs):RARE Unless otherwise specified, Testing Performed by: [address] [address] For Inquires, the Physician may contact the Microbiology department at [phone] ANAEROBIC-AEROBIC CULTURE Preliminary Preliminary MANY [PSEUDOMONAS AERUGINOSA] on 08/04/21 at 1116 MODERATE [STAPHYLOCOCCUS AUREUS] on 08/04/21 at 1116 PSEUDOMONAS AERUGINOSA STAPHYLOCOCCUS AUREUS ANTIMICROBIAL SUSCEPTIBILITY Preliminary Comment NEG JONATHON 56 PSEUDOMONAS AERUGINOSA ANTIBIOTIC RESULT INTERPRETATION AMIKACIN <=16 S AZTREONAM <=4 S CEFTAZIDIME <=1 S CIPROFLOXACIN <=0.25 S CEFEPIME <=2 S CEFTAZIDIME/AVIBACTAM <=4 S GENTAMICIN <=2 S LEVOFLOXACIN <=0.5 S MEROPENEM <=1 S PIPERACILLIN/TAZOBACTAM <=8 S TOBRAMYCIN <=2 S Unless otherwise specified, Testing Performed by: RUN DATE: 08/05/21 [facility] *LIVE* PAGE 2 RUN TIME: 09 Specimen Inquiry SPEC: [id number] PATIENT: CAMILLE POLLOCK [id number] (Continued) Procedure Result ----- ------- CONTINUED ON NEXT PAGE RUN DATE: 08/05/21 [facility] *LIVE* PAGE 3 RUN TIME: 0925 Specimen Inquiry SPEC: [id number] PATIENT: MARISCAMILLE [id number] (Continued) Procedure Result ANTIMICROBIAL SUSCEPTIBILITY Preliminary (continued) [address] [address] For Inquires, the Physician may contact the Microbiology department at [phone] END OF REPORT Objective: Assessment: 1. Gangrenous right first and second toe , ischemic, superficial wound over the right third toe and left lateral fifth toe. C-reactive protein is 68.4 and ESR is 81.was on Augmentin prior to admission. Swab cultures were positive for Pseudomonas and MRSA from 08/02/2021 status post right TMA 08/06/2021 2. Right lower extremity cellulitis, improving since IV antibiotics were initiated 3. Peripheral arterial disease. Status post angiogram/angioplasty as below 4. Diabetes with neuropathy. 5. Atrial fibrillation. 6. History of hemorrhagic cerebrovascular accident. 7. History of skin cancer. 8. Anemia. 9. Renal insufficiency 10, depression and anxiety on fluoxetine 11. Diarrhea Status post angiogram/angioplasty #1. Ultrasound-guided access left common femoral artery #2 radiology supervision interpretation aortogram #3 radiology supervision interpretation bilateral lower extremity runoff #4 right SFA angioplasty 6 x 120 Admiral drug-eluting balloon x2 #5 placement closure device left femoral artery access site Plan: Plan of Care DC Dapto and Zosyn Cipro 500 mg p.o. twice daily and doxycycline 100 mg p.o. twice daily for 5 days only F/U C diff PCR Local right lower extremity wound care and left fifth toe care as directed Activity and wound treatment per vascular Probiotics or yogurt Discharge home from ID standpoint Discussed with SOFIA RANGEL MD Aug 10, 2021 09:32
[2021-08-10 11:00] VITALS: BP 166/83
--- NOTE | 2021-08-10 11:25 | PDOC ---
[facility] PROGRESS NOTE Date of Service DOS: DATE: 08/10/21 TIME: 11:23 Chief Complaint Chief Complaint Suspected osteomyelitis of right first and second toe Cellulitis right foot ESTELLA due to vasomotor nephropathy DM2 Diabetic neuropathy A. fib HTN Normocytic anemia History hemorrhagic CVA Moderate malnutrition Plan: We will admit patient in coverage for suspected osteomyelitis with Rocephin and vancomycin CT right foot pending We will place consult to Dr. Cobos Will consult ID IV fluids. Unknown baseline renal status. Blood cultures Hemoglobin A1c pending Resume home medications FEN - Cardiac diet PPX - SCDs FULL CODE Dispo - inpatient for above Surrogate decision-maker is his (Marianna Reynolds) History of Present Illness History of Present Illness Patient is a 70-year-old male with past medical history DM2, diabetic neuropathy, hemorrhagic CVA, HTN, A. fib, who presents to the ED at the behest of his passenger service agent, Dr. Cobos, due to concerns of necrotic right first and second toes. Patient's states that over the past 2 days his right second and first toenail falling off and there has been worsening necrosis of these toes. He was seen by Dr. Cobos today who marked the surrounding area of erythema and noted some streaking, so sent him to the emergency room for further evaluation. Labs in the ED showed WBC 10.2, hemoglobin 9.7, hematocrit 28.5, ESR 81, CRP 68.4, BUN 38, creatinine 2, albumin 2.8, AST 16, ALT 18. Due to concerns of osteomyelitis I asked the ED provider to order a CT of his right lower extremity. Duplex of right lower extremity showed significantly flow-limiting stenosis within the popliteal artery. Ultrasound showed no evidence of DVT. Due to concerns of osteomyelitis at fast ED provider to order CT of right lower extremity. However due to extent of erythema and concern for necrotic versus anxious. Will admit patient for further medical management. 08/02: Afebrile. CT showed no gross cortical erosion suggestive of acute osteomyelitis. Discussed with ID and, clinically looks like dry gangrene. Will likely require amputation; discussed with and patient. Will consult cardiology for possible CTA with runoff to look at what level amputation would be appropriate. Kidney function slightly improved with hydration. Unknown baseline; will provide judicious IV fluids and resume losartan when kidney function stabilizes. Continue vancomycin and Rocephin for now; further antibiotic recommendations per ID. 08/03: Patient evaluated and examined at bedside. Continue daptomycin and switch Rocephin to Zosyn today. Planning for arterial runoff tomorrow. Suspect patient will need some sort of amputation. We will continue to monitor labs. Continue antibiotics. Vascular surgery also following. 08/04: Patient evaluated and examined at bedside. Angiogram completed this morning appears that vascular surgery is recommending amputation. If approved timing to be determined. 08/05: Patient evaluated and examined at bedside. He is doing well no major complaints. Patient tolerated. Appears somewhat anxious. Looks like planning for transmetatarsal amputation tomorrow. Undergoing echocardiogram today. Continue IV antibiotics. Plan of care discussed with bedside RN. 08/06: Patient evaluated examined at bedside before surgery. He was pretty anxious. Planning for transmetatarsal amputation today. We will follow up with patient after surgery. Continue antibiotics. 08/07: Patient evaluated examined at bedside. Underwent TMA yesterday. Postop pain pretty well controlled. Continuing IV antibiotics. Plan of care discussed with RN. 08/08: Patient evaluated examined at bedside. He was complaining of multiple episodes of diarrhea this morning was getting pretty discouraged about it. Reports that he previously used to follow with Dr. Regan. Will attempt to find these records. Given the ongoing diarrhea will consult to GI. Also was recently restarted on his home pancreatic enzymes with meals. I am uncertain on exact dosing on this and patient not exactly certain. Will ask GI for assistance in dosing these as well. Plan of care discussed with bedside RN. 08/09: Patient evaluated and examined at bedside. Diarrhea from yesterday notably improved. His only had 2 bowel movements this morning but more formed. Patient is quite depressed about current situation and social situation with his . Will try starting patient on Zoloft 50 mg knowing this will not kick in really for several weeks but to just at least start. GI and vascular surgery following. Plan of care discussed with bedside RN. I spent about 15 minutes discussing advance care planning with this patient.. Still with diarrhea overnight. Back on pancreatic enzyme replacement. Afebrile. Creatinine improved to 1.8. He and his are comfortable going home thinks wound care therapy at SNF may be necessary will discuss with social work. Vitals/I&O Vitals/I&O: Vital Signs Date Time Temp Pulse Resp B/P (MAP) Pulse Ox O2 Delivery O2 Flow Rate FiO2 08/10/21 11:00 98.2 73 16 166/83 (110) 94 Room Air 98.2 08/09/21 08:00 8.0 I & O 08/09/21 08/09/21 08/10/21 15:00 23:00 07:00 Output Total 600 ml 600 ml Balance -600 ml -600 ml Physical Exam Physical Exam: GENERAL: Alert awake HEENT: Normocephalic, atraumatic. Anicteric. No thrush. NECK: Supple. LUNGS: Clear. HEART: S1, S2 irregular. No murmurs. ABDOMEN: Soft, nontender, nondistended. No rebound or guarding. EXTREMITIES: Right foot postsurgical dressing intact. Not taken down today. Left toe wound superficial, not infected NEUROLOGIC: Sitting upright, somewhat confused PSYCHIATRIC: Calm and cooperative. General: Alert, Oriented X3, Cooperative Heart: Regular rate, Normal S1, Normal S2 Lungs: Clear Abdomen: Normal bowel sounds Extremities: No clubbing, No cyanosis, Other (First and second toes of the right foot show dry gangrene, small ulceration which is shallow on the left fifth toe the left foot) Skin: Other (Wounds on the feet as above, loss of all hair from the mid calf down consistent with a PAD, he has palpable femoral pulses and palpable popliteal pulses bilaterally but absent pulses at the ankle with signals present consistent with popliteal tibial occlusive disease consistent with his history of diabetes and his arterial duplex) Labs Labs: Laboratory Tests Test 08/09/21 17:12 08/09/21 18:52 08/10/21 07:39 Glucose (Fingerstick) 86 mg/dL (70-99) 97 mg/dL (70-99) 74 mg/dL (70-99) Comment Review of Relevant I have reviewed the following items beverly (where applicable) has been applied. Medications: Current Medications Medications (Trade) Dose Ordered Sig/Roderick Route PRN Reason Start Time Stop Time Status Last Admin Dose Admin Sertraline HCl (Zoloft) 50 mg DAILY PO 08/09/21 13:00 08/10/21 08:30 Justifications for Admission General Conditions Other justification for admit: Necrotic right first and second toe, suspected osteomyelitis Other Justification GIANCARLO GUERRERO MD Aug 10, 2021 11:25
[2021-08-10] MEDS: CIPROFLOXACIN HCL 250 MG TABLET. PO SCH (11:36)
[2021-08-10] MEDS: DOXYCYCLINE HYCLATE 100 MG TABLET PO SCH ×2 (11:37→20:44)
[2021-08-10] MEDS: ONDANSETRON PF 4 MG/2 ML VIAL. IVP PRN ×2 (11:46→20:45)
--- NOTE | 2021-08-10 11:56 | PDOC ---
Date of Service: DATE: 08/10/21 TIME: 11:50 Subjective: Subjective: Two watery stools today. No appetite - "I took 15 pills." Objective: Objective: D/w nurse - diarrhea is better/more formed - labs says can't check for C Diff. Vital Signs: Vital Signs Date Time Temp Pulse Resp B/P (MAP) Pulse Ox O2 Delivery O2 Flow Rate FiO2 08/10/21 11:00 98.2 73 16 166/83 (110) 94 Room Air 98.2 08/09/21 08:00 8.0 Labs: Laboratory Tests Test 08/09/21 17:12 08/09/21 18:52 08/10/21 07:39 Glucose (Fingerstick) 86 mg/dL 97 mg/dL 74 mg/dL PE: GEN: NAD - was sleeping LUNGS: CTAB HEART: RRR ABD: NABS, S/ND/NT NEURO/PSYCH: A & O 3 A/P: Diarrhea - better in past w/ pancreatic enzymes, past 'scopes unrevealing for cause ACD on ASA H/o GERD PAD s/p transmetatarsal amputation -- Diarrhea better per staff. Continue Zenpep, PPI. Encouraged PO. Justicifation of Admission Dx: Justifications for Admission: Justification of Admission Dx: Yes HERO ESPINOSA Aug 10, 2021 11:56
--- NOTE | 2021-08-10 12:10 | NUR ---
ALETA following. Discussed with RN, therapy still recommending SNF, pt's also agreeable as she cannot take care of pt at home, pt initially refusing but agreed in the end. Pt's wanted [facility]. [facility] are currently not taking any admissions due to being full, likely won't have any beds until next week. [facility] phoned and faxed referral to [facility], awaiting acceptance decision. ALETA will continue to follow. Addendum: 08/10/21 at 1557 by GILA RIVER Pt accepted at [facility], will notify family in the morning. RN notified.
[2021-08-10 15:00] VITALS: BP 166/75
--- NOTE | 2021-08-10 15:06 | RAD ---
EXAM: AP View of the chest DATE: 08/10/2021 1:20 PM INDICATION: Reason: Shortness of breath, cough / Spl. Instructions: / History: COMPARISON: No Prior FINDINGS: The heart is not enlarged. Mediastinal and hilar contours are normal. Patchy opacities peripheral left lower lung and bilateral lung bases. No pleural effusion or pneumothorax. IMPRESSION: 1. Patchy opacities peripheral left lower lung and bilateral lung bases may represent consolidative process such as pneumonia. Electronically signed by: Ulises Ann MD (08/10/2021 3:03 PM) [id number]
[2021-08-10] MEDS: METOCLOPRAMIDE HCL 10 MG/2 ML VIAL. IVP PRN (18:26)
[2021-08-10 19:00] VITALS: BP 162/61
[2021-08-10 23:00] VITALS: BP 186/86
[2021-08-11] MEDS: IV NORMAL SALINE 1000ML BAG 1,000 ML IV SCH (02:22)
[2021-08-11 03:31] VITALS: BP 162/81
[2021-08-11] MEDS: HEPARIN for SUB-Q USE 5,000 UNIT/ML VIAL. SQ SCH ×3 (05:31→21:54)
[2021-08-11 07:00] VITALS: BP 189/98
[2021-08-11] MEDS: PANTOPRAZOLE 40 MG TABLET.DR. PO SCH (07:30)
[2021-08-11] MEDS: CARVEDILOL 12.5 MG TABLET. PO SCH ×2 (07:36→17:00)
[2021-08-11] MEDS: ASPIRIN ENTERIC COATED 81 MG TABLET.DR. PO SCH (07:36)
[2021-08-11] MEDS: LIPASE/PROTEAS/AMYLAS 10/32/42 CAPSULE.DR. PO SCH ×3 (07:36→17:00)
[2021-08-11] MEDS: INSULIN LISPRO 300 UNITS/3 ML VIAL. SQ SCH ×3 (07:38→17:00)
[2021-08-11] MEDS: GABAPENTIN 100 MG CAPSULE. PO SCH ×3 (07:38→21:00)
[2021-08-11] MEDS: LACTOBACILLUS RHAMNOSUS GG 1 CAPSULE. PO SCH ×2 (07:38→21:00)
[2021-08-11] MEDS: SENNOSIDES/DOCUSATE 8.6/50MG TABLET. PO SCH ×2 (07:40→21:00)
[2021-08-11] MEDS: hydrALAZINE 20 MG/ML VIAL. IVP PRN ×2 (08:00→23:54)
[2021-08-11] MEDS: METOCLOPRAMIDE HCL 10 MG/2 ML VIAL. IVP PRN (08:01)
[2021-08-11] MEDS: CLOPIDOGREL BISULFATE 75 MG TABLET PO SCH (09:00)
[2021-08-11] MEDS: hydrALAZINE 25 MG TABLET PO SCH ×3 (09:00→21:00)
[2021-08-11] MEDS: DOXYCYCLINE HYCLATE 100 MG TABLET PO SCH ×2 (09:00→21:00)
[2021-08-11] MEDS: DULoxetine HCL 30 MG CAPSULE.DR PO SCH (09:00)
[2021-08-11] MEDS: CIPROFLOXACIN HCL 250 MG TABLET. PO SCH (09:00)
[2021-08-11] MEDS: LISINOPRIL 10 MG TABLET PO SCH (09:00)
--- NOTE | 2021-08-11 09:30 | PDOC ---
Infectious Disease Note Subjective: Subjective Patient denies any complaints Eager for discharge home Postop pain is under control Vital Signs: Vital Signs Vital Signs Date Time Temp Pulse Resp B/P (MAP) Pulse Ox O2 Delivery O2 Flow Rate FiO2 08/11/21 08:00 90 189/98 08/11/21 07:00 97.9 18 97 Room Air 97.9 08/10/21 23:00 8.0 Physical Exam: PHYSICAL EXAM GENERAL: Alert awake HEENT: Normocephalic, atraumatic. Anicteric. No thrush. NECK: Supple. LUNGS: Clear. HEART: S1, S2 irregular. No murmurs. ABDOMEN: Soft, nontender, nondistended. No rebound or guarding. EXTREMITIES: Right foot postsurgical dressing intact. Not taken down today. Left toe wound superficial, not infected NEUROLOGIC: Sitting upright, somewhat confused PSYCHIATRIC: Calm and cooperative. Medications: Inpatient Meds: Medications reviewed. Labs: Lab Laboratory Tests Test 08/10/21 17:13 08/10/21 19:07 Glucose (Fingerstick) 106 mg/dL (70-99) 113 mg/dL (70-99) Micro RUN DATE: 08/05/21 [facility] LAB *LIVE* PAGE 1 RUN TIME: 924 Specimen Inquiry PATIENT: CAMILLE PLOLOCK ACCT: [id number] LOC: [address] [place] [address] U : [id number] AGE/SX: 70/M ROOM: 412 RE08/01/[address]: MIKHAIL LYONS MD : 1950 BED: 1 DIS: STATUS: ADM IN TLOC: SPEC #: [id number] MONTEZ: 08/02/21 STATUS: RES REQ #: [id number] RECD: 08/03/[address] [facility] [address]: MIKHAIL LYONS MD SOURCE: FOOT ENTR: 08/03/[address]: ROBIN VARGAS MD [facility]: WOUND DANIEL,SOFIA CLARK,JANIE BUTTERFIELD MD, MD, ZHIPENG DPM ORDERED: DEUCE/AERCHARLETTE/SHARMIN COMMENTS: FOOT WOUND Procedure Result GRAM STAIN Final Final GRAM NEGATIVE RODS:MODERATE SQUAMOUS EPI CELL:FEW PMN (WBCs):RARE Unless otherwise specified, Testing Performed by: [address] [address] For Inquires, the Physician may contact the Microbiology department at [phone] ANAEROBIC-AEROBIC CULTURE Preliminary Preliminary MANY [PSEUDOMONAS AERUGINOSA] on 08/04/21 at 1116 MODERATE [STAPHYLOCOCCUS AUREUS] on 08/04/21 at 1116 PSEUDOMONAS AERUGINOSA STAPHYLOCOCCUS AUREUS ANTIMICROBIAL SUSCEPTIBILITY Preliminary Comment NEG JONATHON 56 PSEUDOMONAS AERUGINOSA ANTIBIOTIC RESULT INTERPRETATION AMIKACIN <=16 S AZTREONAM <=4 S CEFTAZIDIME <=1 S CIPROFLOXACIN <=0.25 S CEFEPIME <=2 S CEFTAZIDIME/AVIBACTAM <=4 S GENTAMICIN <=2 S LEVOFLOXACIN <=0.5 S MEROPENEM <=1 S PIPERACILLIN/TAZOBACTAM <=8 S TOBRAMYCIN <=2 S Unless otherwise specified, Testing Performed by: RUN DATE: 08/05/21 [facility] *LIVE* PAGE 2 RUN TIME: 924 Specimen Inquiry SPEC: [id number] PATIENT: CAMILLE POLLOCK [id number] (Continued) Procedure Result CONTINUED ON NEXT PAGE RUN DATE: 08/05/21 [facility] LAB *LIVE* PAGE 3 RUN TIME: 0925 Specimen Inquiry SPEC: [id number] PATIENT: CAMILEL POLLOCK [id number] (Continued) ---- -------- Procedure Result ANTIMICROBIAL SUSCEPTIBILITY Preliminary (continued) [address] [address] For Inquires, the Physician may contact the Microbiology department at [phone] END OF REPORT Objective: Assessment: 1. Gangrenous right first and second toe , ischemic, superficial wound over the right third toe and left lateral fifth toe. C-reactive protein is 68.4 and ESR is 81.was on Augmentin prior to admission. Swab cultures were positive for Pseudomonas and MRSA from 08/02/2021 status post right TMA 08/06/2021 2. Right lower extremity cellulitis, improving since IV antibiotics were initiated 3. Peripheral arterial disease. Status post angiogram/angioplasty as below 4. Diabetes with neuropathy. 5. Atrial fibrillation. 6. History of hemorrhagic cerebrovascular accident. 7. History of skin cancer. 8. Anemia. 9. Renal insufficiency 10, depression and anxiety on fluoxetine 11. Diarrhea Status post angiogram/angioplasty #1. Ultrasound-guided access left common femoral artery #2 radiology supervision interpretation aortogram #3 radiology supervision interpretation bilateral lower extremity runoff #4 right SFA angioplasty 6 x 120 Admiral drug-eluting balloon x2 #5 placement closure device left femoral artery access site Plan: Plan of Care DC Dapto and Zosyn Cipro 500 mg p.o. twice daily and doxycycline 100 mg p.o. twice daily for 5 days only, started yesterday Patient has formed stools so no C. difficile PCR reported Local right lower extremity wound care and left fifth toe care as directed Activity and wound treatment per vascular Probiotics or yogurt Can be discharged home from ID standpoint Discussed with SOFIA RANGEL MD Aug 11, 2021 09:30
[2021-08-11 11:00] VITALS: BP 137/91
[2021-08-11] MEDS ORDERED: ONDANSETRON ODT 4 MG TAB.RAPDIS. PO PRN (11:00)
--- NOTE | 2021-08-11 11:12 | PDOC ---
[facility] PROGRESS NOTE Date of Service DOS: DATE: 08/11/21 TIME: 10:59 Chief Complaint Chief Complaint A/P: Right first and second toe gangrene - on Augmentin prior to admission. Swab cultures were positive for Pseudomonas and MRSA from 08/02/2021 S/p right TMA 08/06/2021 Right lower extremity cellulitis, improved. transitioned to PO antibiotics on 08/10/2021 Peripheral arterial disease. Status post angiogram/angioplasty right SFA angioplasty 6 x 120 Admiral drug-eluting balloon x2 Diabetes with neuropathy. History of skin cancer Depression and anxiety - will back off meds given GI symptoms worsening Diarrhea - chronic pancreatic insufficiency on pancreatic enzyme replacement ESTELLA due to vasomotor nephropathy DM2 Diabetic neuropathy A. fib HTN Normocytic anemia History hemorrhagic CVA Moderate malnutrition FEN - Cardiac diet PPX - SCDs FULL CODE Dispo - inpatient for above Surrogate decision-maker is his (Marianna Reynolds) History of Present Illness History of Present Illness Patient is a 70-year-old male with past medical history DM2, diabetic neuropathy, hemorrhagic CVA, HTN, A. fib, who presents to the ED at the behest of his floor winder, Dr. Cobos, due to concerns of necrotic right first and second toes. Patient's states that over the past 2 days his right second and first toenail falling off and there has been worsening necrosis of these toes. He was seen by Dr. Cobos today who marked the surrounding area of erythema and noted some streaking, so sent him to the emergency room for further evaluation. Labs in the ED showed WBC 10.2, hemoglobin 9.7, hematocrit 28.5, ESR 81, CRP 68.4, BUN 38, creatinine 2, albumin 2.8, AST 16, ALT 18. Due to concerns of osteomyelitis I asked the ED provider to order a CT of his right lower extremity. Duplex of right lower extremity showed significantly flow-limiting stenosis within the popliteal artery. Ultrasound showed no evidence of DVT. Due to concerns of osteomyelitis at fast ED provider to order CT of right lower extremity. However due to extent of erythema and concern for necrotic versus anxious. Will admit patient for further medical management. 08/02: Afebrile. CT showed no gross cortical erosion suggestive of acute osteomyelitis. Discussed with ID and, clinically looks like dry gangrene. Will likely require amputation; discussed with and patient. Will consult cardiology for possible CTA with runoff to look at what level amputation would be appropriate. Kidney function slightly improved with hydration. Unknown baseline; will provide judicious IV fluids and resume losartan when kidney function stabilizes. Continue vancomycin and Rocephin for now; further antibiotic recommendations per ID. 08/03: Patient evaluated and examined at bedside. Continue daptomycin and switch Rocephin to Zosyn today. Planning for arterial runoff tomorrow. Suspect patient will need some sort of amputation. We will continue to monitor labs. Continue antibiotics. Vascular surgery also following. 08/04: Patient evaluated and examined at bedside. Angiogram completed this morning appears that vascular surgery is recommending amputation. If approved timing to be determined. 08/05: Patient evaluated and examined at bedside. He is doing well no major complaints. Patient tolerated. Appears somewhat anxious. Looks like planning for transmetatarsal amputation tomorrow. Undergoing echocardiogram today. Continue IV antibiotics. Plan of care discussed with bedside RN. 08/06: Patient evaluated examined at bedside before surgery. He was pretty anxious. Planning for transmetatarsal amputation today. We will follow up with patient after surgery. Continue antibiotics. 08/07: Patient evaluated examined at bedside. Underwent TMA yesterday. Postop pain pretty well controlled. Continuing IV antibiotics. Plan of care discussed with RN. 08/08: Patient evaluated examined at bedside. He was complaining of multiple episodes of diarrhea this morning was getting pretty discouraged about it. Reports that he previously used to follow with Dr. Regan. Will attempt to find these records. Given the ongoing diarrhea will consult to GI. Also was recently restarted on his home pancreatic enzymes with meals. I am uncertain on exact dosing on this and patient not exactly certain. Will ask GI for assistance in dosing these as well. Plan of care discussed with bedside RN. 08/09: Patient evaluated and examined at bedside. Diarrhea from yesterday notably improved. His only had 2 bowel movements this morning but more formed. Patient is quite depressed about current situation and social situation with his . Will try starting patient on Zoloft 50 mg knowing this will not kick in really for several weeks but to just at least start. GI and vascular surgery following. Plan of care discussed with bedside RN. I spent about 15 minutes discussing advance care planning with this patient.. 08/10: Still with diarrhea overnight. Back on pancreatic enzyme replacement. Afebrile. Creatinine improved to 1.8. He and his are comfortable going home thinks wound care therapy at SNF may be necessary will discuss with social work. Had some dry heaves and cough. Chest radiograph with infiltrate versus atelectasis. Encouraged incentive spirometer and nebulizers. Still with dry heaving today offered oral dissolving Zofran he thinks it is because of taking too many pills at the same time while not eating much. Vitals/I&O Vitals/I&O: Vital Signs Date Time Temp Pulse Resp B/P (MAP) Pulse Ox O2 Delivery O2 Flow Rate FiO2 08/11/21 08:00 90 189/98 08/11/21 07:00 97.9 18 97 Room Air 97.9 08/10/21 23:00 8.0 I & O 08/10/21 08/10/21 08/11/21 15:00 23:00 07:00 Intake Total 0 ml Output Total 500 ml 500 ml Balance -500 ml -500 ml 0 ml Physical Exam Physical Exam: GENERAL: Alert awake HEENT: Normocephalic, atraumatic. Anicteric. No thrush. NECK: Supple. LUNGS: Clear. HEART: S1, S2 irregular. No murmurs. ABDOMEN: Soft, nontender, nondistended. No rebound or guarding. EXTREMITIES: Right foot postsurgical dressing intact. Not taken down today. Left toe wound superficial, not infected NEUROLOGIC: Sitting upright, somewhat confused PSYCHIATRIC: Calm and cooperative. General: Alert, Oriented X3, Cooperative Heart: Regular rate, Normal S1, Normal S2 Lungs: Clear Abdomen: Normal bowel sounds Extremities: No clubbing, No cyanosis, Other (First and second toes of the right foot show dry gangrene, small ulceration which is shallow on the left fifth toe the left foot) Skin: Other (Wounds on the feet as above, loss of all hair from the mid calf down consistent with a PAD, he has palpable femoral pulses and palpable popliteal pulses bilaterally but absent pulses at the ankle with signals present consistent with popliteal tibial occlusive disease consistent with his history of diabetes and his arterial duplex) Labs Labs: Laboratory Tests Test 08/10/21 17:13 08/10/21 19:07 Glucose (Fingerstick) 106 mg/dL (70-99) 113 mg/dL (70-99) Comment Review of Relevant I have reviewed the following items beverly (where applicable) has been applied. Medications: Current Medications Medications (Trade) Dose Ordered Sig/Roderick Route PRN Reason Start Time Stop Time Status Last Admin Dose Admin Metoclopramide HCl (Reglan Vial) 5 mg PRN Q6HRS PRN IVP NAUSEA/VOMITING-2ND CHOICE 08/10/21 13:15 08/11/21 08:01 Justifications for Admission General Conditions Other justification for admit: Necrotic right first and second toe, suspected osteomyelitis Other Justification GIANCARLO GUERRERO MD Aug 11, 2021 11:12
--- NOTE | 2021-08-11 11:18 | PDOC ---
Date of Service: DATE: 08/11/21 TIME: 11:06 Subjective: Subjective: Tells me he took a handful of pills yesterday and then drank water and then vomited everything. Tried more water since, also vomited. Afraid to eat/drink today. No abd pain or diarrhea - "it's okay now." Denies dysphagia, also denies coughing. Objective: Objective: Received IV Reglan this morning. Last took Lortab 08/09. Reviewed nursing note - pt declined some meds today due to nausea. Vital Signs: Vital Signs Date Time Temp Pulse Resp B/P (MAP) Pulse Ox O2 Delivery O2 Flow Rate FiO2 08/11/21 08:00 90 189/98 08/11/21 07:00 97.9 18 97 Room Air 97.9 08/10/21 23:00 8.0 Labs: Laboratory Tests Test 08/10/21 17:13 08/10/21 19:07 Glucose (Fingerstick) 106 mg/dL 113 mg/dL PE: GEN: NAD, was resting LUNGS: CTAB HEART: RRR ABD: NABS, S/ND/NT NEURO/PSYCH: A & O 3 A/P: N/v Diarrhea - improved ACD on ASA, h/o GERD - on PPI HTN, DM (A1c 6), PAD s/p transmetatarsal amputation -- Diarrhea improved but now issues w/ n/v since yesterday - pt attributes to taking a lot of pills at once. Change to IV PPI for now. Continue Zenpep as able. Consider abdominal imaging. Justicifation of Admission Dx: Justifications for Admission: Justification of Admission Dx: Yes HERO ESPINOSA Aug 11, 2021 11:18
--- NOTE | 2021-08-11 11:57 | PDOC ---
Provider Note Date of Service: DATE: 08/11/21 TIME: 11:53 Provider Note Provider Note Vascular S: Patient is seen and examined in room. Complains of diarrhea and nausea O: Awake and alert Right TMA incision is dry and intact. Foot warm. Mild erythema along incision. Palpable DP. Left femoral access site intact without hematoma or swelling A/P: s/p right sfa angioplasty, right closed TMA Doing well, may discharge from vascular standpoint when medically stable. Follow up as scheduled Continue to off-load forefoot. Justicifation of Admission Dx: Justifications for Admission: Justification of Admission Dx: Yes ALVINO VINCENT HALF BACKER Aug 11, 2021 11:57
[2021-08-11] MEDS ORDERED: IPRATRPIUM/ALBUTEROL 0.5/2.5MG 3 ML NEBU. NEB SCH (12:00)
[2021-08-11] MEDS: DRONABINOL 2.5 MG CAPSULE. PO SCH ×2 (12:30→16:30)
[2021-08-11] MEDS: PANTOPRAZOLE IV PUSH 40 MG VIAL. IVP SCH (12:30)
[2021-08-11] MEDS ORDERED: METOCLOPRAMIDE HCL 10 MG/2 ML VIAL. IVP PRN (12:30)
--- NOTE | 2021-08-11 14:00 | EKG ---
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
[2021-08-11] MEDS ORDERED: PROCHLORPERAZINE 10 MG/2 ML VIAL. IV ONE (14:30)
[2021-08-11 14:55] LABS: ALBUMIN 2.4 g/dL (3.4-5.0); ALBUMIN/GLOBULIN RATIO 0.7 (1.0-1.7); CREATININE 1.4 mg/dL (0.7-1.3); GFR 49.8; POTASSIUM 3.1 mmol/L (3.5-5.1); TOTAL BILIRUBIN 0.4 mg/dL (0.2-1.0); TOTAL PROTEIN 5.9 g/dL (6.4-8.2)
[2021-08-11 15:00] VITALS: BP 145/68
[2021-08-11 15:33] LABS: MAGNESIUM 1.4 mg/dL (1.8-2.4); PHOSPHORUS 2.2 mg/dL (2.6-4.7)
[2021-08-11] MEDS ORDERED: POTASSIUM CL 40MEQ D5-0.45NACL 1,000 ML IV SCH (16:00)
[2021-08-11] MEDS ORDERED: IPRATRPIUM/ALBUTEROL 0.5/2.5MG 3 ML NEBU. ONE (16:23)
[2021-08-11 19:00] VITALS: BP 176/94
[2021-08-11] MEDS ORDERED: ATORVASTATIN CALCIUM 40 MG TABLET. PO SCH (21:00)
--- NOTE | 2021-08-11 21:55 | NUR ---
Refusing PO meds and Heparin SQ injection.
[2021-08-11 23:00] VITALS: BP 195/97
[2021-08-12 03:00] VITALS: BP 168/72
[2021-08-12] MEDS: HEPARIN for SUB-Q USE 5,000 UNIT/ML VIAL. SQ SCH (05:16)
[2021-08-12 07:41] VITALS: BP 164/79
[2021-08-12] MEDS: CARVEDILOL 12.5 MG TABLET. PO SCH (08:00)
[2021-08-12] MEDS: LIPASE/PROTEAS/AMYLAS 10/32/42 CAPSULE.DR. PO SCH ×2 (08:00→08:55)
[2021-08-12] MEDS: ASPIRIN ENTERIC COATED 81 MG TABLET.DR. PO SCH (08:00)
[2021-08-12] MEDS: INSULIN LISPRO 300 UNITS/3 ML VIAL. SQ SCH ×2 (08:00→12:00)
[2021-08-12] MEDS: DULoxetine HCL 30 MG CAPSULE.DR PO SCH (08:12)
[2021-08-12] MEDS: hydrALAZINE 25 MG TABLET PO SCH (08:12)
[2021-08-12] MEDS: LACTOBACILLUS RHAMNOSUS GG 1 CAPSULE. PO SCH (08:12)
[2021-08-12] MEDS: LISINOPRIL 10 MG TABLET PO SCH (08:13)
[2021-08-12] MEDS: GABAPENTIN 100 MG CAPSULE. PO SCH (08:13)
[2021-08-12] MEDS: CLOPIDOGREL BISULFATE 75 MG TABLET PO SCH (08:13)
[2021-08-12] MEDS: SENNOSIDES/DOCUSATE 8.6/50MG TABLET. PO SCH (08:13)
[2021-08-12] MEDS: DOXYCYCLINE HYCLATE 100 MG TABLET PO SCH (08:47)
[2021-08-12] MEDS: CIPROFLOXACIN HCL 250 MG TABLET. PO SCH (08:47)
[2021-08-12] MEDS: PANTOPRAZOLE IV PUSH 40 MG VIAL. IVP SCH (08:47)
[2021-08-12] MEDS: DRONABINOL 2.5 MG CAPSULE. PO SCH (08:54)
--- NOTE | 2021-08-12 10:07 | PDOC ---
Date of Service: DATE: 08/12/21 TIME: 10:04 Objective: Objective: D/w nurse - transferred for A Fib? - but rate-controlled. Took some pills this morning, not sure about breakfast yet. Has not c/o nausea or abd pain. Vital Signs: Vital Signs Date Time Temp Pulse Resp B/P (MAP) Pulse Ox O2 Delivery O2 Flow Rate FiO2 08/12/21 08:13 81 164/79 08/12/21 07:41 98.2 16 96 Room Air 98.2 Labs: Laboratory Tests Test 08/11/21 14:10 08/11/21 20:11 Sodium Level 145 mmol/L Potassium Level 3.1 mmol/L Chloride Level 112 mmol/L Carbon Dioxide Level 12 mmol/L Anion Gap 21 Blood Urea Nitrogen 14 mg/dL Creatinine 1.4 mg/dL Estimated GFR (Cockcroft-Gault) 49.8 BUN/Creatinine Ratio 10 Glucose Level 138 mg/dL Calcium Level 8.0 mg/dL Phosphorus Level 2.2 mg/dL Magnesium Level 1.4 mg/dL Total Bilirubin 0.4 mg/dL Aspartate Amino Transf (AST/SGOT) 19 U/L Alanine Aminotransferase (ALT/SGPT) 21 U/L Alkaline Phosphatase 71 U/L Troponin I High Sensitivity 22 ng/L Total Protein 5.9 g/dL Albumin 2.4 g/dL Albumin/Globulin Ratio 0.7 Glucose (Fingerstick) 146 mg/dL Imaging: CT A/P pending PE: staff present - pt in restroom A/P: N/v Diarrhea - improving PAD, DM, ACD, GERD -- ?better per d/w nurse - will return when out of restroom. Await CT. Justicifation of Admission Dx: Justifications for Admission: Justification of Admission Dx: Yes HERO ESPINOSA Aug 12, 2021 10:07
[2021-08-12 10:23] VITALS: BP 192/95
[2021-08-12 10:32] VITALS: BP 192/95
[2021-08-12] MEDS: hydrALAZINE 20 MG/ML VIAL. IVP PRN (10:32)
[2021-08-12] MEDS ORDERED: ATOR40TA59 PO (10:55)
[2021-08-12] MEDS ORDERED: CIPR500T94 PO (11:03)
[2021-08-12] MEDS ORDERED: OMEP40CA7 PO (11:03)
[2021-08-12] MEDS ORDERED: DOXY100T PO (11:03)
--- NOTE | 2021-08-12 11:06 | SNU/HH DC ---
DISCHARGE ORDERS DISCHARGE INFORMATION: DISCHARGE DATE: Aug 12, 2021 FINAL DIAGNOSIS Right first and second toe gangrene - S/p right TMA 08/06/2021 Right lower extremity cellulitis, improved. Peripheral arterial disease. Status post angiogram/angioplasty right SFA angioplasty drug-eluting balloon x2 Diabetes 2 with neuropathy. History of skin cancer Depression and anxiety - will back off meds given GI symptoms worsening Diarrhea - chronic pancreatic insufficiency on pancreatic enzyme replacement ESTELLA due to vasomotor nephropathy DM2 Diabetic neuropathy A. fib HTN Normocytic anemia History hemorrhagic CVA Moderate malnutrition FEN - Cardiac diet PPX - SCDs FULL CODE Dispo - inpatient for above CONDITION ON DISCHARGE: Stable CODE STATUS: Code Status: Full FDC: SNF STAY <30 DAYS: Yes POST DISCHARGE ORDERS: ACTIVITY ORDERS: No restrictions, Activity as tolerated WEIGHT BEARING STATUS: No restrictions, As tolerated DIET AFTER DISCHARGE: ADA TREATMENT/EQUIPMENT ORDERS: ADAPTIVE EQUIPMENT NEEDED: Front wheeled walker Physical Therapy For: Evalulation/Treatment Occupational Therapy For: Evaluation/Treatment DISCHARGE MEDICATIONS: Home Meds Active Scripts Omeprazole (OMEPRAZOLE) 40 Mg Capsule., 1 CAP PO DAILY for GERD, #30 CAP 3 Refills Prov:MICHELLE CAPPS MD 08/12/21 Ciprofloxacin Hcl (CIPRO) 500 Mg Tablet, 1 TAB PO BID for gut infection for 3 Days, #6 TAB 0 Refills Prov:MICHELLE CAPPS MD 08/12/21 Doxycycline Hyclate (DOXYCYCLINE HYCLATE) 100 Mg Tablet, 100 MG PO BID for gut infection, #6 TAB Prov:MICHELLE CAPPS MD 08/12/21 Atorvastatin Calcium (ATORVASTATIN CALCIUM) 40 Mg Tablet, 80 MG PO QHS for ca rdiac, #60 TAB Prov:MICHELLE CAPPS MD 08/12/21 Clopidogrel Bisulfate (CLOPIDOGREL) 75 Mg Tablet, 75 MG PO DAILY for blood clotting for 30 Days, #30 TAB 2 Refills Prov:ALVINO VINCENT APRN 08/07/21 Reported Medications Lipase/Protease/Amylase (Aliya Alonso 25,000 Unit Capsule) 1 Each Capsule., 1 CAP PO BID for diarrhea 08/07/21 Semaglutide (Ozempic) 1 Mg/0.75 Ml Pen.injctr, 0.5 MG SQ WEEKLY for diabetes, EACH 08/02/21 Losartan Potassium (LOSARTAN POTASSIUM) 50 Mg Tablet, 25 MG PO DAILY for HYPERTENSION, TAB 08/02/21 Hydralazine Hcl (HYDRALAZINE HCL) 25 Mg Tablet, 1 TAB PO TID for high blood pressure, #90 TAB 5 Refills 08/02/21 Gabapentin (GABAPENTIN ) 100 Mg Capsule, 200 MG PO TID for NEUROGENIC PAIN, CAP 08/02/21 Famotidine (FAMOTIDINE) 20 Mg Tablet, 20 MG PO DAILY for acid reflux, TAB 08/02/21 Duloxetine Hcl (CYMBALTA) 60 Mg Capsule.dr, 1 CAP PO DAILY for as prescribed, #90 CAP 3 Refills 08/02/21 Carvedilol (CARVEDILOL) 25 Mg Tablet, 12.5 MG PO BIDWMEALS for CARDIAC, TAB 08/02/21 Calcitriol (CALCITRIOL) 0.25 Mcg Capsule, 1 CAP PO DAILY for Take daily, #30 CAP 5 Refills 08/02/21 Atorvastatin Calcium (ATORVASTATIN CALCIUM) 80 Mg Tablet, 1 TAB PO DAILY, #30 TAB 5 Refills 04/07/17 Discontinued Reported Medications Omeprazole (OMEPRAZOLE) 20 Mg Capsule.dr, 20 MG PO DAILY for gerd, CAP 05/02/19 Fluoxetine Hcl (FLUOXETINE HCL) 10 Mg Tablet, 1 TAB PO DAILY, #30 TAB 2 Refills 04/07/17 MICHELLE CAPPS MD Aug 12, 2021 11:06
--- NOTE | 2021-08-12 12:01 | NUR ---
SS following up with discharge planning. SS reviewed pt chart and discussed with pt RN. Pt is currently on room air. PT/OT recommended prison unit. Pt accepted at [facility], ; fax [phone]. COVID19 negative. Discharge orders received and phoned and faxed to [facility]. Pt will discharge today and go to [facility] at 1300 via [facility] transport, [id number]. Pt, pt's RN, and pt's family notified.
--- NOTE | 2021-08-12 13:10 | NUR ---
Discharge Note: CAMILLE POLLOCK [facility] Discharge instructions and discharge home medications reviewed with Other facility and a copy given. All questions have been answered and understanding verbalized. The following instructions and handouts were given: cellulitis, atorvastatin, clopidogrel, doxycyline, ciprofloxacin, omeprazole. Patient discharged to [facility] with transport via wheelchair.
--- NOTE | 2021-08-12 13:18 | PDOC3 ---
Discharge Summary Visit Information Date of Admission: Aug 01, 2021 Date of Discharge: Aug 12, 2021 Final Diagnosis Right first and second toe gangrene - on Augmentin prior to admission. S/p right TMA 08/06/2021 Right lower extremity cellulitis, improved on DC, complete PO antibiotics Peripheral arterial disease. Status post angiogram/angioplasty right SFA angioplasty and drug-eluting balloon x2 Diabetes with neuropathy. History of skin cancer Depression and anxiety - will back off meds given GI symptoms worsening Diarrhea - chronic pancreatic insufficiency on pancreatic enzyme replacement ESTELLA due to vasomotor nephropathy DM2 Diabetic neuropathy A. fib HTN Normocytic anemia History hemorrhagic CVA Moderate malnutrition Brief Hospital Course Allergies Allergies Coded Allergies Type Severity Reaction Last Updated Verified I S O L A T I O N *CONTACT* Allergy Unknown 08/07/21 Yes No Known Medication Allergies Allergy Unknown 08/07/21 Yes Vital Signs Vital Signs Date Time Temp Pulse Resp B/P (MAP) Pulse Ox O2 Delivery O2 Flow Rate FiO2 08/12/21 10:32 81 192/95 08/12/21 10:23 98.1 16 96 Room Air 98.1 Lab Results Laboratory Tests Test 08/10/21 17:13 08/10/21 19:07 08/11/21 14:10 08/11/21 20:11 Glucose (Fingerstick) 106 mg/dL (70-99) 113 mg/dL (70-99) 146 mg/dL (70-99) Sodium Level 145 mmol/L (136-145) Potassium Level 3.1 mmol/L (3.5-5.1) Chloride Level 112 mmol/L (98-107) Carbon Dioxide Level 12 mmol/L (21-32) Anion Gap 21 (6-14) Blood Urea Nitrogen 14 mg/dL (8-26) Creatinine 1.4 mg/dL (0.7-1.3) Estimated GFR (Cockcroft-Gault) 49.8 BUN/Creatinine Ratio 10 (6-20) Glucose Level 138 mg/dL (70-99) Calcium Level 8.0 mg/dL (8.5-10.1) Phosphorus Level 2.2 mg/dL (2.6-4.7) Magnesium Level 1.4 mg/dL (1.8-2.4) Total Bilirubin 0.4 mg/dL (0.2-1.0) Aspartate Amino Transf (AST/SGOT) 19 U/L (15-37) Alanine Aminotransferase (ALT/SGPT) 21 U/L (16-63) Alkaline Phosphatase 71 U/L (46-116) Troponin I High Sensitivity 22 ng/L (4-75) Total Protein 5.9 g/dL (6.4-8.2) Albumin 2.4 g/dL (3.4-5.0) Albumin/Globulin Ratio 0.7 (1.0-1.7) Laboratory Tests Test 08/11/21 14:10 08/11/21 20:11 Sodium Level 145 mmol/L (136-145) Potassium Level 3.1 mmol/L (3.5-5.1) Chloride Level 112 mmol/L (98-107) Carbon Dioxide Level 12 mmol/L (21-32) Anion Gap 21 (6-14) Blood Urea Nitrogen 14 mg/dL (8-26) Creatinine 1.4 mg/dL (0.7-1.3) Estimated GFR (Cockcroft-Gault) 49.8 BUN/Creatinine Ratio 10 (6-20) Glucose Level 138 mg/dL (70-99) Calcium Level 8.0 mg/dL (8.5-10.1) Phosphorus Level 2.2 mg/dL (2.6-4.7) Magnesium Level 1.4 mg/dL (1.8-2.4) Total Bilirubin 0.4 mg/dL (0.2-1.0) Aspartate Amino Transf (AST/SGOT) 19 U/L (15-37) Alanine Aminotransferase (ALT/SGPT) 21 U/L (16-63) Alkaline Phosphatase 71 U/L (46-116) Troponin I High Sensitivity 22 ng/L (4-75) Total Protein 5.9 g/dL (6.4-8.2) Albumin 2.4 g/dL (3.4-5.0) Albumin/Globulin Ratio 0.7 (1.0-1.7) Glucose (Fingerstick) 146 mg/dL (70-99) Brief Hospital Course Mr. Reynolds is a 70-year-old male with past medical history DM2, diabetic neuropathy, hemorrhagic CVA, HTN, A. fib, admit by Dr. Cobos, necrotic right first and second toes. Vascular gram on 08/04, Dr. Karimi placed 2 stents, to OR Dr. Valladares 08/06, TMA 1-4. on right rehab needed, markedly weak GI consult diarrhea, pancreatic insuff, c. diff neg ID consult, abx, plan DC with current, cipro, doxy, Discharge Information Condition at Discharge: Improved Follow Up: Weeks Disposition/Orders: D/C to Another Facility (skilled) Scheduled Atorvastatin Calcium (Atorvastatin Calcium) 80 Mg Tablet, 1 TAB PO DAILY, #30 Ref 5 (Reported) Entered as Reported by: HENRY MURGUIA on 04/07/17810 Last Action: Converted on 08/01/212108 by MIKHAIL LYONS MD Atorvastatin Calcium (Atorvastatin Calcium) 40 Mg Tablet, 80 MG PO QHS for cardiac, #60 Prescribed by: MICHELLE CAPPS on 08/12/21 1055 Calcitriol (Calcitriol) 0.25 Mcg Capsule, 1 CAP PO DAILY for Take daily, #30 Ref 5 (Reported) Entered as Reported by: ALVERTO FITZGERALD LPN on 08/02/21152 Last Action: New Order on 08/02/21152 by ALVERTO FITZGERALD LPN Carvedilol (Carvedilol) 25 Mg Tablet, 12.5 MG PO BIDWMEALS for CARDIAC, (Reported) Entered as Reported by: ALVERTO FITZGERALD LPN on 08/02/21158 Last Action: Converted on 08/02/21902 by MIKHAIL LYONS MD Ciprofloxacin Hcl (Cipro) 500 Mg Tablet, 1 TAB PO BID for gut infection for 3 Days, #6 Ref 0 Prescribed by: MICHELLE CAPPS on 08/12/21 1103 Clopidogrel Bisulfate (Clopidogrel) 75 Mg Tablet, 75 MG PO DAILY for blood clotting for 30 Days, #30 Ref 2 Prescribed by: ALVINO VINCENT on 08/07/21 1416 Doxycycline Hyclate (Doxycycline Hyclate) 100 Mg Tablet, 100 MG PO BID for gut infection, #6 Prescribed by: MICHELLE CAPPS on 08/12/21 1103 Duloxetine Hcl (Cymbalta) 60 Mg Capsule.dr, 1 CAP PO DAILY for as prescribed, #90 Ref 3 (Reported) Entered as Reported by: ALVERTO FITZGERALD LPN on 08/02/21158 Last Action: Converted on 08/02/21902 by MIKHAIL LYONS MD Famotidine (Famotidine) 20 Mg Tablet, 20 MG PO DAILY for acid reflux, (Reported) Entered as Reported by: ALVERTO FITZGERALD LPN on 08/02/21158 Last Action: New Order on 08/02/21158 by ALVERTO FITZGERALD LPN Gabapentin (Gabapentin ) 100 Mg Capsule, 200 MG PO TID for NEUROGENIC PAIN, (Reported) Entered as Reported by: ALVERTO FITZGERALD LPN on 08/02/21158 Last Action: Continued on 08/02/21902 by MIKHAIL LYONS MD Hydralazine Hcl (Hydralazine Hcl) 25 Mg Tablet, 1 TAB PO TID for high blood pr essure, #90 Ref 5 (Reported) Entered as Reported by: ALVERTO FITZGERALD LPN on 08/02/21158 Last Action: Continued on 08/02/21902 by MIKHAIL LYONS MD Lipase/Protease/Amylase (Zenpep Dr 25,000 Unit Capsule) 1 Each Capsule.dr, 1 CAP PO BID for diarrhea, (Reported) Entered as Reported by: CHRISTIANO ADKINS on 08/07/211021 Last Taken: Unknown Dose on Unknown Date & Time Last Action: Reviewed on 08/07/211024 by CHRISTIANO ADKINS Losartan Potassium (Losartan Potassium) 50 Mg Tablet, 25 MG PO DAILY for HYPERTENSION, (Reported) Entered as Reported by: ALVERTO FITZGERALD LPN on 08/02/21204 Last Action: New Order on 08/02/21204 by ALVERTO FITZGERALD LPN Omeprazole (Omeprazole) 40 Mg Capsule.dr, 1 CAP PO DAILY for GERD, #30 Ref 3 Prescribed by: MICHELLE CAPPS on 08/12/21 1103 Semaglutide (Ozempic) 1 Mg/0.75 Ml Pen.injctr, 0.5 MG SQ WEEKLY for diabetes, (Reported) Entered as Reported by: ALVERTO FITZGERALD LPN on 08/02/21204 Last Action: Converted on 08/07/21953 by JESSICA POTTER Discontinued Medications Fluoxetine Hcl (Fluoxetine Hcl) 10 Mg Tablet, 1 TAB PO DAILY, #30 Ref 2 ( Reported) Discontinued Reason: NOT TAKING Entered as Reported by: HENRY MURGUIA on 04/07/17 0811 Last Action: Discontinued on 08/05/211128 by [facility] Omeprazole (Omeprazole) 20 Mg Capsule.dr, 20 MG PO DAILY for gerd, (Reported) Entered as Reported by: ESTEFANIA CALDERON on 05/02/19655 Last Action: Converted on 08/01/212108 by MIKHAIL LYONS MD Patient Instructions Patient Instructions pt seen face to face at DC 37 min Justicifation of Admission Dx: Justifications for Admission: Justification of Admission Dx: Yes MICHELLE CAPPS MD Aug 12, 2021 13:18
--- NOTE | 2021-08-12 13:27 | RAD ---
EXAM: CT Abdomen and Pelvis without IV contrast CLINICAL HISTORY: Reason: Abdominal pain, vomiting. Assess for hemaoma/abscess/obstruction. COMPARISON: 05/24/2021 TECHNIQUE: Helical CT of the abdomen and pelvis without intravenous contrast. Axial, coronal and sagi ttal reformatted images were generated. PQRS compliance statement - One or more of the following individualized dose reduction techniques wer e utilized for this study: 1. Automated exposure control 2. Adjustment of the mA and/or kV according to patient size 3. Use of iterative reconstruction technique FINDINGS: Lack of intravenous contrast limits evaluation of solid organs, vasculature, and lymph nodes. Lower chest: Trace pleural effusions. Coronary calcifications are seen. Abdomen and Pelvis: Liver and spleen are unremarkable. Calcified gallstone at the gallbladder neck. No wall thickening or pericholecystic fluid to suggest acute cholecystitis. No biliary ductal dilatation. Pancreas is unre markable. 1.7 cm left adrenal nodule is stable. Left upper pole renal cyst. Nonobstructing left lower pole renal calculus. Right upper pole renal cyst. No hydronephrosis. No hydroureter. Bladder is beverly edly distended which can be correlated with possible voluntary or involuntary causes of urinary reten tion. Trace fat-containing periumbilical hernia. No other colonic stool content is seen. No small or large bowel dilatation. No bowel obstruction. There is thickening (9 mm) and infiltration about the appendi x which may be seen with acute appendicitis. No discrete loculated fluid collection or abscess. Infiltration about the anterior abdomen and both thighs. Bones: Hip joint degenerative changes are seen. Degenerative changes of the spine are seen. IMPRESSION: 1. Thickening and infiltration about the appendix may be seen with acute appendicitis. No discrete l oculated fluid collection or abscess. Of note, reactive change also have this appearance. 2. Markedly distended bladder which can be correlated with possible voluntary or involuntary causes of urinary retention. 3. Cholelithiasis without CT evidence for acute cholecystitis. 4. Nonobstructing left lower pole renal calculus. 5. Trace pleural effusions. Findings discussed with patient's nurse Carly at 08/12/2021 1:20 PM. FOR INTERNAL CODING PURPOSES RESULT CODE: (C) Electronically signed by: Ulises Ann MD (08/12/2021 1:24 PM) [facility]
--- NOTE | 2021-08-12 14:32 | PDOC ---
[employer] PROGRESS NOTE Date of Service DOS: DATE: 08/12/21 TIME: 14:31 Chief Complaint Chief Complaint I HAD DC TO SNU, CTscan from this AM then returned results of acute pancreatitis acute abd pain had worseneed this AFTERNOON, some vomiting, return to hospital, direct admit, gen surg consult Right first and second toe gangrene - on Augmentin prior to admission. Swab cultures were positive for Pseudomonas and MRSA from 08/02/2021 S/p right TMA 08/06/2021 Right lower extremity cellulitis, improved. transitioned to PO antibiotics on 08/10/2021 Peripheral arterial disease. Status post angiogram/angioplasty right SFA angioplasty 6 x 120 Admiral drug-eluting balloon x2 Diabetes with neuropathy. History of skin cancer Depression and anxiety - will back off meds given GI symptoms worsening Diarrhea - chronic pancreatic insufficiency on pancreatic enzyme replacement ESTELLA due to vasomotor nephropathy DM2 Diabetic neuropathy A. fib HTN Normocytic anemia History hemorrhagic CVA Moderate malnutrition FEN - Cardiac diet PPX - SCDs FULL CODE Dispo - inpatient for above Surrogate decision-maker is his (Marianna Reynolds) History of Present Illness History of Present Illness Patient is a 70-year-old male with past medical history DM2, diabetic neuropathy, hemorrhagic CVA, HTN, A. fib, who presents to the ED at the behest of his teletray operator, Dr. Cobos, due to concerns of necrotic right first and second toes. Patient's states that over the past 2 days his right second and first toenail falling off and there has been worsening necrosis of these toes. He was seen by Dr. Cobos today who marked the surrounding area of erythema and noted some streaking, so sent him to the emergency room for further evaluation. Labs in the ED showed WBC 10.2, hemoglobin 9.7, hematocrit 28.5, ESR 81, CRP 68.4, BUN 38, creatinine 2, albumin 2.8, AST 16, ALT 18. Due to concerns of osteomyelitis I asked the ED provider to order a CT of his right lower extremity. Duplex of right lower extremity showed significantly flow-limiting stenosis within the popliteal artery. Ultrasound showed no evidence of DVT. Due to concerns of osteomyelitis at fast ED provider to order CT of right lower extremity. However due to extent of erythema and concern for necrotic versus anxious. Will admit patient for further medical management. 08/02: Afebrile. CT showed no gross cortical erosion suggestive of acute osteomyelitis. Discussed with ID and, clinically looks like dry gangrene. Will likely require amputation; discussed with and patient. Will consult cardio logy for possible CTA with runoff to look at what level amputation would be appropriate. Kidney function slightly improved with hydration. Unknown baseline; will provide judicious IV fluids and resume losartan when kidney function stabilizes. Continue vancomycin and Rocephin for now; further antibiotic recommendations per ID. 08/03: Patient evaluated and examined at bedside. Continue daptomycin and switch Rocephin to Zosyn today. Planning for arterial runoff tomorrow. Suspect patient will need some sort of amputation. We will continue to monitor labs. Continue antibiotics. Vascular surgery also following. 08/04: Patient evaluated and examined at bedside. Angiogram completed this morning appears that vascular surgery is recommending amputation. If approved timing to be determined. 08/05: Patient evaluated and examined at bedside. He is doing well no major complaints. Patient tolerated. Appears somewhat anxious. Looks like planning for transmetatarsal amputation tomorrow. Undergoing echocardiogram today. Continue IV antibiotics. Plan of care discussed with bedside RN. 08/06: Patient evaluated examined at bedside before surgery. He was pretty anxious. Planning for transmetatarsal amputation today. We will follow up with patient after surgery. Continue antibiotics. 08/07: Patient evaluated examined at bedside. Underwent TMA yesterday. Postop pain pretty well controlled. Continuing IV antibiotics. Plan of care discussed with RN. 08/08: Patient evaluated examined at bedside. He was complaining of multiple episodes of diarrhea this morning was getting pretty discouraged about it. Reports that he previously used to follow with Dr. Regan. Will attempt to find these records. Given the ongoing diarrhea will consult to GI. Also was recently restarted on his home pancreatic enzymes with meals. I am uncertain on exact dosing on this and patient not exactly certain. Will ask GI for assistance in dosing these as well. Plan of care discussed with bedside RN. 08/09: Patient evaluated and examined at bedside. Diarrhea from yesterday notably improved. His only had 2 bowel movements this morning but more formed. Patient is quite depressed about current situation and social situation with his . Will try starting patient on Zoloft 50 mg knowing this will not kick in really for several weeks but to just at least start. GI and vascular surgery following. Plan of care discussed with bedside RN. I spent about 15 minutes discussing advance care planning with this patient.. 08/10: Still with diarrhea overnight. Back on pancreatic enzyme replacement. Afebrile. Creatinine improved to 1.8. He and his are comfortable going home thinks wound care therapy at SNF may be necessary will discuss with social work. Had some dry heaves and cough. Chest radiograph with infiltrate versus atelectasis. Encouraged incentive spirometer and nebulizers. Still with dry heaving today offered oral dissolving Zofran he thinks it is because of taking too many pills at the same time while not eating much. Vitals/I&O Vitals/I&O: Vital Signs Date Time Temp Pulse Resp B/P (MAP) Pulse Ox O2 Delivery O2 Flow Rate FiO2 08/12/21 10:32 81 192/95 08/12/21 10:23 98.1 16 96 Room Air 98.1 I & O 08/11/21 08/11/21 08/12/21 14:59 22:59 06:59 Intake Total 0 ml 1000 ml Output Total 700 ml Balance 0 ml 300 ml Physical Exam Physical Exam: GENERAL: Alert awake HEENT: Normocephalic, atraumatic. Anicteric. No thrush. NECK: Supple. LUNGS: Clear. HEART: S1, S2 irregular. No murmurs. ABDOMEN: Soft, nontender, nondistended. No rebound or guarding. EXTREMITIES: Right foot postsurgical dressing intact. Not taken down today. Left toe wound superficial, not infected NEUROLOGIC: Sitting upright, somewhat confused PSYCHIATRIC: Calm and cooperative. General: Alert, Oriented X3, Cooperative Heart: Regular rate, Normal S1, Normal S2 Lungs: Clear Abdomen: Normal bowel sounds Extremities: No clubbing, No cyanosis, Other (First and second toes of the right foot show dry gangrene, small ulceration which is shallow on the left fifth toe the left foot) Skin: Other (Wounds on the feet as above, loss of all hair from the mid calf down consistent with a PAD, he has palpable femoral pulses and palpable popliteal pulses bilaterally but absent pulses at the ankle with signals present consistent with popliteal tibial occlusive disease consistent with his history of diabetes and his arterial duplex) Labs Labs: Laboratory Tests Test 08/11/21 20:11 Glucose (Fingerstick) 146 mg/dL (70-99) Comment Review of Relevant I have reviewed the following items beverly (where applicable) has been applied. Medications: Current Medications Medications (Trade) Dose Ordered Sig/Roderick Route PRN Reason Start Time Stop Time Status Last Admin Dose Admin Potassium Chloride/Dextrose/ Sod Cl 1,000 ml @ 80 mls/hr [id number] IV 08/11/21 16:00 08/12/21 04:29 DC 08/11/21 16:20 Justifications for Admission General Conditions Other justification for admit: Necrotic right first and second toe, suspected osteomyelitis Other Justification MICHELLE CAPPS MD Aug 12, 2021 14:32
[2021-08-12] MEDS ORDERED: DOXYCYCLINE HYCLATE 100 MG TABLET PO SCH (21:00)
== END 2021-08-12 13:10 | DRG 239 ==
LOC: ER 15:50 → 4 NORTH 19:22 → 6 SOUTH 08-11 16:00
PROVIDERS: ADMIT Family Medicine; ATTEND Family Medicine
PROC: 047K3Z1 Dilation of Right Femoral Artery using Drug-Coated Balloon, Percutaneous Approach (ICD-10-PCS; principal; 2021-08-06 07:30)
PROC: 0Y6M0Z9 Detachment at Right Foot, Partial 1st Ray, Open Approach (ICD-10-PCS; 2021-08-08)
PROC: 0Y6M0ZB Detachment at Right Foot, Partial 2nd Ray, Open Approach (ICD-10-PCS; 2021-08-08)
PROC: 0Y6M0ZC Detachment at Right Foot, Partial 3rd Ray, Open Approach (ICD-10-PCS; 2021-08-08)
PROC: 0Y6M0ZD Detachment at Right Foot, Partial 4th Ray, Open Approach (ICD-10-PCS; 2021-08-08)
PROC: B41D1ZZ Fluoroscopy of Aorta and Bilateral Lower Extremity Arteries using Low Osmolar Contrast (ICD-10-PCS; 2021-08-08)
DX: E11.52 Type 2 diabetes mellitus with diabetic peripheral angiopathy with gangrene (principal); N17.0 Acute kidney failure with tubular necrosis; L03.115 Cellulitis of right lower limb; M86.171 Other acute osteomyelitis, right ankle and foot; E44.0 Moderate protein-calorie malnutrition; N39.0 Urinary tract infection, site not specified; Q85.9 Phakomatosis, unspecified; E11.69 Type 2 diabetes mellitus with other specified complication; D64.9 Anemia, unspecified; E11.22 Type 2 diabetes mellitus with diabetic chronic kidney disease; E11.40 Type 2 diabetes mellitus with diabetic neuropathy, unspecified; E11.621 Type 2 diabetes mellitus with foot ulcer; E78.00 Pure hypercholesterolemia, unspecified; E78.5 Hyperlipidemia, unspecified; E87.6 Hypokalemia; F32.A Depression, unspecified; F43.10 Post-traumatic stress disorder, unspecified; I12.9 Hypertensive chronic kidney disease with stage 1 through stage 4 chronic kidney disease, or unspecified chronic kidney disease; I48.91 Unspecified atrial fibrillation; K21.9 Gastro-esophageal reflux disease without esophagitis; K86.89 Other specified diseases of pancreas; L97.519 Non-pressure chronic ulcer of other part of right foot with unspecified severity; N18.2 Chronic kidney disease, stage 2 (mild); Z20.822 Contact with and (suspected) exposure to COVID-19; Z79.01 Long term (current) use of anticoagulants; Z82.49 Family history of ischemic heart disease and other diseases of the circulatory system; Z85.828 Personal history of other malignant neoplasm of skin; Z86.73 Personal history of transient ischemic attack (TIA), and cerebral infarction without residual deficits; Z87.891 Personal history of nicotine dependence; Z68.28 Body mass index [BMI] 28.0-28.9, adult
CPT/HCPCS: 37224; 96365; 96366; 96375; 99285; G0269; 36415; 71045; 73700; 74176; 75625; 75716; 76937; 80048; 80053; 80061; 82550; 82565; 82607; 82962; 83036; 83540; 83550; 83605; 83735; 84100; 84484; 85025; 85651; 86140; 87040; 87071; 87075; 87077; 87186; 87426; 93005; 93306; 93926; 93970; 93971; 94640; 94760; 99152; 99153; A4930; A6223; A6253; A6402; A6403; A6449; C1894; C2623; C9113; G0238; J0360; J0696; J0780; J0878; J1100; J1644; J1815; J2250; J2370; J2405; J2543; J2704; J2765; J3010; J3370; J3480; J3490; J7030; J7040; Q9967; U0003; U0005; 97110-GO; 97110-GP; 97530-GO; 97530-GP; 97535-GO; G0378

== ENCOUNTER 2021-08-12 15:09 | Inpatient (IN) | payer MEDICARE, BC ==
[~2021-08-12] VITALS: Ht 170.2 cm; Wt 88.6 kg
[~2021-08-12 15:09] MED LIST changes: +ATOR40TA59 PO; +CALC0.25 PO; +CARV25TA2 PO; +CIPR500T94 PO; +CLOP75TA PO; +DOXY100T PO; +DULO60CA7 PO; +FAMO20TA5 PO; +GABA-585 PO; +HYDR-2868 PO; +LIPA1CAP43 PO; +OMEP40CA7 PO; +SEMA1PEN3 SQ
[2021-08-12 15:59] VITALS: BP 172/102
--- NOTE | 2021-08-12 16:07 | PDOC1 ---
History and Physical Date of Admission Date of Admission DATE: 08/12/21 TIME: 16:06 Identification/Chief Complaint Chief Complaint abd pain, and nausea Source Source: Chart review, Patient History of Present Illness History of Present Illness Mr. Reynolds is a 70-year-old male just DC to skilled today after amputation for dry gangrene and cellulitis right forefoot. abd pain and nausea worse today, CT scan showed acute appy process, return to hospital within a few hours of discharge. CT read came back after DC order completed with past medical history DM2, diabetic neuropathy, hemorrhagic CVA, HTN, A. fib, admit by Dr. Cobos, necrotic right first and second toes. Vascular gram on 08/04, Dr. Karimi placed 2 stents, to OR Dr. Valladares 08/06, TMA 1-4. on right rehab needed, markedly weak GI consult diarrhea, pancreatic insuff, c. diff neg ID consult, abx, plan DC with current, cipro, doxy, Past Medical History Cardiovascular: AFIB, HTN, Hyperlipidemia CENTRAL NERVOUS SYSTEM: CVA Renal/: Chronic renal insuff Endocrine: Diabetes Family History Family History: Cancer, Hypertension Social History Smoke: No ALCOHOL: none Drugs: None Current Medications Current Medications Active Scripts Active Omeprazole 40 Mg Capsule.dr 1 Cap PO DAILY Cipro (Ciprofloxacin Hcl) 500 Mg Tablet 1 Tab PO BID 3 Days Doxycycline Hyclate 100 Mg Tablet 100 Mg PO BID Atorvastatin Calcium 40 Mg Tablet 80 Mg PO QHS Clopidogrel (Clopidogrel Bisulfate) 75 Mg Tablet 75 Mg PO DAILY [address] 25,000 Unit Capsule (Lipase/Protease/Amylase) 1 Each Capsule.dr 1 Cap PO BID Ozempic (Semaglutide) 1 Mg/0.75 Ml Pen.injctr 0.5 Mg SQ WEEKLY Losartan Potassium 50 Mg Tablet 25 Mg PO DAILY Hydralazine Hcl 25 Mg Tablet 1 Tab PO TID Gabapentin (Gabapentin) 100 Mg Capsule 200 Mg PO TID Famotidine 20 Mg Tablet 20 Mg PO DAILY Cymbalta (Duloxetine Hcl) 60 Mg Capsule.dr 1 Cap PO DAILY Carvedilol 25 Mg Tablet 12.5 Mg PO BIDWMEALS Calcitriol 0.25 Mcg Capsule 1 Cap PO DAILY Atorvastatin Calcium 80 Mg Tablet 1 Tab PO DAILY Allergies Allergies: Coded Allergies: I S O L A T I O N *CONTACT* (Verified Allergy, Unknown, 08/07/21) mrsa No Known Medication Allergies (Verified Allergy, Unknown, 08/07/21) ROS General: No: Chills, Night Sweats, Fatigue, Malaise, Appetite, Other PSYCHOLOGICAL ROS: No: Anxiety, Behavioral Disorder, Concentration difficultie, Decreased libido, Depression, Disorientation, Hallucinations, Hostility, Irritablity, Memory difficulties, Mood Swings, Obsessive thoughts, Physical abuse, Sexual abuse, Sleep disturbances, Suicidal ideation, Other Eyes: No Blurry vision, No Decreased vision, No Double vision, No Dry eyes, No Excessive tearing, No Eye Pain, No Itchy Eyes, No Loss of vision, No Photophobia, No Scotomata, No Uses contacts, No Uses glasses, No Other HEENT: No: Heacaches, Visual Changes, Hearing change, Nasal congestion, Nasal discharge, Oral lesions, Sinus pain, Sore Throat, Epistaxis, Sneezing, Snoring, Tinnitus, Vertigo, Vocal changes, Other Respiratory: No: Cough, Hemoptysis, Orthopnea, Pleuritic Pain, Shortness of breath, SOB with excertion, Sputum Changes, Stridor, Tachypnea, Wheezing, Other Cardiovascular: No Chest Pain, No Palpitations, No Orthopnea, No Paroxysmal Noc. Dyspnea, No Edema, No Lt Headedness, No Other Gastrointestinal: No Nausea, No Vomiting, No Abdominal Pain, No Diarrhea, No Constipation, No Melena, No Hematochezia, No Other Genitourinary: No Dysuria, No Frequency, No Incontinence, No Hematuria, No Retention, No Discharge, No Urgency, No Pain, No Flank Pain, No Other, No , No , No , No , No , No , No Musculoskeletal: Yes Joint Pain, Yes Joint Stiffness; No Gait Disturbance, No Joint Swelling, No Muscle Pain, No Muscular Weakness, No Pain In:, No Swelling In:, No Other Neurological: No Behavorial Changes, No Bowel/Bladder ControlChng, No Confusion, No Dizziness, No Gait Disturbance, No Headaches, No Impaired Coord/balance, No Memory Loss, No Numbness/Tingling, No Seizures, No Speech Problems, No Tremors, No Visual Changes, No Weakness, No Other Skin: Yes Dry Skin; No Eczema, No Hair Changes, No Lumps, No Mole Changes, No Mottling, No Nail Changes, No Pruritus, No Rash, No Skin Lesion Changes, No Other, No Acne Physical Exam General: Alert, Cooperative, moderate distress HEENT: PERRLA Lungs: Clear to auscultation Abdomen: Other (tender, normal sounds, minor guarding) Rectal Exam: not examined Extremities: No cyanosis, No edema Skin: No breakdown, No significant lesion Neuro: Normal speech, Normal tone, Sensation intact Psych/Mental Status: Mental status NL, Mood NL Vitals Vitals Vital Signs Date Time Temp Pulse Resp B/P (MAP) Pulse Ox O2 Delivery O2 Flow Rate FiO2 08/12/21 15:59 98.5 73 18 172/102 (125) 97 Room Air 98.5 VTE Prophylaxis Ordered VTE Prophylaxis Devices: Yes VTE Pharmacological Prophylaxi: No Assessment/Plan Assessment/Plan acute abdominal pain worse toady with nausea and vomiting. CT scan showed acute appendicitis. cont the PO abx, hold plavix, consult gen surg recent Right first and second toe gangrene - S/p right TMA 08/06/2021 with Right lower extremity cellulitis, on PO antibiotics Peripheral arterial disease. Status post angiogram/angioplasty right SFA angioplasty and drug-eluting balloon x2 Diabetes type 2 with neuropathy. Depression and anxiety - Diarrhea - chronic pancreatic insufficiency on pancreatic enzyme replacement CKD 3 Atrial. fib, chronic diastolic CHF and htn Normocytic anemia History hemorrhagic CVA Moderate malnutrition Justifications for Admission Other Justification MICHELLE CAPPS MD Aug 12, 2021 16:07
[2021-08-12] MEDS: CARVEDILOL 12.5 MG TABLET. PO SCH (17:00)
[2021-08-12] MEDS: LIPASE/PROTEAS/AMYLAS 10/32/42 CAPSULE.DR. PO SCH (17:00)
--- NOTE | 2021-08-12 17:19 | PDOC2 ---
CONSULT Date of Consult Date of Consult DATE: 08/12/21 TIME: 17:14 History of Present Illness Reason for Visit: The patient is a 70 year old male who was recently discharged following a toe amputation. A CT scan was obtained earlier today which raised concern for potential appendicitis, and he was re-admitted. He admits to having some vague abdominal pain for the last 3 days however earlier today it has resolved. The pain was located around the umbilicus. Past Medical History Cardiovascular: AFIB, HTN, Hyperlipidemia CENTRAL NERVOUS SYSTEM: CVA Renal/: Chronic renal insuff Endocrine: Diabetes Past Surgical History Past Surgical History Denies prior abdominal surgeries Family History Family History: Cancer, Hypertension Social History No ALCOHOL: none Drugs: None Current Medications Current Medications Current Medications Atorvastatin Calcium (Lipitor) 80 mg QHS PO ; Start 08/12/21 at 21:00 Calcitriol (Rocaltrol) 0.25 mcg DAILY PO ; Start 08/13/21 at 09:00 Doxycycline Hyclate (Vibra-Tab) 100 mg BID PO ; Start 08/12/21 at 21:00; Stop 08/15/21 at 09:01 Famotidine (Pepcid) 20 mg DAILY PO ; Start 08/13/21 at 09:00 Gabapentin (Neurontin) 200 mg TID PO ; Start 08/12/21 at 21:00 Hydralazine HCl (Apresoline) 25 mg TID PO ; Start 08/12/21 at 21:00 Losartan Potassium (Cozaar) 25 mg DAILY PO ; Start 08/13/21 at 09:00 Non-Formulary Medication (Atorvastatin Calcium ) 1 tab DAILY PO ; Start 08/13/21 at 09:00; Status UNV Carvedilol (Coreg) 12.5 mg BIDWMEALS PO ; Start 08/12/21 at 17:00 Ciprofloxacin (Cipro) 500 mg BID PO ; Start 08/12/21 at 21:00; Stop 08/15/21 at 09:01 Duloxetine HCl (Cymbalta) 60 mg DAILY PO ; Start 08/13/21 at 09:00 Amylase/Lipase/ Protease (Zenpep 10,000) 5 cap TIDWMEALS PO ; Start 08/12/21 at 17:00 Pantoprazole Sodium (Protonix) 40 mg DAILYAC PO ; Start 08/13/21 at 07:30 Non-Formulary Medication (Semaglutide (Ozempic)) 0.5 mg WEEKLY SQ ; Start 08/19/21 at 09:00; Status UNV Metoprolol Tartrate (Lopressor Vial) 5 mg PRN Q6HRS PRN IVP HYPERTENSION; Start 08/12/21 at 16:15 Active Scripts Active Omeprazole 40 Mg Capsule.dr 1 Cap PO DAILY Cipro (Ciprofloxacin Hcl) 500 Mg Tablet 1 Tab PO BID 3 Days Doxycycline Hyclate 100 Mg Tablet 100 Mg PO BID Atorvastatin Calcium 40 Mg Tablet 80 Mg PO QHS Clopidogrel (Clopidogrel Bisulfate) 75 Mg Tablet 75 Mg PO DAILY 30 Days Reported Marcelinop 25,000 Unit Capsule (Lipase/Protease/Amylase) 1 Each Capsule.dr 1 Cap PO BID Ozempic (Semaglutide) 1 Mg/0.75 Ml Pen.injctr 0.5 Mg SQ WEEKLY Losartan Potassium 50 Mg Tablet 25 Mg PO DAILY Hydralazine Hcl 25 Mg Tablet 1 Tab PO TID Gabapentin (Gabapentin) 100 Mg Capsule 200 Mg PO TID Famotidine 20 Mg Tablet 20 Mg PO DAILY Cymbalta (Duloxetine Hcl) 60 Mg Capsule.dr 1 Cap PO DAILY Carvedilol 25 Mg Tablet 12.5 Mg PO BIDWMEALS Calcitriol 0.25 Mcg Capsule 1 Cap PO DAILY Atorvastatin Calcium 80 Mg Tablet 1 Tab PO DAILY Allergies Allergies: Coded Allergies: I S O L A T I O N *CONTACT* (Verified Allergy, Unknown, 08/07/21) mrsa No Known Medication Allergies (Verified Allergy, Unknown, 08/07/21) ROS General: No: Chills, Night Sweats, Fatigue, Malaise, Appetite, Other Eyes: No Blurry vision, No Decreased vision, No Double vision, No Dry eyes, No Excessive tearing, No Eye Pain, No Itchy Eyes, No Loss of vision, No Photophobia, No Scotomata, No Uses contacts, No Uses glasses, No Other HEENT: No: Heacaches, Visual Changes, Hearing change, Nasal congestion, Nasal discharge, Oral lesions, Sinus pain, Sore Throat, Epistaxis, Sneezing, Snoring, Tinnitus, Vertigo, Vocal changes, Other Gastrointestinal: Yes Abdominal Pain (resolved today) Musculoskeletal: No Gait Disturbance, No Joint Pain, No Joint Stiffness, No Joint Swelling, No Muscle Pain, No Muscular Weakness, No Pain In:, No Swelling In:, No Other Neurological: No Behavorial Changes, No Bowel/Bladder ControlChng, No Confusion, No Dizziness, No Gait Disturbance, No Headaches, No Impaired Coord/balance, No Memory Loss, No Numbness/Tingling, No Seizures, No Speech Problems, No Tremors, No Visual Changes, No Weakness, No Other Skin: Yes Hair Changes Physical Exam General: Alert, Oriented X3, Cooperative HEENT: Atraumatic Lungs: Clear to auscultation Heart: Regular rate Abdomen: Soft (currently nontender), No masses Skin: No rashes Neuro: Normal speech Vitals VITALS Vital Signs Date Time Temp Pulse Resp B/P (MAP) Pulse Ox O2 Delivery O2 Flow Rate FiO2 08/12/21 15:59 98.5 73 18 172/102 (125) 97 Room Air 98.[address] abdomen/pelvis IMPRESSION: 1. Thickening and infiltration about the appendix may be seen with acute appendicitis. No discrete loculated fluid collection or abscess. Of note, reactive change also have this appearance. 2. Markedly distended bladder which can be correlated with possible voluntary or involuntary causes of urinary retention. 3. Cholelithiasis without CT evidence for acute cholecystitis. 4. Nonobstructing left lower pole renal calculus. 5. Trace pleural effusions. Assessment/Plan Assessment/Plan Patient recently discharged following toe amputation, CT scan raised concern fo r appendicitis however findings are equivocal. He currently states his prior pain has resolved and his exam is benign. Plan for diet today, NPO after midnight, serial labs/exams. Clinical findings not consistent with appendicitis however will observe and if worsens would consider laparoscopy. RENE JOHN MD Aug 12, 2021 17:19
--- NOTE | 2021-08-12 17:29 | NUR ---
Admission Note: The patient Dennis Reynolds 70 year old male was readmitted today due to abdominal pain, N/V, appendicitis. He arrived on the floor at 1550 via wheelchair on room air accompanied by the patient's spouse. He's alert, oriented x4, complains of abdominal pain. The patient is 1 person assist, heel weight bearing on right foot with offloading shoe. The patient has PAD, SCD's not applied. Dr. Singh was notified of the admission. Consults to surgery and GI service called by this nurse. The patient's belongings were checked, call light placed within reach.
[2021-08-12 17:42] LABS: BASO # 0.1 x10^3/uL (0.0-0.2); BASO % 1 % (0-3); EOS # 0.1 x10^3/uL (0.0-0.7); EOS % 1 % (0-3); HEMATOCRIT 22.2 % (39.0-53.0); HEMOGLOBIN 7.6 g/dL (13.0-17.5); LYMPH # 0.4 x10^3/uL (1.0-4.8); LYMPH % 4 % (24-48); MEAN CORPUSCULAR HEMOGLOBIN 30 pg (25-35); MEAN CORPUSCULAR HGB CONC 34 g/dL (31-37); MEAN CORPUSCULAR VOLUME 88 fL (79-100); MONO # 0.8 x10^3/uL (0.0-1.1); MONO % 8 % (0-9); NEUT # 8.9 x10^3/uL (1.8-7.7); NEUT % 87 % (31-73); PLATELET COUNT 198 x10^3/uL (140-400); RED BLOOD COUNT 2.51 x10^6/uL (4.30-5.70); RED CELL DISTRIBUTION WIDTH 15.4 % (11.5-14.5); WHITE BLOOD COUNT 10.2 x10^3/uL (4.0-11.0)
[2021-08-12 17:58] LABS: ALBUMIN 2.4 g/dL (3.4-5.0); ALBUMIN/GLOBULIN RATIO 0.6 (1.0-1.7); CALCIUM 8.2 mg/dL (8.5-10.1); CREATININE 1.3 mg/dL (0.7-1.3); GFR 54.3; TOTAL BILIRUBIN 0.4 mg/dL (0.2-1.0); TOTAL PROTEIN 6.2 g/dL (6.4-8.2)
[2021-08-12 18:00] LABS: POTASSIUM 2.9 mmol/L (3.5-5.1)
[2021-08-12 19:00] VITALS: BP 189/89
[2021-08-12] MEDS ORDERED: POTASSIUM CHLORIDE 10MEQ 100 ML IV ONE (19:00)
[2021-08-12] MEDS: POTASSIUM CHLORIDE 10MEQ 100 ML IV SCH ×4 (19:40→22:18)
[2021-08-12] MEDS: CIPROFLOXACIN HCL 250 MG TABLET. PO SCH (20:31)
[2021-08-12] MEDS: ATORVASTATIN CALCIUM 40 MG TABLET. PO SCH (20:31)
[2021-08-12] MEDS: GABAPENTIN 100 MG CAPSULE. PO SCH (20:31)
[2021-08-12] MEDS: DOXYCYCLINE HYCLATE 100 MG TABLET PO SCH (20:31)
[2021-08-12] MEDS: hydrALAZINE 25 MG TABLET PO SCH (20:31)
[2021-08-12 23:00] VITALS: BP 157/75
[2021-08-13] VITALS (7 sets, daily range): BP systolic 125–183; BP diastolic 33–98
[2021-08-13] MEDS ORDERED: PANTOPRAZOLE 40 MG TABLET.DR. PO SCH (07:30)
[2021-08-13 07:32] LABS: BASO # 0.1 x10^3/uL (0.0-0.2); BASO % 1 % (0-3); EOS # 0.1 x10^3/uL (0.0-0.7); EOS % 1 % (0-3); HEMATOCRIT 22.5 % (39.0-53.0); HEMOGLOBIN 7.7 g/dL (13.0-17.5); LYMPH # 0.4 x10^3/uL (1.0-4.8); LYMPH % 4 % (24-48); MEAN CORPUSCULAR HEMOGLOBIN 30 pg (25-35); MEAN CORPUSCULAR HGB CONC 34 g/dL (31-37); MEAN CORPUSCULAR VOLUME 89 fL (79-100); MONO % 9 % (0-9); NEUT # 8.8 x10^3/uL (1.8-7.7); NEUT % 85 % (31-73); PLATELET COUNT 191 x10^3/uL (140-400); RED BLOOD COUNT 2.54 x10^6/uL (4.30-5.70); RED CELL DISTRIBUTION WIDTH 15.6 % (11.5-14.5); WHITE BLOOD COUNT 10.4 x10^3/uL (4.0-11.0)
[2021-08-13] MEDS: CARVEDILOL 12.5 MG TABLET. PO SCH ×2 (08:00→17:00)
[2021-08-13] MEDS: LIPASE/PROTEAS/AMYLAS 10/32/42 CAPSULE.DR. PO SCH ×3 (08:00→17:00)
[2021-08-13] MEDS: LOSARTAN POTASSIUM 25 MG TABLET. PO SCH (09:00)
[2021-08-13] MEDS: hydrALAZINE 25 MG TABLET PO SCH ×3 (09:00→19:56)
[2021-08-13] MEDS: GABAPENTIN 100 MG CAPSULE. PO SCH ×3 (09:00→19:57)
[2021-08-13] MEDS: CIPROFLOXACIN HCL 250 MG TABLET. PO SCH ×2 (09:00→19:57)
[2021-08-13] MEDS ORDERED: FAMOTIDINE 20 MG TABLET. PO SCH (09:00)
[2021-08-13] MEDS ORDERED: NON FORMULARY ITEM (Atorvastatin Calcium 1 TAB) PO SCH (09:00)
[2021-08-13] MEDS: DOXYCYCLINE HYCLATE 100 MG TABLET PO SCH ×2 (09:00→19:57)
[2021-08-13] MEDS: DULoxetine HCL 30 MG CAPSULE.DR PO SCH (09:00)
[2021-08-13] MEDS: CALCITRIOL 0.25 MCG CAPSULE. PO SCH (09:00)
--- NOTE | 2021-08-13 09:55 | PDOC ---
Date of Service: DATE: 08/13/21 TIME: 09:43 Subjective: Subjective: Please see GI consult from 08/08/21 and following progress notes through 08/12. Discharged yesterday and then re-admitted. CT for abd pain and vomiting yesterday (resulted after DC) showed thickening and infiltration about the appendix, markedly distended bladder, cholelithiasis, nonobstructing left renal calculus, and trace pleural effusions. Today he reports constant pain around belly button without radiation. Denies nausea and vomiting but reports "coughing up phlegm." Also reports chronic diarrhea. Says this all started after taking 15 pills the other day. No appetite. H/o PAD w/ recent toe amputations, DM, ACD, and GERD. Previous scopes unrevealing. Objective: Vital Signs: Vital Signs Date Time Temp Pulse Resp B/P (MAP) Pulse Ox O2 Delivery O2 Flow Rate FiO2 08/13/21 07:00 98.2 86 20 174/79 (110) 89 Room Air 98.2 Labs: Laboratory Tests Test 08/12/21 17:20 08/13/21 06:40 08/13/21 07:47 White Blood Count 10.2 x10^3/uL 10.4 x10^3/uL Red Blood Count 2.51 x10^6/uL 2.54 x10^6/uL Hemoglobin 7.6 g/dL 7.7 g/dL Hematocrit 22.2 % 22.5 % Mean Corpuscular Volume 88 fL 89 fL Mean Corpuscular Hemoglobin 30 pg 30 pg Mean Corpuscular Hemoglobin Concent 34 g/dL 34 g/dL Red Cell Distribution Width 15.4 % 15.6 % Platelet Count 198 x10^3/uL 191 x10^3/uL Neutrophils (%) (Auto) 87 % 85 % Lymphocytes (%) (Auto) 4 % 4 % Monocytes (%) (Auto) 8 % 9 % Eosinophils (%) (Auto) 1 % 1 % Basophils (%) (Auto) 1 % 1 % Neutrophils # (Auto) 8.9 x10^3/uL 8.8 x10^3/uL Lymphocytes # (Auto) 0.4 x10^3/uL 0.4 x10^3/uL Monocytes # (Auto) 0.8 x10^3/uL 1.0 x10^3/uL Eosinophils # (Auto) 0.1 x10^3/uL 0.1 x10^3/uL Basophils # (Auto) 0.1 x10^3/uL 0.1 x10^3/uL Sodium Level 145 mmol/L Potassium Level 2.9 mmol/L Chloride Level 113 mmol/L Carbon Dioxide Level 18 mmol/L Anion Gap 14 Blood Urea Nitrogen 12 mg/dL Creatinine 1.3 mg/dL Estimated GFR (Cockcroft-Gault) 54.3 BUN/Creatinine Ratio 9 Glucose Level 119 mg/dL Calcium Level 8.2 mg/dL Total Bilirubin 0.4 mg/dL Aspartate Amino Transf (AST/SGOT) 20 U/L Alanine Aminotransferase (ALT/SGPT) 22 U/L Alkaline Phosphatase 70 U/L Total Protein 6.2 g/dL Albumin 2.4 g/dL Albumin/Globulin Ratio 0.6 Platelet Estimate Pending Glucose (Fingerstick) 101 mg/dL PE: GEN: chronically ill, looks fatigued LUNGS: diminished anteriorly, ?somewhat tachypneic HEART: RR ABD: BS+, soft, vague/mild periumbilical discomfort NEURO/PSYCH: A & O 3, depressed A/P: Abdominal pain, nausea/cough Anemia (stable - not iron or B12 deficient), hypokalemia Abnormal CT - thickening and infiltration about the appendix, markedly distended bladder, cholelithiasis H/o GERD - on PPI Chronic diarrhea - improved w/ pancreatic enzymes in the past, now refusing - stool studies ordered last admission but unable to complete due to formed stool CRC screen - UTD PAD w/ recent transmetatarsal amputation, DM (A1c 6) -- Follow surgery recs. 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 Observer diarrhea. Justicifation of Admission Dx: Justifications for Admission: Justification of Admission Dx: Yes HERO ESPINOSA Aug 13, 2021 09:55
--- NOTE | 2021-08-13 10:03 | PDOC ---
SURGICAL PROGRESS NOTE DATE: 08/13/21 TIME: 09:58 Subjective reports some abdominal pain, maybe a 2-3 no nausea Vital Signs Vital Signs Date Time Temp Pulse Resp B/P (MAP) Pulse Ox O2 Delivery O2 Flow Rate FiO2 08/13/21 07:00 98.2 86 20 174/79 (110) 89 Room Air 98.2 I&O Intake and Output 08/13/21 07:00 Intake Total 375 ml Output Total 1000 ml Balance -625 ml Intake Oral 5 ml IV Total 370 ml Output Urine Total 1000 ml # Voids 1 # Bowel Movements 2 General: Alert, No acute distress Abdomen: Soft, Other (diffuse mild pain on exam) Labs Laboratory Tests Test 08/12/21 17:20 08/13/21 06:40 08/13/21 07:47 White Blood Count 10.2 x10^3/uL (4.0-11.0) 10.4 x10^3/uL (4.0-11.0) Red Blood Count 2.51 x10^6/uL (4.30-5.70) 2.54 x10^6/uL (4.30-5.70) Hemoglobin 7.6 g/dL (13.0-17.5) 7.7 g/dL (13.0-17.5) Hematocrit 22.2 % (39.0-53.0) 22.5 % (39.0-53.0) Mean Corpuscular Volume 88 fL (79-100) 89 fL (79-100) Mean Corpuscular Hemoglobin 30 pg (25-35) 30 pg (25-35) Mean Corpuscular Hemoglobin Concent 34 g/dL (31-37) 34 g/dL (31-37) Red Cell Distribution Width 15.4 % (11.5-14.5) 15.6 % (11.5-14.5) Platelet Count 198 x10^3/uL (140-400) 191 x10^3/uL (140-400) Neutrophils (%) (Auto) 87 % (31-73) 85 % (31-73) Lymphocytes (%) (Auto) 4 % (24-48) 4 % (24-48) Monocytes (%) (Auto) 8 % (0-9) 9 % (0-9) Eosinophils (%) (Auto) 1 % (0-3) 1 % (0-3) Basophils (%) (Auto) 1 % (0-3) 1 % (0-3) Neutrophils # (Auto) 8.9 x10^3/uL (1.8-7.7) 8.8 x10^3/uL (1.8-7.7) Lymphocytes # (Auto) 0.4 x10^3/uL (1.0-4.8) 0.4 x10^3/uL (1.0-4.8) Monocytes # (Auto) 0.8 x10^3/uL (0.0-1.1) 1.0 x10^3/uL (0.0-1.1) Eosinophils # (Auto) 0.1 x10^3/uL (0.0-0.7) 0.1 x10^3/uL (0.0-0.7) Basophils # (Auto) 0.1 x10^3/uL (0.0-0.2) 0.1 x10^3/uL (0.0-0.2) Sodium Level 145 mmol/L (136-145) Potassium Level 2.9 mmol/L (3.5-5.1) Chloride Level 113 mmol/L (98-107) Carbon Dioxide Level 18 mmol/L (21-32) Anion Gap 14 (6-14) Blood Urea Nitrogen 12 mg/dL (8-26) Creatinine 1.3 mg/dL (0.7-1.3) Estimated GFR (Cockcroft-Gault) 54.3 BUN/Creatinine Ratio 9 (6-20) Glucose Level 119 mg/dL (70-99) Calcium Level 8.2 mg/dL (8.5-10.1) Total Bilirubin 0.4 mg/dL (0.2-1.0) Aspartate Amino Transf (AST/SGOT) 20 U/L (15-37) Alanine Aminotransferase (ALT/SGPT) 22 U/L (16-63) Alkaline Phosphatase 70 U/L (46-116) Total Protein 6.2 g/dL (6.4-8.2) Albumin 2.4 g/dL (3.4-5.0) Albumin/Globulin Ratio 0.6 (1.0-1.7) Glucose (Fingerstick) 101 mg/dL (70-99) Laboratory Tests Test 08/12/21 17:20 08/13/21 06:40 08/13/21 07:47 White Blood Count 10.2 x10^3/uL (4.0-11.0) 10.4 x10^3/uL (4.0-11.0) Red Blood Count 2.51 x10^6/uL (4.30-5.70) 2.54 x10^6/uL (4.30-5.70) Hemoglobin 7.6 g/dL (13.0-17.5) 7.7 g/dL (13.0-17.5) Hematocrit 22.2 % (39.0-53.0) 22.5 % (39.0-53.0) Mean Corpuscular Volume 88 fL (79-100) 89 fL (79-100) Mean Corpuscular Hemoglobin 30 pg (25-35) 30 pg (25-35) Mean Corpuscular Hemoglobin Concent 34 g/dL (31-37) 34 g/dL (31-37) Red Cell Distribution Width 15.4 % (11.5-14.5) 15.6 % (11.5-14.5) Platelet Count 198 x10^3/uL (140-400) 191 x10^3/uL (140-400) Neutrophils (%) (Auto) 87 % (31-73) 85 % (31-73) Lymphocytes (%) (Auto) 4 % (24-48) 4 % (24-48) Monocytes (%) (Auto) 8 % (0-9) 9 % (0-9) Eosinophils (%) (Auto) 1 % (0-3) 1 % (0-3) Basophils (%) (Auto) 1 % (0-3) 1 % (0-3) Neutrophils # (Auto) 8.9 x10^3/uL (1.8-7.7) 8.8 x10^3/uL (1.8-7.7) Lymphocytes # (Auto) 0.4 x10^3/uL (1.0-4.8) 0.4 x10^3/uL (1.0-4.8) Monocytes # (Auto) 0.8 x10^3/uL (0.0-1.1) 1.0 x10^3/uL (0.0-1.1) Eosinophils # (Auto) 0.1 x10^3/uL (0.0-0.7) 0.1 x10^3/uL (0.0-0.7) Basophils # (Auto) 0.1 x10^3/uL (0.0-0.2) 0.1 x10^3/uL (0.0-0.2) Sodium Level 145 mmol/L (136-145) Potassium Level 2.9 mmol/L (3.5-5.1) Chloride Level 113 mmol/L (98-107) Carbon Dioxide Level 18 mmol/L (21-32) Anion Gap 14 (6-14) Blood Urea Nitrogen 12 mg/dL (8-26) Creatinine 1.3 mg/dL (0.7-1.3) Estimated GFR (Cockcroft-Gault) 54.3 BUN/Creatinine Ratio 9 (6-20) Glucose Level 119 mg/dL (70-99) Calcium Level 8.2 mg/dL (8.5-10.1) Total Bilirubin 0.4 mg/dL (0.2-1.0) Aspartate Amino Transf (AST/SGOT) 20 U/L (15-37) Alanine Aminotransferase (ALT/SGPT) 22 U/L (16-63) Alkaline Phosphatase 70 U/L (46-116) Total Protein 6.2 g/dL (6.4-8.2) Albumin 2.4 g/dL (3.4-5.0) Albumin/Globulin Ratio 0.6 (1.0-1.7) Glucose (Fingerstick) 101 mg/dL (70-99) Problem List difficult to localize pain on exam, he complains of generalized abdominal pain, appears more tender epigastric area no overt signs of appendicitis, afebrile, normal WBC--will review with Dr Doug Westicifation of Admission Dx: Justifications for Admission: Justification of Admission Dx: Yes NORMAN ZIMMER HELMET HAT BRIM CUTTER Aug 13, 2021 10:03
--- NOTE | 2021-08-13 10:28 | NUR ---
SW following. Discussed with RN, pt left yesterday to go to [facility] but then was called back due to CT finding. Pt readmitted - surgery and GI following. Pt will need a repeat COVID PCR closer to discharge to [facility]. SW will continue to follow.
--- NOTE | 2021-08-13 11:13 | PDOC ---
[employer] PROGRESS NOTE Date of Service DOS: DATE: 08/13/21 TIME: 11:08 Chief Complaint Chief Complaint Possible appendicitis? (CAT scan results came in after discharge to skilled yesterday with the following results;Images CT abdomen/pelvis IMPRESSION: 1. Thickening and infiltration about the appendix may be seen with acute appendicitis. No discrete loculated fluid collection or abscess. Of note, reac tive change also have this appearance. 2. Markedly distended bladder which can be correlated with possible voluntary or involuntary causes of urinary retention. 3. Cholelithiasis without CT evidence for acute cholecystitis. 4. Nonobstructing left lower pole renal calculus. 5. Trace pleural effusions. Recent toe amputation a few days ago Recent 2 stents placed to the right leg Recent right TMA in October Diabetes Neuropathy History of hemorrhagic stroke Hypertension A. fib Hyperlipidemia chronic renal sufficiency GERD Chronic diarrhea History of Present Illness History of Present Illness 08/13/2012 Patient seen and examined He had a brief stay at [facility] yesterday and came right back because he had developed some abdominal pain and we were concerned he could have appendicitis on the CAT scan (CT results came in late after the discharge) Today he seems to be doing relatively well Has some slight pain I reviewed general surgery's nurse practitioner note, at this point do not have any plans for surgery today yet (awaiting Dr. Peters's input) Discussed with RN Chart reviewed Vitals/I&O Vitals/I&O: Vital Signs Date Time Temp Pulse Resp B/P (MAP) Pulse Ox O2 Delivery O2 Flow Rate FiO2 08/13/21 07:00 98.2 86 20 174/79 (110) 89 Room Air 98.2 I & O 08/12/21 08/12/21 08/13/21 15:00 23:00 07:00 Intake Total 270 ml 105 ml Output Total 600 ml 400 ml Balance -330 ml -295 ml Physical Exam General: Alert, No acute distress Heart: Regular rate Lungs: Clear Abdomen: Soft, Other (diffuse mild pain on exam) Extremities: No cyanosis, No edema Skin: No rashes Labs Labs: Laboratory Tests Test 08/12/21 17:20 08/13/21 06:40 08/13/21 07:47 White Blood Count 10.2 x10^3/uL (4.0-11.0) 10.4 x10^3/uL (4.0-11.0) Red Blood Count 2.51 x10^6/uL (4.30-5.70) 2.54 x10^6/uL (4.30-5.70) Hemoglobin 7.6 g/dL (13.0-17.5) 7.7 g/dL (13.0-17.5) Hematocrit 22.2 % (39.0-53.0) 22.5 % (39.0-53.0) Mean Corpuscular Volume 88 fL (79-100) 89 fL (79-100) Mean Corpuscular Hemoglobin 30 pg (25-35) 30 pg (25-35) Mean Corpuscular Hemoglobin Concent 34 g/dL (31-37) 34 g/dL (31-37) Red Cell Distribution Width 15.4 % (11.5-14.5) 15.6 % (11.5-14.5) Platelet Count 198 x10^3/uL (140-400) 191 x10^3/uL (140-400) Neutrophils (%) (Auto) 87 % (31-73) 85 % (31-73) Lymphocytes (%) (Auto) 4 % (24-48) 4 % (24-48) Monocytes (%) (Auto) 8 % (0-9) 9 % (0-9) Eosinophils (%) (Auto) 1 % (0-3) 1 % (0-3) Basophils (%) (Auto) 1 % (0-3) 1 % (0-3) Neutrophils # (Auto) 8.9 x10^3/uL (1.8-7.7) 8.8 x10^3/uL (1.8-7.7) Lymphocytes # (Auto) 0.4 x10^3/uL (1.0-4.8) 0.4 x10^3/uL (1.0-4.8) Monocytes # (Auto) 0.8 x10^3/uL (0.0-1.1) 1.0 x10^3/uL (0.0-1.1) Eosinophils # (Auto) 0.1 x10^3/uL (0.0-0.7) 0.1 x10^3/uL (0.0-0.7) Basophils # (Auto) 0.1 x10^3/uL (0.0-0.2) 0.1 x10^3/uL (0.0-0.2) Sodium Level 145 mmol/L (136-145) Potassium Level 2.9 mmol/L (3.5-5.1) Chloride Level 113 mmol/L (98-107) Carbon Dioxide Level 18 mmol/L (21-32) Anion Gap 14 (6-14) Blood Urea Nitrogen 12 mg/dL (8-26) Creatinine 1.3 mg/dL (0.7-1.3) Estimated GFR (Cockcroft-Gault) 54.3 BUN/Creatinine Ratio 9 (6-20) Glucose Level 119 mg/dL (70-99) Calcium Level 8.2 mg/dL (8.5-10.1) Total Bilirubin 0.4 mg/dL (0.2-1.0) Aspartate Amino Transf (AST/SGOT) 20 U/L (15-37) Alanine Aminotransferase (ALT/SGPT) 22 U/L (16-63) Alkaline Phosphatase 70 U/L (46-116) Total Protein 6.2 g/dL (6.4-8.2) Albumin 2.4 g/dL (3.4-5.0) Albumin/Globulin Ratio 0.6 (1.0-1.7) Glucose (Fingerstick) 101 mg/dL (70-99) Assessment and Plan Assessmemt and Plan Possible appendicitis? (CAT scan results came in after discharge to skilled yesterday with the following results;Images CT abdomen/pelvis IMPRESSION: 1. Thickening and infiltration about the appendix may be seen with acute appendicitis. No discrete loculated fluid collection or abscess. Of note, reactive change also have this appearance. 2. Markedly distended bladder which can be correlated with possible voluntary or involuntary causes of urinary retention. 3. Cholelithiasis without CT evidence for acute cholecystitis. 4. Nonobstructing left lower pole renal calculus. 5. Trace pleural effusions. Recent toe amputation a few days ago Recent 2 stents placed to the right leg Recent right TMA in October Diabetes Neuropathy History of hemorrhagic stroke Hypertension A. fib Hyperlipidemia chronic renal sufficiency GERD Chronic diarrhea Plan Await Dr. Peters's input regarding possible surgery? Wound care As needed pain meds On p.o. doxy and Cipro Home meds DVT prophylaxis Full code If no surgery he could go back to [facility] if Dr. Peters agrees. Comment Review of Relevant I have reviewed the following items beverly (where applicable) has been applied. Medications: Current Medications Medications (Trade) Dose Ordered Sig/Roderick Route PRN Reason Start Time Stop Time Status Last Admin Dose Admin Potassium Chloride/Water 100 ml @ 100 mls/hr 1X ONCE IV 08/12/21 19:00 08/12/21 19:59 DC 08/12/21 19:22 Potassium Chloride/Water 100 ml @ 100 mls/hr Q1H IV 08/12/21 20:00 08/12/21 23:59 DC 08/12/21 22:18 Justifications for Admission Other Justification LAYTON PAULSON III DO Aug 13, 2021 11:13
[2021-08-13 11:34] LABS: % BANDS 2 % (0-9); % EOS 2 % (0-5); % LYMPHS 3 % (24-48); % MONOS 6 % (0-10); % SEGS 87 % (35-66)
[2021-08-13 11:35] LABS: PLT ESTIMATE ADEQUATE (ADEQUATE)
[2021-08-13 11:59] LABS: CALCIUM 8.2 mg/dL (8.5-10.1); CREATININE 1.4 mg/dL (0.7-1.3); GFR 49.8; POTASSIUM 3.2 mmol/L (3.5-5.1)
[2021-08-13] MEDS ORDERED: MORPHINE SULFATE 2 MG/ML INJ. IVP PRN (13:00)
[2021-08-13] MEDS ORDERED: ONDANSETRON PF 4 MG/2 ML VIAL. IVP PRN (13:00)
[2021-08-13] MEDS: METOPROLOL IV PUSH 5 MG/5 ML VIAL. IVP PRN (13:12)
[2021-08-13] MEDS: POTASSIUM CL 40MEQ D5-0.45NACL 1,000 ML IV SCH ×2 (13:12→22:50)
[2021-08-13] MEDS: LABETALOL 20 MG/4 ML DISP.SYRIN. IVP PRN ×2 (15:56→23:13)
[2021-08-13] MEDS: ATORVASTATIN CALCIUM 40 MG TABLET. PO SCH (19:57)
[2021-08-14 03:10] VITALS: BP 155/72
[2021-08-14 06:02] LABS: CALCIUM 8.1 mg/dL (8.5-10.1); CREATININE 1.5 mg/dL (0.7-1.3)
[2021-08-14 06:05] LABS: POTASSIUM 2.8 mmol/L (3.5-5.1)
--- NOTE | 2021-08-14 06:30 | NUR ---
Pt's K+ 2.8. Dr. Celis order 40mEq KCL IV and to add on a MG level to lab.
[2021-08-14] MEDS: POTASSIUM CHLORIDE 10MEQ 100 ML IV SCH ×4 (06:43→10:45)
[2021-08-14 07:00] VITALS: BP 147/80
[2021-08-14] MEDS: PANTOPRAZOLE IV PUSH 40 MG VIAL. IVP SCH (08:25)
[2021-08-14] MEDS: DULoxetine HCL 30 MG CAPSULE.DR PO SCH (08:29)
[2021-08-14] MEDS: LOSARTAN POTASSIUM 25 MG TABLET. PO SCH (08:29)
[2021-08-14] MEDS: hydrALAZINE 25 MG TABLET PO SCH ×3 (08:29→21:00)
[2021-08-14] MEDS: LIPASE/PROTEAS/AMYLAS 10/32/42 CAPSULE.DR. PO SCH ×3 (08:29→20:59)
[2021-08-14] MEDS: CIPROFLOXACIN HCL 250 MG TABLET. PO SCH ×2 (08:29→21:00)
[2021-08-14] MEDS: GABAPENTIN 100 MG CAPSULE. PO SCH ×3 (08:29→21:00)
[2021-08-14] MEDS: CARVEDILOL 12.5 MG TABLET. PO SCH ×2 (08:29→17:00)
[2021-08-14] MEDS: DOXYCYCLINE HYCLATE 100 MG TABLET PO SCH ×2 (08:30→21:00)
[2021-08-14] MEDS: CALCITRIOL 0.25 MCG CAPSULE. PO SCH (08:30)
--- NOTE | 2021-08-14 09:32 | PDOC ---
PROGRESS NOTES Date of Service DATE: 08/14/21 TIME: 09:31 Subjective Subjective denies abdominal pain at this time, complains of phlegm in his throat Objective Objective Vital Signs Date Time Temp Pulse Resp B/P (MAP) Pulse Ox O2 Delivery O2 Flow Rate FiO2 08/14/21 07:00 98.0 95 20 147/80 (102) 92 Room Air 98.0 08/13/21 15:00 3.0 Intake and Output 08/14/21 06:59 Intake Total 1000 ml Output Total 620 ml Balance 380 ml IV Total 1000 ml Output Urine Total 620 ml # Voids 1 Physical Exam Abdomen: Soft, No tenderness Heart: Regular rate Extremities: No clubbing, No cyanosis General: Alert, Oriented X3 Neuro: Normal speech Psych/Mental Status: Mental status NL Plan Plan of Care Clinical exam benign, denies pain currently; no surgical plans Comment Review of Relevant I have reviewed the following items beverly (where applicable) has been applied. Labs Laboratory Tests Test 08/12/21 17:20 08/13/21 06:40 08/13/21 07:47 08/13/21 16:59 White Blood Count 10.2 x10^3/uL (4.0-11.0) 10.4 x10^3/uL (4.0-11.0) Red Blood Count 2.51 x10^6/uL (4.30-5.70) 2.54 x10^6/uL (4.30-5.70) Hemoglobin 7.6 g/dL (13.0-17.5) 7.7 g/dL (13.0-17.5) Hematocrit 22.2 % (39.0-53.0) 22.5 % (39.0-53.0) Mean Corpuscular Volume 88 fL (79-100) 89 fL (79-100) Mean Corpuscular Hemoglobin 30 pg (25-35) 30 pg (25-35) Mean Corpuscular Hemoglobin Concent 34 g/dL (31-37) 34 g/dL (31-37) Red Cell Distribution Width 15.4 % (11.5-14.5) 15.6 % (11.5-14.5) Platelet Count 198 x10^3/uL (140-400) 191 x10^3/uL (140-400) Neutrophils (%) (Auto) 87 % (31-73) 85 % (31-73) Lymphocytes (%) (Auto) 4 % (24-48) 4 % (24-48) Monocytes (%) (Auto) 8 % (0-9) 9 % (0-9) Eosinophils (%) (Auto) 1 % (0-3) 1 % (0-3) Basophils (%) (Auto) 1 % (0-3) 1 % (0-3) Neutrophils # (Auto) 8.9 x10^3/uL (1.8-7.7) 8.8 x10^3/uL (1.8-7.7) Lymphocytes # (Auto) 0.4 x10^3/uL (1.0-4.8) 0.4 x10^3/uL (1.0-4.8) Monocytes # (Auto) 0.8 x10^3/uL (0.0-1.1) 1.0 x10^3/uL (0.0-1.1) Eosinophils # (Auto) 0.1 x10^3/uL (0.0-0.7) 0.1 x10^3/uL (0.0-0.7) Basophils # (Auto) 0.1 x10^3/uL (0.0-0.2) 0.1 x10^3/uL (0.0-0.2) Sodium Level 145 mmol/L (136-145) 144 mmol/L (136-145) Potassium Level 2.9 mmol/L (3.5-5.1) 3.2 mmol/L (3.5-5.1) Chloride Level 113 mmol/L (98-107) 112 mmol/L (98-107) Carbon Dioxide Level 18 mmol/L (21-32) 19 mmol/L (21-32) Anion Gap 14 (6-14) 13 (6-14) Blood Urea Nitrogen 12 mg/dL (8-26) 10 mg/dL (8-26) Creatinine 1.3 mg/dL (0.7-1.3) 1.4 mg/dL (0.7-1.3) Estimated GFR (Cockcroft-Gault) 54.3 49.8 BUN/Creatinine Ratio 9 (6-20) Glucose Level 119 mg/dL (70-99) 110 mg/dL (70-99) Calcium Level 8.2 mg/dL (8.5-10.1) 8.2 mg/dL (8.5-10.1) Total Bilirubin 0.4 mg/dL (0.2-1.0) Aspartate Amino Transf (AST/SGOT) 20 U/L (15-37) Alanine Aminotransferase (ALT/SGPT) 22 U/L (16-63) Alkaline Phosphatase 70 U/L (46-116) Total Protein 6.2 g/dL (6.4-8.2) Albumin 2.4 g/dL (3.4-5.0) Albumin/Globulin Ratio 0.6 (1.0-1.7) Segmented Neutrophils % 87 % (35-66) Band Neutrophils % 2 % (0-9) Lymphocytes % 3 % (24-48) Monocytes % 6 % (0-10) Eosinophils % 2 % (0-5) Platelet Estimate Adequate (ADEQUATE) Glucose (Fingerstick) 101 mg/dL (70-99) 157 mg/dL (70-99) Test 08/13/21 20:20 08/14/21 05:30 Glucose (Fingerstick) 151 mg/dL (70-99) Sodium Level 142 mmol/L (136-145) Potassium Level 2.8 mmol/L (3.5-5.1) Chloride Level 111 mmol/L (98-107) Carbon Dioxide Level 21 mmol/L (21-32) Anion Gap 10 (6-14) Blood Urea Nitrogen 12 mg/dL (8-26) Creatinine 1.5 mg/dL (0.7-1.3) Estimated GFR (Cockcroft-Gault) 46.0 Glucose Level 152 mg/dL (70-99) Calcium Level 8.1 mg/dL (8.5-10.1) Magnesium Level 1.2 mg/dL (1.8-2.4) Laboratory Tests Test 08/13/21 16:59 08/13/21 20:20 08/14/21 05:30 Glucose (Fingerstick) 157 mg/dL (70-99) 151 mg/dL (70-99) Sodium Level 142 mmol/L (136-145) Potassium Level 2.8 mmol/L (3.5-5.1) Chloride Level 111 mmol/L (98-107) Carbon Dioxide Level 21 mmol/L (21-32) Anion Gap 10 (6-14) Blood Urea Nitrogen 12 mg/dL (8-26) Creatinine 1.5 mg/dL (0.7-1.3) Estimated GFR (Cockcroft-Gault) 46.0 Glucose Level 152 mg/dL (70-99) Calcium Level 8.1 mg/dL (8.5-10.1) Magnesium Level 1.2 mg/dL (1.8-2.4) Medications Current Medications Atorvastatin Calcium (Lipitor) 80 mg QHS PO ; Start 08/12/21 at 21:00 Calcitriol (Rocaltrol) 0.25 mcg DAILY PO ; Start 08/13/21 at 09:00 Doxycycline Hyclate (Vibra-Tab) 100 mg BID PO ; Start 08/12/21 at 21:00; Stop 08/15/21 at 09:01 Famotidine (Pepcid) 20 mg DAILY PO ; Start 08/13/21 at 09:00; Stop 08/13/21 at 09:52; Status DC Gabapentin (Neurontin) 200 mg TID PO ; Start 08/12/21 at 21:00 Hydralazine HCl (Apresoline) 25 mg TID PO ; Start 08/12/21 at 21:00 Losartan Potassium (Cozaar) 25 mg DAILY PO ; Start 08/13/21 at 09:00 Non-Formulary Medication (Atorvastatin Calcium ) 1 tab DAILY PO ; Start 08/13/21 at 09:00; Status UNV Carvedilol (Coreg) 12.5 mg BIDWMEALS PO ; Start 08/12/21 at 17:00 Ciprofloxacin (Cipro) 500 mg BID PO ; Start 08/12/21 at 21:00; Stop 08/15/21 at 09:01 Duloxetine HCl (Cymbalta) 60 mg DAILY PO ; Start 08/13/21 at 09:00 Amylase/Lipase/ Protease (Zenpep 10,000) 5 cap TIDWMEALS PO ; Start 08/12/21 at 17:00 Pantoprazole Sodium (Protonix) 40 mg DAILYAC PO ; Start 08/13/21 at 07:30; Stop 08/13/21 at 13:04; Status DC Non-Formulary Medication (Semaglutide (Ozempic)) 0.5 mg WEEKLY SQ ; Start 08/19/21 at 09:00; Status UNV Metoprolol Tartrate (Lopressor Vial) 5 mg PRN Q6HRS PRN IVP HYPERTENSION Last administered on 08/13/21at 13:12; Start 08/12/21 at 16:15 Potassium Chloride/Water 100 ml @ 100 mls/hr 1X ONCE IV Last administered on 08/12/21at 19:22; Start 08/12/21 at 19:00; Stop 08/12/21 at 19:59; Status DC Potassium Chloride/Water 100 ml @ 100 mls/hr Q1H IV Last administered on 08/12/21at 22:18; Start 08/12/21 at 20:00; Stop 08/12/21 at 23:59; Status DC Potassium Chloride/Dextrose/ Sod Cl 1,000 ml @ 100 mls/hr Q10H IV Last administered on 08/13/21at 22:50; Start 08/13/21 at 13:00 Labetalol HCl (Normodyne Iv Push) 20 mg PRN Q4HRS PRN IVP HYPERTENSION Last administered on 08/13/21at 23:13; Start 08/13/21 at 13:00 Morphine Sulfate (Morphine Sulfate) 2 mg PRN Q2HR PRN IVP PAIN; Start 08/13/21 at 13:00 Ondansetron HCl (Zofran) 4 mg PRN Q6HRS PRN IVP NAUSEA/VOMITING; Start 08/13/21 at 13:00 Pantoprazole Sodium (PROTONIX VIAL for IV PUSH) 40 mg DAILYAC IVP Last administered on 08/14/21at 08:25; Start 08/14/21 at 07:30 Potassium Chloride/Water 100 ml @ 100 mls/hr Q1H IV Last administered on 08/14/21at 08:28; Start 08/14/21 at 07:00; Stop 08/14/21 at 10:59 Active Scripts Active Omeprazole 40 Mg Capsule.dr 1 Cap PO DAILY Cipro (Ciprofloxacin Hcl) 500 Mg Tablet 1 Tab PO BID 3 Days Doxycycline Hyclate 100 Mg Tablet 100 Mg PO BID Atorvastatin Calcium 40 Mg Tablet 80 Mg PO QHS Clopidogrel (Clopidogrel Bisulfate) 75 Mg Tablet 75 Mg PO DAILY [address] 25,000 Unit Capsule (Lipase/Protease/Amylase) 1 Each Capsule.dr 1 Cap PO BID Ozempic (Semaglutide) 1 Mg/0.75 Ml Pen.injctr 0.5 Mg SQ WEEKLY Losartan Potassium 50 Mg Tablet 25 Mg PO DAILY Hydralazine Hcl 25 Mg Tablet 1 Tab PO TID Gabapentin (Gabapentin) 100 Mg Capsule 200 Mg PO TID Famotidine 20 Mg Tablet 20 Mg PO DAILY Cymbalta (Duloxetine Hcl) 60 Mg Capsule.dr 1 Cap PO DAILY Carvedilol 25 Mg Tablet 12.5 Mg PO BIDWMEALS Calcitriol 0.25 Mcg Capsule 1 Cap PO DAILY Atorvastatin Calcium 80 Mg Tablet 1 Tab PO DAILY Vitals/I & O Vital Sign - Last 24 Hours 08/13/21 08/13/21 08/13/21 08/13/21 11:00 13:02 13:12 15:00 Temp 98.4 97.8 98.4 97.8 Pulse 75 83 83 95 Resp 20 22 B/P (MAP) 125/33 (63) 168/80 (109) 168/80 178/98 (124) Pulse Ox 98 95 92 O2 Delivery Room Air Nasal Cannula Nasal Cannula O2 Flow Rate 3.0 3.0 08/13/21 08/13/21 08/13/21 08/13/21 15:56 19:00 19:10 23:04 Temp 98.6 98.2 98.6 98.2 Pulse 95 84 87 Resp 18 B/P (MAP) 178/98 152/53 (86) 183/93 (123) Pulse Ox 86 99 O2 Delivery Room Air Room Air Nasal Cannula 08/13/21 08/14/21 08/14/21 23:13 03:10 07:00 Temp 97.9 98.0 97.9 98.0 Pulse 87 88 95 Resp 20 20 B/P (MAP) 183/93 155/72 (99) 147/80 (102) Pulse Ox 91 92 O2 Delivery Room Air Room Air Intake and Output 08/13/21 08/13/21 08/14/21 14:59 22:59 06:59 Intake Total 1000 ml Output Total 620 ml 0 ml Balance -620 ml 1000 ml 0 ml Justifications for Admission Other Justification RENE JOHN MD Aug 14, 2021 09:32
[2021-08-14] MEDS: POTASSIUM CL 40MEQ D5-0.45NACL 1,000 ML IV SCH ×2 (10:44→21:01)
[2021-08-14 11:00] VITALS: BP 182/88
--- NOTE | 2021-08-14 11:40 | NUR ---
SW following. Discussed with RN, plan for [facility] when medically stable. No surgical plans at this time. COVID PCR needs to be done 24-48 hours before pt discharges to [facility]. SW will continue to follow.
[2021-08-14] MEDS ORDERED: MAGNESIUM SULFATE 2GM 50 ML IV ONE (12:00)
[2021-08-14] MEDS: POTASSIUM CHLORIDE 20 MEQ TABLET.ER. PO SCH ×3 (12:00→16:41)
--- NOTE | 2021-08-14 14:42 | PDOC ---
G I PROGRESS NOTE Subjective Sleeping. Did not awaken. Per Dr. Camacho, no pain. is not so sure. Eating little. Physical Exam No PE. Review of Relevant I have reviewed the following items beverly (where applicable) has been applied. Labs Laboratory Tests Test 08/12/21 17:20 08/13/21 06:40 08/13/21 07:47 08/13/21 16:59 White Blood Count 10.2 x10^3/uL (4.0-11.0) 10.4 x10^3/uL (4.0-11.0) Red Blood Count 2.51 x10^6/uL (4.30-5.70) 2.54 x10^6/uL (4.30-5.70) Hemoglobin 7.6 g/dL (13.0-17.5) 7.7 g/dL (13.0-17.5) Hematocrit 22.2 % (39.0-53.0) 22.5 % (39.0-53.0) Mean Corpuscular Volume 88 fL (79-100) 89 fL (79-100) Mean Corpuscular Hemoglobin 30 pg (25-35) 30 pg (25-35) Mean Corpuscular Hemoglobin Concent 34 g/dL (31-37) 34 g/dL (31-37) Red Cell Distribution Width 15.4 % (11.5-14.5) 15.6 % (11.5-14.5) Platelet Count 198 x10^3/uL (140-400) 191 x10^3/uL (140-400) Neutrophils (%) (Auto) 87 % (31-73) 85 % (31-73) Lymphocytes (%) (Auto) 4 % (24-48) 4 % (24-48) Monocytes (%) (Auto) 8 % (0-9) 9 % (0-9) Eosinophils (%) (Auto) 1 % (0-3) 1 % (0-3) Basophils (%) (Auto) 1 % (0-3) 1 % (0-3) Neutrophils # (Auto) 8.9 x10^3/uL (1.8-7.7) 8.8 x10^3/uL (1.8-7.7) Lymphocytes # (Auto) 0.4 x10^3/uL (1.0-4.8) 0.4 x10^3/uL (1.0-4.8) Monocytes # (Auto) 0.8 x10^3/uL (0.0-1.1) 1.0 x10^3/uL (0.0-1.1) Eosinophils # (Auto) 0.1 x10^3/uL (0.0-0.7) 0.1 x10^3/uL (0.0-0.7) Basophils # (Auto) 0.1 x10^3/uL (0.0-0.2) 0.1 x10^3/uL (0.0-0.2) Sodium Level 145 mmol/L (136-145) 144 mmol/L (136-145) Potassium Level 2.9 mmol/L (3.5-5.1) 3.2 mmol/L (3.5-5.1) Chloride Level 113 mmol/L (98-107) 112 mmol/L (98-107) Carbon Dioxide Level 18 mmol/L (21-32) 19 mmol/L (21-32) Anion Gap 14 (6-14) 13 (6-14) Blood Urea Nitrogen 12 mg/dL (8-26) 10 mg/dL (8-26) Creatinine 1.3 mg/dL (0.7-1.3) 1.4 mg/dL (0.7-1.3) Estimated GFR (Cockcroft-Gault) 54.3 49.8 BUN/Creatinine Ratio 9 (6-20) Glucose Level 119 mg/dL (70-99) 110 mg/dL (70-99) Calcium Level 8.2 mg/dL (8.5-10.1) 8.2 mg/dL (8.5-10.1) Total Bilirubin 0.4 mg/dL (0.2-1.0) Aspartate Amino Transf (AST/SGOT) 20 U/L (15-37) Alanine Aminotransferase (ALT/SGPT) 22 U/L (16-63) Alkaline Phosphatase 70 U/L (46-116) Total Protein 6.2 g/dL (6.4-8.2) Albumin 2.4 g/dL (3.4-5.0) Albumin/Globulin Ratio 0.6 (1.0-1.7) Segmented Neutrophils % 87 % (35-66) Band Neutrophils % 2 % (0-9) Lymphocytes % 3 % (24-48) Monocytes % 6 % (0-10) Eosinophils % 2 % (0-5) Platelet Estimate Adequate (ADEQUATE) Glucose (Fingerstick) 101 mg/dL (70-99) 157 mg/dL (70-99) Test 08/13/21 20:20 08/14/21 05:30 Glucose (Fingerstick) 151 mg/dL (70-99) Sodium Level 142 mmol/L (136-145) Potassium Level 2.8 mmol/L (3.5-5.1) Chloride Level 111 mmol/L (98-107) Carbon Dioxide Level 21 mmol/L (21-32) Anion Gap 10 (6-14) Blood Urea Nitrogen 12 mg/dL (8-26) Creatinine 1.5 mg/dL (0.7-1.3) Estimated GFR (Cockcroft-Gault) 46.0 Glucose Level 152 mg/dL (70-99) Calcium Level 8.1 mg/dL (8.5-10.1) Magnesium Level 1.2 mg/dL (1.8-2.4) Laboratory Tests Test 08/13/21 16:59 08/13/21 20:20 08/14/21 05:30 Glucose (Fingerstick) 157 mg/dL (70-99) 151 mg/dL (70-99) Sodium Level 142 mmol/L (136-145) Potassium Level 2.8 mmol/L (3.5-5.1) Chloride Level 111 mmol/L (98-107) Carbon Dioxide Level 21 mmol/L (21-32) Anion Gap 10 (6-14) Blood Urea Nitrogen 12 mg/dL (8-26) Creatinine 1.5 mg/dL (0.7-1.3) Estimated GFR (Cockcroft-Gault) 46.0 Glucose Level 152 mg/dL (70-99) Calcium Level 8.1 mg/dL (8.5-10.1) Magnesium Level 1.2 mg/dL (1.8-2.4) Vitals/I & O Vital Sign - Last 24 Hours 08/13/21 08/13/21 08/13/21 08/13/21 15:00 15:56 19:00 19:10 Temp 97.8 98.6 97.8 98.6 Pulse 95 95 84 Resp 22 B/P (MAP) 178/98 (124) 178/98 152/53 (86) Pulse Ox 92 86 O2 Delivery Nasal Cannula Room Air Room Air O2 Flow Rate 3.0 08/13/21 08/13/21 08/14/21 08/14/21 23:04 23:13 03:10 07:00 Temp 98.2 97.9 98.0 98.2 97.9 98.0 Pulse 87 87 88 95 Resp 18 20 20 B/P (MAP) 183/93 (123) 183/93 155/72 (99) 147/80 (102) Pulse Ox 99 91 92 O2 Delivery Nasal Cannula Room Air Room Air 08/14/21 07:50 O2 Delivery Room Air Intake and Output 08/13/21 08/13/21 08/14/21 15:00 23:00 07:00 Intake Total 1000 ml Output Total 620 ml 0 ml Balance -620 ml 1000 ml 0 ml Assessment Abdominal pain N, V--gone? Abnormal appendiceal imaging, but also gallstone. Plan of Care Note Observe on diet. If continued issues, consider re-imaging GB. Off the weekend. Coverage available if needed. Justicifation of Admission Dx: Justifications for Admission: Justification of Admission Dx: Yes SANTOS MACK MD Aug 14, 2021 14:41
[2021-08-14 15:00] VITALS: BP 178/87
[2021-08-14] MEDS: LABETALOL 20 MG/4 ML DISP.SYRIN. IVP PRN (15:44)
[2021-08-14] MEDS ORDERED: SEMAGLUTIDE 2 MG/1.5 ML SQ SCH (16:00)
[2021-08-14 19:00] VITALS: BP 112/73
--- NOTE | 2021-08-14 20:22 | PDOC ---
PROGRESS NOTES Date of Service: DATE: 08/14/21 TIME: 20:20 Chief Complaint Chief Complaint Appendicitis ruled out clinically Recent toe amputation a few days ago Recent 2 stents placed to the right leg Recent right TMA in October Diabetes Neuropathy History of hemorrhagic stroke Hypertension A. fib Hyperlipidemia chronic renal sufficiency GERD Chronic diarrhea Plan Physical therapy evaluation Follow recommendations from portfolio consultant He will most likely need placement He is not quite convinced that he he needs new but I provided reassurance to him and his was at bedside. They do not seem to have much support system in place Will follow up with case management as well for a safe discharge planning History of Present Illness History of Present Illness 08/14/2021 No acute events reported overnight, case discussed with nursing staff patient in no acute distress no complaints during my visit Concern is that the patient may not be able to transition home we will request a physical therapy evaluation 08/13/2012 Patient seen and examined He had a brief stay at [facility] yesterday and came right back because he had developed some abdominal pain and we were concerned he could have appendicitis on the CAT scan (CT results came in late after the discharge) Today he seems to be doing relatively well Has some slight pain I reviewed general surgery's nurse practitioner note, at this point do not have any plans for surgery today yet (awaiting Dr. Peters's input) Discussed with RN Chart reviewed Vitals Vitals Vital Signs Date Time Temp Pulse Resp B/P (MAP) Pulse Ox O2 Delivery O2 Flow Rate FiO2 08/14/21 19:00 99.2 83 20 112/73 (86) 98 Room Air 99.2 08/14/21 15:00 3.0 Physical Exam General: Alert, Oriented X3 Heart: Regular rate Lungs: Clear Abdomen: Soft, No tenderness Extremities: No clubbing, No cyanosis Skin: No rashes Labs LABS Laboratory Tests Test 08/14/21 05:30 08/14/21 16:38 Sodium Level 142 mmol/L (136-145) Potassium Level 2.8 mmol/L (3.5-5.1) Chloride Level 111 mmol/L (98-107) Carbon Dioxide Level 21 mmol/L (21-32) Anion Gap 10 (6-14) Blood Urea Nitrogen 12 mg/dL (8-26) Creatinine 1.5 mg/dL (0.7-1.3) Estimated GFR (Cockcroft-Gault) 46.0 Glucose Level 152 mg/dL (70-99) Calcium Level 8.1 mg/dL (8.5-10.1) Magnesium Level 1.2 mg/dL (1.8-2.4) Glucose (Fingerstick) 137 mg/dL (70-99) Comment Review of Relevant I have reviewed the following items beverly (where applicable) has been applied. Labs Laboratory Tests Test 08/13/21 06:40 08/13/21 07:47 08/13/21 16:59 08/13/21 20:20 White Blood Count 10.4 x10^3/uL (4.0-11.0) Red Blood Count 2.54 x10^6/uL (4.30-5.70) Hemoglobin 7.7 g/dL (13.0-17.5) Hematocrit 22.5 % (39.0-53.0) Mean Corpuscular Volume 89 fL (79-100) Mean Corpuscular Hemoglobin 30 pg (25-35) Mean Corpuscular Hemoglobin Concent 34 g/dL (31-37) Red Cell Distribution Width 15.6 % (11.5-14.5) Platelet Count 191 x10^3/uL (140-400) Neutrophils (%) (Auto) 85 % (31-73) Lymphocytes (%) (Auto) 4 % (24-48) Monocytes (%) (Auto) 9 % (0-9) Eosinophils (%) (Auto) 1 % (0-3) Basophils (%) (Auto) 1 % (0-3) Neutrophils # (Auto) 8.8 x10^3/uL (1.8-7.7) Lymphocytes # (Auto) 0.4 x10^3/uL (1.0-4.8) Monocytes # (Auto) 1.0 x10^3/uL (0.0-1.1) Eosinophils # (Auto) 0.1 x10^3/uL (0.0-0.7) Basophils # (Auto) 0.1 x10^3/uL (0.0-0.2) Segmented Neutrophils % 87 % (35-66) Band Neutrophils % 2 % (0-9) Lymphocytes % 3 % (24-48) Monocytes % 6 % (0-10) Eosinophils % 2 % (0-5) Platelet Estimate Adequate (ADEQUATE) Sodium Level 144 mmol/L (136-145) Potassium Level 3.2 mmol/L (3.5-5.1) Chloride Level 112 mmol/L (98-107) Carbon Dioxide Level 19 mmol/L (21-32) Anion Gap 13 (6-14) Blood Urea Nitrogen 10 mg/dL (8-26) Creatinine 1.4 mg/dL (0.7-1.3) Estimated GFR (Cockcroft-Gault) 49.8 Glucose Level 110 mg/dL (70-99) Calcium Level 8.2 mg/dL (8.5-10.1) Glucose (Fingerstick) 101 mg/dL (70-99) 157 mg/dL (70-99) 151 mg/dL (70-99) Test 08/14/21 05:30 08/14/21 16:38 Sodium Level 142 mmol/L (136-145) Potassium Level 2.8 mmol/L (3.5-5.1) Chloride Level 111 mmol/L (98-107) Carbon Dioxide Level 21 mmol/L (21-32) Anion Gap 10 (6-14) Blood Urea Nitrogen 12 mg/dL (8-26) Creatinine 1.5 mg/dL (0.7-1.3) Estimated GFR (Cockcroft-Gault) 46.0 Glucose Level 152 mg/dL (70-99) Calcium Level 8.1 mg/dL (8.5-10.1) Magnesium Level 1.2 mg/dL (1.8-2.4) Glucose (Fingerstick) 137 mg/dL (70-99) Laboratory Tests Test 08/14/21 05:30 08/14/21 16:38 Sodium Level 142 mmol/L (136-145) Potassium Level 2.8 mmol/L (3.5-5.1) Chloride Level 111 mmol/L (98-107) Carbon Dioxide Level 21 mmol/L (21-32) Anion Gap 10 (6-14) Blood Urea Nitrogen 12 mg/dL (8-26) Creatinine 1.5 mg/dL (0.7-1.3) Estimated GFR (Cockcroft-Gault) 46.0 Glucose Level 152 mg/dL (70-99) Calcium Level 8.1 mg/dL (8.5-10.1) Magnesium Level 1.2 mg/dL (1.8-2.4) Glucose (Fingerstick) 137 mg/dL (70-99) Medications Current Medications Atorvastatin Calcium (Lipitor) 80 mg QHS PO ; Start 08/12/21 at 21:00 Calcitriol (Rocaltrol) 0.25 mcg DAILY PO ; Start 08/13/21 at 09:00 Doxycycline Hyclate (Vibra-Tab) 100 mg BID PO ; Start 08/12/21 at 21:00; Stop 08/15/21 at 09:01 Famotidine (Pepcid) 20 mg DAILY PO ; Start 08/13/21 at 09:00; Stop 08/13/21 at 09:52; Status DC Gabapentin (Neurontin) 200 mg TID PO ; Start 08/12/21 at 21:00 Hydralazine HCl (Apresoline) 25 mg TID PO ; Start 08/12/21 at 21:00 Losartan Potassium (Cozaar) 25 mg DAILY PO ; Start 08/13/21 at 09:00 Non-Formulary Medication (Atorvastatin Calcium ) 1 tab DAILY PO ; Start 08/13 at 09:00; Status UNV Carvedilol (Coreg) 12.5 mg BIDWMEALS PO ; Start 08/12/21 at 17:00 Ciprofloxacin (Cipro) 500 mg BID PO ; Start 08/12/21 at 21:00; Stop 08/15/21 at 09:01 Duloxetine HCl (Cymbalta) 60 mg DAILY PO ; Start 08/13/21 at 09:00 Amylase/Lipase/ Protease (Zenpep 10,000) 5 cap TIDWMEALS PO ; Start 08/12/21 at 17:00 Pantoprazole Sodium (Protonix) 40 mg DAILYAC PO ; Start 08/13/21 at 07:30; Stop 08/13/21 at 13:04; Status DC Non-Formulary Medication (Semaglutide (Ozempic)) 0.5 mg WEEKLY SQ ; Start 08/19/21 at 09:00; Status UNV Metoprolol Tartrate (Lopressor Vial) 5 mg PRN Q6HRS PRN IVP HYPERTENSION 1ST CHOICE Last administered on 08/13/21at 13:12; Start 08/12/21 at 16:15 Potassium Chloride/Water 100 ml @ 100 mls/hr 1X ONCE IV Last administered on 08/12/21at 19:22; Start 08/12/21 at 19:00; Stop 08/12/21 at 19:59; Status DC Potassium Chloride/Water 100 ml @ 100 mls/hr Q1H IV Last administered on 08/12/21at 22:18; Start 08/12/21 at 20:00; Stop 08/12/21 at 23:59; Status DC Potassium Chloride/Dextrose/ Sod Cl 1,000 ml @ 100 mls/hr Q10H IV Last administered on 08/14/21at 10:44; Start 08/13/21 at 13:00 Labetalol HCl (Normodyne Iv Push) 20 mg PRN Q4HRS PRN IVP HYPERTENSION, 2ND CHOICE Last administered on 08/14/21at 15:44; Start 08/13/21 at 13:00 Morphine Sulfate (Morphine Sulfate) 2 mg PRN Q2HR PRN IVP PAIN; Start 08/13/21 at 13:00 Ondansetron HCl (Zofran) 4 mg PRN Q6HRS PRN IVP NAUSEA/VOMITING; Start 08/13/21 at 13:00 Pantoprazole Sodium (PROTONIX VIAL for IV PUSH) 40 mg DAILYAC IVP Last administered on 08/14/21at 08:25; Start 08/14/21 at 07:30 Potassium Chloride/Water 100 ml @ 100 mls/hr Q1H IV Last administered on 08/14/21at 10:45; Start 08/14/21 at 07:00; Stop 08/14/21 at 10:59; Status DC Potassium Chloride (Klor-Con) 40 meq Q2H PO ; Start 08/14/21 at 12:00; Stop 08/14/21 at 16:01; Status DC Magnesium Sulfate 50 ml @ 25 mls/hr 1X ONCE IV Last administered on 08/14/21at 12:34; Start 08/14/21 at 12:00; Stop 08/14/21 at 13:59; Status DC Non-Formulary Medication (Semaglutide (Ozempic*) 2mg/ 1.5ml) 0.5 ea QFR SQ ; Start 08/14/21 at 16:00 Lactobacillus Rhamnosus (Culturelle) 1 cap BID PO ; Start 08/14/21 at 21:00 Active Scripts Active Omeprazole 40 Mg Capsule.dr 1 Cap PO DAILY Cipro (Ciprofloxacin Hcl) 500 Mg Tablet 1 Tab PO BID 3 Days Doxycycline Hyclate 100 Mg Tablet 100 Mg PO BID Atorvastatin Calcium 40 Mg Tablet 80 Mg PO QHS Clopidogrel (Clopidogrel Bisulfate) 75 Mg Tablet 75 Mg PO DAILY 30 Days Reported Aliya Alonso 25,000 Unit Capsule (Lipase/Protease/Amylase) 1 Each Capsule.dr 1 Cap PO BID Ozempic (Semaglutide) 1 Mg/0.75 Ml Pen.injctr 0.5 Mg SQ WEEKLY Losartan Potassium 50 Mg Tablet 25 Mg PO DAILY Hydralazine Hcl 25 Mg Tablet 1 Tab PO TID Gabapentin (Gabapentin) 100 Mg Capsule 200 Mg PO TID Famotidine 20 Mg Tablet 20 Mg PO DAILY Cymbalta (Duloxetine Hcl) 60 Mg Capsule.dr 1 Cap PO DAILY Carvedilol 25 Mg Tablet 12.5 Mg PO BIDWMEALS Calcitriol 0.25 Mcg Capsule 1 Cap PO DAILY Atorvastatin Calcium 80 Mg Tablet 1 Tab PO DAILY Vitals/I & O Vital Sign - Last 24 Hours 08/13/21 08/13/21 08/14/21 08/14/21 23:04 23:13 03:10 07:00 Temp 98.2 97.9 98.0 98.2 97.9 98.0 Pulse 87 87 88 95 Resp 18 20 20 B/P (MAP) 183/93 (123) 183/93 155/72 (99) 147/80 (102) Pulse Ox 99 91 92 O2 Delivery Nasal Cannula Room Air Room Air 08/14/21 08/14/21 08/14/21 08/14/21 07:50 11:00 15:00 15:44 Temp 98.1 98.0 98.1 98.0 Pulse 74 71 71 Resp 20 20 B/P (MAP) 182/88 (119) 178/87 (117) 178/87 Pulse Ox 90 90 O2 Delivery Room Air Nasal Cannula Nasal Cannula O2 Flow Rate 3.0 3.0 08/14/21 19:00 Temp 99.2 99.2 Pulse 83 Resp 20 B/P (MAP) 112/73 (86) Pulse Ox 98 O2 Delivery Room Air Intake and Output 08/13/21 08/13/21 08/14/21 15:00 23:00 07:00 Intake Total 1000 ml Output Total 620 ml 0 ml Balance -620 ml 1000 ml 0 ml Nutrition Consultation Dietary Evaluation: Comments: RD consult 08/12. Pt just d/c 08/11 - refer to RD note on 08/04 and 08/11. Justicifation of Admission Dx: Justifications for Admission: Justification of Admission Dx: Yes ALIZA RODRIGUEZ MD Aug 14, 2021 20:21
[2021-08-14] MEDS: ATORVASTATIN CALCIUM 40 MG TABLET. PO SCH (21:00)
[2021-08-14] MEDS: LACTOBACILLUS RHAMNOSUS GG 1 CAPSULE. PO SCH (21:00)
--- NOTE | 2021-08-14 21:02 | NUR ---
Pt refusing to take any oral medications at this time. Explained need for BP medications and ordered oral antibiotics. When asked why refusing, pt states "I'm not taking any pills". Pt also refusing to take home Ozempic injection, says he will wait until his is here. Explained that his brought the medication today and pt refused to take it from the dayshift nurse. Pt continues to say that he will not take it today. Pts oxygen level on room air is 89%. Pt did allow 2L/NC to be placed at this time. Bed alarm on, call light in reach. Will monitor.
[2021-08-14 23:06] VITALS: BP 155/74
[2021-08-15 03:14] VITALS: BP 178/94
[2021-08-15] MEDS: POTASSIUM CL 40MEQ D5-0.45NACL 1,000 ML IV SCH (05:46)
[2021-08-15 07:00] VITALS: BP 177/91
[2021-08-15] MEDS: PANTOPRAZOLE IV PUSH 40 MG VIAL. IVP SCH (07:30)
[2021-08-15 07:55] LABS: CALCIUM 7.8 mg/dL (8.5-10.1); CREATININE 1.3 mg/dL (0.7-1.3); GFR 54.3; MAGNESIUM 1.6 mg/dL (1.8-2.4); POTASSIUM 3.2 mmol/L (3.5-5.1)
[2021-08-15] MEDS: LIPASE/PROTEAS/AMYLAS 10/32/42 CAPSULE.DR. PO SCH ×3 (08:00→17:00)
[2021-08-15] MEDS: CARVEDILOL 12.5 MG TABLET. PO SCH ×2 (08:00→17:00)
[2021-08-15] MEDS: METOPROLOL IV PUSH 5 MG/5 ML VIAL. IVP PRN (08:21)
[2021-08-15] MEDS: LABETALOL 20 MG/4 ML DISP.SYRIN. IVP PRN (08:24)
[2021-08-15] MEDS: DOXYCYCLINE HYCLATE 100 MG TABLET PO SCH (09:00)
[2021-08-15] MEDS: CALCITRIOL 0.25 MCG CAPSULE. PO SCH (09:00)
[2021-08-15] MEDS: CIPROFLOXACIN HCL 250 MG TABLET. PO SCH (09:00)
[2021-08-15] MEDS: LOSARTAN POTASSIUM 25 MG TABLET. PO SCH (09:00)
[2021-08-15] MEDS: hydrALAZINE 25 MG TABLET PO SCH ×3 (09:00→21:00)
[2021-08-15] MEDS: LACTOBACILLUS RHAMNOSUS GG 1 CAPSULE. PO SCH ×2 (09:00→21:00)
[2021-08-15] MEDS: DULoxetine HCL 30 MG CAPSULE.DR PO SCH (09:00)
[2021-08-15] MEDS: GABAPENTIN 100 MG CAPSULE. PO SCH ×3 (09:00→21:00)
--- NOTE | 2021-08-15 09:29 | RAD ---
Chest AP portable at 846: Reason for examination: Increasing oxygen needs. Comparison is made to previous study dated 08/10/2021. The heart size and mediastinum are unchanged. Lung dawson however show diffuse patchy bilateral pulmo nary opacities which have progressed since previous exam. No pleural effusions or pneumothorax are se en. No acute bony abnormalities are present. IMPRESSION: Diffuse bilateral pulmonary opacities with marked progression since previous exam. This could reflect atypical pneumonia. Recommend clinical correlation. Electronically signed by: Iman Rodarte MD (08/15/2021 9:27 AM) [id number]
--- NOTE | 2021-08-15 10:29 | PDOC ---
"PROGRESS NOTES Date of Service: DATE: 08/15/21 TIME: 10:20 Chief Complaint Chief Complaint Atypical pneumonia Appendicitis ruled out clinically Recent toe amputation a few days ago Recent 2 stents placed to the right leg Recent right TMA in October Diabetes Neuropathy History of hemorrhagic stroke Hypertension A. fib Hyperlipidemia chronic renal sufficiency GERD Chronic diarrhea Plan Physical therapy evaluation Follow recommendations from revenue cycle consultant He will most likely need placement He is not quite convinced that he he needs new but I provided reassurance to him and his was at bedside. They do not seem to have much support system in place Will follow up with case management as well for a safe discharge planning, patient is quite depressed seems like he is not willing to go to a SNU. | have spoken with at bedside. We will request help with case management for home health History of Present Illness History of Present Illness 08/15/2021 Chest x ray noted, patient not very ccoperative and he will not agree to take his pills nor go to a intermediate facility. I have spoken to patients regarding the optpions we have at hand we will continue to encourage patient and will start broad spectrum antibiotics today, we will reassess in the am 08/14/2021 No acute events reported overnight, case discussed with nursing staff patient in no acute distress no complaints during my visit Concern is that the patient may not be able to transition home we will request a physical therapy evaluation 08/13/2012 Patient seen and examined He had a brief stay at intermediate yesterday and came right back because he had developed some abdominal pain and we were concerned he could have appendicitis on the CAT scan (CT results came in late after the discharge) Today he seems to be doing relatively well Has some slight pain I reviewed general surgery's nurse practitioner note, at this point do not have any plans for surgery today yet (awaiting Dr. Peters's input) Discussed with RN Chart reviewed Vitals Vitals Vital Signs Date Time Temp Pulse Resp B/P (MAP) Pulse Ox O2 Delivery O2 Flow Rate FiO2 08/15/21 08:24 90 178/94 08/15/21 07:00 98.3 20 91 Nasal Cannula 2.0 98.3 Physical Exam General: Alert, Oriented X3 Heart: Regular rate Lungs: Clear Abdomen: Soft, No tenderness Extremities: No clubbing, No cyanosis Skin: No rashes Labs LABS Laboratory Tests Test 08/14/21 16:38 08/14/21 20:35 08/15/21 06:55 Glucose (Fingerstick) 137 mg/dL (70-99) 151 mg/dL (70-99) Sodium Level 137 mmol/L (136-145) Potassium Level 3.2 mmol/L (3.5-5.1) Chloride Level 106 mmol/L (98-107) Carbon Dioxide Level 21 mmol/L (21-32) Anion Gap 10 (6-14) Blood Urea Nitrogen 11 mg/dL (8-26) Creatinine 1.3 mg/dL (0.7-1.3) Estimated GFR (Cockcroft-Gault) 54.3 Glucose Level 134 mg/dL (70-99) Calcium Level 7.8 mg/dL (8.5-10.1) Magnesium Level 1.6 mg/dL (1.8-2.4) Comment Review of Relevant I have reviewed the following items beverly (where applicable) has been applied. Labs Laboratory Tests Test 08/13/21 16:59 08/13/21 20:20 08/14/21 05:30 08/14/21 16:38 Glucose (Fingerstick) 157 mg/dL (70-99) 151 mg/dL (70-99) 137 mg/dL (70-99) Sodium Level 142 mmol/L (136-145) Potassium Level 2.8 mmol/L (3.5-5.1) Chloride Level 111 mmol/L (98-107) Carbon Dioxide Level 21 mmol/L (21-32) Anion Gap 10 (6-14) Blood Urea Nitrogen 12 mg/dL (8-26) Creatinine 1.5 mg/dL (0.7-1.3) Estimated GFR (Cockcroft-Gault) 46.0 Glucose Level 152 mg/dL (70-99) Calcium Level 8.1 mg/dL (8.5-10.1) Magnesium Level 1.2 mg/dL (1.8-2.4) Test 08/14/21 20:35 08/15/21 06:55 Glucose (Fingerstick) 151 mg/dL (70-99) Sodium Level 137 mmol/L (136-145) Potassium Level 3.2 mmol/L (3.5-5.1) Chloride Level 106 mmol/L (98-107) Carbon Dioxide Level 21 mmol/L (21-32) Anion Gap 10 (6-14) Blood Urea Nitrogen 11 mg/dL (8-26) Creatinine 1.3 mg/dL (0.7-1.3) Estimated GFR (Cockcroft-Gault) 54.3 Glucose Level 134 mg/dL (70-99) Calcium Level 7.8 mg/dL (8.5-10.1) Magnesium Level 1.6 mg/dL (1.8-2.4) Laboratory Tests Test 08/14/21 16:38 08/14/21 20:35 08/15/21 06:55 Glucose (Fingerstick) 137 mg/dL (70-99) 151 mg/dL (70-99) Sodium Level 137 mmol/L (136-145) Potassium Level 3.2 mmol/L (3.5-5.1) Chloride Level 106 mmol/L (98-107) Carbon Dioxide Level 21 mmol/L (21-32) Anion Gap 10 (6-14) Blood Urea Nitrogen 11 mg/dL (8-26) Creatinine 1.3 mg/dL (0.7-1.3) Estimated GFR (Cockcroft-Gault) 54.3 Glucose Level 134 mg/dL (70-99) Calcium Level 7.8 mg/dL (8.5-10.1) Magnesium Level 1.6 mg/dL (1.8-2.4) Medications Current Medications Atorvastatin Calcium (Lipitor) 80 mg QHS PO ; Start 08/12/21 at 21:00 Calcitriol (Rocaltrol) 0.25 mcg DAILY PO ; Start 08/13/21 at 09:00 Doxycycline Hyclate (Vibra-Tab) 100 mg BID PO ; Start 08/12/21 at 21:00; Stop 08/15/21 at 09:01; Status DC Famotidine (Pepcid) 20 mg DAILY PO ; Start 08/13/21 at 09:00; Stop 08/13/21 at 09:52; Status DC Gabapentin (Neurontin) 200 mg TID PO ; Start 08/12/21 at 21:00 Hydralazine HCl (Apresoline) 25 mg TID PO ; Start 08/12/21 at 21:00 Losartan Potassium (Cozaar) 25 mg DAILY PO ; Start 08/13/21 at 09:00 Non-Formulary Medication (Atorvastatin Calcium ) 1 tab DAILY PO ; Start 08/13/21 at 09:00; Status UNV Carvedilol (Coreg) 12.5 mg BIDWMEALS PO ; Start 08/12/21 at 17:00 Ciprofloxacin (Cipro) 500 mg BID PO ; Start 08/12/21 at 21:00; Stop 08/15/21 at 09:01; Status DC Duloxetine HCl (Cymbalta) 60 mg DAILY PO ; Start 08/13/21 at 09:00 Amylase/Lipase/ Protease (Zenpep 10,000) 5 cap TIDWMEALS PO ; Start 08/12/21 at 17:00 Pantoprazole Sodium (Protonix) 40 mg DAILYAC PO ; Start 08/13/21 at 07:30; Stop 08/13/21 at 13:04; Status DC Non-Formulary Medication (Semaglutide (Ozempic)) 0.5 mg WEEKLY SQ ; Start 08/19/21 at 09:00; Status UNV Metoprolol Tartrate (Lopressor Vial) 5 mg PRN Q6HRS PRN IVP HYPERTENSION 1ST CHOICE Last administered on 08/13/21at 13:12; Start 08/12/21 at 16:15 Potassium Chloride/Water 100 ml @ 100 mls/hr 1X ONCE IV Last administered on 08/12/21at 19:22; Start 08/12/21 at 19:00; Stop 08/12/21 at 19:59; Status DC Potassium Chloride/Water 100 ml @ 100 mls/hr Q1H IV Last administered on 08/12/21at 22:18; Start 08/12/21 at 20:00; Stop 08/12/21 at 23:59; Status DC Potassium Chloride/Dextrose/ Sod Cl 1,000 ml @ 100 mls/hr Q10H IV Last administered on 08/15/21at 05:46; Start 08/13/21 at 13:00 Labetalol HCl (Normodyne Iv Push) 20 mg PRN Q4HRS PRN IVP HYPERTENSION, 2ND CHOICE Last administered on 08/15/21at 08:24; Start 08/13/21 at 13:00 Morphine Sulfate (Morphine Sulfate) 2 mg PRN Q2HR PRN IVP PAIN; Start 08/13/21 at 13:00 Ondansetron HCl (Zofran) 4 mg PRN Q6HRS PRN IVP NAUSEA/VOMITING; Start 08/13/21 at 13:00 Pantoprazole Sodium (PROTONIX VIAL for IV PUSH) 40 mg DAILYAC IVP Last administered on 08/15/21at 07:30; Start 08/14/21 at 07:30 Potassium Chloride/Water 100 ml @ 100 mls/hr Q1H IV Last administered on 08/14/21at 10:45; Start 08/14/21 at 07:00; Stop 08/14/21 at 10:59; Status DC Potassium Chloride (Klor-Con) 40 meq Q2H PO ; Start 08/14/21 at 12:00; Stop 08/14/21 at 16:01; Status DC Magnesium Sulfate 50 ml @ 25 mls/hr 1X ONCE IV Last administered on 08/14/21at 12:34; Start 08/14/21 at 12:00; Stop 08/14/21 at 13:59; Status DC Non-Formulary Medication (Semaglutide (Ozempic*) 2mg/ 1.5ml) 0.5 ea QFR SQ ; Start 08/14/21 at 16:00 Lactobacillus Rhamnosus (Culturelle) 1 cap BID PO ; Start 08/14/21 at 21:00 Active Scripts Active Omeprazole 40 Mg Capsule.dr 1 Cap PO DAILY Cipro (Ciprofloxacin Hcl) 500 Mg Tablet 1 Tab PO BID 3 Days Doxycycline Hyclate 100 Mg Tablet 100 Mg PO BID Atorvastatin Calcium 40 Mg Tablet 80 Mg PO QHS Clopidogrel (Clopidogrel Bisulfate) 75 Mg Tablet 75 Mg PO DAILY [address] 25,000 Unit Capsule (Lipase/Protease/Amylase) 1 Each Capsule.dr 1 Cap PO BID Ozempic (Semaglutide) 1 Mg/0.75 Ml Pen.injctr 0.5 Mg SQ WEEKLY Losartan Potassium 50 Mg Tablet 25 Mg PO DAILY Hydralazine Hcl 25 Mg Tablet 1 Tab PO TID Gabapentin (Gabapentin) 100 Mg Capsule 200 Mg PO TID Famotidine 20 Mg Tablet 20 Mg PO DAILY Cymbalta (Duloxetine Hcl) 60 Mg Capsule.dr 1 Cap PO DAILY Carvedilol 25 Mg Tablet 12.5 Mg PO BIDWMEALS Calcitriol 0.25 Mcg Capsule 1 Cap PO DAILY Atorvastatin Calcium 80 Mg Tablet 1 Tab PO DAILY Vitals/I & O Vital Sign - Last 24 Hours 08/14/21 08/14/21 08/14/2108/14/21 11:00 15:00 15:44 19:00 Temp 98.1 98.0 99.2 98.1 98.0 99.2 Pulse 74 71 71 83 Resp 20 20 20 B/P (MAP) 182/88 (119) 178/87 (117) 178/87 112/73 (86) Pulse Ox 90 90 98 O2 Delivery Nasal Cannula Nasal Cannula Room Air O2 Flow Rate 3.0 3.0 08/14/21 08/14/21 08/15/21 08/15/21 20:15 23:06 03:14 07:00 Temp 100.4 98.8 98.3 100.4 98.8 98.3 Pulse 80 90 91 Resp 20 20 20 B/P (MAP) 155/74 (101) 178/94 (122) 177/91 (119) Pulse Ox 92 92 91 O2 Delivery Room Air Nasal Cannula Nasal Cannula Nasal Cannula O2 Flow Rate 2.0 08/15/21 08:24 Pulse 90 B/P (MAP) 178/94 Intake and Output 08/14/21 08/14/21 08/15/21 15:00 23:00 07:00 Intake Total 1000 ml 900 ml Output Total 240 ml 100 ml 200 ml Balance -240 ml 900 ml 700 ml Nutrition Consultation Dietary Evaluation: Comments: RD consult 08/12. Pt just d/c 08/11 - refer to RD note on 08/04 and 08/11. Justicifation of Admission Dx: Justifications for Admission: Justification of Admission Dx: Yes ALIZA RODRIGUEZ MD Aug 15, 2021 10:29"
[2021-08-15] MEDS ORDERED: MAGNESIUM SULFATE 2GM 50 ML IV ONE (10:30)
[2021-08-15 11:00] VITALS: BP 121/82
[2021-08-15] MEDS: POTASSIUM CHLORIDE 20MEQ 100 ML IV SCH ×2 (12:39→14:40)
[2021-08-15 15:00] VITALS: BP 144/58
[2021-08-15 19:00] VITALS: BP 150/67
[2021-08-15] MEDS: ATORVASTATIN CALCIUM 40 MG TABLET. PO SCH (21:00)
[2021-08-15 23:06] VITALS: BP 154/69
[2021-08-16] VITALS (7 sets, daily range): BP systolic 138–168; BP diastolic 60–102
[2021-08-16 05:36] LABS: BASO % 0 % (0-3); EOS % 0 % (0-3); HEMATOCRIT 21.5 % (39.0-53.0); HEMOGLOBIN 7.2 g/dL (13.0-17.5); LYMPH # 0.4 x10^3/uL (1.0-4.8); LYMPH % 6 % (24-48); MEAN CORPUSCULAR HEMOGLOBIN 30 pg (25-35); MEAN CORPUSCULAR HGB CONC 33 g/dL (31-37); MEAN CORPUSCULAR VOLUME 89 fL (79-100); MONO # 0.7 x10^3/uL (0.0-1.1); MONO % 10 % (0-9); NEUT % 84 % (31-73); PLATELET COUNT 140 x10^3/uL (140-400); RED BLOOD COUNT 2.42 x10^6/uL (4.30-5.70); RED CELL DISTRIBUTION WIDTH 16.6 % (11.5-14.5); WHITE BLOOD COUNT 7.1 x10^3/uL (4.0-11.0)
[2021-08-16 06:02] LABS: CALCIUM 7.9 mg/dL (8.5-10.1); CREATININE 1.3 mg/dL (0.7-1.3); GFR 54.3; POTASSIUM 3.3 mmol/L (3.5-5.1)
[2021-08-16] MEDS: PANTOPRAZOLE IV PUSH 40 MG VIAL. IVP SCH ×2 (06:12→07:09)
[2021-08-16] MEDS: LIPASE/PROTEAS/AMYLAS 10/32/42 CAPSULE.DR. PO SCH ×3 (08:00→16:32)
[2021-08-16] MEDS: CARVEDILOL 12.5 MG TABLET. PO SCH ×2 (08:00→16:32)
[2021-08-16] MEDS: DULoxetine HCL 30 MG CAPSULE.DR PO SCH (09:00)
[2021-08-16] MEDS: LACTOBACILLUS RHAMNOSUS GG 1 CAPSULE. PO SCH ×2 (09:00→21:00)
[2021-08-16] MEDS: GABAPENTIN 100 MG CAPSULE. PO SCH ×3 (09:00→21:00)
[2021-08-16] MEDS: hydrALAZINE 25 MG TABLET PO SCH ×3 (09:00→21:00)
[2021-08-16] MEDS: LOSARTAN POTASSIUM 25 MG TABLET. PO SCH (09:00)
[2021-08-16] MEDS: CALCITRIOL 0.25 MCG CAPSULE. PO SCH (09:00)
--- NOTE | 2021-08-16 09:31 | NUR ---
patient refusing to take all medications stating "im not taking any pills". this RN told patient that his BP is elevated and the need to take the blood pressure meds but he still refused. Addendum: 08/16/21 at 2728 by QUINTIN GALLAGHER RN patient also stated that his foot and his stomach hurt but refused pain meds as well.
--- NOTE | 2021-08-16 17:13 | PDOC ---
"PROGRESS NOTES Date of Service: DATE: 08/16/21 TIME: 17:12 Chief Complaint Chief Complaint Atypical pneumonia Appendicitis ruled out clinically Recent toe amputation a few days ago Recent 2 stents placed to the right leg Recent right TMA in October Diabetes Neuropathy History of hemorrhagic stroke Hypertension A. fib Hyperlipidemia chronic renal sufficiency GERD Chronic diarrhea Plan Physical therapy evaluation Follow recommendations from customer service sales consultant He will most likely need placement He is not quite convinced that he he needs new but I provided reassurance to him and his was at bedside. They do not seem to have much support system in place Will follow up with case management as well for a safe discharge planning, patient is quite depressed seems like he is not willing to go to a SNU. | have spoken with at bedside. We will request help with case management for home health History of Present Illness History of Present Illness 08/16/2021 Patient seems to be medically stable, the challenge now is going to be arranging for services at home and hopefully the patient will be able to continue living at home. Prognosis is guarded given his recent amputation and multiple medical comorbidities. He acknowledged understanding of the proposed plan of care. We will hopefully discharge in the next 24 to 48 hours once arrangements for home health care has been done 08/15/2021 Chest x ray noted, patient not very ccoperative and he will not agree to take his pills nor go to a group home facility. I have spoken to patients regarding the optpions we have at hand we will continue to encourage patient and will start broad spectrum antibiotics today, we will reassess in the am 08/14/2021 No acute events reported overnight, case discussed with nursing staff patient in no acute distress no complaints during my visit Concern is that the patient may not be able to transition home we will request a physical therapy evaluation 08/13/2012 Patient seen and examined He had a brief stay at group home yesterday and came right back because he had developed some abdominal pain and we were concerned he could have appendicitis on the CAT scan (CT results came in late after the discharge) Today he seems to be doing relatively well Has some slight pain I reviewed general surgery's nurse practitioner note, at this point do not have any plans for surgery today yet (awaiting Dr. Peters's input) Discussed with RN Chart reviewed Vitals Vitals Vital Signs Date Time Temp Pulse Resp B/P (MAP) Pulse Ox O2 Delivery O2 Flow Rate FiO2 08/16/21 16:32 87 146/65 08/16/21 15:00 99.1 20 87 Nasal Cannula 99.1 08/16/21 08:00 2.0 Physical Exam General: Alert, Oriented X3 Heart: Regular rate Lungs: Clear Abdomen: Soft, No tenderness Extremities: No clubbing, No cyanosis Skin: No rashes Labs LABS Laboratory Tests Test 08/15/21 21:06 08/16/21 04:30 Glucose (Fingerstick) 95 mg/dL (70-99) White Blood Count 7.1 x10^3/uL (4.0-11.0) Red Blood Count 2.42 x10^6/uL (4.30-5.70) Hemoglobin 7.2 g/dL (13.0-17.5) Hematocrit 21.5 % (39.0-53.0) Mean Corpuscular Volume 89 fL (79-100) Mean Corpuscular Hemoglobin 30 pg (25-35) Mean Corpuscular Hemoglobin Concent 33 g/dL (31-37) Red Cell Distribution Width 16.6 % (11.5-14.5) Platelet Count 140 x10^3/uL (140-400) Neutrophils (%) (Auto) 84 % (31-73) Lymphocytes (%) (Auto) 6 % (24-48) Monocytes (%) (Auto) 10 % (0-9) Eosinophils (%) (Auto) 0 % (0-3) Basophils (%) (Auto) 0 % (0-3) Neutrophils # (Auto) 6.0 x10^3/uL (1.8-7.7) Lymphocytes # (Auto) 0.4 x10^3/uL (1.0-4.8) Monocytes # (Auto) 0.7 x10^3/uL (0.0-1.1) Eosinophils # (Auto) 0.0 x10^3/uL (0.0-0.7) Basophils # (Auto) 0.0 x10^3/uL (0.0-0.2) Sodium Level 135 mmol/L (136-145) Potassium Level 3.3 mmol/L (3.5-5.1) Chloride Level 104 mmol/L (98-107) Carbon Dioxide Level 20 mmol/L (21-32) Anion Gap 11 (6-14) Blood Urea Nitrogen 12 mg/dL (8-26) Creatinine 1.3 mg/dL (0.7-1.3) Estimated GFR (Cockcroft-Gault) 54.3 Glucose Level 101 mg/dL (70-99) Calcium Level 7.9 mg/dL (8.5-10.1) Comment Review of Relevant I have reviewed the following items beverly (where applicable) has been applied. Labs Laboratory Tests Test 08/14/21 20:35 08/15/21 06:55 08/15/21 21:06 08/16/21 04:30 Glucose (Fingerstick) 151 mg/dL (70-99) 95 mg/dL (70-99) Sodium Level 137 mmol/L (136-145) 135 mmol/L (136-145) Potassium Level 3.2 mmol/L (3.5-5.1) 3.3 mmol/L (3.5-5.1) Chloride Level 106 mmol/L (98-107) 104 mmol/L (98-107) Carbon Dioxide Level 21 mmol/L (21-32) 20 mmol/L (21-32) Anion Gap 10 (6-14) 11 (6-14) Blood Urea Nitrogen 11 mg/dL (8-26) 12 mg/dL (8-26) Creatinine 1.3 mg/dL (0.7-1.3) 1.3 mg/dL (0.7-1.3) Estimated GFR (Cockcroft-Gault) 54.3 54.3 Glucose Level 134 mg/dL (70-99) 101 mg/dL (70-99) Calcium Level 7.8 mg/dL (8.5-10.1) 7.9 mg/dL (8.5-10.1) Magnesium Level 1.6 mg/dL (1.8-2.4) White Blood Count 7.1 x10^3/uL (4.0-11.0) Red Blood Count 2.42 x10^6/uL (4.30-5.70) Hemoglobin 7.2 g/dL (13.0-17.5) Hematocrit 21.5 % (39.0-53.0) Mean Corpuscular Volume 89 fL (79-100) Mean Corpuscular Hemoglobin 30 pg (25-35) Mean Corpuscular Hemoglobin Concent 33 g/dL (31-37) Red Cell Distribution Width 16.6 % (11.5-14.5) Platelet Count 140 x10^3/uL (140-400) Neutrophils (%) (Auto) 84 % (31-73) Lymphocytes (%) (Auto) 6 % (24-48) Monocytes (%) (Auto) 10 % (0-9) Eosinophils (%) (Auto) 0 % (0-3) Basophils (%) (Auto) 0 % (0-3) Neutrophils # (Auto) 6.0 x10^3/uL (1.8-7.7) Lymphocytes # (Auto) 0.4 x10^3/uL (1.0-4.8) Monocytes # (Auto) 0.7 x10^3/uL (0.0-1.1) Eosinophils # (Auto) 0.0 x10^3/uL (0.0-0.7) Basophils # (Auto) 0.0 x10^3/uL (0.0-0.2) Laboratory Tests Test 08/15/21 21:06 08/16/21 04:30 Glucose (Fingerstick) 95 mg/dL (70-99) White Blood Count 7.1 x10^3/uL (4.0-11.0) Red Blood Count 2.42 x10^6/uL (4.30-5.70) Hemoglobin 7.2 g/dL (13.0-17.5) Hematocrit 21.5 % (39.0-53.0) Mean Corpuscular Volume 89 fL (79-100) Mean Corpuscular Hemoglobin 30 pg (25-35) Mean Corpuscular Hemoglobin Concent 33 g/dL (31-37) Red Cell Distribution Width 16.6 % (11.5-14.5) Platelet Count 140 x10^3/uL (140-400) Neutrophils (%) (Auto) 84 % (31-73) Lymphocytes (%) (Auto) 6 % (24-48) Monocytes (%) (Auto) 10 % (0-9) Eosinophils (%) (Auto) 0 % (0-3) Basophils (%) (Auto) 0 % (0-3) Neutrophils # (Auto) 6.0 x10^3/uL (1.8-7.7) Lymphocytes # (Auto) 0.4 x10^3/uL (1.0-4.8) Monocytes # (Auto) 0.7 x10^3/uL (0.0-1.1) Eosinophils # (Auto) 0.0 x10^3/uL (0.0-0.7) Basophils # (Auto) 0.0 x10^3/uL (0.0-0.2) Sodium Level 135 mmol/L (136-145) Potassium Level 3.3 mmol/L (3.5-5.1) Chloride Level 104 mmol/L (98-107) Carbon Dioxide Level 20 mmol/L (21-32) Anion Gap 11 (6-14) Blood Urea Nitrogen 12 mg/dL (8-26) Creatinine 1.3 mg/dL (0.7-1.3) Estimated GFR (Cockcroft-Gault) 54.3 Glucose Level 101 mg/dL (70-99) Calcium Level 7.9 mg/dL (8.5-10.1) Medications Current Medications Atorvastatin Calcium (Lipitor) 80 mg QHS PO ; Start 08/12/21 at 21:00 Calcitriol (Rocaltrol) 0.25 mcg DAILY PO ; Start 08/13/21 at 09:00 Doxycycline Hyclate (Vibra-Tab) 100 mg BID PO ; Start 08/12/21 at 21:00; Stop 08/15/21 at 09:01; Status DC Famotidine (Pepcid) 20 mg DAILY PO ; Start 08/13/21 at 09:00; Stop 08/13/21 at 09:52; Status DC Gabapentin (Neurontin) 200 mg TID PO ; Start 08/12/21 at 21:00 Hydralazine HCl (Apresoline) 25 mg TID PO ; Start 08/12/21 at 21:00 Losartan Potassium (Cozaar) 25 mg DAILY PO ; Start 08/13/21 at 09:00 Non-Formulary Medication (Atorvastatin Calcium ) 1 tab DAILY PO ; Start 08/13/21 at 09:00; Status UNV Carvedilol (Coreg) 12.5 mg BIDWMEALS PO ; Start 08/12/21 at 17:00 Ciprofloxacin (Cipro) 500 mg BID PO ; Start 08/12/21 at 21:00; Stop 08/15/21 at 09:01; Status DC Duloxetine HCl (Cymbalta) 60 mg DAILY PO ; Start 08/13/21 at 09:00 Amylase/Lipase/ Protease (Zenpep 10,000) 5 cap TIDWMEALS PO ; Start 08/12/21 at 17:00 Pantoprazole Sodium (Protonix) 40 mg DAILYAC PO ; Start 08/13/21 at 07:30; Stop 08/13/21 at 13:04; Status DC Non-Formulary Medication (Semaglutide (Ozempic)) 0.5 mg WEEKLY SQ ; Start 08/19/21 at 09:00; Status UNV Metoprolol Tartrate (Lopressor Vial) 5 mg PRN Q6HRS PRN IVP HYPERTENSION 1ST CHOICE Last administered on 08/13/21at 13:12; Start 08/12/21 at 16:15 Potassium Chloride/Water 100 ml @ 100 mls/hr 1X ONCE IV Last administered on 08/12/21at 19:22; Start 08/12/21 at 19:00; Stop 08/12/21 at 19:59; Status DC Potassium Chloride/Water 100 ml @ 100 mls/hr Q1H IV Last administered on 08/12/21at 22:18; Start 08/12/21 at 20:00; Stop 08/12/21 at 23:59; Status DC Potassium Chloride/Dextrose/ Sod Cl 1,000 ml @ 100 mls/hr Q10H IV Last administered on 08/15/21at 05:46; Start 08/13/21 at 13:00; Stop 08/15/21 at 10:18; Status DC Labetalol HCl (Normodyne Iv Push) 20 mg PRN Q4HRS PRN IVP HYPERTENSION, 2ND CHOICE Last administered on 08/15/21at 08:24; Start 08/13/21 at 13:00 Morphine Sulfate (Morphine Sulfate) 2 mg PRN Q2HR PRN IVP PAIN; Start 08/13/21 at 13:00 Ondansetron HCl (Zofran) 4 mg PRN Q6HRS PRN IVP NAUSEA/VOMITING; Start 08/13/21 at 13:00 Pantoprazole Sodium (PROTONIX VIAL for IV PUSH) 40 mg DAILYAC IVP Last administered on 08/16/21at 07:09; Start 08/14/21 at 07:30 Potassium Chloride/Water 100 ml @ 100 mls/hr Q1H IV Last administered on 08/14at 10:45; Start 08/14/21 at 07:00; Stop 08/14/21 at 10:59; Status DC Potassium Chloride (Klor-Con) 40 meq Q2H PO ; Start 08/14/21 at 12:00; Stop 08/14/21 at 16:01; Status DC Magnesium Sulfate 50 ml @ 25 mls/hr 1X ONCE IV Last administered on 08/14/21at 12:34; Start 08/14/21 at 12:00; Stop 08/14/21 at 13:59; Status DC Non-Formulary Medication (Semaglutide (Ozempic*) 2mg/ 1.5ml) 0.5 ea QFR SQ ; Start 08/14/21 at 16:00 Lactobacillus Rhamnosus (Culturelle) 1 cap BID PO Last administered on 08/15at 09:00; Start 08/14/21 at 21:00 Potassium Chloride/Water 100 ml @ 50 mls/hr Q2H IV Last administered on 08/15/21at 14:40; Start 08/15/21 at 10:30; Stop 08/15/21 at 14:29; Status DC Magnesium Sulfate 50 ml @ 25 mls/hr 1X ONCE IV Last administered on 08/15/21at 12:36; Start 08/15/21 at 10:30; Stop 08/15/21 at 12:29; Status DC Levofloxacin/ Dextrose 150 ml @ 100 mls/hr Q24H IV Last administered on 08/16/21at 12:15; Start 08/15/21 at 11:00 Active Scripts Active Omeprazole 40 Mg Capsule.dr 1 Cap PO DAILY Cipro (Ciprofloxacin Hcl) 500 Mg Tablet 1 Tab PO BID 3 Days Doxycycline Hyclate 100 Mg Tablet 100 Mg PO BID Atorvastatin Calcium 40 Mg Tablet 80 Mg PO QHS Clopidogrel (Clopidogrel Bisulfate) 75 Mg Tablet 75 Mg PO DAILY 30 Days Reported Aliya Alonso 25,000 Unit Capsule (Lipase/Protease/Amylase) 1 Each Capsule.dr 1 Cap PO BID Ozempic (Semaglutide) 1 Mg/0.75 Ml Pen.injctr 0.5 Mg SQ WEEKLY Losartan Potassium 50 Mg Tablet 25 Mg PO DAILY Hydralazine Hcl 25 Mg Tablet 1 Tab PO TID Gabapentin (Gabapentin) 100 Mg Capsule 200 Mg PO TID Famotidine 20 Mg Tablet 20 Mg PO DAILY Cymbalta (Duloxetine Hcl) 60 Mg Capsule. 1 Cap PO DAILY Carvedilol 25 Mg Tablet 12.5 Mg PO BIDWMEALS Calcitriol 0.25 Mcg Capsule 1 Cap PO DAILY Atorvastatin Calcium 80 Mg Tablet 1 Tab PO DAILY Vitals/I & O Vital Sign - Last 24 Hours 08/15/21 08/15/21 08/15/21 08/16/21 19:00 20:00 23:06 03:11 Temp 97.6 99.8 100.1 97.6 99.8 100.1 Pulse 86 77 88 Resp 20 20 20 B/P (MAP) 150/67 (94) 154/69 (97) 163/83 (109) Pulse Ox 92 94 92 O2 Delivery Nasal Cannula Nasal Cannula Nasal Cannula Nasal Cannula O2 Flow Rate 2.0 08/16/21 08/16/21 08/16/21 08/16/21 05:29 07:00 08:00 08:00 Temp 99.0 98.6 99.0 98.6 Pulse 98 86 86 Resp 20 B/P (MAP) 138/70 (92) 168/86 (113) 168/86 Pulse Ox 92 O2 Delivery Nasal Cannula Nasal Cannula O2 Flow Rate 2.0 08/16/21 08/16/21 08/16/21 08/16/21 09:00 09:00 11:00 14:00 Temp 97.9 97.9 Pulse 86 86 90 90 Resp 20 B/P (MAP) 168/86 168/86 150/102 (118) 150/102 Pulse Ox 90 O2 Delivery Nasal Cannula 08/16/21 08/16/21 15:00 16:32 Temp 99.1 99.1 Pulse 87 87 Resp 20 B/P (MAP) 146/65 (92) 146/65 Pulse Ox 87 O2 Delivery Nasal Cannula Intake and Output 08/15/21 08/15/21 08/16/21 15:00 23:00 07:00 Intake Total 300 ml 100 ml Output Total 0 ml Balance 300 ml 100 ml 0 ml Nutrition Consultation Dietary Evaluation: Comments: RD consult 08/12. Pt just d/c 08/11 - refer to RD note on 08/04 and 08/11. Justicifation of Admission Dx: Justifications for Admission: Justification of Admission Dx: Yes ALIZA RODRIGUEZ MD Aug 16, 2021 17:13"
[2021-08-16] MEDS: ATORVASTATIN CALCIUM 40 MG TABLET. PO SCH (21:00)
[2021-08-16] MEDS ORDERED: ALPRAZolam 0.5 MG TABLET PO PRN (22:00)
[2021-08-17 03:44] VITALS: BP 143/68
[2021-08-17] MEDS: PANTOPRAZOLE IV PUSH 40 MG VIAL. IVP SCH (06:01)
[2021-08-17 07:00] VITALS: BP 162/81
[2021-08-17] MEDS: CARVEDILOL 12.5 MG TABLET. PO SCH (08:00)
[2021-08-17] MEDS: LIPASE/PROTEAS/AMYLAS 10/32/42 CAPSULE.DR. PO SCH ×2 (08:00→12:00)
[2021-08-17] MEDS: CALCITRIOL 0.25 MCG CAPSULE. PO SCH (09:00)
[2021-08-17] MEDS: LACTOBACILLUS RHAMNOSUS GG 1 CAPSULE. PO SCH (09:00)
[2021-08-17] MEDS: GABAPENTIN 100 MG CAPSULE. PO SCH (09:00)
[2021-08-17] MEDS: LOSARTAN POTASSIUM 25 MG TABLET. PO SCH (09:00)
[2021-08-17] MEDS: DULoxetine HCL 30 MG CAPSULE.DR PO SCH (09:00)
[2021-08-17] MEDS: hydrALAZINE 25 MG TABLET PO SCH (09:00)
--- NOTE | 2021-08-17 10:26 | PDOC ---
Date of Service: DATE: 08/17/21 TIME: 10:21 Subjective: Subjective: I saw him earlier this morning. Feels better than last week. Denies abdominal pain and vomiting. I asked about nausea - "just phlegm." Eating some. Had one stool today. Says he's taking his meds. Talks about going home with home health. Objective: Objective: Charted that pt refusing meds. Vital Signs: Vital Signs Date Time Temp Pulse Resp B/P (MAP) Pulse Ox O2 Delivery O2 Flow Rate FiO2 08/17/21 09:00 94 162/81 08/17/21 07:00 99.7 18 90 99.7 08/16/21 23:40 Nasal Cannula 08/16/21 23:00 2.0 Labs: Laboratory Tests Test 08/16/21 19:36 08/17/21 07:22 Glucose (Fingerstick) 93 mg/dL 87 mg/dL PE: GEN: NAD - was asleep in chair, bit difficult to rouse LUNGS: CTAB HEART: RRR ABD: S/ND/NT NEURO/PSYCH: seems lethargic A/P: Abdominal pain, nausea - better? Anemia, hypokalemia, hypomagnesemia Abnormal CT - thickening and infiltration about the appendix, cholelithiasis H/o GERD and chronic diarrhea - receiving IV PPI, declining pancreatic enzymes (which have been effective in past) PAD, DM -- Varying history. 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 Justicifation of Admission Dx: Justifications for Admission: Justification of Admission Dx: Yes HERO ESPINOSA Aug 17, 2021 10:26
[2021-08-17 11:00] VITALS: BP 162/87
[2021-08-17] MEDS ORDERED: LEVO750T5 PO (11:50)
--- NOTE | 2021-08-17 11:52 | SNU/HH DC ---
DISCHARGE WITH HOME HEALTH DISCHARGE INFORMATION: Discharge Date: Aug 17, 2021 Condition on Discharge: Stable CODE STATUS: Code Status: Full HOME HEALTH: Face to Face: I certify this patient is under my care and that I, or a nurse practitioner or [employer] title assistant working with me, had a face to face encounter that meets the physician face to face encounter requirements with this patient on [08/17/2021]. [facility] For: Assess & Educate Safety, Assess/Skilled Observatio RN For Eval/Treatment: Yes Physical Therapy For: Evalulation/Treatment Occupational Therapy For: Other: (Please also include respiratory therapy) Pt Meets Homebound Status: Poor coordination w/ amb., Unsteady balance w/ amb,, Extreme weakness w/ amb. POST DISCHARGE ORDERS: Activity Instructions for Disc: Activity as tolerated Weight Bearing Status after Di: As tolerated, Partial weight bearing DIET AFTER DISCHARGE: ADA Wound/Incision Care: No wound care needed CHECKS AFTER DISCHARGE: Checks after discharge: Check blood press - daily, Check blood sugar, ac/hs, Check your Temp as needed TREATMENT/EQUIPMENT ORDERS: Adaptive Equipment Issued: Walker Discharge Respiratory Equipmen: Oxygen CERTIFICATION STATEMENT: Certification Statement: Certification Statement: Based on the above finding, I certify that this patient is confined to the home and needs intermittent nursing home care, physical therapy and/or speech therapy, or continues to need occupational therapy.~ This patient is under my care, and I have initiated the establishment of the plan of care.~ This patient will be followed by myself or a community physician who will periodically review the plan of care. Home Meds Active Scripts Levofloxacin (LEVOFLOXACIN) 750 Mg Tablet, 750 MG PO Q24H for intrabdominal for 5 Days, #5 TAB Prov:GIANCARLO EUGENE MD 08/17/21 Omeprazole (OMEPRAZOLE) 40 Mg Capsule., 1 CAP PO DAILY for GERD, #30 CAP 3 Refills Prov:MICHELLE CAPPS MD 08/12/21 Atorvastatin Calcium (ATORVASTATIN CALCIUM) 40 Mg Tablet, 80 MG PO QHS for cardiac, #60 TAB Prov:MICHELLE CAPPS MD 08/12/21 Clopidogrel Bisulfate (CLOPIDOGREL) 75 Mg Tablet, 75 MG PO DAILY for blood clotting for 30 Days, #30 TAB 2 Refills Prov:ALVINO VINCENT APRN 08/07/21 Reported Medications Lipase/Protease/Amylase (Aliya Alonso 25,000 Unit Capsule) 1 Each Capsule., 1 CAP PO BID for diarrhea 08/07/21 Semaglutide (Ozempic) 1 Mg/0.75 Ml Pen.injctr, 0.5 MG SQ WEEKLY for diabetes, EACH 08/02/21 Losartan Potassium (LOSARTAN POTASSIUM) 50 Mg Tablet, 25 MG PO DAILY for HYPERTENSION, TAB 08/02/21 Hydralazine Hcl (HYDRALAZINE HCL) 25 Mg Tablet, 1 TAB PO TID for high blood pressure, #90 TAB 5 Refills 08/02/21 Gabapentin (GABAPENTIN ) 100 Mg Capsule, 200 MG PO TID for NEUROGENIC PAIN, CAP 08/02/21 Duloxetine Hcl (CYMBALTA) 60 Mg Capsule.dr, 1 CAP PO DAILY for as prescribed, #90 CAP 3 Refills 08/02/21 Carvedilol (CARVEDILOL) 25 Mg Tablet, 12.5 MG PO BIDWMEALS for CARDIAC, TAB 08/02/21 Calcitriol (CALCITRIOL) 0.25 Mcg Capsule, 1 CAP PO DAILY for Take daily, #30 CAP 5 Refills 08/02/21 Discontinued Reported Medications Famotidine (FAMOTIDINE) 20 Mg Tablet, 20 MG PO DAILY for acid reflux, TAB 08/02/21 Atorvastatin Calcium (ATORVASTATIN CALCIUM) 80 Mg Tablet, 1 TAB PO DAILY, #30 TAB 5 Refills 04/07/17 Omeprazole (OMEPRAZOLE) 20 Mg Capsule.dr, 20 MG PO DAILY for gerd, CAP 05/02/19 Discontinued Scripts Ciprofloxacin Hcl (CIPRO) 500 Mg Tablet, 1 TAB PO BID for gut infection for 3 Days, #6 TAB 0 Refills Prov:MICHELLE CAPPS MD 08/12/21 Doxycycline Hyclate (DOXYCYCLINE HYCLATE) 100 Mg Tablet, 100 MG PO BID for gut infection, #6 TAB Prov:MICHELLE CAPPS MD 08/12/21 GIANCARLO EUGENE MD Aug 17, 2021 11:52
--- NOTE | 2021-08-17 13:43 | NUR ---
SW following. Discussed with RN, pt from home with , wanting to return home rather than to a SNF. Pt's contacted SW to see if home health had been arranged. Pt's does not have a preference. ALETA notified Grayson Coello RN because the also have a respiratory therapist as well as do their best to get pts to facilities from home if possible. SW notified pt's to speak to the home health company if pt realizes when he gets home that he should have gone to a facility. Pt's verbalized understanding. RN notified. Possible discharge home with home health today.
[2021-08-17 15:00] VITALS: BP 167/91
--- NOTE | 2021-08-17 17:18 | NUR ---
Discharge Note: [facility] Discharge instructions and discharge home medications reviewed with Patient and a copy given. All questions have been answered and understanding verbalized. The following instructions and handouts were given: follow up instructions, medication education, Rx sent electronically to pharmacy. Discontinued lines and drains: 22 guage left hand, tip intact. patient tolerated well. Wound dressing changed on right foot. Patient discharged to home with home health via .
[2021-08-19] MEDS ORDERED: SEMAGLUTIDE 0.5 MG SQ SCH (09:00)
== END 2021-08-17 16:30 | disposition home health service (06) | DRG 177 ==
LOC: 5 SOUTH 15:09
PROVIDERS: ADMIT Internal Medicine; ATTEND Internal Medicine
DX: J15.6 Pneumonia due to other Gram-negative bacteria (principal); E43 Unspecified severe protein-calorie malnutrition; I13.0 Hypertensive heart and chronic kidney disease with heart failure and stage 1 through stage 4 chronic kidney disease, or unspecified chronic kidney disease; I50.32 Chronic diastolic (congestive) heart failure; E11.52 Type 2 diabetes mellitus with diabetic peripheral angiopathy with gangrene; J15.9 Unspecified bacterial pneumonia; D64.9 Anemia, unspecified; E11.22 Type 2 diabetes mellitus with diabetic chronic kidney disease; E11.40 Type 2 diabetes mellitus with diabetic neuropathy, unspecified; E78.5 Hyperlipidemia, unspecified; E83.42 Hypomagnesemia; K52.9 Noninfective gastroenteritis and colitis, unspecified; E87.6 Hypokalemia; F32.A Depression, unspecified; F41.9 Anxiety disorder, unspecified; I48.91 Unspecified atrial fibrillation; K21.9 Gastro-esophageal reflux disease without esophagitis; K86.89 Other specified diseases of pancreas; N18.30 Chronic kidney disease, stage 3 unspecified; Z68.30 Body mass index [BMI] 30.0-30.9, adult; Z82.49 Family history of ischemic heart disease and other diseases of the circulatory system; Z86.73 Personal history of transient ischemic attack (TIA), and cerebral infarction without residual deficits; Z91.041 Radiographic dye allergy status
CPT/HCPCS: 36415; 71045; 80048; 80053; 82962; 83735; 85007; 85025; 87493; C9113; J1956; J3475; J3480; J3490; 97116-GP; 97530-GP; G0378